=== PATIENT | female | born 1980 | race Caucasian/White ===

== ENCOUNTER 2019-05-19 05:40 | Inpatient (IN) | payer OTHER, SELFPAY ==
[2019-05-19] VITALS (14 sets, daily range): BP systolic 102–147; BP diastolic 40–87; PULSE 70–126; RESP 17–26; TEMP 36.3–37.1; O2SAT 93–98; BMI 48.0; BMI 47.9
--- NOTE | ~2019-05-19 | XR_ITS ---
EXAMINATION: XR abdomen obstructive series DATE: 05/28/2019 12:29 INDICATION: Nausea, vomiting and possible ileus TECHNIQUE: Frontal supine and upright views of the abdomen were obtained. COMPARISON: 05/26/2019 FINDINGS: Nasogastric tube extends into the stomach, coiled back upon itself at the level of the gastric antrum with the tip at the fundus. No dilated gas-filled loops of bowel. No free intraperitoneal gas. Righ t femoral central venous catheter with distal tip projecting over the region of the right external il iac vein. Visualized lung bases are clear. Heart size is normal. IMPRESSION: 1. No free intraperitoneal gas or dilated gas-filled loops of bowel to suggest obstruction. 2. Redundant nasogastric tube in the stomach. Could consider withdrawal by 15 cm. Reviewed, dictated and finalized at location A. IMPRESSION: 1. No free intraperitoneal gas or dilated gas-filled loops of bowel to suggest obstruction. 2. Redundant nasogastric tube in the stomach. Could consider withdrawal by 15 c m.
--- NOTE | ~2019-05-19 | XR_ITS ---
EXAMINATION: XR abdomen NG/feed tube insert EXAM DATE: 05/27/2019 13:27 INDICATION: Nasogastric tube insertion. TECHNIQUE: Frontal projection(s) of the abdomen for interpretation. Comparison is made to prior exami nation from 05/26/2019. FINDINGS: Feeding tube tip and side-port overlying gastric bubble. Expected position. Upper abdomina l bowel gas pattern is unremarkable. IMPRESSION: Feeding tube in position. Nonobstructive bowel gas pattern. Reviewed, dictated and finalized at location A.
--- NOTE | ~2019-05-19 | XR_ITS ---
EXAMINATION: XR chest 1V portable EXAM DATE: 05/20/2019 19:46 INDICATION: Dyspnea. TECHNIQUE: Portable AP frontal chest x-ray was obtained. Comparison is made to prior examination from earlier same date, and yesterday. FINDINGS: Continued interval progression in extensive bilateral edema and/or pneumonia, please clinic ally correlate. There is mild cardiomegaly. No pleural effusion or pneumothorax. There are no osseous abnormalities identified. IMPRESSION: 1. Progression of extensive bilateral edema and/or pneumonia. Reviewed, dictated and finalized at location A.
--- NOTE | ~2019-05-19 | US_ITS ---
EXAMINATION: US retroperitoneal comp DATE: 05/28/2019 09:52 INDICATION: Renal failure TECHNIQUE: Multiple ultrasound grayscale images of the kidneys were obtained. COMPARISON: None. FINDINGS: The right kidney measures 11.2 x 4.5 x 5.9 cm. The left kidney measures 10.3 x 5.8 x 7.1 cm. The kidn eys demonstrate normal echogenicity. There is no hydronephrosis in either kidney. No stones identifi ed. The bladder is nonvisualized, likely decompressed with a Flores catheter reportedly in place. IMPRESSION: 1. Normal kidneys without hydronephrosis. Reviewed, dictated and finalized at location A.
--- NOTE | ~2019-05-19 | XR_ITS ---
XR chest 1V portable 05/20/2019 12:48 Indication: Shortness of breath Procedure: AP portable chest Comparison: 05/19/2019 Findings: Hazy ill-defined bilateral airspace disease. Heart size normal. No pleural effusion or pneu mothorax. No acute osseous abnormality. Impression: 1: Patchy ill-defined bilateral airspace disease, compatible with pneumonia. Edema less favored. Reviewed, dictated and finalized at location A. Impression: 1: Patchy ill-defined bilateral airspace disease, compatible with pneumonia. Ed ernie less favored.
--- NOTE | ~2019-05-19 | XR_ITS ---
XR chest 1V portable DATE: 05/22/2019 06:19 INDICATION: Respiratory failure TECHNIQUE: Portable upright AP chest on 05/22/2019 at 0526 hours COMPARISON: 05/21/2019 portable AP chest at 0837 hours 05/20/2019 portable AP chest at 1940 hours FINDINGS: There is mild residual diffuse pulmonary interstitial infiltrate, serial improvement of ext ensive bilateral pulmonary infiltrates since 05/20/2019. No pleural effusion or pneumothorax is evident. IMPRESSION: Diffuse bilateral pulmonary infiltrates, with serial improvement since 05/20/2019 Reviewed, dictated and finalized at location A. IMPRESSION: Diffuse bilateral pulmonary infiltrates, with serial improvement si nce 05/20/2019
--- NOTE | ~2019-05-19 | XR_ITS ---
XR chest 1V portable DATE: 05/23/2019 05:50 INDICATION: Respiratory failure TECHNIQUE: Portable AP chest on 05/23/2019 at 0512 hours COMPARISON: 05/22/2019 portable AP chest at 0812 hours FINDINGS: Tip of ET tube is approximately 4 cm above jake. A nasogastric tube is noted in the stoma ch. There are extensive patchy bilateral pulmonary infiltrates, with little interval change since 05/22/19 20. IMPRESSION: Stable severe bilateral pulmonary infiltrates Reviewed, dictated and finalized at location A.
--- NOTE | ~2019-05-19 | US_ITS ---
EXAMINATION: US venous doppler UE RT EXAM DATE: 05/28/2019 12:45 INDICATION: Right arm tenderness. TECHNIQUE: Multiple grayscale, color flow, Doppler sonographic images of the right upper extremity ve ins obtained by technologist. Compression was performed where able. There is no prior study for anthony napoles. FINDINGS: Right upper extremity: Jugular vein: ------------> Normal. Subclavian vein: --------> Normal. Axillary vein:------------> Normal. Brachial vein:-----------> Thrombosed. Basilic vein: ------------> Thrombosed. Cephalic vein: ----------> Thrombosed. Radial vein: ------------> Normal. Ulnar vein: > Normal. IMPRESSION: Positive for right brachial DVT. Basilar, cephalic SVT. I discussed DVT with intensive care unit nurse Cindy at 05/28/2019 12:51 CDT. Reviewed, dictated and finalized at location A.
--- NOTE | ~2019-05-19 | XR_ITS ---
EXAMINATION: XR abdomen NG/feed tube insert DATE: 05/22/2019 08:17 INDICATION: Nasogastric tube placement. TECHNIQUE: A semiupright view of the abdomen was obtained. COMPARISON: None. FINDINGS: The lower abdomen is excluded. There are no dilated loops of bowel. The nasogastric tube ti p is in the stomach. IMPRESSION: 1. Nasogastric tube tip in the stomach. Reviewed, dictated and finalized at location A.
--- NOTE | ~2019-05-19 | XR_ITS ---
EXAMINATION: XR chest ET placement EXAM DATE: 05/22/2019 08:17 INDICATION: Intubated. TECHNIQUE: Portable AP frontal chest x-ray was obtained. Comparison is made to prior examination from 05/22/2019. FINDINGS: Endotracheal tube tip is 3 centimeters above the jake (ideal range is between 2 to 5 cm). The feed ing tube is in position. There is extensive bilateral edema and/or pneumonia. There are no sizable pleural effusions. There is no pneumothorax suspected. The cardiomediastinal silhouette is prominent but magnified on this A P technique. The bones and soft tissues are unremarkable. Mild interval progression compared to abraham or study. IMPRESSION: 1. ET, NG tube in position. 2. Extensive bilateral edema and/or pneumonia with mild interval progression. Reviewed, dictated and finalized at location B.
--- NOTE | ~2019-05-19 | XR_ITS ---
XR abdomen NG/feed tube insert DATE: 05/26/2019 08:23 INDICATION: NG tube placement TECHNIQUE: Portable AP view on 05/22/2019 at 0813 hours COMPARISON: None FINDINGS: A nasogastric tube is present in the gastric fundus. IMPRESSION: NG tube in gastric fundus Reviewed, dictated and finalized at Location A. Reviewed, dictated and finalized at location B. IMPRESSION: NG tube in gastric fundus
--- NOTE | ~2019-05-19 | XR_ITS ---
EXAMINATION: XR humerus RT EXAM DATE: 05/28/2019 10:34 INDICATION: No known recent injury provided at this time. Pain of the right humerus. TECHNIQUE: Orthogonal projections right humerus. There is no prior study for comparison. FINDINGS: There are no acute fractures or dislocations identified. There is no subcutaneous gas. Th e soft tissue is unremarkable. There are no radiopaque foreign bodies. IMPRESSION: 1. Unremarkable XR humerus RT exam. Reviewed, dictated and finalized at location A.
--- NOTE | ~2019-05-19 | CT_ITS ---
EXAMINATION: CTA chest PE protocol DATE: 05/19/2019 07:33 CDT INDICATION: Dyspnea. Cough for 2 weeks. History of CHF. TECHNIQUE: Computed tomographic angiography (CTA) of the chest was performed with 100 mL Omnipaque-35 0 intravenous contrast. The dose-length product was 881.98 mGy-cm. Maximum intensity projection 3D-re constructions of the aorta and other arteries were constructed by the technologist on a separate work station. COMPARISON: Chest x-ray dated 05/19/2019 FINDINGS: Study limited by motion artifact for evaluation of subsegmental pulmonary arteries. No cent ral pulmonary embolism is identified. Cardiomegaly. No significant pleural or pericardial effusion. T here is mediastinal lymphadenopathy. For instance right paratracheal lymph node measures 1.4 cm, imag e 46. No evidence for aortic aneurysm or dissection. There is patchy bilateral airspace disease affec ting all lobes, consistent with pneumonia. IMPRESSION: 1. Patchy bilateral airspace disease, consistent with pneumonia. 2: No evidence for pulmonary embolism. 3: Mediastinal lymphadenopathy, likely reactive. Reviewed, dictated and finalized at location A.
--- NOTE | ~2019-05-19 | XR_ITS ---
XR chest 2V INDICATION: Shortness of breath with cough TECHNIQUE: 2 view chest. FINDINGS: 11/04/2018 There is mild bilateral interstitial prominence and peribronchial cuffing. There is no focal consoli dation, pleural effusion, or pneumothorax. The cardiomediastinal silhouette is normal.] IMPRESSION: 1. Findings most consistent with bronchiolitis versus an atypical or viral pneumonia. Reviewed, dictated and finalized at location A. IMPRESSION: 1. Findings most consistent with bronchiolitis versus an atypical or viral pne [facility].
--- NOTE | ~2019-05-19 | XR_ITS ---
EXAMINATION: XR chest 1V portable EXAM DATE: 05/29/2019 05:53 INDICATION: TECHNIQUE: Portable AP frontal chest x-ray was obtained. Comparison is made to prior examination from 05/28/2019. FINDINGS: Feeding tube is in position. Scattered bilateral perihilar atelectasis and/or pneumonia. There are no sizable pleural effusions. There is no pneumothorax suspected. Cardiomediastinal esha houette is normal. The bones and soft tissues are unremarkable. There is no significant interval ch saji compared to prior exam. IMPRESSION: 1. Bilateral perihilar atelectasis and/or pneumonia unchanged. Reviewed, dictated and finalized at location A.
--- NOTE | ~2019-05-19 | XR_ITS ---
XR chest 1V portable DATE: 05/25/2019 06:15 INDICATION: Respiratory failure TECHNIQUE: Portable AP chest on 05/25/2019 at 0507 hours COMPARISON: 05/24/2019 portable AP chest at 0521 hours FINDINGS: ET tube in satisfactory position, 2.8 cm above jake. NG tube in stomach. Heart size appears within normal limits. Pulmonary vascular congestion is suggested. There are bilate ral pulmonary infiltrates, right greater than left, suggestion of mild improvement on the right. IMPRESSION: Mild improvement of right-sided infiltrates since 05/24/2019 Reviewed, dictated and finalized at location A.
--- NOTE | ~2019-05-19 | XR_ITS ---
XR chest 1V portable DATE: 05/26/2019 05:34 INDICATION: Respiratory failure TECHNIQUE: COMPARISON: None FINDINGS: ET tube in satisfactory position approximately 3.8 cm above jake. A nasogastric tube is n oted in the stomach. No central lines. There are patchy bilateral pulmonary infiltrates and/atelectasis involving particularly the left mid and both lower lung zones. The infiltrates and atelectasis appear increased overall since 05/25/2019. IMPRESSION: Increased bilateral pulmonary infiltrates and/atelectasis since 05/25/2019 Reviewed, dictated and finalized at location A. IMPRESSION: Increased bilateral pulmonary infiltrates and/atelectasis since 05/10
--- NOTE | ~2019-05-19 | XR_ITS ---
EXAMINATION: XR chest 1V portable EXAM DATE: 05/28/2019 05:53 INDICATION: Pneumonia, respiratory failure. TECHNIQUE: Portable AP frontal chest x-ray was obtained. Comparison is made to prior examination from yesterday. FINDINGS: Endotracheal tube not identified, patient has likely been extubated. Feeding tube is in po sition. Linear bilateral perihilar opacities appearance most consistent with atelectasis. There are no sizab le pleural effusions. There is no pneumothorax suspected. The cardiomediastinal silhouette is pro minent but magnified on this AP technique. The bones and soft tissues are unremarkable. There has been interval improvement in the airspace disease compared to prior study. IMPRESSION: 1. Nasogastric tube in position. 2. Improving perihilar airspace disease. Reviewed, dictated and finalized at location A.
--- NOTE | ~2019-05-19 | XR_ITS ---
EXAMINATION: XR chest 1V portable INDICATION: Respiratory failure TECHNIQUE: Portable AP chest at 0521 hours COMPARISON: 05/23/2019 FINDINGS: The endotracheal tube is 4.2 cm above the jake. A nasogastric tube is in the stomach. The re is stable cardiomegaly. No pleural effusion or pneumothorax is identified. There are unchanged dif fuse opacity throughout the right lung. Diffuse left lung opacities persist but have improved. IMPRESSION: 1. Diffuse lung disease with interval improvement on the left, consistent with pulmonary edema versus pneumonia. 2. Stable cardiomegaly. Reviewed, dictated and finalized at location A.
--- NOTE | ~2019-05-19 | XR_ITS ---
EXAMINATION: XR chest 1V portable EXAM DATE: 05/30/2019 05:24 INDICATION: Pneumonia, respiratory failure. TECHNIQUE: Portable AP frontal chest x-ray was obtained. Comparison is made to prior examination from 05/29/2019. FINDINGS: Linear bilateral perihilar atelectasis and/or pneumonia. No confluent consolidation, pneumo thorax or pleural effusion suspected. Cardiomediastinal silhouette is normal. There are bony degenera tive changes. Compared to prior study, right perihilar linear atelectasis is new. There may be improvement in the l ess well-defined bilateral perihilar atelectasis/pneumonia previously seen. IMPRESSION: 1. Bilateral linear opacities most consistent with atelectasis. Reviewed, dictated and finalized at location A.
--- NOTE | ~2019-05-19 | XR_ITS ---
XR abdomen obstructive series DATE: 05/26/2019 09:09 INDICATION: Ileus TECHNIQUE: Portable supine and upright AP views COMPARISON: None FINDINGS: An NG tube overlies the right upper quadrant medially, likely within the distal stomach or possibly proximal duodenum. The bowel gas pattern is nonspecific, without evidence of abnormal small or large bowel dilatation. A right calcified pelvic phlebolith is noted. No significant abnormal calcification is identified. No visceromegaly is noted. IMPRESSION: NG tube in distal stomach or proximal duodenum Nonspecific bowel gas pattern, without apparent obstruction Reviewed, dictated and finalized at Location A. Reviewed, dictated and finalized at location B.
--- NOTE | ~2019-05-19 | XR_ITS ---
EXAMINATION: XR chest 1V portable EXAM DATE: 05/27/2019 05:31 INDICATION: TECHNIQUE: Portable AP frontal chest x-ray was obtained. Comparison is made to prior examination from 05/26/2019. FINDINGS: Endotracheal tube tip is 5 centimeters above the jake (ideal range is between 2 to 5 cm). Feeding tube is in position. There are some regions of bilateral perihilar airspace disease, atelectasis and/or pneumonia. Account ing for differences in technique, there is no significant interval change. There are no sizable pl eural effusions. There is no pneumothorax suspected. Cardiomediastinal silhouette is normal. The bones and soft tissues are unremarkable. There is no significant interval change compared to prior exam. IMPRESSION: 1. Tubes in position. 2. Stable perihilar atelectasis and/or pneumonia. Reviewed, dictated and finalized at location A.
--- NOTE | ~2019-05-19 | XR_ITS ---
EXAMINATION: XR chest 1V portable DATE: 05/21/2019 08:38 INDICATION: Pneumonia. Chronic obstructive pulmonary disease. TECHNIQUE: A single frontal view of the chest was obtained. COMPARISON: Chest single view 05/20/2019, chest CT 05/19/2019 FINDINGS: There are airspace opacities involving all lung zones bilaterally. No pleural effusion or p neumothorax. Cardiomegaly is noted. IMPRESSION: 1. Diffuse lung disease with interval improvement, consistent with pulmonary edema versus pneumonia. 2. Cardiomegaly. Reviewed, dictated and finalized at location A. IMPRESSION: 1. Diffuse lung disease with interval improvement, consistent with pulmonary ed ernie versus pneumonia. 2. Cardiomegaly.
--- NOTE | 2019-05-19 05:51 | ECG_ITS ---
Measurements Intervals [place] Rate: 112 P: 55 MN: 158 QRS: 3 QRSD: 89 T: 14 QT: 325 QTc: 445 Interpretive Statements SINUS TACHYCARDIA LOW QRS VOLTAGE IN PRECORDIAL LEADS BORDERLINE T WAVE ABNORMALITY- INFERIOR LEADS BASELINE ARTIFACT- I, II, III, AVR, AVL, AVF, V1-V2 ABNORMAL ECG Electronically Signed On 05-19-2019 7:12:02 CDT by Matthew Li D.O.
[2019-05-19 05:58] LABS: Basophils Percent Auto 0.3 % (0.2-1.2); Eosinophils Absolute Auto 0.3 K/mm3 (0-0.3); Eosinophils Percent Auto 2.6 % (0-4.4); Hematocrit 34.5 % (37.0-47.0); Hemoglobin 11.5 g/dL (12.0-15.0); Immature Granulocyte Absolute 0.08 K/mm3 (0.00-0.031); Immature Granulocyte Percent A 0.7 % (0-0.5); Lymphocytes Absolute Auto 1.81 K/mm3 (0.9-3.2); Lymphocytes Percent Auto 15.3 % (18.3-44.2); Mean Corpuscular HGB Conc 33.3 g/dl (32-36); Mean Corpuscular Volume 98.9 fl (80-100); Mean Platelet Volume 10.1 fl (7.4-10.4); Monocytes Absolute Auto 0.7 K/mm3 (0.1-0.6); Monocytes Percent Auto 6.3 % (2.6-8.5); Neutrophils Absolute Auto 8.8 K/mm3 (1.3-6.7); Neutrophils Percent Auto 74.8 % (45.5-73.1); Nucleated Red Blood Cells Perc 0.2 % (0.0-0.2); Platelet Count Result 245 k/mm3 (150-375); Red Blood Count 3.49 M/mm3 (4.2-5.4); Red Cell Distribution Width 15.2 % (11.5-14.5); White Blood Count 11.8 K/mm3 (4.5-10.0)
[2019-05-19 06:12] LABS: Blood Urea Nitrogen 11 mg/dL (7-17); Calcium 9.1 mg/dL (8.4-10.2); Carbon Dioxide 22 mmol/L (22-30); Chloride 99 mmol/L (98-107); Estimated Glomerular Filt Rate > 60; Glucose 141 mg/dL (65-105); Potassium 3.9 mmol/L (3.4-5.0); Sodium 133 mmol/L (137-145)
--- NOTE | 2019-05-19 06:18 | ED.FEVER ---
HPI - Fever General Chief Complaint: Fever Stated Complaint: dizzy, sob, n/v, cp X 2 weeks Time Seen by Provider: 05/19/19 06:04 Source: RN notes reviewed History of Present Illness HPI Narrative: Patient presents to emergency department from home for upper respiratory symptoms. Patient states that she has been sick for the past 2 weeks. States that initially it had a cough and rhinorrhea that had improved. Patient states that 3 days ago symptoms began to worsen. Patient states she has had a persistent cough productive of yellow sputum. Associated with temperatures up to 103 ?F with last fever last night at 9 PM. Patient states she took NyQuil at that time. Patient also associates rhinorrhea sore throat and vomiting with last episode of vomiting yesterday. Patient denies any abdominal pain at this time. Denies any other symptoms patient denies any recent travel either foreign or domestic Related Data Allergies Allergy/AdvReac Type Severity Reaction Status Date / Time quetiapine Allergy Unknown Nervousness Verified 11/04/18 09:21 Review of Systems Review of Systems: Narrative: Gen.: Reports fevers and chills Eyes: Denies eye pain or visual change ENT: Reports congestion and sore throat Respiratory: Reports shortness of breath and cough CV: Denies chest pain or palpitations GI: Denies abdominal pain reports nausea and vomiting Musculoskeletal: Denies back pain reports myalgias Neuro: Denies numbness, tingling, weakness or focal weakness Skin: Denies rash Except as documented, all other systems reviewed and negative [facility] Past Medical History Medical History (Updated 05/19/19 @ 08:04 by Ed Rosales DO) GERD (gastroesophageal reflux disease) Hypertension Social History Social History (Updated 05/19/19 @ 06:21 by Ed Rosales DO) Smoking status: Current every day smoker Gender identity (if verbalized by the patient): Female Exam Narrative: Exam Narrative: APPEARANCE: No acute distress, nontoxic, resting in bed EYES: EOMI HEENT: Normocephalic, atraumatic, TMs clear bilaterally, bilateral turbinates boggy, oral mucosa dry, mild erythema no exudate posterior pharynx and bilateral tonsils RESPIRATORY: No respiratory distress wheezing throughout the bilateral lung grubbs with no rhonchi or rales CARDIOVASCULAR: Tachycardic and regular without murmurs rubs or gallops. ABDOMINAL: Soft, nontender, nondistended, no rebound or guarding MUSCULOSKELETAl: Moves all extremities. No clubbing, cyanosis or edema. NEURO: Awake and alert. Following commands, speech normal, no focal deficits SKIN:: Warm, dry. No rashes lesions or abrasions PSYCHIATRIC: Normal affect/mood, Course Course Emergency Course: Discussed with Dr. Harmon presentation and work-up. Agrees with admission at this time Discussed with patient and family results of workup and diagnosis. Discussed need for admission. Patient and family understand and agree to current treatment plan Vital Signs Vital signs: Vital Signs Temperature 98.8 F 05/19/19 05:47 Pulse Rate 126 H 05/19/19 05:47 Respiratory Rate 26 H 05/19/19 05:47 Blood Pressure 108/70 05/19/19 05:47 Pulse Oximetry 98 05/19/19 05:47 Temperature 98.8 F 05/19/19 05:47 Pulse Rate 102 H 05/19/19 07:03 Respiratory Rate 18 05/19/19 07:03 Blood Pressure 110/40 L 05/19/19 07:03 Pulse Oximetry 96 05/19/19 07:03 MDM - Fever Lab Data Result diagrams: 05/19/19 05:53 05/19/19 05:53 Labs: Lab Results 05/19/19 05/19/19 05/19/19 Range/Units 05:53 05:53 05:53 WBC 11.8 H (4.5-10.0) K/mm3 RBC 3.49 L (4.2-5.4) M/mm3 Hgb 11.5 L (12.0-15.0) g/dL Hct 34.5 L (37.0-47.0) % MCV 98.9 (80-100) fl MCH 33.0 (26-34) pg MCHC 33.3 (32-36) g/dl RDW 15.2 H (11.5-14.5) % Plt Count 245 (150-375) k/mm3 MPV 10.1 (7.4-10.4) fl Immature Gran % (Auto) 0.7 H (0-0.5) % Neut % (Auto) 74.8 H (45.5-7
--- NOTE | 2019-05-19 06:20 | PC.NURSE ---
Called lab to add on Hepatic and Troponin.
[2019-05-19] MEDS: methylPREDNISolone SOD SUCC 125 MG VIAL IV PUSH (06:24)
[2019-05-19] MEDS: LACTATED RINGERS 1,000 ML 999 ML IV CONT (06:25)
[2019-05-19] MEDS: IPRATROPIUM BR 0.02% INH SOLN 0.5 MG/2.5 ML VIAL INHALATION ×3 (06:31→23:29)
[2019-05-19] MEDS: ALBUTEROL SULFATE NEB 2.5 MG/0.5 ML INH 5 MG INHALATION ×3 (06:31→23:29)
[2019-05-19 07:35] LABS: Alanine Aminotransferase 36 U/L (4-35); Albumin Level 4.2 g/dL (3.5-5.1); Alkaline Phosphatase 127 U/L (38-126); Aspartate Amino Transferase 40 U/L (14-36); Bilirubin,Total 0.6 mg/dL (0.2-1.3); Lipase 40 U/L (23-300)
[2019-05-19 07:39] LABS: Troponin I < 0.012 ng/mL (0.000-0.034)
[2019-05-19 08:23] LABS: Lactic Acid Reflex 2.8 mmol/L (0.7-2.1)
--- NOTE | 2019-05-19 08:31 | PC.NURSE ---
2L NC O2 applied to pt per dr alexey pryor
--- NOTE | 2019-05-19 08:38 | ADMGEN ---
This patient, Dash Crane, was admitted to 2 Medical Room 261-01. Patient/family oriented to hospital policies and general routines including ID bracelet, bed and alarms, visiting hours, pain management, procedures, bathroom and other care routines, personal items, smoking policy, room service/diet, and visiting hours. Valuables list has been completed. Information on how to activate the Rapid Response Team has been discussed. Patient/Family are encouraged to report perceived risks to care and to ask questions if they do not understand what they are told or what they should do.
[2019-05-19 08:40] LABS: Add Urine Microscopic? NO; Appearance Urine Clear (Clear); Bilirubin Urine Negative (Negative); Blood Urine Negative (Negative); Color Urine Colorless (Yellow); Glucose Urine UA Negative (Negative); Ketones Urine Negative (Negative); Leukocyte Esterase Ur Negative LEU/UL (Negative); Nitrate Urine Negative (Negative); Protein Urine Negative (Negative); Specific Grav Ur 1.023 (1.001-1.035); Urobilinogen Urine Negative mg/dL (<2.0)
[2019-05-19] MEDS: SODIUM CHLORIDE 0.9% IV 1,000 ML 999 ML IV CONT (08:42)
--- NOTE | 2019-05-19 10:23 | PM.IMHP ---
H&P: HPI History of Present Illness Chief complaint: Sepsis/community acquired pneumonia Narrative: Dash Crane is a 39 year old female was in her usual state of health until 2 weeks ago. She developed a dry cough and wheezing. Gradually and onset of intermittent nausea with emesis. However she was constipated without diarrhea. She did not have a bowel movement until today. She did have a headache, not severe. Some dizziness. Lightheadedness. And decreased appetite. Last night her symptoms worsen and temperature remberto to 103. She had associated chills was unable to warm herself. She covered herself with blankets and sent over here event. She was short of breath with walking across the room and could not climb steps without severe shortness of breath. Because of her symptoms she presented the emergency department private vehicle. She has not traveled recently. However her children were ill with colds? for the past week. She has not been around anyone who has traveled. She is a smoker but trying to quit and she does have a history of asthma. Uses inhaler only intermittently. Review of Systems Review of Systems: All systems reviewed & are unremarkable except as noted in HPI and below PMFSH Past Medical History Medical History (Updated 05/19/19 @ 10:48 by Tito Harmon MD) Asthma, mild intermittent GERD (gastroesophageal reflux disease) Hypertension IRMA on CPAP Peripartum cardiomyopathy 2005 Surgical History Surgical History (Updated 05/19/19 @ 10:44 by Tito Harmon MD) H/O tubal ligation History of thyroidectomy, subtotal for benign nodule Family History Family History (Updated 05/19/19 @ 10:45 by Tito Harmon MD) Father Diabetes mellitus Acute myocardial infarction Hypertension Congestive heart failure Rectal cancer Mother No problems noted. 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 Gender identity (if verbalized by the patient): Female Spiritual care concerns: No (Yazidism) Agree to blood products: Yes Meds Home Medications and Allergies Home Medications Medication Instructions Recorded Confirmed Type clonazepam 1 mg PO TID 05/19/19 05/19/19 History docusate sodium [Colace] 100 mg PO DAILY 05/19/19 05/19/19 History famotidine 20 mg PO DAILY 05/19/19 05/19/19 History gabapentin 600 mg PO HS 05/19/19 05/19/19 History ipratropium-albuterol INHALATION BID 05/19/19 History levothyroxine 50 mcg PO DAILY 05/19/19 05/19/19 History lisinopril 40 mg PO DAILY 05/19/19 05/19/19 History melatonin 12 mg PO HS 05/19/19 05/19/19 History metoprolol tartrate 100 mg PO BID 05/19/19 05/19/19 History omeprazole 40 mg PO DAILY 05/19/19 05/19/19 History ondansetron HCl 8 mg PO Q6H PRN 05/19/19 05/19/19 History paliperidone palmitate [Invega 117 mg IM MONTHLY 05/19/19 05/19/19 History Sustenna] phenazopyridine 100 mg PO DAILY 05/19/19 05/19/19 History sertraline 150 mg PO DAILY 05/19/19 05/19/19 History Allergies Allergy/AdvReac Type Severity Reaction Status Date / Time quetiapine Allergy Unknown Nervousness Verified 05/19/19 08:11 chlorpromazine Allergy Itching Verified 05/19/19 08:12 [From Thorazine] latex Allergy Rash Verified 05/19/19 08:12 Vital Signs Vital Signs - 24 hr 05/19/19 05:47 05/19/19 06:32 05/19/19 06:40 Temperature 98.8 F Pulse Rate 126 H 97 110 H Respiratory Rate 26 H 22 H 22 H Blood Pressure 108
[2019-05-19 11:08] LABS: Reflex Lactic Acid Yes or No Add Lactic
[2019-05-19] MEDS: SODIUM CHLORIDE 0.9% IV 1,000 ML 80 ML IV CONT (11:34)
[2019-05-19 11:42] LABS: Lactic Acid 3.8 mmol/L (0.7-2.1)
[2019-05-19] MEDS: DOCUSATE SODIUM 100 MG CAPSULE PO (13:29)
[2019-05-19] MEDS: METOPROLOL TARTRATE 50 MG TAB 100 MG PO ×2 (13:29→17:35)
[2019-05-19] MEDS: ENOXAPARIN 40 MG/0.4 ML SYRINGE SUB-Q (13:30)
[2019-05-19] MEDS: PHENAZOPYRIDINE HCL 100 MG TABLET PO (13:30)
[2019-05-19] MEDS: LEVOTHYROXINE SODIUM 50 MCG TABLET PO (13:30)
[2019-05-19] MEDS: PANTOPRAZOLE 40 MG TABLET PO (13:30)
[2019-05-19] MEDS: SERTRALINE HCL 50 MG TABLET 150 MG PO (13:30)
[2019-05-19] MEDS: CLONAZEPAM 0.5 MG TAB 1 MG PO ×2 (13:31→17:35)
[2019-05-19] MEDS: methylPREDNISolone SOD SUCC 125 MG VIAL 60 MG IV PUSH ×3 (13:31→23:01)
--- NOTE | 2019-05-19 13:41 | PC.NURSE ---
Multiple scabbed scratch collado noted to abdomen. Patient states she scratches herself when she is nervous .
[2019-05-19] MEDS: GABAPENTIN 300 MG CAPSULE 600 MG PO (23:00)
[2019-05-19] MEDS: MELATONIN 3 MG TABLET 12 MG PO (23:01)
--- NOTE | 2019-05-19 23:28 | PCRCNOTE ---
Window of time for administration has passed. See next scheduled administration.
[2019-05-20] VITALS (17 sets, daily range): BP systolic 104–151; BP diastolic 73–88; PULSE 76–102; RESP 16–50; TEMP 36.1–37.3; O2SAT 90–95
--- NOTE | 2019-05-20 | ECHO_ITS ---
Patient Info Name: Dash Crane Age: 39 years : 1980 Gender: Female Ht: 63 in Wt: 270 lbs BSA: 2.41 m2 HR: 81 bpm BP: 151 / 88 mmHg Heart Rhythm: Sinus Rhythm Technical Quality: Good Exam Date: 05/20/2019 2:19 PM Exam Location: [facility] Patient Status: Outpatient Admit Date: 05/19/2019 Staff Ordering Physician: Lavelle Shaffer PA-C [employer] Rule Die Maker: German Vargas RDCS, RT Attending Provider: Lavelle Shaffer PA-C Referring Physician: Edmund NEAL; Exam Type: CA echo dop color flow w con Study Info Indications R06.02 - Shortness of breath Complete two-dimensional, color flow and Doppler transthoracic echocardiogram is performed with contrast to opacify the left ventrical and to improve the deliniation of the left ventrical endocarial boarders. Summary 1. Left ventricular chamber size and systolic function are normal with no regional wall motion abnormalities with an estimated ejection fraction of 60-65%. Mild left ventricular hypertrophy is present. Borderline criteria for diastolic dysfunction is present. 2. No significant valve disease. 3. Very technically difficult study. Definity echo contrast used. 4. Normal sinus rhythm. Left Ventricle Left ventricular chamber size and systolic function are normal with no regional wall motion abnormalities with an estimated ejection fraction of 60-65%. Mild left ventricular hypertrophy is present. Borderline criteria for diastolic dysfunction is present. Left ventricular chamber dimension is normal. Left ventricular systolic function is normal, estimated at 60-65%. There is mildly increased left ventricular wall thickness. Left ventricular septal wall motion is normal. The left ventricular diastolic function is indeterminate. Right Ventricle Right ventricular chamber dimension is normal. Right ventricular systolic function is normal. Left Atria Left atrial chamber dimension is normal. Right Atria Right atrial chamber dimension is normal. Aortic Valve The aortic valve is trileaflet. There is no aortic valve sclerosis. There is no aortic valve stenosis. No significant valve disease. Pulmonic Valve The pulmonic valve is normal. There is no pulmonic valve stenosis. There is no pulmonic regurgitation. Mitral Valve The mitral valve has normal leaflets. There is no mitral valve stenosis. There is no mitral valve regurgitation. Tricuspid Valve The tricuspid valve leaflets are normal. There is no significant tricuspid valve stenosis. There is no tricuspid valve regurgitation. No pulmonary hypertension, estimated pulmonary arterial systolic pressure is Empty. Pericardium/Pleural The pericardium appears normal. There is no pericardial effusion. Inferior Vena Cava Not well visualized inferior vena cava with >50% collapse upon inspiration consistent with Empty right atrial pressure, Empty. Aorta The aortic root size at the sinus of Valsalva is normal. The prox ascending aorta size is normal. Left Ventricular Outflow Tract Name Value Normal LVOT 2D LVOT Diameter 1.88 cm LVOT Doppler LVOT Peak Gradient
[2019-05-20] MEDS: GABAPENTIN 300 MG CAPSULE 600 MG PO (04:00)
[2019-05-20 05:44] LABS: Basophils Percent Auto 0.1 % (0.2-1.2); Hematocrit 34.2 % (37.0-47.0); Hemoglobin 11.3 g/dL (12.0-15.0); Immature Granulocyte Absolute 0.22 K/mm3 (0.00-0.031); Immature Granulocyte Percent A 1.3 % (0-0.5); Lymphocytes Absolute Auto 1.19 K/mm3 (0.9-3.2); Lymphocytes Percent Auto 6.8 % (18.3-44.2); Mean Corpuscular Hemoglobin 33.1 pg (26-34); Mean Corpuscular Volume 100.3 fl (80-100); Mean Platelet Volume 10.3 fl (7.4-10.4); Monocytes Absolute Auto 0.5 K/mm3 (0.1-0.6); Monocytes Percent Auto 2.6 % (2.6-8.5); Neutrophils Absolute Auto 15.6 K/mm3 (1.3-6.7); Neutrophils Percent Auto 89.2 % (45.5-73.1); Platelet Count Result 237 k/mm3 (150-375); Red Blood Count 3.41 M/mm3 (4.2-5.4); Red Cell Distribution Width 15.3 % (11.5-14.5); White Blood Count 17.5 K/mm3 (4.5-10.0)
[2019-05-20] MEDS: SODIUM CHLORIDE 0.9% IV 1,000 ML 80 ML IV CONT (05:57)
[2019-05-20] MEDS: LEVOTHYROXINE SODIUM 50 MCG TABLET PO (06:08)
[2019-05-20] MEDS: methylPREDNISolone SOD SUCC 125 MG VIAL 60 MG IV PUSH ×3 (06:10→17:19)
[2019-05-20 06:16] LABS: Blood Urea Nitrogen 9 mg/dL (7-17); Calcium 8.7 mg/dL (8.4-10.2); Carbon Dioxide 23 mmol/L (22-30); Chloride 108 mmol/L (98-107); Estimated CRCL calculation 116 ml/min; Estimated Glomerular Filt Rate > 60; Glucose 199 mg/dL (65-105); Potassium 3.8 mmol/L (3.4-5.0); Sodium 137 mmol/L (137-145)
[2019-05-20] MEDS: ENOXAPARIN 40 MG/0.4 ML SYRINGE SUB-Q (09:14)
[2019-05-20] MEDS: SERTRALINE HCL 50 MG TABLET 150 MG PO (09:14)
[2019-05-20] MEDS: lisinopriL 20 MG TABLET 40 MG PO (09:14)
[2019-05-20] MEDS: PANTOPRAZOLE 40 MG TABLET PO (09:14)
[2019-05-20] MEDS: METOPROLOL TARTRATE 50 MG TAB 100 MG PO ×2 (09:15→17:18)
[2019-05-20] MEDS: CLONAZEPAM 0.5 MG TAB 1 MG PO ×3 (09:15→17:17)
[2019-05-20] MEDS: FAMOTIDINE 20 MG TABLET PO (09:15)
[2019-05-20] MEDS: PHENAZOPYRIDINE HCL 100 MG TABLET PO (09:15)
[2019-05-20] MEDS: DOCUSATE SODIUM 100 MG CAPSULE PO (09:15)
[2019-05-20] MEDS: IPRATROPIUM BR 0.02% INH SOLN 0.5 MG/2.5 ML VIAL INHALATION ×3 (09:52→20:50)
[2019-05-20] MEDS: ALBUTEROL SULFATE NEB 2.5 MG/0.5 ML INH 5 MG INHALATION ×3 (09:52→20:50)
--- NOTE | 2019-05-20 12:30 | ECG_ITS ---
Measurements Intervals [place] Rate: 86 P: 40 VT: 172 QRS: 5 QRSD: 85 T: 12 QT: 340 QTc: 408 Interpretive Statements SINUS RHYTHM BASELINE ARTIFACT- I, II, III, AVR, AVL, AVF, V5-V6 NORMAL ECG Electronically Signed On 05-20-2019 13:01:24 CDT by Matthew Li D.O.
[2019-05-20 12:38] LABS: Alveolar/Arterial O2 Gradient 594.9 mmHg; Base Excess ABG -3.2 mEq/l (+/-2.0); Fractional Inspired Oxygen 100 %; HCO3 ABG 21.9 mEq/l (22.0-26.0); Modified Allen's Test Pass; Oxygen Content ABG 16.1 %vol (16.0-22.0); Oxygen Saturation ABG 95.3 % (95.0-100.0); Oxyhemoglobin 94.1 % THb (90.0-100.0); PCO2 ABG 39.3 mmHg (35.0-45.0); PO2 ABG 78.8 mmHg (80.0-100.0); PO2 FiO2 Ratio Arterial Blood 0.79 %; Site Drawn RIGHT RADIAL; Total Hemoglobin 12.1 g/dL (12.0-18.0); pH ABG 7.364 (7.350-7.450)
[2019-05-20 12:39] LABS: Device NON-REBREATHER MASK
[2019-05-20] MEDS: ACETAMINOPHEN 325 MG TABLET 650 MG PO ×2 (13:01→22:34)
[2019-05-20] MEDS: FUROSEMIDE INJ 40 MG/4 ML VIAL IV PUSH ×2 (13:02→21:21)
[2019-05-20 13:20] LABS: NT Pro B Type Natriuretic Pept 2010 PG/ML (5-100)
[2019-05-20 13:23] LABS: Troponin I < 0.012 ng/mL (0.000-0.034)
--- NOTE | 2019-05-20 13:26 | PM.IMPN ---
Progress Note: A&P Assessment and Plan (1) Community acquired pneumonia: Qualifiers: Laterality: unspecified laterality Qualified Code(s): J18.9 - Pneumonia, unspecified organism <Lavelle GarciaAngela Shaffer PA-C - Last Filed: 05/20/19 19:31> Code(s): J18.9 - Pneumonia, unspecified organism <Lavelle Smith KORI Shaffer - Last Filed: 05/20/19 19:31> Status: Acute <Lavelle Smith KORI Shaffer - Last Filed: 05/20/19 19:31> Assessment and Plan: Likely post viral with influenza swab negative, low risk for MRSA. WBC 17.5k. Likely partly due to increased respiratory distress this afternoon. Trop negative, EKG unremarkable, awaiting Echo. BNP elevated. ABG unremarkable for acidosis/alkalosis Conitnue ceftriaxone and azithromycin Consider adding Levaquin if not improving tomorrow Monitor closely <Lavelle JoseAngela Shaffer PA-C - Last Filed: 05/20/19 19:31> (2) Sepsis: Qualifiers: Sepsis acute organ dysfunction status: without acute organ dysfunction Sepsis type: sepsis due to unspecified organism Qualified Code(s): A41.9 - Sepsis, unspecified organism <Lavelle GarciaAngela Shaffer PA-C - Last Filed: 05/20/19 19:31> Code(s): A41.9 - Sepsis, unspecified organism <Lavelle JoseAngela Shaffer PA-C - Last Filed: 05/20/19 19:31> Status: Acute <Lavelle GarciaAngela Shaffer PA-C - Last Filed: 05/20/19 19:31> Assessment and Plan: Due to community-acquired pneumonia as source. WBC 17.5k IV abx for CAP IVF stopped due to possible volume overload in setting of possible CHF <Lavelle JoseAngela Shaffer PA-C - Last Filed: 05/20/19 19:31> (3) Asthma, mild intermittent: Qualifiers: Asthma complication type: with acute exacerbation Qualified Code(s): J45.21 - Mild intermittent asthma with (acute) exacerbation <Lavelle Smith KORI Shaffer - Last Filed: 05/20/19 19:31> Code(s): J45.20 - Mild intermittent asthma, uncomplicated <Lavelle Smith KORI Shaffer - Last Filed: 05/20/19 19:31> Status: Acute <Lavelle Smith KORI Shaffer - Last Filed: 05/20/19 19:31> Assessment and Plan: No wheezing on exam Likely taper frequency of IV Steroids tomorrow Bronchodilators <Lavelle Smith KORI Shaffer - Last Filed: 05/20/19 19:31> (4) Hypertension: Qualifiers: Hypertension type: essential hypertension Qualified Code(s): I10 - Essential (primary) hypertension <Lavelle Smith KORI Shaffer - Last Filed: 05/20/19 19:31> Code(s): I10 - Essential (primary) hypertension <Lavelle Smith KORI Shaffer - Last Filed: 05/20/19 19:31> Status: Acute <Lavelle Smith KORI Shaffer - Last Filed: 05/20/19 19:31> Assessment and Plan: BP reviewed and 150s sys today. Continue home regimen and monitor Caution if continued diuresis <Lavelle Smith KORI Shaffer - Last Filed: 05/20/19 19:31> (5) GERD (gastroesophageal reflux disease): Qualifiers: Esophagitis presence: esophagitis presence not specified Qualified Code(s): K21.9 - Gastro-esophageal reflux disease without esophagitis <Lavelle Smith KORI Shaffer - Last Filed: 05/20/19 19:31> Code(s): K21.9 - Gastro-esophageal reflux disease without esophagitis <Lavelle Smith KORI Shaffer - Last Filed: 05/20/19 19:31> Status: Acute <Lavelle Shaffer PA-C - Last Filed: 05/20/19 19:31> Assessment and Plan: Continue home regimen <Lavelle Shaffer PA-C - Last Filed: 05/20/19 19:31> (6) IRMA on CPAP: Code(s): G47.33 - Obstructive sleep apnea (adult) (pediatric); Z99.89 - Dependence on other enabling machines and devices <Lavelle Shaffer PA-C - Last Filed: 05/20/19 19:31> Status: Acute <Lavelle Shaffer PA-C - Last Filed: 05/20/19 19:31> Assessment and Plan: Auto titrating CPAP while hospitalized ____
[2019-05-20 17:31] LABS: Alveolar/Arterial O2 Gradient 468.8 mmHg; Base Excess ABG -2.6 mEq/l (+/-2.0); Fractional Inspired Oxygen 80 %; HCO3 ABG 21.8 mEq/l (22.0-26.0); Oxygen Content ABG 15.6 %vol (16.0-22.0); Oxygen Saturation ABG 92.2 % (95.0-100.0); Oxyhemoglobin 90.8 % THb (90.0-100.0); PCO2 ABG 36.7 mmHg (35.0-45.0); PO2 ABG 63.1 mmHg (80.0-100.0); PO2 FiO2 Ratio Arterial Blood 0.79 %; Total Hemoglobin 12.2 g/dL (12.0-18.0); pH ABG 7.392 (7.350-7.450)
[2019-05-20 17:33] LABS: Device HIGH FLOW NASAL CANN; Modified Allen's Test Pass; Site Drawn LEFT RADIAL
[2019-05-20 20:00] LABS: Alveolar/Arterial O2 Gradient 305.1 mmHg; Base Excess ABG -2.2 mEq/l (+/-2.0); Fractional Inspired Oxygen 60 %; Modified Allen's Test Pass; Oxygen Content ABG 16.1 %vol (16.0-22.0); Oxygen Saturation ABG 95.1 % (95.0-100.0); PCO2 ABG 41.1 mmHg (35.0-45.0); PO2 ABG 77.5 mmHg (80.0-100.0); PO2 FiO2 Ratio Arterial Blood 1.29 %; Site Drawn RIGHT RADIAL; Total Hemoglobin 12.1 g/dL (12.0-18.0); pH ABG 7.366 (7.350-7.450)
[2019-05-20 20:01] LABS: Device NON-INVASIVE VENT; Non-Invasive Expiratory Pressure 6 CMH2O; Non-Invasive Inspiratory Pressure 12 CMH2O; Non-Invasive Vent Rate 10 /MIN
[2019-05-20] MEDS: PROMETHAZINE HCL 25 MG/ML AMPUL 12.5 MG IV PUSH (21:21)
[2019-05-20] MEDS: MELATONIN 3 MG TABLET 12 MG PO (22:26)
[2019-05-21] VITALS (29 sets, daily range): BP systolic 111–140; BP diastolic 57–98; PULSE 71–101; RESP 22–52; TEMP 36.8–37.4; O2SAT 90–97
[2019-05-21] MEDS: methylPREDNISolone SOD SUCC 125 MG VIAL 60 MG IV PUSH ×4 (01:14→17:29)
[2019-05-21] MEDS: ALBUTEROL SULFATE NEB 2.5 MG/0.5 ML INH 5 MG INHALATION ×4 (02:11→20:15)
[2019-05-21] MEDS: IPRATROPIUM BR 0.02% INH SOLN 0.5 MG/2.5 ML VIAL INHALATION ×4 (02:12→20:15)
[2019-05-21 04:46] LABS: Basophils Percent Auto 0.1 % (0.2-1.2); Hematocrit 34.3 % (37.0-47.0); Hemoglobin 11.2 g/dL (12.0-15.0); Immature Granulocyte Absolute 0.26 K/mm3 (0.00-0.031); Immature Granulocyte Percent A 1.6 % (0-0.5); Lymphocytes Absolute Auto 0.85 K/mm3 (0.9-3.2); Lymphocytes Percent Auto 5.2 % (18.3-44.2); Mean Corpuscular HGB Conc 32.7 g/dl (32-36); Mean Corpuscular Hemoglobin 32.7 pg (26-34); Mean Platelet Volume 10.2 fl (7.4-10.4); Monocytes Absolute Auto 0.5 K/mm3 (0.1-0.6); Monocytes Percent Auto 3.2 % (2.6-8.5); Neutrophils Absolute Auto 14.8 K/mm3 (1.3-6.7); Neutrophils Percent Auto 89.9 % (45.5-73.1); Platelet Count Result 241 k/mm3 (150-375); Red Blood Count 3.43 M/mm3 (4.2-5.4); Red Cell Distribution Width 15.5 % (11.5-14.5); White Blood Count 16.4 K/mm3 (4.5-10.0)
[2019-05-21] MEDS: LEVOTHYROXINE SODIUM 50 MCG TABLET PO (05:41)
[2019-05-21 06:02] LABS: Blood Urea Nitrogen 11 mg/dL (7-17); Calcium 8.1 mg/dL (8.4-10.2); Carbon Dioxide 29 mmol/L (22-30); Chloride 103 mmol/L (98-107); Estimated CRCL calculation 116 ml/min; Estimated Glomerular Filt Rate > 60; Glucose 167 mg/dL (65-105); Magnesium 1.8 mg/dL (1.6-2.3); Potassium 3.9 mmol/L (3.4-5.0); Sodium 139 mmol/L (137-145)
[2019-05-21 07:47] LABS: Alveolar/Arterial O2 Gradient 383.7 mmHg; Fractional Inspired Oxygen 70 %; Oxygen Content ABG 15.5 %vol (16.0-22.0); Oxygen Saturation ABG 93.8 % (95.0-100.0); Oxyhemoglobin 91.9 % THb (90.0-100.0); PCO2 ABG 43.7 mmHg (35.0-45.0); PO2 ABG 68.4 mmHg (80.0-100.0); PO2 FiO2 Ratio Arterial Blood 0.98 %; pH ABG 7.408 (7.350-7.450)
[2019-05-21 07:48] LABS: Device NON-INVASIVE VENT; Modified Allen's Test Pass; Non-Invasive Expiratory Pressure 6 CMH2O; Non-Invasive Inspiratory Pressure 12 CMH2O; Non-Invasive Vent Rate 10 /MIN; Site Drawn RIGHT RADIAL
[2019-05-21] MEDS: PANTOPRAZOLE 40 MG TABLET PO (08:11)
[2019-05-21] MEDS: FUROSEMIDE INJ 40 MG/4 ML VIAL IV PUSH ×2 (08:11→17:29)
[2019-05-21] MEDS: ENOXAPARIN 40 MG/0.4 ML SYRINGE SUB-Q (08:11)
[2019-05-21] MEDS: lisinopriL 20 MG TABLET 40 MG PO (08:11)
[2019-05-21] MEDS: FAMOTIDINE 20 MG TABLET PO (08:12)
[2019-05-21] MEDS: SERTRALINE HCL 50 MG TABLET 150 MG PO (08:12)
[2019-05-21] MEDS: METOPROLOL TARTRATE 50 MG TAB 100 MG PO ×2 (08:12→17:30)
[2019-05-21] MEDS: DOCUSATE SODIUM 100 MG CAPSULE PO (08:16)
[2019-05-21] MEDS: CLONAZEPAM 0.5 MG TAB 1 MG PO ×2 (08:16→18:21)
[2019-05-21] MEDS: PROMETHAZINE HCL 25 MG/ML AMPUL 12.5 MG IV PUSH ×2 (08:36→14:35)
--- NOTE | 2019-05-21 09:48 | WPDCNINT ---
Assessment and Plan Assessment and plan (1) Acute respiratory failure with hypoxia: Code(s): J96.01 - Acute respiratory failure with hypoxia Status: Acute Assessment and Plan: appears to be multifactorial patient presented with symptoms and signs suggestive pneumonia. The patient was admitted and started on empiric antibiotics for community-acquired pneumonia and was given IV fluids. over hospital stay patient hypoxia worsened and patient was fairly positive On intake and output balance she is positive by at least 5 L and received total close to 10 L which corresponding with worsening of chest x-ray and elevated BNP suggest pulmonary edema to be the likely etiology.. patient also has a history of cardiomyopathy and congestive heart failure. Baseline asthma but does not appear to be wheezing. Also component of anxiety as patient has a high respiratory rate but no signs of respiratory distress or use of accessory muscles. if patient does not improve with diuresis then it may suggest ARDS. - Continue BiPAP for now. Settings changed to 23/10. Add humidifier to improve compliance. - Continue steroids and DuoNeb. - Antibiotics were changed by internal medicine physician to vancomycin and Unasyn which I will continue at this time. cultures have been negative so far. - check urine Legionella antigen and strep antigen. - Continue Lasix that was started last night.. Patient is not on any IV fluids. - hold sedatives. Hopefully patient will turn around with BiPAP and these measures. If patient deteriorates then she may need intubation and invasive mechanical ventilation. - Continue to monitor closely in ICU. - Daily chest x-ray and ABGs (2) CHF (congestive heart failure): Code(s): I50.9 - Heart failure, unspecified Status: Acute Assessment and Plan: ECHO 05/19 1. Left ventricular chamber size and systolic function are normal with no regional wall motion abnormalities with an estimated ejection fraction of 60-65%. Mild left ventricular hypertrophy is present. Borderline criteria for diastolic dysfunction is present. 2. No significant valve disease. 3. Very technically difficult study. Definity echo contrast used. 4. Normal sinus rhythm. (3) Community acquired pneumonia: Qualifiers: Laterality: unspecified laterality Qualified Code(s): J18.9 - Pneumonia, unspecified organism Code(s): J18.9 - Pneumonia, unspecified organism Status: Acute Assessment and Plan: See abov (4) Pulmonary edema: Code(s): J81.1 - Chronic pulmonary edema Status: Acute Assessment and Plan: see above (5) Asthma, mild intermittent: Qualifiers: Asthma complication type: with acute exacerbation Qualified Code(s): J45.21 - Mild intermittent asthma with (acute) exacerbation Code(s): J45.20 - Mild intermittent asthma, uncomplicated Status: Acute (6) Obesity hypoventilation syndrome: Code(s): E66.2 - Morbid (severe) obesity with alveolar hypoventilation Status: Acute Assessment and Plan: patient currently on BiPAP (7) Anxiety: Code(s): F41.9 - Anxiety disorder, unspecified Status: Acute Assessment and Plan: I will hold clonazepam at this time. Patient may need Precedex infusion if anxiety and agitation hinders and mechanical ventilation. (8) IRMA on CPAP: Code(s): G47.33 - Obstructive sleep apnea (adult) (pediatric); Z99.89 - Dependence on other enabling machines and devices Status: Acute Assessment and Plan: currently on BiPAP. Once off will use CPAP at night (9) GERD (gastroesophageal reflux disease): Qualifiers: Esophagitis presence: esophagitis presence not specified Qualified Code(s): K21.9 - Gastro-esophageal reflux disease without esophagitis Code(s): K21.9 - Gastro-esophageal reflux disease without esophagitis Status: Acute
[2019-05-21] MEDS: ACETAMINOPHEN 325 MG TABLET 650 MG PO (13:35)
[2019-05-21 14:34] LABS: Glucose Point of Care 124 (65-105)
[2019-05-21] MEDS: MELATONIN 3 MG TABLET 12 MG PO (20:17)
[2019-05-22] VITALS (27 sets, daily range): BP systolic 107–140; BP diastolic 62–93; PULSE 60–101; RESP 15–38; TEMP 36.7–37.1; O2SAT 92–100
[2019-05-22] MEDS: methylPREDNISolone SOD SUCC 125 MG VIAL 60 MG IV PUSH ×5 (00:06→23:53)
[2019-05-22] MEDS: ALBUTEROL SULFATE NEB 2.5 MG/0.5 ML INH 5 MG INHALATION ×4 (02:18→20:10)
[2019-05-22] MEDS: IPRATROPIUM BR 0.02% INH SOLN 0.5 MG/2.5 ML VIAL INHALATION ×4 (02:19→20:10)
[2019-05-22 04:03] LABS: Alveolar/Arterial O2 Gradient 403.6 mmHg; Carboxyhemoglobin 0.1 % THb (0-2.0); Fractional Inspired Oxygen 75 %; HCO3 ABG 32.4 mEq/l (22.0-26.0); Methemoglobin ABG 0.2 %THb (0-1.5); Oxygen Saturation ABG 95.7 % (95.0-100.0); Oxyhemoglobin 94.4 % THb (90.0-100.0); PO2 FiO2 Ratio Arterial Blood 1.04 %; Reduced Hemoglobin 5.3 %THb (0-5.0)
[2019-05-22 04:04] LABS: Device NON-INVASIVE VENT; Modified Allen's Test Pass; Site Drawn LEFT RADIAL
[2019-05-22 04:05] LABS: Non-Invasive Expiratory Pressure 8 CMH2O; Non-Invasive Inspiratory Pressure 14 CMH2O; Non-Invasive Vent Rate 10 /MIN
[2019-05-22] MEDS: LEVOTHYROXINE SODIUM 50 MCG TABLET PO (05:51)
[2019-05-22 06:11] LABS: Mean Corpuscular HGB Conc 32.4 g/dl (32-36); Mean Corpuscular Hemoglobin 32.7 pg (26-34); Mean Corpuscular Volume 101.2 fl (80-100); Mean Platelet Volume 10.4 fl (7.4-10.4); Platelet Count Result 257 k/mm3 (150-375); Red Blood Count 3.36 M/mm3 (4.2-5.4); Red Cell Distribution Width 15.4 % (11.5-14.5); White Blood Count 14.5 K/mm3 (4.5-10.0)
[2019-05-22 06:38] LABS: Blood Urea Nitrogen 18 mg/dL (7-17); Carbon Dioxide 37 mmol/L (22-30); Chloride 98 mmol/L (98-107); Estimated CRCL calculation 116 ml/min; Estimated Glomerular Filt Rate > 60; Glucose 136 mg/dL (65-105); Phosphorus 3.1 mg/dL (2.5-4.5); Potassium 3.3 mmol/L (3.4-5.0); Sodium 138 mmol/L (137-145)
[2019-05-22 06:53] LABS: Vancomycin Trough 13.7 ug/mL (10.0-20.0)
--- NOTE | 2019-05-22 07:30 | WPDPROCEDUR ---
Procedures Intubation: Intubation Date: 05/22/19 A pre-procedural Time-Out was completed immediately before starting the procedure and confirmed: Patient Identification, Site, Procedure, Patient Position and the Availability of Requisite Equipment: Yes Sedative: versed (4) Mg given: 20 Paralytic: succinylcholine Mg given: 100 Laryngoscope: Marcy ET tube size: cuffed Tube secured depth (cm): 23 Tube secured location: lips Tube placement confirmation: visualized tube passing through cords, equal breath sounds bilaterally, no breath sounds over epigastrium and confirmation by capnometry Patient tolerated procedure: well Intubation complications: none Additional comments: Patient had to be given additional propofol after intubation as patient was a synchronous with the vent and desaturating. Patient was also having violent bouts of cough. Patient was given 50 mg of rocuronium. Patient was suctioned and PEEP was increased to 10 which led to improvement of saturation.
--- NOTE | 2019-05-22 07:30 | WPDINTPN ---
Progress Note: A&P Assessment and Plan (1) Acute respiratory failure with hypoxia: Code(s): J96.01 - Acute respiratory failure with hypoxia Status: Acute Assessment and Plan: appears to be multifactorial. Patient presented with symptoms and signs suggestive pneumonia. The patient was admitted and started on empiric antibiotics for community-acquired pneumonia and was given IV fluids. Over hospital stay patient hypoxia worsened and patient was fairly positive on intake and output balance she is positive by at least 5 L and received total close to 10 L which corresponding with worsening of chest x-ray and elevated BNP suggested pulmonary edema to be the likely etiology. patient also has a history of cardiomyopathy and congestive heart failure. Baseline asthma but does not appear to be wheezing. Also component of anxiety as patient has a high respiratory rate but no signs of respiratory distress or use of accessory muscles. Patient was placed on BiPAP yesterday and was started on aggressive diuresis. Despite good urine output with Lasix her hypoxia has not. Chest x-ray continues to show bilateral diffuse infiltrate. Clinical picture suggestive of ARDS now. Patient has not improved with BiPAP therapy and was clinically worse has decision was made to intubate the patient. Patient was agreeable to intubation and so was her who I spoke to by phone. Patient was intubated without any complication. Post intubation patient desaturated and PEEP was increased to 10 and patient was given a dose of paralytic. - Chest x-ray reviewed. ABG pending - sedation with propofol and fentanyl . May need continued paralysis. - Continue steroids and DuoNeb. - Continue vancomycin, azithromycin and Unasyn Cultures have been negative so far. I will repeat sputum cultures now - pending Legionella antigen - Reviewed echocardiogram. - patient was negative for influenza in ED. - Daily chest x-ray and ABGs - consult pulmonary. As patient may need bronch And the time of initial consultation I asked patient and her of any sick contact or travel and both denied either. Patient has been sick for close to 2 weeks prior to presentation as per her initial history. Today while discussing with the patient feels , patient's were concerned about COVID-19. 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 We have placed patient in contact and droplet isolation. Patient has been intubated for source control. health department has been notified for testing kit availability versus further guidance on testing regarding if we need to send the sample. (2) ARDS (adult respiratory distress syndrome): Code(s): J80 - Acute respiratory distress syndrome Status: Acute (3) CHF (congestive heart failure): Code(s): I50.9 - Heart failure, unspecified Status: Acute Assessment and Plan: ECHO 05/19 1. Left ventricular chamber size and systolic function are normal with no regional wall motion abnormalities with an estimated ejection fraction of 60-65%. Mild left ventricular hypertrophy is present. Borderline criteria for diastolic dysfunction is present. 2. No significant valve disease. 3. Very technically difficult study. Definity echo contrast used. 4. Normal sinus rhythm. (4) Community acquired pneumonia: Qualifiers: Laterality: unspecified laterality Qualified Code(s): J18.9 - Pneumonia, unspecified organism Code(s): J18.9 - Pneumonia, unspecified organism Status: Acute Assessment and Plan: See abov (5) Pulmonary edema: Code(s): J81.1 - Chronic pulmonary edema Status: Acute Assessment and Plan: see above (6) Asthma, mild intermittent: Qualifiers: Asthma complication type: with acute exacerbation Qualified Code(s): J45.21 - Mild intermittent asthma with (acute) exace
[2019-05-22] MEDS: PROPOFOL IV EMULSION 100 ML 36.8 MG IV CONT ×7 (08:00→23:52)
[2019-05-22] MEDS: ENOXAPARIN 40 MG/0.4 ML SYRINGE SUB-Q (10:01)
[2019-05-22] MEDS: PANTOPRAZOLE 40 MG TABLET PO (10:03)
[2019-05-22] MEDS: SERTRALINE HCL 50 MG TABLET 150 MG PO (10:03)
[2019-05-22] MEDS: FAMOTIDINE 20 MG TABLET PO (10:03)
[2019-05-22 10:09] LABS: Alveolar/Arterial O2 Gradient 575.7 mmHg; Base Excess ABG 5.7 mEq/l (+/-2.0); Carboxyhemoglobin 0.6 % THb (0-2.0); Device VENTILATOR; Fractional Inspired Oxygen 100 %; HCO3 ABG 32.5 mEq/l (22.0-26.0); Modified Allen's Test Pass; Oxygen Content ABG 15.8 %vol (16.0-22.0); Oxygen Saturation ABG 95.1 % (95.0-100.0); Oxyhemoglobin 93.9 % THb (90.0-100.0); PCO2 ABG 57.9 mmHg (35.0-45.0); PO2 ABG 79.4 mmHg (80.0-100.0); PO2 FiO2 Ratio Arterial Blood 0.79 %; Reduced Hemoglobin 5.5 %THb (0-5.0); Site Drawn LEFT RADIAL; Total Hemoglobin 11.9 g/dL (12.0-18.0); pH ABG 7.367 (7.350-7.450)
[2019-05-22 10:10] LABS: Arterial Blood Gas PEEP 10 cmH2O; Arterial Blood Gas Tidal Volume 350 ml; Arterial Blood Gas Vent Mode CMV; Arterial Blood Gas Ventilator rate 24 /MIN
[2019-05-22] MEDS: POTASSIUM CHLORIDE 20 MEQ PACKET (FOR LIQUID) 40 MEQ PO (10:26)
--- NOTE | 2019-05-22 14:47 | WPDINFPN2 ---
Progress Note: A&P Assessment and Plan (1) Community acquired pneumonia: Qualifiers: Laterality: unspecified laterality Qualified Code(s): J18.9 - Pneumonia, unspecified organism Code(s): J18.9 - Pneumonia, unspecified organism Status: Acute Assessment and Plan: 1. Acute febrile illness (prior to admission) with resp. failure and diffuse lung infiltrates 2. Tobacco REC resume Ctx and continue Azithro (antibiotic # 4). Testing for specific pathogens underway. Droplet precautions. Subjective Date/time seen: 05/22/19 14:47 Objective Data Vital Signs Vital Signs: Vital Signs - 24 hr 05/21/19 14:55 05/21/19 16:00 05/21/19 17:30 Temperature 36.9 C Pulse Rate 89 99 83 Respiratory Rate 36 H 36 H Blood Pressure 129/92 H Pulse Oximetry 92 05/21/19 17:40 05/21/19 18:00 05/21/19 20:00 Temperature 36.8 C Pulse Rate 87 83 73 Respiratory Rate 35 H 28 H 34 H Blood Pressure 127/92 H 127/78 Pulse Oximetry 92 93 95 05/21/19 20:16 05/21/19 20:21 05/21/19 20:30 Temperature Pulse Rate 72 72 84 Respiratory Rate 34 H 34 H 34 H Blood Pressure Pulse Oximetry 92 05/21/19 22:00 05/21/19 22:40 05/22/19 00:00 Temperature 36.7 C Pulse Rate 71 88 66 Respiratory Rate 22 H 42 H 34 H Blood Pressure 127/75 140/93 H Pulse Oximetry 95 97 95 05/22/19 02:00 05/22/19 02:19 05/22/19 02:20 Temperature Pulse Rate 74 79 76 Respiratory Rate 30 H 32 H 31 H Blood Pressure 108/73 Pulse Oximetry 95 93 05/22/19 02:26 05/22/19 03:52 05/22/19 04:00 Temperature 36.8 C Pulse Rate 82 74 78 Respiratory Rate 34 H 38 H 15 Blood Pressure 136/89 Pulse Oximetry 93 95 05/22/19 06:00 05/22/19 07:40 05/22/19 08:28 Temperature Pulse Rate 78 77 81 Respiratory Rate 21 H 24 H Blood Pressure 124/72 Pulse Oximetry 92 05/22/19 08:40 05/22/19 12:06 Temperature Pulse Rate 82 74 Respiratory Rate 24 H Blood Pressure Pulse Oximetry 98 Intake/Output Intake/Output: Intake & Output 05/19/19 05/20/19 05/21/19 05/22/19 23:59 23:59 23:59 23:59 Intake Total 5090 4440 1910 1370 Output Total 1600 3525 2350 1350 Balance 3490 915 -440 20 Meds/Results Medications: Active Medications Generic Name Dose Route Start Last Admin Trade Name Freq PRN Reason Stop Dose Admin Acetaminophen 650 mg 05/20/19 12:46 05/21/19 13:35 Tylenol Tablet PO 650 mg Q6H PRN Administration Mild Pain (1-3) or Fever Albuterol 5 mg 05/19/19 14:00 05/22/19 08:27 Albuterol Sulf Neb 2.5mg/0.5ml INHALATION 5 mg Q6HRT RAFA Administration Docusate Sodium 100 mg 05/19/19 09:00 05/22/19 10:01 Colace Capsule PO Not Given DAILY RAFA Enoxaparin Sodium 40 mg 05/19/19 10:55 05/22/19 10:01 Lovenox SUB-Q 40 mg DAILY RAFA Administration Famotidine 20 mg 05/20/19 09:00 05/22/19 10:03 Pepcid PO 20 mg DAILY RAFA Administration Guaifenesin 600 mg 05/20/19 21:00 05/22/19 10:02 Mucinex 12 Hr Tab PO 600 mg Q12HR RAFA Administration Azithromycin 500 mg in 250 mls @ 250 mls/hr 05/20/19 09:00 05/22/19 11:49 Zithromax IVPB Infused DAILY RAFA Infusion Fentanyl Citrate 2,500 mcg/ 250 mls @ 17.5 mls/hr 05/22/19 07:55 05/22/19 12:00 Sodium Chloride IV CONT 175 mcg/hr .[id number] RAFA 17.5 mls/hr Titration Protocol Propofol 100 mls @ 3.681 mls/hr 05/22/19 07:55 05/22/19 13:08 Diprivan IV CONT 50 mcg/kg/min .Q24H RAFA 36.8 mls/hr Administration Protocol 5 MCG/KG/MIN Ceftriaxone Sodium/Dextrose 1 gm in 50 mls @ 100 mls/hr 03/12/20 14:45 Rocephin 1 Gm/D5w 50 Ml IVPB Q24H RAFA Ipratropium [place] 0.5 mg 05/19/19 14:00 05/22/19 08:28 Atrovent Neb INHALATION 0.5 mg Q6HRT RAFA Administration Lansoprazole 30 mg 05/23/19 06:30 Prevacid Susp FEED TUBE DAILY@0630 RAFA Levothyroxine Sodium 50 mcg 05/19/19 11:00 05/22/19 05:51 Synthroid PO 50 mcg DAILY@063
[2019-05-22] MEDS: FUROSEMIDE INJ 40 MG/4 ML VIAL IV PUSH (16:05)
--- NOTE | 2019-05-22 17:15 | PM.IMPN ---
Progress Note: A&P Assessment and Plan (1) Community acquired pneumonia: Qualifiers: Laterality: unspecified laterality Qualified Code(s): J18.9 - Pneumonia, unspecified organism Code(s): J18.9 - Pneumonia, unspecified organism Status: Acute Assessment and Plan: Pt is on zosyn, azithromycin, vancomycin and rocephin IV pt is on iv steroids (2) Sepsis: Qualifiers: Sepsis acute organ dysfunction status: without acute organ dysfunction Sepsis type: sepsis due to unspecified organism Qualified Code(s): A41.9 - Sepsis, unspecified organism Code(s): A41.9 - Sepsis, unspecified organism Status: Acute Assessment and Plan: Due to community-acquired pneumonia as source.? possible viral related. Pt for further testing. [facility] [place] [id number] (3) Asthma, mild intermittent: Qualifiers: Asthma complication type: with acute exacerbation Qualified Code(s): J45.21 - Mild intermittent asthma with (acute) exacerbation Code(s): J45.20 - Mild intermittent asthma, uncomplicated Status: Acute Assessment and Plan: Pt emergently intubated today ? ards and pneumonia (4) Hypertension: Qualifiers: Hypertension type: essential hypertension Qualified Code(s): I10 - Essential (primary) hypertension Code(s): I10 - Essential (primary) hypertension Status: Acute Assessment and Plan: Continue to monitor Bps (5) GERD (gastroesophageal reflux disease): Qualifiers: Esophagitis presence: esophagitis presence not specified Qualified Code(s): K21.9 - Gastro-esophageal reflux disease without esophagitis Code(s): K21.9 - Gastro-esophageal reflux disease without esophagitis Status: Acute Assessment and Plan: Continue home regimen (6) IRMA on CPAP: Code(s): G47.33 - Obstructive sleep apnea (adult) (pediatric); Z99.89 - Dependence on other enabling machines and devices Status: Acute Assessment and Plan: (7) Elevated brain natriuretic peptide (BNP) level: Code(s): R79.89 - Other specified abnormal findings of blood chemistry Status: Acute Assessment and Plan: Chronic CHF, diastolic, systolic (8) CHF (congestive heart failure): Code(s): I50.9 - Heart failure, unspecified Status: Acute Assessment and Plan: Pt is on iv lasix Subjective Date/time seen: 05/22/19 17:15 Interval history: Patient is a 39 yo F with history of asthma, HTN, IRMA (on CPAP), and peripartum cardiomyopathy and self reported CHF who is here for sepsis/CAP and no CHF exacerbation. Pt emergently intubated this morning for ARDS ? virus awaiting testing Review of Systems Review of Systems: ROS unobtainable: unobtainable due to endotracheal tube Exam Narrative: Exam Narrative: Patient intubated in ICU, on a vent Const: Nutritional Appearance: obese Cardio: Rate: regular rate Rhythm: regular rhythm Heart sounds: no murmurs GI: Inspection: non-distended and obesity Auscultation: normal bowel sounds Skin: General skin exam: normal color and no rashes or lesions noted Neuro: General: patient oriented x3, moves all extremities and no focal motor deficits Cranial nerves: Yes Equal, round and reactive pupils present Cognition (Neuro): normal cognition Speech: normal speech Extrem: Right lower extremity: no edema Left lower extremity: no edema Objective Data Vital Signs Vital Signs: Vital Signs - 24 hr 05/21/19 17:30 05/21/19 17:40 05/21/19 18:00 Temperature Pulse Rate 83 87 83 Respiratory Rate 35 H 28 H Blood Pressure 127/92 H Pulse Oximetry 92 93 05/21/19 20:00 05/21/19 20:16 05/21/19 20:21
--- NOTE | 2019-05-22 19:27 | CONS_ITS ---
DATE OF CONSULTATION: 05/22/2019 REASON FOR CONSULTATION: Fever. HISTORY OF PRESENT ILLNESS: The patient is a 39-year-old female, who cannot provide a history. She has history of asthma and unfortunately continues to smoke as well. She presented to the hospital on May 18 with several weeks of cough and rhinorrhea with worsening of her symptoms 3 days prior to admission with cough productive of yellow sputum, temperature up to 39.4, rhinorrhea, sore throat, and vomiting, has had no recent travel. Here, the patient was initially given ceftriaxone, azithromycin and currently due to worsened shortness of breath was changed to ampicillin, sulbactam, vancomycin and azithromycin. Consultation requested. She required intubation and mechanical ventilation this morning. No other events. She has not required any surgical intervention. There is no family at the bedside. HABITS: One pack per day smoker. Also marijuana weekly by report. No longer drinks alcohol, prior ingestion not available in terms of quantity. ALLERGIES: NONE PERTINENT. PRESENT MEDICATIONS: List reviewed. No systemic immunosuppressants. She is on multiple psychoactive medications at home, though no mental illness is listed in her chart. PAST MEDICAL HISTORY: Asthma, GERD, hypertension, IRMA, peripartum cardiomyopathy, BTL, thyroidectomy for benign nodule. FAMILY HISTORY: Diabetes, [place], hypertension, heart failure, rectal cancer. SOCIAL HISTORY: She is . Does not work outside the home. Lives locally. is not at the bedside. REVIEW OF SYSTEMS: 14-point review otherwise negative per record, not obtainable from the patient directly due to intubated status. PHYSICAL EXAMINATION: GENERAL: This is a middle-aged female, who appears older than her actual age. Morbidly obese. No respiratory distress, although sedated. No drips currently. She has had no hypotension since arrival. VITAL SIGNS: Her temperature on admission was normal and has been normal ever since, 72 hours plus, pulse 74, respirations 24, saturation 98% on the ventilator. SKIN: No rashes, warm, and dry. NODES: She has no cervical, axillary adenopathy noted, although obesity compromises exam. EENT: Conjunctivae appear clear. There is no icterus. She is orally intubated compromising oral exam, but inspection is otherwise normal. NECK: Without meningismus. LUNGS: She has a diffuse soft bilateral rales. Breath sounds are vesicular. Clear to percussion. CHEST: Equal expansion. Normal AP diameter. CARDIAC: Soft S1, S2. Regular rate and rhythm. No murmurs or gallops. Pulses are 2+ and equal. ABDOMEN: Morbidly obese. No masses nor organomegaly noted and she exhibits no evidence of tenderness. EXTREMITIES: Without clubbing, cyanosis, edema. LABORATORY STUDIES: Noted ventilator settings; pH 7.37, pCO2 58, PO2 of 79, bicarbonate 33, AA gradient 576. She has moderate hypokalemia, BUN 18, creatinine 0.7, glucose 136, calcium 8.0. Sputum cultures in process. Specimens for urine pneumococcal antigen. Mycoplasma IgM, urine Legionella antigen and chlamydia PCR are all pending. Blood cultures, no growth after 3 days incubation. MRSA screen was negative. Influenza screen was nonreactive A and B. White count 17.5 on the 10th after being 11.8 on admission, now down to 14.5, hemoglobin 11.0, which is stable. Platelets are 257, no differential done today; earlier showed an increasing left shift. Her liver function tests earlier showed a borderline elevated transaminases. Alkaline phosphatase 127. Her BNP 2010. Urinalysis normal. Vancomycin trough therapeutic at 14. RADIOLOGY: I personally reviewed her chest x-rays 9, 10, 11, 12. These show diffuse interstitial infiltrates, most prominent in the lower l
[2019-05-23] VITALS (28 sets, daily range): BP systolic 102–146; BP diastolic 65–96; PULSE 58–139; RESP 24–26; TEMP 36.5–37.2; O2SAT 90–99; BMI 47.7
--- NOTE | 2019-05-23 | ECHO_ITS ---
Patient Info Name: Dash Crane Age: 39 years : 1980 Gender: Female Ht: 63 in Wt: 270 lbs BSA: 2.41 m2 HR: 75 bpm BP: 128 / 60 mmHg Heart Rhythm: Sinus Rhythm Technical Quality: Good Exam Date: 05/23/2019 9:13 AM Exam Location: [facility] Pulmonary Patient Status: Inpatient Admit Date: 05/20/2019 Staff Ordering Physician: lAexandr English MD Director Medical Economics: Ry Wesley DARY Attending Provider: Chelsea Jones MD Exam Type: CA echo dop color flow w con Study Info Indications J96.00 - Acute respiratory failure, unspecified whether with hypoxia or hypercapnia Complete two-dimensional, color flow and Doppler transthoracic echocardiogram is performed with contrast to opacify the left ventrical and to improve the deliniation of the left ventrical endocarial boarders. Contrast/Agitated Saline Contrast/Ag. Saline: Definity Amount: 2.00 ml Administered By: Carmelo Cunha RN Existing IV Access: Yes History/Risk Factors Respiratory failure w/ SOB and CHF. Summary 1. Left ventricular chamber dimension is normal. 2. Left ventricular systolic function is hyperdynamic, estimated at >70%. 3. Contrast used to enhance visualization. 4. Right ventricular chamber dimension is normal. 5. No valvular disease. 6. Compared with exam from 3 days ago no changes seen. Left Ventricle Left ventricular chamber dimension is normal. Left ventricular systolic function is hyperdynamic, estimated at >70%. The left ventricular diastolic function is normal. Contrast used to enhance visualization. Right Ventricle Right ventricular chamber dimension is normal. Left Atria Left atrial chamber dimension is normal. Right Atria Right atrial chamber dimension is normal. Aortic Valve The aortic valve is trileaflet. Pulmonic Valve The pulmonic valve is not well visualized. Mitral Valve The mitral valve has normal leaflets. Tricuspid Valve The tricuspid valve leaflets are normal. Pericardium/Pleural The pericardium appears normal. Aorta The aortic root size at the sinus of Valsalva is normal. Left Ventricular Outflow Tract Name Value Normal LVOT 2D LVOT Diameter 1.84 cm LVOT Doppler LVOT Peak Gradient 8 mmHg LVOT Mean Gradient 4 mmHg LVOT VTI 27.35 cm LVOT VTI/AV VTI Ratio 0.82 LVOT Stroke Volume 72.30 ml LVOT CO 4.81 l/min LVOT CI 2.00 L/min/m2 Mitral Valve Name Value Normal MV Doppler MV [place] 280.47 cm/s2 MV PHT 0 s MV Area (PHT) 2.74 cm2 4.00-5.00 MV Diastolic F
[2019-05-23] MEDS: ALBUTEROL SULFATE NEB 2.5 MG/0.5 ML INH 5 MG INHALATION ×4 (01:30→20:20)
[2019-05-23] MEDS: IPRATROPIUM BR 0.02% INH SOLN 0.5 MG/2.5 ML VIAL INHALATION ×4 (01:30→20:20)
[2019-05-23] MEDS: PROPOFOL IV EMULSION 100 ML 36.8 MG IV CONT ×4 (02:25→10:28)
[2019-05-23] MEDS: MIDAZOLAM HCL 2 MG/2 ML VIAL IV PUSH (02:31)
[2019-05-23] MEDS: MIDAZOLAM HCL 50 MG in DEXTROSE 5% 90 ML IV CONT (02:38)
[2019-05-23] MEDS: PROMETHAZINE HCL 25 MG/ML AMPUL 12.5 MG IV PUSH ×3 (04:15→20:02)
[2019-05-23 04:55] LABS: Alveolar/Arterial O2 Gradient 425.1 mmHg; Base Excess ABG 8.1 mEq/l (+/-2.0); Fractional Inspired Oxygen 80 %; HCO3 ABG 34.8 mEq/l (22.0-26.0); Methemoglobin ABG 0.1 %THb (0-1.5); Oxygen Content ABG 15.7 %vol (16.0-22.0); Oxygen Saturation ABG 95.9 % (95.0-100.0); Oxyhemoglobin 94.8 % THb (90.0-100.0); PCO2 ABG 58.9 mmHg (35.0-45.0); PO2 ABG 83.5 mmHg (80.0-100.0); PO2 FiO2 Ratio Arterial Blood 1.04 %; Reduced Hemoglobin 5.1 %THb (0-5.0); Total Hemoglobin 11.7 g/dL (12.0-18.0); pH ABG 7.389 (7.350-7.450)
[2019-05-23 04:56] LABS: Modified Allen's Test Unable to perform; Site Drawn LEFT RADIAL
[2019-05-23 04:57] LABS: Arterial Blood Gas PEEP 10 cmH2O; Arterial Blood Gas Tidal Volume 350 ml; Arterial Blood Gas Vent Mode CMV; Arterial Blood Gas Ventilator rate 24 /MIN; Device VENTILATOR
[2019-05-23] MEDS: methylPREDNISolone SOD SUCC 125 MG VIAL 60 MG IV PUSH ×2 (05:09→17:49)
[2019-05-23] MEDS: LANSOPRAZOLE ORAL SUSP 30 MG/10 ML ORAL.SUSP FEED TUBE (05:24)
[2019-05-23] MEDS: LEVOTHYROXINE SODIUM 50 MCG TABLET PO (05:26)
[2019-05-23 06:29] LABS: Hematocrit 32.5 % (37.0-47.0); Hemoglobin 10.7 g/dL (12.0-15.0); Mean Corpuscular HGB Conc 32.9 g/dl (32-36); Mean Corpuscular Hemoglobin 33.2 pg (26-34); Mean Corpuscular Volume 100.9 fl (80-100); Mean Platelet Volume 10.2 fl (7.4-10.4); Platelet Count Result 265 k/mm3 (150-375); Red Blood Count 3.22 M/mm3 (4.2-5.4); Red Cell Distribution Width 15.4 % (11.5-14.5); White Blood Count 11.4 K/mm3 (4.5-10.0)
[2019-05-23 06:41] LABS: Blood Urea Nitrogen 18 mg/dL (7-17); Calcium 7.9 mg/dL (8.4-10.2); Carbon Dioxide 35 mmol/L (22-30); Chloride 96 mmol/L (98-107); Estimated CRCL calculation 133 ml/min; Estimated Glomerular Filt Rate > 60; Glucose 152 mg/dL (65-105); Magnesium 2.5 mg/dL (1.6-2.3); Phosphorus 2.7 mg/dL (2.5-4.5); Potassium 3.3 mmol/L (3.4-5.0); Sodium 138 mmol/L (137-145)
--- NOTE | 2019-05-23 07:30 | WPDINTPN ---
Progress Note: A&P Assessment and Plan (1) Acute respiratory failure with hypoxia: Code(s): J96.01 - Acute respiratory failure with hypoxia Status: Acute Assessment and Plan: Appears to be multifactorial. Patient presented with symptoms and signs suggestive pneumonia. The patient was admitted and started on empiric antibiotics for community-acquired pneumonia and was given IV fluids. Over hospital stay patient hypoxia worsened and patient was fairly positive on intake and output balance she is positive by at least 5 L and received total close to 10 L which corresponding with worsening of chest x-ray and elevated BNP suggested pulmonary edema to be the likely etiology. patient also has a history of cardiomyopathy and congestive heart failure. Baseline asthma but did not appear to be wheezing. Also component of anxiety as patient initially had a high respiratory rate but no signs of respiratory distress or use of accessory muscles. 05/20 Patient was placed on BiPAP and was started on aggressive diuresis. 05/21 Despite good urine output with Lasix her hypoxia did not improve. Chest x-ray worsened to show bilateral diffuse infiltrate. Clinical picture at that point was suggestive of ARDS. Patient did notimprove with BiPAP therapy and was clinically worse hands decision was made to intubate the patient. Patient was agreeable to intubation and so was her who I spoke to by phone. Patient was intubated 05/21 without any complication. Post intubation patient desaturated and PEEP was increased to 10 and patient was given 1 dose of paralytic. - Chest x-ray and ABG reviewed - continue sedation with propofol Versed and fentanyl . May need continued paralysis. - increase PEEP to 12 and decrease FiO2 to 65% and - Continue steroids and DuoNeb. - Continue vancomycin, azithromycin and Unasyn Cultures have been negative so far. I will repeat sputum cultures now - pending Legionella antigen, pneumococcal antigen, mycoplasma, RSV, CMV, chlamydia pneumoniae, viral culture - Reviewed initiale echocardiogram. - patient was negative for influenza in ED. - Daily chest x-ray and ABGs - continue Lasix. - consulted pulmonary. As patient may need bronch - consult infectious disease And the time of initial consultation I asked patient and her of any sick contact or travel and both denied either. Patient has been sick for close to 2 weeks prior to presentation as per her initial history. On 05/21 while discussing with the patient feels , patient's were concerned about COVID-19. 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 We have placed patient in airborne isolation. Patient has been intubated for source control. health department was notified for testing kit. we were told that patient does not meet criteria for testing at this time Due to her history and presentation Which is not a typical presentation for patient with COVID 19. Will continue to reassess the situation depending on results of other testing (2) ARDS (adult respiratory distress syndrome): Code(s): J80 - Acute respiratory distress syndrome Status: Acute Assessment and Plan: see above (3) CHF (congestive heart failure): Code(s): I50.9 - Heart failure, unspecified Status: Acute Assessment and Plan: last echocardiogram was poor quality. will repeat a limited study to get a better imaging. ECHO 05/19 1. Left ventricular chamber size and systolic function are normal with no regional wall motion abnormalities with an estimated ejection fraction of 60-65%. Mild left ventricular hypertrophy is present. Borderline criteria for diastolic dysfunction is present. 2. No significant valve disease. 3. Very technically difficult study. Definity echo contrast used. 4. Normal sinus rhythm. (4) Community acquired pneumonia: Quali
[2019-05-23] MEDS: DOCUSATE SODIUM 100 MG CAPSULE PO (08:07)
[2019-05-23] MEDS: POTASSIUM CHLORIDE 20 MEQ PACKET (FOR LIQUID) 40 MEQ PO (08:07)
[2019-05-23] MEDS: FUROSEMIDE INJ 40 MG/4 ML VIAL IV PUSH (08:07)
[2019-05-23] MEDS: ENOXAPARIN 40 MG/0.4 ML SYRINGE SUB-Q (08:07)
[2019-05-23] MEDS: FAMOTIDINE 20 MG TABLET PO (08:08)
[2019-05-23] MEDS: PANTOPRAZOLE 40 MG TABLET PO (08:09)
[2019-05-23] MEDS: SERTRALINE HCL 50 MG TABLET 150 MG PO (08:10)
[2019-05-23] MEDS: PERFLUTREN LIPID MICROSPHERES 1.5 ML VIAL DILUTED TO 10 ML TOTAL VOLUME IV PUSH (09:57)
--- NOTE | 2019-05-23 12:23 | PC.NURSE ---
Phone discussion with [facility] ([facility]) regarding Covid 19 testing. Delaney at [facility] states patient does not meet criteria for testing. Discussed with Dr. English. Dr. English agrees with no testing at this time.
[2019-05-23] MEDS: PROPOFOL IV EMULSION 100 ML 33.1 MG IV CONT ×2 (13:12→16:36)
[2019-05-23] MEDS: MIDAZOLAM HCL 50 MG in DEXTROSE 5% 90 ML 10 MG IV CONT (14:39)
--- NOTE | 2019-05-23 14:59 | PM.IMPN ---
Progress Note: A&P Assessment and Plan (1) Community acquired pneumonia: Qualifiers: Laterality: unspecified laterality Qualified Code(s): J18.9 - Pneumonia, unspecified organism Code(s): J18.9 - Pneumonia, unspecified organism Status: Acute Assessment and Plan: Pt is on azithromycin, and rocephin IV pt is on iv steroids, doing better weaning off the vent. (2) Sepsis: Qualifiers: Sepsis acute organ dysfunction status: without acute organ dysfunction Sepsis type: sepsis due to unspecified organism Qualified Code(s): A41.9 - Sepsis, unspecified organism Code(s): A41.9 - Sepsis, unspecified organism Status: Acute Assessment and Plan: Due to community-acquired pneumonia as source.? possible viral related. Pt for further testing. [facility] [place] [id number] (3) Asthma, mild intermittent: Qualifiers: Asthma complication type: with acute exacerbation Qualified Code(s): J45.21 - Mild intermittent asthma with (acute) exacerbation Code(s): J45.20 - Mild intermittent asthma, uncomplicated Status: Acute Assessment and Plan: Pt emergently intubated today ? ards and pneumonia (4) Hypertension: Qualifiers: Hypertension type: essential hypertension Qualified Code(s): I10 - Essential (primary) hypertension Code(s): I10 - Essential (primary) hypertension Status: Acute Assessment and Plan: Continue to monitor Bps (5) GERD (gastroesophageal reflux disease): Qualifiers: Esophagitis presence: esophagitis presence not specified Qualified Code(s): K21.9 - Gastro-esophageal reflux disease without esophagitis Code(s): K21.9 - Gastro-esophageal reflux disease without esophagitis Status: Acute Assessment and Plan: Continue home regimen (6) IRMA on CPAP: Code(s): G47.33 - Obstructive sleep apnea (adult) (pediatric); Z99.89 - Dependence on other enabling machines and devices Status: Acute Assessment and Plan: (7) Elevated brain natriuretic peptide (BNP) level: Code(s): R79.89 - Other specified abnormal findings of blood chemistry Status: Acute Assessment and Plan: Chronic CHF, diastolic, systolic (8) CHF (congestive heart failure): Code(s): I50.9 - Heart failure, unspecified Status: Acute Assessment and Plan: Pt is on iv lasix Subjective Date/time seen: 05/23/19 14:59 Interval history: Patient is a 39 yo F with history of asthma, HTN, IRMA (on CPAP), and peripartum cardiomyopathy and self reported CHF who is here for sepsis/CAP and no CHF exacerbation. Pt emergently intubated this morning for ARDS ? virus awaiting testing. Doing better, weaning of the vent, in ICU. Review of Systems Review of Systems: All systems reviewed & are unremarkable except as noted in HPI and below ROS unobtainable: unobtainable due to endotracheal tube Exam Narrative: Exam Narrative: Patient intubated in ICU, on a vent Const: General: cooperative, comfortable, well developed, alert, awake and in distress moderate and respiratory Nutritional Appearance: obese morbidly obese Orientation/consciousness: patient oriented x3 HENMT: Head: normocephalic and atraumatic General nose exam: Normal nares present Face and sinus: face symmetric (Non-rebreather, then nasal CPAP placed) Mouth: Yes tongue normal and Yes moist mucous membranes Eyes: General: appearance normal, both eyes and all related structures Sclera: sclerae normal Pupils: Equal, round and reactive pupils present EOM: EOMs intact bilaterally Neck: Neck: trachea midline and supple Resp: Auscultation: clear to auscultation bilaterally and dimi
--- NOTE | 2019-05-23 15:28 | WPDINFPN2 ---
Progress Note: A&P Assessment and Plan (1) Community acquired pneumonia: Qualifiers: Laterality: unspecified laterality Qualified Code(s): J18.9 - Pneumonia, unspecified organism Code(s): J18.9 - Pneumonia, unspecified organism Status: Acute Assessment and Plan: 1. Acute febrile illness (prior to admission) with resp. failure and diffuse lung infiltrates, suspect CAP. No fever since arrival here. CXR stable, wbc declining 2. Tobacco REC continue Azithro and Azithro. (antibiotic # 5). Testing underway for specific pathogens including CoVID 19. The test for the latter must go through the [facility] dept. (until or unless that directive changes). Droplet precautions, universal precautions appropriate (gloves and gown) during manipulation of ventilator circut, but not otherwise -- in the interest of preserving supplies. Subjective Date/time seen: 05/23/19 15:28 Interval history: on vent, light sedation, no pressors Exam Narrative: Exam Narrative: afebrile Const: General: no acute distress Eyes: General: appearance normal, both eyes and all related structures Resp: Effort & Inspection: normal respiratory effort Auscultation: clear to auscultation bilaterally and diminished lung sounds Cardio: Rate: regular rate Rhythm: regular rhythm Heart sounds: no gallops and no murmurs GI: Inspection: non-distended GI Palp: Yes Soft to palpation and No Tenderness to palpation present (GI) Urinary Catheter: Urinary Catheter: patent and draining and urine clear Skin: General skin exam: normal color and no rashes or lesions noted Objective Data Vital Signs Vital Signs: Vital Signs - 24 hr 05/22/19 15:34 05/22/19 16:00 05/22/19 17:24 Temperature 37.1 C Pulse Rate 101 H 83 71 Respiratory Rate 22 H 24 H Blood Pressure 122/68 Pulse Oximetry 99 99 05/22/19 18:00 05/22/19 20:00 05/22/19 20:10 Temperature 36.9 C Pulse Rate 65 60 67 Respiratory Rate 24 H 24 H 24 H Blood Pressure 107/62 116/68 Pulse Oximetry 97 99 98 05/22/19 20:22 05/22/19 22:00 05/22/19 23:06 Temperature Pulse Rate 65 66 69 Respiratory Rate 24 H 24 H Blood Pressure 122/71 Pulse Oximetry 99 97 05/23/19 00:00 05/23/19 01:30 05/23/19 01:41 Temperature 37.2 C Pulse Rate 75 81 76 Respiratory Rate 24 H 24 H 24 H Blood Pressure 137/78 Pulse Oximetry 95 96 05/23/19 02:00 05/23/19 04:00 05/23/19 04:58 Temperature 36.7 C Pulse Rate 80 82 77 Respiratory Rate 24 H 26 H Blood Pressure 116/65 138/87 Pulse Oximetry 95 98 95 05/23/19 05:48 05/23/19 06:00 05/23/19 07:58 Temperature Pulse Rate 63 62 85 Respiratory Rate 24 H Blood Pressure 145/85 H Pulse Oximetry 99 99 05/23/19 08:00 05/23/19 08:06 05/23/19 10:00 Temperature 36.5 C Pulse Rate 67 79 61 Respiratory Rate 24 H 24 H 24 H Blood Pressure 141/96 H 135/91 H Pulse Oximetry 97 98 05/23/19 10:25 05/23/19 12:00 05/23/19 14:00 Temperature 36.6 C Pulse Rate 78 63 74 Respiratory Rate 24 H 24 H Blood Pressure 142/92 H 146/90 H Pulse Oximetry 99 98 99 05/23/19 14:30 05/23/19 14:32 05/23/19 14:37 Temperature Pulse Rate 73 73 88 Respiratory Rate 24 H 24 H Blood Pressure Pulse Oximetry 90 Intake/Output Intake/Output: Intake & Output 05/20/19 05/21/19 05/22/19 05/23/19 23:59 23:59 23:59 23:59 Intake Total 4440 1910 2120 1310 Output Total 3525 2350 2850 500 Balance 915 440 -730 810 Meds/Results Medications: Active Medications Generic Name Dose Route Start Last Admin Trade Name Freq PRN Reason Stop Dose Admin Acetaminophen 650 mg 05/20/19 12:46 05/21/19 13:35 Tylenol Tablet PO 650 mg Q6H PRN Administration Mild Pain (1-3) or Fever Albuterol 5 mg 05/19/19 14:00 05/23/19 14:26 Albuterol Sulf Neb 2.5mg/0.5ml INHALATION 5 mg Q6HRT RAFA Administration Docusate Sodium 100 mg 05/19/19 09:00 05/23/19 08:07 Colace Capsule PO 100 mg DAILY SC
[2019-05-23] MEDS: PROPOFOL IV EMULSION 100 ML 36.7 MG IV CONT ×2 (18:58→21:45)
[2019-05-23] MEDS: MELATONIN 3 MG TABLET 12 MG PO (20:10)
[2019-05-23] MEDS: DORNASE ALFA INH SOLN 1 MG/ML 2.5 ML AMP 2.5 MG INHALATION (20:20)
[2019-05-23] MEDS: GABAPENTIN 300 MG CAPSULE 600 MG PO (21:44)
[2019-05-23] MEDS: MIDAZOLAM HCL 50 MG in DEXTROSE 5% 90 ML 12 MG IV CONT (23:51)
[2019-05-24] VITALS (35 sets, daily range): BP systolic 105–156; BP diastolic 54–92; PULSE 66–94; RESP 17–24; TEMP 36.1–36.6; O2SAT 93–100
[2019-05-24] MEDS: PROPOFOL IV EMULSION 100 ML 36.7 MG IV CONT ×8 (00:35→18:53)
[2019-05-24] MEDS: IPRATROPIUM BR 0.02% INH SOLN 0.5 MG/2.5 ML VIAL INHALATION ×4 (01:50→19:54)
[2019-05-24] MEDS: ALBUTEROL SULFATE NEB 2.5 MG/0.5 ML INH 5 MG INHALATION ×4 (01:50→19:54)
[2019-05-24] MEDS: PROMETHAZINE HCL 25 MG/ML AMPUL 12.5 MG IV PUSH ×3 (03:33→22:29)
[2019-05-24 04:55] LABS: Alveolar/Arterial O2 Gradient 214.8 mmHg; Base Excess ABG 7.7 mEq/l (+/-2.0); Carboxyhemoglobin 0.3 % THb (0-2.0); Fractional Inspired Oxygen 60 %; HCO3 ABG 30.8 mEq/l (22.0-26.0); Methemoglobin ABG 0.2 %THb (0-1.5); Oxygen Content ABG 16.9 %vol (16.0-22.0); Oxygen Saturation ABG 99.3 % (95.0-100.0); Oxyhemoglobin 97.9 % THb (90.0-100.0); PCO2 ABG 37.5 mmHg (35.0-45.0); PO2 ABG 171.8 mmHg (80.0-100.0); PO2 FiO2 Ratio Arterial Blood 2.86 %; Reduced Hemoglobin 1.6 %THb (0-5.0)
[2019-05-24 04:57] LABS: pH ABG 7.532 (7.350-7.450)
[2019-05-24 04:58] LABS: Arterial Blood Gas PEEP 12 cmH2O; Arterial Blood Gas Vent Mode CMV; Arterial Blood Gas Ventilator rate 24 /MIN; Device VENTILATOR; Modified Allen's Test Pass; Site Drawn LEFT RADIAL
[2019-05-24 04:59] LABS: Arterial Blood Gas Tidal Volume 350 ml
[2019-05-24 06:32] LABS: Hemoglobin 10.9 g/dL (12.0-15.0); Mean Corpuscular HGB Conc 34.1 g/dl (32-36); Mean Corpuscular Hemoglobin 32.9 pg (26-34); Mean Corpuscular Volume 96.7 fl (80-100); Mean Platelet Volume 9.6 fl (7.4-10.4); Platelet Count Result 279 k/mm3 (150-375); Red Blood Count 3.31 M/mm3 (4.2-5.4); White Blood Count 9.8 K/mm3 (4.5-10.0)
[2019-05-24] MEDS: LANSOPRAZOLE ORAL SUSP 30 MG/10 ML ORAL.SUSP FEED TUBE (06:35)
[2019-05-24] MEDS: LEVOTHYROXINE SODIUM 50 MCG TABLET PO (06:36)
[2019-05-24] MEDS: methylPREDNISolone SOD SUCC 125 MG VIAL 60 MG IV PUSH (06:36)
[2019-05-24 06:41] LABS: Blood Urea Nitrogen 20 mg/dL (7-17); Calcium 8.4 mg/dL (8.4-10.2); Carbon Dioxide 37 mmol/L (22-30); Chloride 93 mmol/L (98-107); Estimated CRCL calculation 116 ml/min; Estimated Glomerular Filt Rate > 60; Glucose 133 mg/dL (65-105); Magnesium 2.8 mg/dL (1.6-2.3); Phosphorus 2.7 mg/dL (2.5-4.5); Sodium 136 mmol/L (137-145)
[2019-05-24] MEDS: ENOXAPARIN 40 MG/0.4 ML SYRINGE SUB-Q (08:04)
[2019-05-24] MEDS: FAMOTIDINE 20 MG TABLET PO (08:05)
[2019-05-24] MEDS: SERTRALINE HCL 50 MG TABLET 150 MG PO (08:05)
[2019-05-24] MEDS: DOCUSATE SODIUM LIQ 100 MG/10 ML UDC PO (08:17)
--- NOTE | 2019-05-24 08:47 | WPDINTPN ---
Progress Note: A&P Assessment and Plan (1) Acute respiratory failure with hypoxia: Code(s): J96.01 - Acute respiratory failure with hypoxia Status: Acute Assessment and Plan: Appears to be multifactorial. Patient presented with symptoms and signs suggestive pneumonia. The patient was admitted and started on empiric antibiotics for community-acquired pneumonia and was given IV fluids. Over hospital stay patient hypoxia worsened and patient was fairly positive on intake and output balance she is positive by at least 5 L and received total close to 10 L which corresponding with worsening of chest x-ray and elevated BNP suggested pulmonary edema to be the likely etiology. patient also has a history of cardiomyopathy and congestive heart failure. Baseline asthma but did not appear to be wheezing. 05/20 Patient was placed on BiPAP and was started on aggressive diuresis. 05/21 Despite good urine output with Lasix her hypoxia did not improve. Chest x-ray worsened to show bilateral diffuse infiltrate. Clinical picture at that point was suggestive of ARDS likely as a result of community-acquired pneumonia. Patient did not improve with BiPAP therapy and was clinically worse so decision was made to intubate the patient. she was intubated on 05/22/19. Patient was intubated 05/21 without any complication. Post intubation patient desaturated and PEEP was increased to 10 and patient was given 1 dose of paralytic. - Chest x-ray and ABG reviewed - continue sedation with propofol Versed and fentanyl. she is deeply sedated with higher doses of Versed and propofol. She still wakes up at times. - ventilator settings were adjusted today. Today ABG showed improved oxygenation and a PEEP will be weaned down to 10 from 12. It will continue to be weaned down to a target of 6-8 later today. She also had respiratory alkalosis. Respiratory rate has been decreased from 24-18. She was breathing with the vent. She is on 370 total volume which will continue. she is currently requiring 50% FiO2. - Continue steroids and DuoNeb. Will decrease steroid. She does not seems to have any wheezing. Steroids are for severe community-acquired pneumonia. - Was initially on vancomycin /Unasyn and azithromycin but now antibiotics have been switched to ceftriaxone and azithromycin by infectious disease service recommendation. ID recommendations appreciated. - pending Legionella antigen, pneumococcal antigen, mycoplasma, RSV, CMV, chlamydia pneumoniae, viral culture - Reviewed initial echocardiogram. - patient was negative for influenza in ED. - Daily chest x-ray and ABGs - continue Lasix. She continued to be net fluid positive yesterday even with 40 mg of Lasix. Will give 2 doses of 40 mg of IV Lasix today. I will strive for a net negative fluid balance of about 1-1.5 L in the next 24 hour. - consulted pulmonary. As patient may need bronch And the time of initial consultation I asked patient and her of any sick contact or travel and both denied either. Patient has been sick for close to 2 weeks prior to presentation as per her initial history. On 05/21 while discussing with the patient feels , patient's were concerned about COVID-19. 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 We have placed patient in airborne isolation. Patient has been intubated for source control. health department was notified for testing kit. we were told that patient does not meet criteria for testing at this time Due to her history and presentation which is not a typical presentation for patient with COVID 19. Will continue to reassess the situation depending on results of other testing. (2) ARDS (adult respiratory distress syndrome): Code(s): J80 - Acute respiratory distress syndrome Status: Acute Assessment and Plan: see above (3) CHF (congestive heart failure):
[2019-05-24] MEDS: FUROSEMIDE INJ 40 MG/4 ML VIAL IV PUSH ×2 (09:17→17:04)
[2019-05-24] MEDS: MIDAZOLAM HCL 50 MG in DEXTROSE 5% 90 ML 8 MG IV CONT ×2 (09:22→21:30)
[2019-05-24] MEDS: POTASSIUM CHLORIDE 20 MEQ PACKET (FOR LIQUID) 40 MEQ PO ×2 (10:23→15:37)
--- NOTE | 2019-05-24 13:39 | PM.IMPN ---
Progress Note: A&P Assessment and Plan (1) Community acquired pneumonia: Qualifiers: Laterality: unspecified laterality Qualified Code(s): J18.9 - Pneumonia, unspecified organism Code(s): J18.9 - Pneumonia, unspecified organism Status: Acute Assessment and Plan: Pt is on azithromycin, and rocephin IV pt is on iv steroids, doing better weaning off the vent. (2) Sepsis: Qualifiers: Sepsis acute organ dysfunction status: without acute organ dysfunction Sepsis type: sepsis due to unspecified organism Qualified Code(s): A41.9 - Sepsis, unspecified organism Code(s): A41.9 - Sepsis, unspecified organism Status: Acute Assessment and Plan: Due to community-acquired pneumonia as source? bacterial or possible viral related. Pt for further testing. [facility] is 9000 (3) Asthma, mild intermittent: Qualifiers: Asthma complication type: with acute exacerbation Qualified Code(s): J45.21 - Mild intermittent asthma with (acute) exacerbation Code(s): J45.20 - Mild intermittent asthma, uncomplicated Status: Acute Assessment and Plan: Pt emergently intubated today ? ards and pneumonia, for possible extubation tomorrow. (4) Hypertension: Qualifiers: Hypertension type: essential hypertension Qualified Code(s): I10 - Essential (primary) hypertension Code(s): I10 - Essential (primary) hypertension Status: Acute Assessment and Plan: Continue to monitor Bps 115/75 (5) GERD (gastroesophageal reflux disease): Qualifiers: Esophagitis presence: esophagitis presence not specified Qualified Code(s): K21.9 - Gastro-esophageal reflux disease without esophagitis Code(s): K21.9 - Gastro-esophageal reflux disease without esophagitis Status: Acute Assessment and Plan: Continue home regimen (6) IRMA on CPAP: Code(s): G47.33 - Obstructive sleep apnea (adult) (pediatric); Z99.89 - Dependence on other enabling machines and devices Status: Acute Assessment and Plan: (7) Elevated brain natriuretic peptide (BNP) level: Code(s): R79.89 - Other specified abnormal findings of blood chemistry Status: Acute Assessment and Plan: Chronic CHF, diastolic, systolic (8) CHF (congestive heart failure): Code(s): I50.9 - Heart failure, unspecified Status: Acute Assessment and Plan: Pt is on iv lasix Subjective Date/time seen: 05/24/19 13:39 Interval history: Patient is a 39 yo F with history of asthma, HTN, IRMA (on CPAP), and peripartum cardiomyopathy and self reported CHF who is here for sepsis/CAP. Unfortunately pt desaturated and was emergently intubated for ARDS ? virus awaiting testing. Doing better, weaning of the vent, in ICU. For possible extubation tomorrow. Pt is pending Legionella antigen, pneumococcal antigen, mycoplasma, RSV, CMV, chlamydia pneumoniae, viral culture. Influenza screen in negative in ED. Blood cultures and sputum cultures are negative to date. Review of Systems Review of Systems: All systems reviewed & are unremarkable except as noted in HPI and below ROS unobtainable: unobtainable due to endotracheal tube Exam Narrative: Exam Narrative: Patient intubated in ICU, on a vent Const: Nutritional Appearance: obese morbidly obese Orientation/consciousness: patient oriented x3 HENMT: Head: normocephalic and atraumatic Mouth: Yes tongue normal and Yes moist mucous membranes Neck: Neck: trachea midline and supple Resp: Auscultation: diminished lung sounds Cardio: Rate: regular rate Rhythm: regular rhythm Heart sounds: no murmurs GI: Inspection: non-distended and
--- NOTE | 2019-05-24 14:23 | PM.CNPUL ---
Assessment and Plan Assessment and plan (1) Acute respiratory failure with hypoxia: Code(s): J96.01 - Acute respiratory failure with hypoxia Status: Acute Assessment and Plan: Due to multiple issues including pneumonia, (+) fluid balance with pulmonayr edema. She has cardiac dysfunction, with volume overload. Her asthma does not appear to be the main issue contributing to her decompensation. She has been intubated, on high levels of PEEP on 100% FiO2 on May 21, improving since then. She has been on sedation with fentanyl, versed nad propofol, now (2) ARDS (adult respiratory distress syndrome): Code(s): J80 - Acute respiratory distress syndrome Status: Acute Assessment and Plan: improved (3) Obesity hypoventilation syndrome: Code(s): E66.2 - Morbid (severe) obesity with alveolar hypoventilation Status: Acute (4) Asthma, mild intermittent: Qualifiers: Asthma complication type: unspecified Qualified Code(s): J45.20 - Mild intermittent asthma, uncomplicated Code(s): J45.20 - Mild intermittent asthma, uncomplicated Status: Acute (5) IRMA on CPAP: Code(s): G47.33 - Obstructive sleep apnea (adult) (pediatric); Z99.89 - Dependence on other enabling machines and devices Status: Acute (6) Tobacco abuse: Code(s): Z72.0 - Tobacco use Status: Acute Assessment and Plan: smoking prior to admission History of Present Illness History of Present Illness Consult date: 07/02/19 Requesting physician: Julio C Robert MD Chief complaint: Sepsis/community acquired pneumonia Narrative: hNEW CONSULT: Dash Crane is a 39 yo female with acute hypoxemic respiratory failure, ARDS on mechanical ventilatory support. She was admitted May 18 after several weeks of fever, shortness of breath, coughing; her is an EMT raising concerns regarding possible COVID19; he has not been sick and no cases have been confirmed in this community. She was admitted with leukocytosis 11.8 with left shift, fever of 39.4, and bilateral infiltrates. Her oxygenation was the worst on May 21 on 100% FiO2 and high PEEP, and today is 50%. Her infiltrates are improving, and she is awake enough to nod to questions. Review of Systems Review of Systems: Narrative: She cannot give a review of systems due to intubation, sedation, however I discussed the patient's current systems with the RN. she is tolerating tube feeds with Vital 1.2 @ 30/hour, is having her sedation weaned. [facility] Past Medical History Medical History (Updated 07/02/19 @ 13:39 by Dea Razo MD) Asthma, mild intermittent Chronic respiratory failure Constipation GERD (gastroesophageal reflux disease) Hypertension IRMA on CPAP Peripartum cardiomyopathy 2006 Tobacco abuse Surgical History Surgical History H/O tubal ligation History of thyroidectomy, subtotal for benign nodule Family History Family History Father Diabetes mellitus Acute myocardial infarction Hypertension Congestive heart failure Rectal cancer Mother No problems noted. 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
[2019-05-24] MEDS: methylPREDNISolone SOD SUCC 40 MG VIAL IV PUSH (18:00)
[2019-05-24 21:52] LABS: Legionella pneumophila Ag Ur Not Detected (Not Detected)
[2019-05-24] MEDS: PROPOFOL IV EMULSION 100 ML 33.5 MG IV CONT (22:27)
[2019-05-25] VITALS (28 sets, daily range): BP systolic 99–142; BP diastolic 56–105; PULSE 62–89; RESP 18–20; TEMP 35.9–36.5; O2SAT 92–99
[2019-05-25] MEDS: PROPOFOL IV EMULSION 100 ML 33.5 MG IV CONT ×2 (00:38→03:49)
[2019-05-25] MEDS: IPRATROPIUM BR 0.02% INH SOLN 0.5 MG/2.5 ML VIAL INHALATION ×3 (01:50→19:24)
[2019-05-25] MEDS: ALBUTEROL SULFATE NEB 2.5 MG/0.5 ML INH 5 MG INHALATION ×3 (01:50→19:24)
[2019-05-25 04:25] LABS: Hematocrit 35.4 % (37.0-47.0); Hemoglobin 11.6 g/dL (12.0-15.0); Mean Corpuscular HGB Conc 32.8 g/dl (32-36); Mean Corpuscular Hemoglobin 32.9 pg (26-34); Mean Corpuscular Volume 100.3 fl (80-100); Platelet Count Result 289 k/mm3 (150-375); Red Blood Count 3.53 M/mm3 (4.2-5.4); Red Cell Distribution Width 15.8 % (11.5-14.5); White Blood Count 10.1 K/mm3 (4.5-10.0)
[2019-05-25 04:57] LABS: Alveolar/Arterial O2 Gradient 197.9 mmHg; Carboxyhemoglobin 0.3 % THb (0-2.0); Fractional Inspired Oxygen 50 %; HCO3 ABG 39.9 mEq/l (22.0-26.0); Methemoglobin ABG 0.3 %THb (0-1.5); Oxygen Content ABG 16.7 %vol (16.0-22.0); Oxygen Saturation ABG 98.1 % (95.0-100.0); Oxyhemoglobin 96.5 % THb (90.0-100.0); PCO2 ABG 49.7 mmHg (35.0-45.0); PO2 ABG 102.7 mmHg (80.0-100.0); PO2 FiO2 Ratio Arterial Blood 2.05 %; Reduced Hemoglobin 2.9 %THb (0-5.0); Total Hemoglobin 12.2 g/dL (12.0-18.0)
[2019-05-25 04:58] LABS: pH ABG 7.522 (7.350-7.450)
[2019-05-25 04:59] LABS: Arterial Blood Gas Vent Mode CMV; Arterial Blood Gas Ventilator rate 18 /MIN; Device VENTILATOR; Modified Allen's Test Pass; Site Drawn RIGHT RADIAL
[2019-05-25 05:00] LABS: Arterial Blood Gas PEEP 6 cmH2O; Arterial Blood Gas Pressure Support 0 cmH2O; Arterial Blood Gas Tidal Volume 350 ml
[2019-05-25 05:04] LABS: Blood Urea Nitrogen 29 mg/dL (7-17); Calcium 8.9 mg/dL (8.4-10.2); Carbon Dioxide > 40 mmol/L (22-30); Chloride 93 mmol/L (98-107); Estimated CRCL calculation 117 ml/min; Estimated Glomerular Filt Rate > 60; Glucose 120 mg/dL (65-105); Magnesium 2.7 mg/dL (1.6-2.3); Phosphorus 3.7 mg/dL (2.5-4.5); Potassium 3.6 mmol/L (3.4-5.0); Sodium 136 mmol/L (137-145)
[2019-05-25] MEDS: LEVOTHYROXINE SODIUM INJ 100 MCG/5 ML VIAL 25 MCG IV PUSH (05:34)
[2019-05-25] MEDS: LANSOPRAZOLE ORAL SUSP 30 MG/10 ML ORAL.SUSP FEED TUBE (05:34)
[2019-05-25] MEDS: PROPOFOL IV EMULSION 100 ML 37.2 MG IV CONT ×2 (06:46→09:05)
[2019-05-25] MEDS: methylPREDNISolone SOD SUCC 40 MG VIAL IV PUSH ×2 (06:46→17:03)
[2019-05-25] MEDS: MIDAZOLAM HCL 50 MG in DEXTROSE 5% 90 ML 12 MG IV CONT (07:21)
--- NOTE | 2019-05-25 07:59 | WPDINTPN ---
Progress Note: A&P Assessment and Plan (1) Acute respiratory failure with hypoxia: Code(s): J96.01 - Acute respiratory failure with hypoxia Status: Acute Assessment and Plan: Appears to be multifactorial. Patient presented with symptoms and signs suggestive pneumonia. The patient was admitted and started on empiric antibiotics for community-acquired pneumonia and was given IV fluids. Over hospital stay patient hypoxia worsened and patient was fairly positive on intake and output balance to 10 L which corresponding with worsening of chest x-ray and elevated BNP suggested pulmonary edema to be the likely etiology. Patient also has a history of cardiomyopathy and congestive heart failure. Baseline asthma but did not appear to be wheezing. 05/20 Patient was placed on BiPAP and was started on aggressive diuresis. 05/21 Despite good urine output with Lasix her hypoxia did not improve. Chest x-ray worsened to show bilateral diffuse infiltrate. Clinical picture at that point was suggestive of ARDS likely as a result of community-acquired pneumonia. Patient did not improve with BiPAP therapy and was clinically worse so decision was made to intubate the patient. she was intubated on 05/22/19. Patient was intubated 05/21 without any complication. Post intubation patient desaturated and PEEP was increased to 10 and patient was given 1 dose of paralytic. - Chest x-ray and ABG reviewed. chest x-ray looks better with less airspace disease. ABG showed alkalosis likely metabolic in nature with diuresis. Will give 1 dose of acetazolamide. May repeat the dose later today or tomorrow depending upon her bicarb on BMP. - continue sedation with propofol Versed and fentanyl. Daily sedation vacation trial. She will be weaned from sedation today for SBT trial. - Her PEEP has been weaned down to 6 today from 12 yesterday. She seems to be tolerating well. Her FiO2 is down to 50% as well. Will try SBT trial today of her her sedatives are weaned. - Continue steroids and DuoNeb. Will decrease steroid. May potentially stop steroid in 2 days time after she completes her course for 5 days. She does not seems to have any wheezing. Steroids are being used forfor severe community-acquired pneumonia. - Was initially on vancomycin /Unasyn and azithromycin but now antibiotics have been switched to ceftriaxone and azithromycin by infectious disease service recommendation. ID recommendations appreciated. - pending pneumococcal antigen, mycoplasma, RSV, CMV, chlamydia pneumoniae, viral culture. Legionella antigen is negative. - Reviewed initial echocardiogram. - patient was negative for influenza in ED. - Daily chest x-ray and ABGs - She was given 2 doses of Lasix yesterday with net negative fluid balance of 1.5 L in the last 24 hour. Her chest x-ray improved. She does have developed metabolic alkalosis and will be given acetazolamide. Blood pressure is borderline low. If blood pressure improves later then may give another dose of Lasix before possible extubation. - Pulmonary service recommendations are pending. And the time of initial consultation I asked patient and her of any sick contact or travel and both denied either. Patient has been sick for close to 2 weeks prior to presentation as per her initial history. On 05/21 while discussing with the patient feels , patient's were concerned about COVID-19. 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 We have placed patient in airborne isolation. Patient has been intubated for source control. health department was notified for testing kit. we were told that patient does not meet criteria for testing at this time Due to her history and presentation which is not a typical presentation for patient with COVID 19. Will continue to reassess the situation depending on results of other testing. (2) ARDS (adult re
[2019-05-25] MEDS: ENOXAPARIN 40 MG/0.4 ML SYRINGE SUB-Q (08:10)
[2019-05-25] MEDS: SERTRALINE HCL 50 MG TABLET 150 MG PO (08:11)
[2019-05-25] MEDS: DOCUSATE SODIUM LIQ 100 MG/10 ML UDC PO (08:11)
[2019-05-25] MEDS: PROMETHAZINE HCL 25 MG/ML AMPUL 12.5 MG IV PUSH ×2 (08:14→13:43)
[2019-05-25] MEDS: PROPOFOL IV EMULSION 100 ML 26.1 MG IV CONT (11:59)
[2019-05-25] MEDS: FUROSEMIDE INJ 40 MG/4 ML VIAL IV PUSH (13:28)
[2019-05-25] MEDS: PROPOFOL IV EMULSION 100 ML 18.6 MG IV CONT ×2 (15:33→20:52)
--- NOTE | 2019-05-25 16:02 | PM.IMPN ---
Progress Note: A&P Assessment and Plan (1) Community acquired pneumonia: Qualifiers: Laterality: unspecified laterality Qualified Code(s): J18.9 - Pneumonia, unspecified organism Code(s): J18.9 - Pneumonia, unspecified organism Status: Acute Assessment and Plan: Pt is on azithromycin, and rocephin IV pt is on iv steroids, doing better weaning off the vent. 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 bacterial or possible viral related. Pt for further testing. [facility] is 10.1 and trending (3) Asthma, mild intermittent: Qualifiers: Asthma complication type: with acute exacerbation Qualified Code(s): J45.21 - Mild intermittent asthma with (acute) exacerbation Code(s): J45.20 - Mild intermittent asthma, uncomplicated Status: Acute Assessment and Plan: Pt emergently intubated today ? ards and pneumonia, for possible extubation tomorrow. (4) Hypertension: Qualifiers: Hypertension type: essential hypertension Qualified Code(s): I10 - Essential (primary) hypertension Code(s): I10 - Essential (primary) hypertension Status: Acute Assessment and Plan: Continue to monitor Bps 115/75 (5) GERD (gastroesophageal reflux disease): Qualifiers: Esophagitis presence: esophagitis presence not specified Qualified Code(s): K21.9 - Gastro-esophageal reflux disease without esophagitis Code(s): K21.9 - Gastro-esophageal reflux disease without esophagitis Status: Acute Assessment and Plan: Continue home regimen (6) IRMA on CPAP: Code(s): G47.33 - Obstructive sleep apnea (adult) (pediatric); Z99.89 - Dependence on other enabling machines and devices Status: Acute Assessment and Plan: (7) Elevated brain natriuretic peptide (BNP) level: Code(s): R79.89 - Other specified abnormal findings of blood chemistry Status: Acute Assessment and Plan: Chronic CHF, diastolic, systolic (8) CHF (congestive heart failure): Code(s): I50.9 - Heart failure, unspecified Status: Acute Assessment and Plan: Pt is on iv lasix Subjective Date/time seen: 05/25/19 16:02 Patient 39-year-old female morbidly obese with history of asthma and sleep apnea on CPAP patient presented with cough shortness of breath, initially patient was admitted to medical floor patient developed hypoxia and respiratory distress patient was placed on BiPAP and transferred to ICU, while in ICU patient became desaturated and was emergently intubated, most likely patient has a community-acquired pneumonia being treated with azithromycin and Rocephin, virle profile is pending as well as strep p
--- NOTE | 2019-05-25 20:50 | PM.PNPUL ---
Progress Note: A&P Assessment and Plan (1) Acute respiratory failure with hypoxia: Code(s): J96.01 - Acute respiratory failure with hypoxia Status: Acute Assessment and Plan: Due to multiple issues including pneumonia, (+) fluid balance with pulmonary edema. She has cardiac dysfunction, with volume overload. Her asthma does not appear to be the main issue contributing to her decompensation. She has been intubated, on high levels of PEEP on 100% FiO2 on May 21, improving since then now on 50%. She has been on sedation with fentanyl, versed & now precedex. Overall improved,infiltrates improving. (2) ARDS (adult respiratory distress syndrome): Code(s): J80 - Acute respiratory distress syndrome Status: Acute (3) Obesity hypoventilation syndrome: Code(s): E66.2 - Morbid (severe) obesity with alveolar hypoventilation Status: Acute (4) Asthma, mild intermittent: Qualifiers: Asthma complication type: with acute exacerbation Qualified Code(s): J45.21 - Mild intermittent asthma with (acute) exacerbation Code(s): J45.20 - Mild intermittent asthma, uncomplicated Status: Acute (5) IRMA on CPAP: Code(s): G47.33 - Obstructive sleep apnea (adult) (pediatric); Z99.89 - Dependence on other enabling machines and devices Status: Acute (6) Tobacco abuse: Code(s): Z72.0 - Tobacco use Status: Acute Subjective Date/time seen: 05/25/19 20:50 This 39 yo female is seen in follow up for acute respiratory failure, remains on mechanical ventilation, FiO2 50% and PEEP 6 cm.. She is on lower amounts of sedation, opens eyes, Versed 1 mg/hour, fentanyl 50 mcg/hour, precedex 0.7 mcg/kg/hour. Her saturation is higher, 98% on 50%, improving, lower amounts FiO2. She is able to open eyes, responds to voice. Review of Systems Review of Systems: Narrative: not obtainable due to sedation and intubation Exam Narrative: Exam Narrative: Sedation is precedex 0.7; versed1 mg/hour, fentanyl 50 mcg/hour. Const: General: no acute distress Other: Orally intubated, moist membranes, HENMT: Mouth: Yes moist mucous membranes Eyes: General: appearance normal, both eyes and all related structures Neck: Lymphatic: lymphadenopathy not noted Other: stocky neck Resp: Auscultation: diminished lung sounds Cardio: Rate: regular rate Rhythm: regular rhythm Heart sounds: no gallops and no murmurs Other: sinus rhythm at 94 GI: Auscultation: normal bowel sounds Urinary Catheter: Urinary Catheter: patent and draining Skin: General skin exam: normal color Neuro: Speech: No normal speech (no speech due to ETT tube; nodes to questions) Extrem: General: normal to inspection Psych: Affect: Anxious affect present Objective Data Vital Signs Vital Signs: Vital Signs - 24 hr 05/24/19 22:00 05/24/19 22:01 05/24/19 23:01 Temperature Pulse Rate 67 67 94 Respiratory Rate 17 18 Blood Pressure 113/65 105/68 Pulse Oximetry 97 93 05/24/19 23:18 05/25/19 00:00 05/25/19 01:50 Temperature 36.3 C L Pulse Rate 89 81 73 Respiratory Rate 18 18 Blood Pressure 111/74 Pulse Oximetry 96 97 96 05/25/19 02:00 05/25/19 02:01 05/25/19 04:00 Temperature Pulse Rate 77 77 79 Respiratory Rate 18 Blood Pressure 114/67 Pulse Oximetry 96 05/25/19 04:01 05/25/19 04:45 05/25/19 06:00 Temperature 36.2 C L Pulse Rate 78 76 67 Respiratory Rate 18 Blood Pressure 109/71 Pulse Oximetry 92 97 05/25/19 06:01 05/25/19 07:01 05/25/19 08:00 Temperature 35.9 C L Pulse Rate 67 70 62 Respiratory Rate 18 18 18 Blood Pressure 129/92 H 99/56 L 103/74 Pulse Oximetry 96 96 96 05/25/19 08:30 05/25/19 08:37 05/25/19 10:00 Temperature Pulse Rate 72 84 79 Respiratory Rate 19 18 Blood Pressure 117/75 Pulse Oximetry 94 99 05/25/19 10:25 05/25/19 12:00 05/25/19 14:00 Temperature 36.0 C L Pulse Rate 83 72 75 Respiratory Rate 18 18 Blood
[2019-05-25] MEDS: GABAPENTIN 300 MG CAPSULE 600 MG PO (20:54)
[2019-05-25 21:08] LABS: Mycoplasma IgM Antibody Titer 65 U/mL (<770)
[2019-05-26] VITALS (27 sets, daily range): BP systolic 94–140; BP diastolic 60–106; PULSE 64–105; RESP 16–21; TEMP 36.3–36.6; O2SAT 92–99
[2019-05-26] MEDS: IPRATROPIUM BR 0.02% INH SOLN 0.5 MG/2.5 ML VIAL INHALATION ×4 (00:52→20:19)
[2019-05-26] MEDS: ALBUTEROL SULFATE NEB 2.5 MG/0.5 ML INH 5 MG INHALATION ×4 (00:52→20:19)
[2019-05-26] MEDS: PROPOFOL IV EMULSION 100 ML 18.6 MG IV CONT (02:25)
[2019-05-26 04:29] LABS: Hematocrit 38.9 % (37.0-47.0); Hemoglobin 12.6 g/dL (12.0-15.0); Mean Corpuscular HGB Conc 32.4 g/dl (32-36); Mean Corpuscular Hemoglobin 32.1 pg (26-34); Mean Corpuscular Volume 99.2 fl (80-100); Mean Platelet Volume 9.9 fl (7.4-10.4); Platelet Count Result 265 k/mm3 (150-375); Red Blood Count 3.92 M/mm3 (4.2-5.4); Red Cell Distribution Width 15.4 % (11.5-14.5); White Blood Count 12.2 K/mm3 (4.5-10.0)
[2019-05-26 04:41] LABS: Blood Urea Nitrogen 29 mg/dL (7-17); Calcium 9.3 mg/dL (8.4-10.2); Carbon Dioxide 30 mmol/L (22-30); Chloride 92 mmol/L (98-107); Estimated CRCL calculation 91 ml/min; Estimated Glomerular Filt Rate > 60; Glucose 123 mg/dL (65-105); Magnesium 2.7 mg/dL (1.6-2.3); Sodium 134 mmol/L (137-145)
[2019-05-26 05:26] LABS: Alveolar/Arterial O2 Gradient 215.6 mmHg; Base Excess ABG 5.5 mEq/l (+/-2.0); Carboxyhemoglobin 0.8 % THb (0-2.0); Fractional Inspired Oxygen 50 %; HCO3 ABG 29.8 mEq/l (22.0-26.0); Methemoglobin ABG 0.3 %THb (0-1.5); Oxygen Content ABG 18.1 %vol (16.0-22.0); Oxygen Saturation ABG 97.5 % (95.0-100.0); Oxyhemoglobin 95.8 % THb (90.0-100.0); PCO2 ABG 42.4 mmHg (35.0-45.0); PO2 ABG 93.2 mmHg (80.0-100.0); PO2 FiO2 Ratio Arterial Blood 1.86 %; Reduced Hemoglobin 3.1 %THb (0-5.0); Total Hemoglobin 13.4 g/dL (12.0-18.0); pH ABG 7.465 (7.350-7.450)
[2019-05-26 05:28] LABS: Arterial Blood Gas Ventilator rate 18 /MIN; Device VENTILATOR; Modified Allen's Test Pass; Site Drawn RIGHT RADIAL
[2019-05-26 05:29] LABS: Arterial Blood Gas PEEP 6 cmH2O; Arterial Blood Gas Tidal Volume 350 ml; Arterial Blood Gas Vent Mode CMV
[2019-05-26] MEDS: methylPREDNISolone SOD SUCC 40 MG VIAL IV PUSH ×2 (05:53→17:24)
[2019-05-26] MEDS: LEVOTHYROXINE SODIUM INJ 100 MCG/5 ML VIAL 25 MCG IV PUSH (05:54)
[2019-05-26] MEDS: LANSOPRAZOLE ORAL SUSP 30 MG/10 ML ORAL.SUSP FEED TUBE (05:56)
[2019-05-26] MEDS: PROPOFOL IV EMULSION 100 ML 22.3 MG IV CONT (07:51)
--- NOTE | 2019-05-26 08:09 | WPDINTPN ---
Progress Note: A&P Assessment and Plan (1) Acute respiratory failure with hypoxia: Code(s): J96.01 - Acute respiratory failure with hypoxia Status: Acute Assessment and Plan: Appears to be multifactorial. Patient presented with symptoms and signs suggestive pneumonia. The patient was admitted and started on empiric antibiotics for community-acquired pneumonia and was given IV fluids. Over hospital stay patient hypoxia worsened and patient was fairly positive on intake and output balance to 10 L which corresponding with worsening of chest x-ray and elevated BNP suggested pulmonary edema to be the likely etiology. Patient also has a history of cardiomyopathy and congestive heart failure. Baseline asthma but did not appear to be wheezing. 05/20 Patient was placed on BiPAP and was started on aggressive diuresis. 05/21 Despite good urine output with Lasix her hypoxia did not improve. Chest x-ray worsened to show bilateral diffuse infiltrate. Clinical picture at that point was suggestive of ARDS likely as a result of community-acquired pneumonia. Patient did not improve with BiPAP therapy and was clinically worse so decision was made to intubate the patient. she was intubated on 05/22/19. patient initially was on high peep and FiO2 and was paralyzed for short amount of time. - Developed alkalosis due to diuresis, acetazolamide was started, CO2 levels are down, will hold acetazolamide - currently only on Precedex, patient had a large vomitus, OG tube was out, hold OG tube was clamped. A new OG was Inserted and connected to low intermittent suction. - Currently peep is at 6 and FiO2 at 50%. he seems to be tolerating well. - continue bronchodilators, steroids have been stopped - Was initially on vancomycin /Unasyn and azithromycin but now antibiotics have been switched to ceftriaxone and azithromycin by infectious disease service recommendation. ID recommendations appreciated. - pending pneumococcal antigen, mycoplasma, RSV, CMV, chlamydia pneumoniae, viral culture. Legionella antigen is negative. - patient was negative for influenza in ED. - will diurese again today. At the time of initial consultation I asked patient and her of any sick contact or travel and both denied either. Patient has been sick for close to 2 weeks prior to presentation as per her initial history. On 05/21 while discussing with the patient feels , patient's were concerned about COVID-19. 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 We have placed patient in airborne isolation. Patient has been intubated for source control. health department was notified for testing kit. we were told that patient does not meet criteria for testing at this time Due to her history and presentation which is not a typical presentation for patient with COVID 19. Will continue to reassess the situation depending on results of other testing. (2) ARDS (adult respiratory distress syndrome): Code(s): J80 - Acute respiratory distress syndrome Status: Acute Assessment and Plan: see above (3) CHF (congestive heart failure): Code(s): I50.9 - Heart failure, unspecified Status: Acute Assessment and Plan: last echocardiogram was poor quality. will repeat a limited study to get a better imaging. ECHO 05/19 1. Left ventricular chamber size and systolic function are normal with no regional wall motion abnormalities with an estimated ejection fraction of 60-65%. Mild left ventricular hypertrophy is present. Borderline criteria for diastolic dysfunction is present. 2. No significant valve disease. 3. Very technically difficult study. Definity echo contrast used. 4. Normal sinus rhythm. (4) Community acquired pneumonia: Qualifiers: Laterality: unspecified laterality Qualified Code(s): J18.9 - Pneumonia, unspecified organism
[2019-05-26] MEDS: ONDANSETRON INJ 4 MG/2 ML VIAL (09:04)
[2019-05-26] MEDS: FUROSEMIDE INJ 40 MG/4 ML VIAL IV PUSH (09:05)
[2019-05-26] MEDS: ENOXAPARIN 40 MG/0.4 ML SYRINGE SUB-Q (09:06)
[2019-05-26] MEDS: PROPOFOL IV EMULSION 100 ML 21.7 MG IV CONT ×3 (11:24→20:38)
--- NOTE | 2019-05-26 12:00 | PCDIET ---
ICU Rounding Note: Tube feedings held 05/25/19 for increased residuals. Patient had large emesis this morning and tube feedings currently on hold. MD plans to order Reglan and restart feedings when able. Feeding tube currently to low intermittent suction. Last recorded weight is 120.6kg which is decreased from last review, likely related to both diuresis and minimal enteral feeding. Bowel Motility: No documented bowel movement since last review. Labs Reviewed: Glu (123), PO4 (5.0), Mg (2.7), Na (134) Meds Noted: Albuterol, Fentanyl, Rocephin, Atrovent, Precedex, Solu Medrol, Colace, Versed, Propofol at 22.3mL/hr (588kcal over 24 hour period) Additional Notes: Abrasion to abdomen; no documented pressure sores. Following daily in ICU rounds. Assessing/reassessing every Sunday/Sunday.
[2019-05-26] MEDS: METOCLOPRAMIDE HCL INJ 10 MG/2 ML VIAL IV PUSH ×3 (12:50→23:55)
--- NOTE | 2019-05-26 12:58 | PM.PNPUL ---
Progress Note: A&P Assessment and Plan (1) ARDS (adult respiratory distress syndrome): Code(s): J80 - Acute respiratory distress syndrome Status: Acute Assessment and Plan: CXR is improving slowly - continue low tidal volume strategy - once other medical issues are stable start CPAP trial and lighten sedation (2) Pneumonia: Code(s): J18.9 - Pneumonia, unspecified organism Status: Acute Assessment and Plan: No specific bacteria or virus has been identified. - Pt exposed to who is EMT but [facility] did not feel that she warranted SARS-Cov2 testing - continue Ceftriaxone and Azithromycin for 7-10 days (3) Acute respiratory failure with hypoxia: Code(s): J96.01 - Acute respiratory failure with hypoxia Status: Acute Time Spent With Patient Time with patient: 15 - 25 minutes Subjective Date/time seen: 05/26/19 12:58 Interval history: This 39 yo female is seen in follow up for acute respiratory failure, remains on mechanical ventilation, FiO2 50% and PEEP 6 cm.. She is on lower amounts of sedation, opens eyes, Versed 1 mg/hour, fentanyl 50 mcg/hour, precedex 0.7 mcg/kg/hour. Her saturation is higher, 98% on 50%, improving, lower amounts FiO2. She is able to open eyes, responds to voice. BP and HR stable. Some emesis this morning. Review of Systems Review of Systems: All systems reviewed & are unremarkable except as noted in HPI and below Exam Const: General: comfortable and no acute distress Other: intubated and sedated HENMT: Mouth: Yes moist mucous membranes Neck: Neck: supple and no JVD Resp: Auscultation: no crackles, no rales, no rhonchi, no wheezes and diminished lung sounds Cardio: Rate: regular rate Rhythm: regular rhythm Heart sounds: no murmurs GI: Auscultation: normal bowel sounds Neuro: Other: sedated but arousable to voice and touch Extrem: General: normal to inspection Objective Data Vital Signs Vital Signs: Vital Signs - 24 hr 05/25/19 14:00 05/25/19 14:51 05/25/19 14:52 Temperature Pulse Rate 75 78 77 Respiratory Rate 18 18 Blood Pressure 142/92 H Pulse Oximetry 99 98 05/25/19 16:00 05/25/19 17:23 05/25/19 18:00 Temperature 36.5 C Pulse Rate 84 80 74 Respiratory Rate 20 18 Blood Pressure 116/88 136/105 H Pulse Oximetry 97 94 98 05/25/19 19:24 05/25/19 19:25 05/25/19 19:32 Temperature Pulse Rate 72 75 79 Respiratory Rate 18 18 Blood Pressure Pulse Oximetry 97 05/25/19 20:00 05/25/19 22:00 05/25/19 22:30 Temperature 36.4 C L Pulse Rate 82 76 76 Respiratory Rate 18 18 Blood Pressure 128/84 133/93 H Pulse Oximetry 97 98 98 05/26/19 00:00 05/26/19 00:52 05/26/19 00:53 Temperature 36.3 C L Pulse Rate 66 75 76 Respiratory Rate 18 19 Blood Pressure 140/98 H Pulse Oximetry 98 94 05/26/19 02:00 05/26/19 04:00 05/26/19 05:35 Temperature 36.3 C L Pulse Rate 80 64 85 Respiratory Rate 18 18 Blood Pressure 132/94 H 118/76 Pulse Oximetry 96 98 95 05/26/19 06:00 05/26/19 07:51 05/26/19 07:58 Temperature Pulse Rate 65 105 H 103 H Respiratory Rate 18 20 Blood Pressure 132/106 H Pulse Oximetry 98 92 05/26/19 08:00 05/26/19 08:05 05/26/19 10:00 Temperature 36.3 C L Pulse Rate 95 95 76 Respiratory Rate 20 20 18 Blood Pressure 100/60 115/94 H Pulse Oximetry 92 97 05/26/19 11:26 05/26/19 12:00 Temperature 36.6 C Pulse Rate 89 76 Respiratory Rate 18 Blood Pressure 111/80 Pulse Oximetry 97 97 Intake/Output Intake/Output: Intake & Output 05/23/19 05/24/19 05/25/19 05/26/19 23:59 23:59 23:59 23:59 Intake Total 20090 1574 935 Output Total 2199 9400 1776 750 [facility] -190 -960 -201 185 Meds/Results Medications: Active Medications Generic Name Dose Route Start Last Admin Trade Name Freq PRN Reason Stop Dose Admin Acetaminophen 650 mg 05/20/19 12:46 05/21/19 13:35 Tylenol Tablet PO 650 mg Q6H PRN Administration
[2019-05-26 15:20] LABS: Pneumococcal Antigen Urine Not Detected (Not Detected)
--- NOTE | 2019-05-26 16:23 | PM.IMPN ---
Progress Note: A&P Assessment and Plan (1) Community acquired pneumonia: Qualifiers: Laterality: unspecified laterality Qualified Code(s): J18.9 - Pneumonia, unspecified organism Code(s): J18.9 - Pneumonia, unspecified organism Status: Acute Assessment and Plan: Pt is on azithromycin, and rocephin IV pt is on iv steroids, doing better weaning off the vent. 05/26/19 16:23 Patient 39-year-old female morbidly obese with history of asthma and sleep apnea on CPAP patient presented with cough shortness of breath, initially patient was admitted to medical floor patient developed hypoxia and respiratory distress patient was placed on BiPAP and transferred to ICU, while in ICU patient became desaturated and was emergently intubated, most likely patient has a community-acquired pneumonia being treated with azithromycin and Rocephin, virle profile is pending as well as strep pneumo, and Legionella urine antigens are pending, patient is cared by health consultant currently sedation is reduced in attempt to extubate however patient clinical symptoms and chest x-rays are not improving, the patient possibly tomorrow (2) Sepsis: Qualifiers: Sepsis acute organ dysfunction status: without acute organ dysfunction Sepsis type: sepsis due to unspecified organism Qualified Code(s): A41.9 - Sepsis, unspecified organism Code(s): A41.9 - Sepsis, unspecified organism Status: Acute Assessment and Plan: Due to community-acquired pneumonia as source? bacterial or possible viral related. Pt for further testing. WCC is 12.2 and trending down (3) Asthma, mild intermittent: Qualifiers: Asthma complication type: with acute exacerbation Qualified Code(s): J45.21 - Mild intermittent asthma with (acute) exacerbation Code(s): J45.20 - Mild intermittent asthma, uncomplicated Status: Acute Assessment and Plan: Pt emergently intubated today ? ards and pneumonia, for possible extubation tomorrow. (4) Hypertension: Qualifiers: Hypertension type: essential hypertension Qualified Code(s): I10 - Essential (primary) hypertension Code(s): I10 - Essential (primary) hypertension Status: Acute Assessment and Plan: Continue to monitor Bps 113/93 (5) GERD (gastroesophageal reflux disease): Qualifiers: Esophagitis presence: esophagitis presence not specified Qualified Code(s): K21.9 - Gastro-esophageal reflux disease without esophagitis Code(s): K21.9 - Gastro-esophageal reflux disease without esophagitis Status: Acute Assessment and Plan: Continue home regimen (6) IRMA on CPAP: Code(s): G47.33 - Obstructive sleep apnea (adult) (pediatric); Z99.89 - Dependence on other enabling machines and devices Status: Acute Assessment and Plan: (7) Elevated brain natriuretic peptide (BNP) level: Code(s): R79.89 - Other specified abnormal findings of blood chemistry Status: Acute Assessment and Plan: Chronic CHF, diastolic, systolic (8) CHF (congestive heart failure): Code(s): I50.9 - Heart failure, unspecified Status: Acute Assessment and Plan: Pt is on iv lasix Subjective Date/time seen: 05/26/19 16:23 Patient 39-year-old female morbidly obese with history of asthma and sleep apnea on CPAP patient presented with cough shortness of breath, initially patient was admitted to medical floor patient developed hypoxia and respiratory distress patient was placed on BiPAP and transferred to ICU, while in ICU patient became desaturated and was emergently intubated, most likely patient has a community-acquired pneumonia being treated w
--- NOTE | 2019-05-26 17:58 | WPDINFPN2 ---
Progress Note: A&P Assessment and Plan (1) Community acquired pneumonia: Qualifiers: Laterality: unspecified laterality Qualified Code(s): J18.9 - Pneumonia, unspecified organism Code(s): J18.9 - Pneumonia, unspecified organism Status: Acute Assessment and Plan: 1. Acute febrile illness (prior to admission) with resp. failure and diffuse lung infiltrates, suspect CAP. No fever since arrival here. CXR stable, wbc still high at 12 2. Tobacco REC continue Ctx and Azithro. (antibiotic # 8). Anticipate another 2 days Rx. No + micro, some results still pending Subjective Date/time seen: 05/26/19 17:58 Interval history: sedated ventilated Exam Narrative: Exam Narrative: afebrile Const: General: no acute distress Resp: Effort & Inspection: normal respiratory effort Auscultation: clear to auscultation bilaterally Cardio: Rate: regular rate Rhythm: regular rhythm Heart sounds: no murmurs GI: Inspection: non-distended GI Palp: Yes Soft to palpation Other: no groin lines Urinary Catheter: Urinary Catheter: patent and draining and urine clear Objective Data Vital Signs Vital Signs: Vital Signs - 24 hr 05/25/19 18:00 05/25/19 19:24 05/25/19 19:25 Temperature Pulse Rate 74 72 75 Respiratory Rate 18 18 Blood Pressure 136/105 H Pulse Oximetry 98 97 05/25/19 19:32 05/25/19 20:00 05/25/19 22:00 Temperature 36.4 C L Pulse Rate 79 82 76 Respiratory Rate 18 18 18 Blood Pressure 128/84 133/93 H Pulse Oximetry 97 98 05/25/19 22:30 05/26/19 00:00 05/26/19 00:52 Temperature 36.3 C L Pulse Rate 76 66 75 Respiratory Rate 18 19 Blood Pressure 140/98 H Pulse Oximetry 98 98 05/26/19 00:53 05/26/19 02:00 05/26/19 04:00 Temperature 36.3 C L Pulse Rate 76 80 64 Respiratory Rate 18 18 Blood Pressure 132/94 H 118/76 Pulse Oximetry 94 96 98 05/26/19 05:35 05/26/19 06:00 05/26/19 07:51 Temperature Pulse Rate 85 65 105 H Respiratory Rate 18 20 Blood Pressure 132/106 H Pulse Oximetry 95 98 05/26/19 07:58 05/26/19 08:00 05/26/19 08:05 Temperature 36.3 C L Pulse Rate 103 H 95 95 Respiratory Rate 20 20 Blood Pressure 100/60 Pulse Oximetry 92 92 05/26/19 10:00 05/26/19 11:26 05/26/19 12:00 Temperature 36.6 C Pulse Rate 76 89 76 Respiratory Rate 18 18 Blood Pressure 115/94 H 111/80 Pulse Oximetry 97 97 97 05/26/19 14:00 05/26/19 15:02 05/26/19 15:03 Temperature Pulse Rate 77 77 80 Respiratory Rate 18 18 Blood Pressure 113/93 H Pulse Oximetry 99 97 05/26/19 15:11 05/26/19 16:00 05/26/19 16:55 Temperature 36.6 C Pulse Rate 82 95 80 Respiratory Rate 20 20 Blood Pressure 94/66 L Pulse Oximetry 94 97 Intake/Output Intake/Output: Intake & Output 05/23/19 05/24/19 05/25/19 05/26/19 23:59 23:59 23:59 23:59 Intake Total 2009 3370 1574 1310 Output Total 2199 4330 1775 2400 Balance -190 -960 -201 -1090 Meds/Results Medications: Active Medications Generic Name Dose Route Start Last Admin Trade Name Evaristoq PRN Reason Stop Dose Admin Acetaminophen 650 mg 05/20/19 12:46 05/21/19 13:35 Tylenol Tablet PO 650 mg Q6H PRN Administration Mild Pain (1-3) or Fever Albuterol 5 mg 05/19/19 14:00 05/26/19 15:02 Albuterol Sulf Neb 2.5mg/0.5ml INHALATION 5 mg Q6HRT RAFA Administration Docusate Sodium 100 mg 05/24/19 09:00 05/26/19 09:18 Colace Liquid PO Not Given DAILY RAFA Enoxaparin Sodium 40 mg 05/19/19 10:55 05/26/19 09:06 Lovenox SUB-Q 40 mg DAILY RAFA Administration Gabapentin 600 mg 05/25/19 21:00 05/25/19 20:54 Neurontin PO 600 mg BEDTIME RAFA Administration Azithromycin 500 mg in 250 mls @ 250 mls/hr 05/20/19 09:00 05/26/19 10:05 Zithromax IVPB Infused DAILY RAFA Infusion Ceftriaxone Sodium/Dextrose 1 gm in 50 mls @ 100 mls/hr 05/22/19 16:00 05/26/19 16:04 Rocephin 1 Gm/D5w 50 Ml IVPB Infused Q24H RAFA Infusion Fen
[2019-05-26] MEDS: GABAPENTIN 300 MG CAPSULE 600 MG PO (20:25)
[2019-05-27] VITALS (29 sets, daily range): BP systolic 76–113; BP diastolic 50–88; PULSE 71–112; RESP 10–23; TEMP 36.5–36.9; O2SAT 94–100
[2019-05-27] MEDS: PROPOFOL IV EMULSION 100 ML 21.7 MG IV CONT ×2 (01:18→04:40)
[2019-05-27] MEDS: IPRATROPIUM BR 0.02% INH SOLN 0.5 MG/2.5 ML VIAL INHALATION ×4 (01:40→21:39)
[2019-05-27] MEDS: ALBUTEROL SULFATE NEB 2.5 MG/0.5 ML INH 5 MG INHALATION ×4 (01:40→21:39)
[2019-05-27 04:23] LABS: Hematocrit 39.1 % (37.0-47.0); Hemoglobin 13.1 g/dL (12.0-15.0); Mean Corpuscular HGB Conc 33.5 g/dl (32-36); Mean Corpuscular Hemoglobin 32.4 pg (26-34); Mean Corpuscular Volume 96.8 fl (80-100); Mean Platelet Volume 9.8 fl (7.4-10.4); Platelet Count Result 283 k/mm3 (150-375); Red Blood Count 4.04 M/mm3 (4.2-5.4); Red Cell Distribution Width 14.8 % (11.5-14.5); White Blood Count 11.8 K/mm3 (4.5-10.0)
[2019-05-27 04:28] LABS: Base Excess ABG 6.9 mEq/l (+/-2.0); Carboxyhemoglobin 0.6 % THb (0-2.0); Fractional Inspired Oxygen 30 %; HCO3 ABG 30.6 mEq/l (22.0-26.0); Oxygen Content ABG 18.5 %vol (16.0-22.0); Oxygen Saturation ABG 96.6 % (95.0-100.0); PCO2 ABG 39.8 mmHg (35.0-45.0); PO2 ABG 79.1 mmHg (80.0-100.0); PO2 FiO2 Ratio Arterial Blood 2.64 %; Reduced Hemoglobin 4.4 %THb (0-5.0); Total Hemoglobin 13.8 g/dL (12.0-18.0); pH ABG 7.503 (7.350-7.450)
[2019-05-27 04:30] LABS: Device VENTILATOR; Modified Allen's Test Pass; Site Drawn LEFT RADIAL
[2019-05-27 04:31] LABS: Arterial Blood Gas PEEP 6 cmH2O; Arterial Blood Gas Tidal Volume 350 ml; Arterial Blood Gas Vent Mode CMV; Arterial Blood Gas Ventilator rate 18 /MIN
[2019-05-27 04:54] LABS: Blood Urea Nitrogen 43 mg/dL (7-17); Calcium 9.8 mg/dL (8.4-10.2); Carbon Dioxide 30 mmol/L (22-30); Chloride 89 mmol/L (98-107); Estimated CRCL calculation 60 ml/min; Estimated Glomerular Filt Rate 41; Glucose 142 mg/dL (65-105); Magnesium 2.8 mg/dL (1.6-2.3); Phosphorus 6.4 mg/dL (2.5-4.5); Potassium 3.7 mmol/L (3.4-5.0); Sodium 131 mmol/L (137-145)
[2019-05-27] MEDS: METOCLOPRAMIDE HCL INJ 10 MG/2 ML VIAL IV PUSH ×4 (05:25→23:23)
[2019-05-27] MEDS: LEVOTHYROXINE SODIUM INJ 100 MCG/5 ML VIAL 25 MCG IV PUSH (05:44)
[2019-05-27] MEDS: methylPREDNISolone SOD SUCC 40 MG VIAL IV PUSH (05:44)
[2019-05-27] MEDS: LANSOPRAZOLE ORAL SUSP 30 MG/10 ML ORAL.SUSP FEED TUBE (05:46)
[2019-05-27] MEDS: DOCUSATE SODIUM LIQ 100 MG/10 ML UDC PO (08:07)
[2019-05-27] MEDS: ENOXAPARIN 40 MG/0.4 ML SYRINGE SUB-Q (08:07)
[2019-05-27] MEDS: SERTRALINE HCL 50 MG TABLET 150 MG PO (08:07)
--- NOTE | 2019-05-27 09:12 | PC.NURSE ---
at 1545 on may 24
--- NOTE | 2019-05-27 09:15 | PC.NURSE ---
no May 25 at 1545, rass score 2, Fentanyl increased from 50 to 75mcg, and at 185, rass score 0, fentanyl decreased back to 50 mcg/ hr
--- NOTE | 2019-05-27 09:15 | PM.IMPN ---
Progress Note: A&P Assessment and Plan (1) Acute respiratory failure with hypoxia: Code(s): J96.01 - Acute respiratory failure with hypoxia Status: Acute Assessment and Plan: Patient remains on mechanical ventilation. Mostly hypoxia but patient may have chronic hypercarbia given the normal pCO2 but elevated pH. Vent management her briquette machine operator. Appreciate his input. Possible extubation today. (2) ARDS (adult respiratory distress syndrome): Code(s): J80 - Acute respiratory distress syndrome Status: Acute Assessment and Plan: Despite good diuresis with Lasix, patient's chest x-ray worsened concerning for ARDS secondary to community-acquired pneumonia. patient required intubation on May 21.Patient does have IRMA and asthma as well. 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 Continue steroids, nebulizer treatments and antibiotics. Appreciate Pulmonary and briquette machine operator input. (3) Community acquired pneumonia: Qualifiers: Laterality: unspecified laterality Qualified Code(s): J18.9 - Pneumonia, unspecified organism Code(s): J18.9 - Pneumonia, unspecified organism Status: Acute Assessment and Plan: urine pneumococcal antigen was negative. Mycoplasma was negative. Blood cultures are negative. Group a strep throat culture negative. MRSA nasal swab was negative. Sputum was negative as well. Influenza was negative on admission in the emergency room. Chest x-ray reviewed showing no significant change. Infectious disease doctor is following. Antibiotics have been adjusted to just Rocephin and azithromycin. Continue the same. Continue nebulizer treatments. Appreciate ID input. (4) Sepsis: Qualifiers: Sepsis acute organ dysfunction status: without acute organ dysfunction Sepsis type: sepsis due to unspecified organism Qualified Code(s): A41.9 - Sepsis, unspecified organism Code(s): A41.9 - Sepsis, unspecified organism Status: Acute Assessment and Plan: Present on admission secondary to anemia choir pneumonia. White blood cell count slightly better 11,800. continue current IV antibiotics. Continue supportive care as mentioned above. (5) CHF (congestive heart failure): Code(s): I50.9 - Heart failure, unspecified Status: Acute Assessment and Plan: Patient is off Lasix. Her cumulative fluid status is positive 1.7 L. Creatinine has climbed to 1.4 so will hold on any were repeat Lasix dosing at this time. clinically does not appear in fluid overload. continue to monitor. (6) Acute kidney injury: Code(s): N17.9 - Acute kidney failure, unspecified Status: Acute Assessment and Plan: Creatinine has been normal since admission up until today with creatinine 1.4. BUN is elevated but this is probably related to the steroids as well. Good urine output yesterday. Continue to monitor closely. Will hold on IV fluids at this time. (7) Asthma, mild intermittent: Qualifiers: Asthma complication type: with acute exacerbation Qualified Code(s): J45.21 - Mild intermittent asthma with (acute) exacerbation Code(s): J45.20 - Mild intermittent asthma, uncomplicated Status: Acute Assessment and Plan: Stable. No wheezing appreciated. Patient is on Solu-Medrol and nebulizer treatments. (8) Hypertension: Qualifiers: Hypertension type: essential hypertension Qualified Code(s): I10 - Essential (primary) hypertension Code(s): I10 - Essential (primary) hypertension Status: Acute Assessment and Plan: Blood pressure reviewed on 05/27/2019. Blood pressure is low at times possibly related to sedation. This should improve once off sedation and off mechanical ventilation. Lisinopril and metoprolol on hold currently. Resume when able. (9) GERD (gastroesophageal reflux disease): Qualifiers:
--- NOTE | 2019-05-27 11:31 | PCNFU ---
Nutrition Follow-Up Complete: Inadequate oral intake related to oral intubation as evidenced by NPO status. Patient to meet estimated nutritional needs. Goal: starting to progress towards goal. Pt current nutrition Tube feedings on hold. Nutrition recommendation: Vital 1.5 at 20 ml/hr, trickle feedings. Last recorded weight:114.4 kg Bowel Motility: No reported BM at this time, Reglan has been started. Labs Reviewed: Glu (142), PO4 (6.4), Na (131) Meds Noted: Lovenox, Precedex, Solu Medrol, Colace, Reglan Additional Notes: Abrasion to abdomen; no documented pressure sores. Propofol has been discontinued, plans to restart tube feedings today. Following daily in ICU rounds. Assessing/reassessing every Sunday/Sunday.
[2019-05-27 13:26] LABS: Alveolar/Arterial O2 Gradient 39.3 mmHg; Base Excess ABG 6.8 mEq/l (+/-2.0); Fractional Inspired Oxygen 30 %; HCO3 ABG 25.9 mEq/l (22.0-26.0); Oxygen Saturation ABG 99.3 % (95.0-100.0); Oxyhemoglobin 97.8 % THb (90.0-100.0); PO2 ABG 146.9 mmHg (80.0-100.0); Total Hemoglobin 14.4 g/dL (12.0-18.0)
[2019-05-27 13:27] LABS: Device VENTILATOR; PCO2 ABG 23.6 mmHg (35.0-45.0); Site Drawn LEFT BRACHIAL; pH ABG 7.659 (7.350-7.450)
[2019-05-27 13:28] LABS: Arterial Blood Gas PEEP 5 cmH2O; Arterial Blood Gas Pressure Support 8 cmH2O; Arterial Blood Gas Vent Mode SPONTANEOUS
--- NOTE | 2019-05-27 14:08 | WPDINTPN ---
Progress Note: A&P Assessment and Plan (1) Acute respiratory failure with hypoxia: Code(s): J96.01 - Acute respiratory failure with hypoxia Status: Acute Assessment and Plan: Appears to be multifactorial. Patient presented with symptoms and signs suggestive pneumonia. The patient was admitted and started on empiric antibiotics for community-acquired pneumonia and was given IV fluids. Over hospital stay patient hypoxia worsened and patient was fairly positive on intake and output balance to 10 L which corresponding with worsening of chest x-ray and elevated BNP suggested pulmonary edema to be the likely etiology. Patient also has a history of cardiomyopathy and congestive heart failure. Baseline asthma but did not appear to be wheezing. 05/20 Patient was placed on BiPAP and was started on aggressive diuresis. 05/21 Despite good urine output with Lasix her hypoxia did not improve. Chest x-ray worsened to show bilateral diffuse infiltrate. Clinical picture at that point was suggestive of ARDS likely as a result of community-acquired pneumonia. Patient did not improve with BiPAP therapy and was clinically worse so decision was made to intubate the patient. she was intubated on 05/22/19. patient initially was on high peep and FiO2 and was paralyzed for short amount of time. - Developed alkalosis due to diuresis, acetazolamide was started, CO2 levels are down, will hold acetazolamide - currently only on Precedex, patient had a large vomitus, OG tube was out, hold OG tube was clamped. A new OG was Inserted and connected to low intermittent suction. - Currently peep is at 6 and FiO2 at 30%. - continue bronchodilators, steroids have been stopped - Was initially on vancomycin /Unasyn and azithromycin but now antibiotics have been switched to ceftriaxone and azithromycin by infectious disease service recommendation. ID recommendations appreciated. - pending pneumococcal antigen, mycoplasma, RSV, CMV, chlamydia pneumoniae, viral culture. Legionella antigen is negative. - patient was negative for influenza in ED. - patient was placed on ASV early this morning, propofol and fentanyl a being weaned off. Patient was started on SBT. Did very well, repeat ABGs looked good and patient was extubated on 05/27/2019 At the time of initial consultation I asked patient and her of any sick contact or travel and both denied either. Patient has been sick for close to 2 weeks prior to presentation as per her initial history. On 05/21 while discussing with the patient feels , patient's were concerned about COVID-19. 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 We have placed patient in airborne isolation. Patient has been intubated for source control. health department was notified for testing kit. we were told that patient does not meet criteria for testing at this time Due to her history and presentation which is not a typical presentation for patient with COVID 19. Will continue to reassess the situation depending on results of other testing. (2) ARDS (adult respiratory distress syndrome): Code(s): J80 - Acute respiratory distress syndrome Status: Acute Assessment and Plan: see above (3) CHF (congestive heart failure): Code(s): I50.9 - Heart failure, unspecified Status: Acute Assessment and Plan: last echocardiogram was poor quality. will repeat a limited study to get a better imaging. ECHO 05/19 1. Left ventricular chamber size and systolic function are normal with no regional wall motion abnormalities with an estimated ejection fraction of 60-65%. Mild left ventricular hypertrophy is present. Borderline criteria for diastolic dysfunction is present. 2. No significant valve disease. 3. Very technically difficult study. Definity echo contrast used. 4. Normal sinus rhythm. (4) Community acquired p
--- NOTE | 2019-05-27 15:38 | PM.PNPUL ---
Progress Note: A&P Assessment and Plan (1) ARDS (adult respiratory distress syndrome): Code(s): J80 - Acute respiratory distress syndrome Status: Acute Assessment and Plan: CXR is improving slowly - continue low tidal volume strategy - once other medical issues are stable start CPAP trial and lighten sedation (2) Pneumonia: Qualifiers: Laterality: bilateral Code(s): J18.9 - Pneumonia, unspecified organism Status: Acute Assessment and Plan: No specific bacteria or virus has been identified. - Pt exposed to who is EMT but [facility] did not feel that she warranted SARS-Cov2 testing - continue Ceftriaxone and Azithromycin for 7-10 days (3) Acute respiratory failure with hypoxia: Code(s): J96.01 - Acute respiratory failure with hypoxia Status: Acute Time Spent With Patient Time with patient: 15 - 25 minutes Subjective Date/time seen: 05/27/19 15:38 Interval history: More awake and following commands today. Doing well on ASV of 5 this morning. Review of Systems Review of Systems: All systems reviewed & are unremarkable except as noted in HPI and below Exam Const: General: comfortable and no acute distress Other: intubated and sedated HENMT: Mouth: Yes moist mucous membranes Neck: Neck: supple and no JVD Resp: Auscultation: no crackles, no rales, no rhonchi, no wheezes and diminished lung sounds Cardio: Rate: regular rate Rhythm: regular rhythm Heart sounds: no murmurs GI: Auscultation: normal bowel sounds Neuro: Other: sedated but arousable to voice and touch Extrem: General: normal to inspection Objective Data Vital Signs Vital Signs: Vital Signs - 24 hr 05/26/19 16:00 05/26/19 16:55 05/26/19 18:00 Temperature 36.6 C Pulse Rate 95 80 87 Respiratory Rate 20 16 Blood Pressure 94/66 L 100/79 Pulse Oximetry 94 97 96 05/26/19 20:00 05/26/19 20:20 05/26/19 20:26 Temperature 36.3 C L Pulse Rate 72 77 82 Respiratory Rate 18 19 Blood Pressure 100/76 Pulse Oximetry 96 96 05/26/19 20:28 05/26/19 22:00 05/26/19 23:32 Temperature Pulse Rate 80 79 85 Respiratory Rate 21 H 18 Blood Pressure 110/87 Pulse Oximetry 96 96 05/27/19 00:00 05/27/19 01:40 05/27/19 01:41 Temperature 36.9 C Pulse Rate 77 90 90 Respiratory Rate 18 20 Blood Pressure 113/83 Pulse Oximetry 97 96 05/27/19 01:45 05/27/19 02:00 05/27/19 04:00 Temperature 36.6 C Pulse Rate 82 100 88 Respiratory Rate 18 18 20 Blood Pressure 86/63 L 90/59 L Pulse Oximetry 94 98 05/27/19 04:41 05/27/19 06:00 05/27/19 08:00 Temperature 36.6 C Pulse Rate 102 H 85 81 Respiratory Rate 20 19 Blood Pressure 99/76 L 109/88 Pulse Oximetry 96 100 99 05/27/19 09:02 05/27/19 09:07 05/27/19 09:15 Temperature Pulse Rate 84 87 87 Respiratory Rate 10 L 15 Blood Pressure Pulse Oximetry 96 05/27/19 10:00 05/27/19 11:38 05/27/19 12:00 Temperature 36.6 C Pulse Rate 104 H 92 80 Respiratory Rate 16 10 L Blood Pressure 105/72 104/82 Pulse Oximetry 98 100 95 05/27/19 12:05 05/27/19 14:00 05/27/19 15:20 Temperature Pulse Rate 92 88 84 Respiratory Rate 20 Blood Pressure 82/58 L Pulse Oximetry 100 94 05/27/19 15:21 05/27/19 15:23 05/27/19 15:26 Temperature Pulse Rate 93 93 Respiratory Rate 10 L 13 Blood Pressure Pulse Oximetry 96 Intake/Output Intake/Output: Intake & Output 05/24/19 05/25/19 05/26/19 05/27/19 23:59 23:59 23:59 23:59 Intake Total 3370 1574 1800 965 Output Total 4330 1775 2400 400 [facility] -[phone] 565 Meds/Results Medications: Active Medications Generic Name Dose Route Start Last Admin Trade Name Freq PRN Reason Stop Dose Admin Acetaminophen 650 mg 05/20/19 12:46 05/21/19 13:35 Tylenol Tablet PO 650 mg Q6H PRN Administration Mild Pain (1-3) or Fever Albuterol 5 mg 05/19/19 14:00 05/27/19 15:14 Albuterol Sulf Neb 2.5mg/0.5ml
[2019-05-27] MEDS: CALCIUM CARBONATE (TUMS) 500 MG (200 MG ELEMENTAL) PO (16:30)
[2019-05-27] MEDS: SODIUM CHLORIDE 0.9% IV 1,000 ML 999 ML IV CONT ×2 (16:30→22:06)
[2019-05-27] MEDS: hetaSTARCH 6%/NACL 500 ML 250 ML IV CONT (18:50)
--- NOTE | 2019-05-27 23:28 | P.PCNBED_ITS ---
Procedures Central Line Placement: Right Femoral: Discussed w/ patient and/or surrogate, the non-emergent placement of a central venous catheter, including its clinical necessity/indication & associated potential risks & complications.: Yes (I have discussed with the patient and/or surrogate) The patient and/or surrogate understand(s) and acknowledge(s) the need to proceed with central venous catheter insertion as an important element of the patient's clinical management.: Yes (the non-emergent placement of a central venous) Consent: Impressions Central Line Date: 05/27/19 Central Line Time: 23:10 Pre-procedural Time-Out was completed immediately before starting the procedure and confirmed: Patient Identification, Site, Procedure, Patient Position and the Availability of Requisite Equipment.: Yes Patient Position: supine Patient placed on monitor/pulse ox: Yes Provider Prep: mask, sterile gown, sterile gloves, Max. sterile barrier precautions and cap Central line prep: Povidone-Iodine 1% Local anesthesia used: lidocaine 1% Amount of anesthesia used (ml): 3 Ultrasound used for placement: Yes Central line lumen inserted: triple [place]: 7 Length (cm): 16 Depth of Insertion (cm): 15 Post procedure: sutured in place, good blood return, all ports aspirated, flushed, capped, tegaderm and antimicrobial disc Patient tolerated procedure: well Complications: none
[2019-05-28] VITALS (21 sets, daily range): BP systolic 97–131; BP diastolic 59–95; PULSE 98–136; RESP 14–31; TEMP 36.5–37.2; O2SAT 94–100
[2019-05-28] MEDS: PROMETHAZINE HCL 25 MG/ML AMPUL 12.5 MG IV PUSH ×3 (00:39→08:39)
[2019-05-28] MEDS: ACETAMINOPHEN 325 MG TABLET 650 MG PO ×2 (00:44→08:25)
[2019-05-28] MEDS: ALBUTEROL SULFATE NEB 2.5 MG/0.5 ML INH 5 MG INHALATION ×2 (02:38→10:03)
[2019-05-28] MEDS: IPRATROPIUM BR 0.02% INH SOLN 0.5 MG/2.5 ML VIAL INHALATION ×4 (02:39→19:05)
[2019-05-28] MEDS: LEVOTHYROXINE SODIUM INJ 100 MCG/5 ML VIAL 25 MCG IV PUSH (05:55)
[2019-05-28] MEDS: METOCLOPRAMIDE HCL INJ 10 MG/2 ML VIAL IV PUSH ×4 (05:55→22:44)
[2019-05-28] MEDS: LANSOPRAZOLE ORAL SUSP 30 MG/10 ML ORAL.SUSP FEED TUBE (05:58)
[2019-05-28 06:21] LABS: Hematocrit 35.2 % (37.0-47.0); Hemoglobin 11.6 g/dL (12.0-15.0); Mean Corpuscular Hemoglobin 32.2 pg (26-34); Mean Corpuscular Volume 97.8 fl (80-100); Mean Platelet Volume 9.7 fl (7.4-10.4); Platelet Count Result 250 k/mm3 (150-375); Red Cell Distribution Width 15.1 % (11.5-14.5); White Blood Count 13.2 K/mm3 (4.5-10.0)
[2019-05-28 06:39] LABS: Blood Urea Nitrogen 57 mg/dL (7-17); Carbon Dioxide 34 mmol/L (22-30); Chloride 92 mmol/L (98-107); Estimated CRCL calculation 43 ml/min; Estimated Glomerular Filt Rate 29; Glucose 96 mg/dL (65-105); Magnesium 2.8 mg/dL (1.6-2.3); Phosphorus 6.2 mg/dL (2.5-4.5); Potassium 2.7 mmol/L (3.4-5.0); Sodium 135 mmol/L (137-145)
--- NOTE | 2019-05-28 06:49 | PM.IMPN ---
Progress Note: A&P Assessment and Plan (1) Acute respiratory failure with hypoxia: Code(s): J96.01 - Acute respiratory failure with hypoxia Status: Acute Assessment and Plan: Patient able to extubated on 05/27/19. Mostly hypoxia but patient may have chronic hypercarbia given the normal pCO2 but elevated pH. Currently now down to 2L NC. Encourage BiPAP use at night and with naps. PT/OT. (2) ARDS (adult respiratory distress syndrome): Code(s): J80 - Acute respiratory distress syndrome Status: Acute Assessment and Plan: Despite good diuresis with Lasix, patient's chest x-ray worsened concerning for ARDS secondary to community-acquired pneumonia. Patient required intubation on May 21 buat able to extubated May 26. Patient does have IRMA and asthma as well. 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 Continue steroids, nebulizer treatments and antibiotics. Appreciate Pulmonary and animal husbandry technician input. (3) Community acquired pneumonia: Qualifiers: Laterality: unspecified laterality Qualified Code(s): J18.9 - Pneumonia, unspecified organism Code(s): J18.9 - Pneumonia, unspecified organism Status: Acute Assessment and Plan: Urine pneumococcal antigen was negative. Mycoplasma was negative. Blood cultures are negative. Group A strep throat culture negative. MRSA nasal swab was negative. Sputum was negative as well. Influenza was negative on admission in the emergency room. Chest x-ray reviewed showing decrease in the perihilar airspace disease. Infectious disease doctor is following. Antibiotics have been adjusted to just Rocephin and azithromycin Day 10 (last day). Continue the same. Continue nebulizer treatments. Appreciate ID input. (4) Sepsis: Qualifiers: Sepsis acute organ dysfunction status: without acute organ dysfunction Sepsis type: sepsis due to unspecified organism Qualified Code(s): A41.9 - Sepsis, unspecified organism Code(s): A41.9 - Sepsis, unspecified organism Status: Acute Assessment and Plan: Present on admission secondary to pneumonia[place] [id number]. Day 10 of Azithro and Rocephin. Plan to stop after today per ID. Continue supportive care as mentioned above. (5) CHF (congestive heart failure): Code(s): I50.9 - Heart failure, unspecified Status: Acute Assessment and Plan: Patient is off Lasix. Her cumulative fluid status is positive 1.7 L. Creatinine has climbed to 1.9 and she required multiple fluid boluses over night. Clinically does not appear in fluid overload. Continue to monitor. (6) Nausea & vomiting: Code(s): R11.2 - Nausea with vomiting, unspecified Status: Acute Assessment and Plan: Patient with nausea and vomiting. NGT placed with removal of 1500mL to suggest a gastroparesis. Related to prolonged bedrest?: Currnetly on Reglan. Monitor NGT output. Clamp once output begins to decrease. (7) Acute kidney injury: Code(s): N17.9 - Acute kidney failure, unspecified Status: Acute Assessment and Plan: Creatinine has been normal since admission up until yesterday with creatinine 1.4 and worse again today at 1.9. Flores secured and UOP dropped off. Dehydrated? BUN is elevated again but could be related to the steroids. Continue to monitor closely. Will give 1L NS. (8) Asthma, mild intermittent: Qualifiers: Asthma complication type: with acute exacerbation Qualified Code(s): J45.21 - Mild intermittent asthma with (acute) exacerbation Code(s): J45.20 - Mild intermittent asthma, uncomplicated Status: Acute Assessment and Plan: Stable. No wheezing appreciated. Continue Solu-Medrol and nebulizer treatments. Change to Xopenex to improve tachycardia but could be related to being off beta-blockers or in response to HoTN.
[2019-05-28] MEDS: SERTRALINE HCL 50 MG TABLET 150 MG PO (08:26)
[2019-05-28] MEDS: CALCIUM CARBONATE (TUMS) 500 MG (200 MG ELEMENTAL) PO (08:26)
[2019-05-28] MEDS: ENOXAPARIN 40 MG/0.4 ML SYRINGE SUB-Q (08:27)
[2019-05-28] MEDS: methylPREDNISolone SOD SUCC 40 MG VIAL IV PUSH (08:27)
[2019-05-28] MEDS: DOCUSATE SODIUM LIQ 100 MG/10 ML UDC PO (08:27)
[2019-05-28] MEDS: LACTATED RINGERS 1,000 ML 999 ML IV CONT (08:38)
[2019-05-28 08:59] LABS: Erythrocyte Sedimentation Rate 44 mm/hr (0-20)
[2019-05-28 09:09] LABS: Creatine Kinase 244 U/L (30-135)
[2019-05-28 09:17] LABS: Complement C3 126 mg/dL (88-165)
[2019-05-28 09:42] LABS: Add Urine Microscopic? YES; Appearance Urine Turbid (Clear); Bacteria Urine Trace /hpf; Bilirubin Urine Negative (Negative); Blood Urine 2+ (Negative); Color Urine Yellow (Yellow); Glucose Urine UA Negative (Negative); Ketones Urine 1+ mg/dL (Negative); Leukocyte Esterase Ur Negative LEU/UL (NEGATIVE); Mucus Urine Rare /lpf; Nitrate Urine Negative (Negative); Protein Urine 1+ mg/dL (Negative); RBC Urine >75 /hpf (0-2); Specific Grav Ur 1.025 (1.001-1.035); Squamous Epithelial Cell Urine Occasional /hpf (Few); Uric Acid Crystals Urine Many /hpf; Urobilinogen Urine Negative mg/dL (<2.0); WBC Urine 16-20 /hpf (0-3)
--- NOTE | 2019-05-28 10:25 | PM.CNNEP ---
Assessment and Plan Assessment and plan (1) Acute kidney injury: Code(s): N17.9 - Acute kidney failure, unspecified Status: Acute Assessment and Plan: The patient has acute kidney injury. Her volume status does not look fluid overloaded. Her chest x-ray is clear and she has no swelling. Her lungs sound pretty good as well. Discussed with Dr. Robert. Her eyes nose are not very positive for the hospital stay. So she could just be dehydrated. The patient also has severe hypertension as an outpatient. I think her kidneys might be used to the higher blood pressures and so the low blood pressure from yesterday but also her blood pressures today which are normal on paper but probably low for her may be contributing to pre renal azotemia as well. I agree with continuing IV fluids. Consider midodrine tomorrow if her urine sodium is low and her blood pressure has not started rising at. It will eventually start to rise on its own because she still has hypertension. The patient could have acute tubular necrosis from her pneumonia as well. I would have thought that this might have started a little sooner. Allergic interstitial nephritis is always a possibility as well. She does not have peripheral eosinophilia. She of course is on Solu-Medrol which would probably minimize any effect of this. (2) ARDS (adult respiratory distress syndrome): Code(s): J80 - Acute respiratory distress syndrome Status: Acute Assessment and Plan: The patient has recovered from this. She had severe respiratory failure from the pneumonia. She is doing better on nasal cannula. (3) Hypertension: Qualifiers: Hypertension type: essential hypertension Qualified Code(s): I10 - Essential (primary) hypertension Code(s): I10 - Essential (primary) hypertension Status: Acute Assessment and Plan: Blood pressure was very high as an outpatient. See discussion above. On no blood pressure meds right now (4) IRMA on CPAP: Code(s): G47.33 - Obstructive sleep apnea (adult) (pediatric); Z99.89 - Dependence on other enabling machines and devices Status: Acute Assessment and Plan: The patient uses her CPAP machine religiously History of Present Illness Reason for Consult Consult date: 05/28/19 Chief Complaint Chief complaint: Sepsis/community acquired pneumonia History of Present Illness Narrative: Dash is a very pleasant 39-year-old lady who has multiple medical problems including asthma, GERD, hypertension, sleep apnea on a CPAP machine, a cardiomyopathy, who was admitted to the hospital on the of this month because of shortness of breath. It turned out that she had pneumonia. She was admitted she got worse and was intubated and spent the last week in the ICU on a ventilator. The patient recovered respiratory sweet in is off the ventilator now. In the last couple of days her creatinine has risen so renal consultation was requested. She did have an NG tube which was draining quite a bit of fluid. She has been getting IV fluids. She has been on antibiotics. Her blood pressure was quite low yesterday for short period of time but since then has generally been around 100. She does have a significant past history of hypertension. She has had this for about 17 years and is never been under very good control. Her blood pressure generally runs between 130 and 160. They frequently try to change her medications to get this down. Review of Systems Constitutional: Constitutional: Reports no additional constitutional complaints Eyes: Eyes: Reports no additional eye complaints ENT: Reports system reviewed and no additional complaints, except as documented Cardiovascular: Cardiovascular: Reports no additional cardiovascular complaints Respiratory: Respiratory: Reports no additional respiratory complaints Gastrointestinal: Gastrointestinal: Reports no additional gastrointestin
[2019-05-28 10:41] LABS: Creatinine Urine 104.8 mg/dL; Total Protein Urine Random 23 mg/dL
[2019-05-28] MEDS: BISACODYL 5 MG TABLET EC PO (10:43)
[2019-05-28] MEDS: SODIUM CHLORIDE 0.9% IV 1,000 ML 100 ML IV CONT (10:43)
[2019-05-28 10:50] LABS: Sodium Urine Random 81 meq/L
--- NOTE | 2019-05-28 11:41 | WPDINTPN ---
Progress Note: A&P Assessment and Plan (1) Acute kidney injury: Code(s): N17.9 - Acute kidney failure, unspecified Status: Acute Assessment and Plan: Patient with acute kidney injury could be related to hypotension, hypovolemia, increase NG drainage - patient's blood pressures difficult to manage at home as she has elevated blood pressures - the low blood pressures here could be acting renal perfusion - will maintain mean arterial pressures greater than 65 mmHg at all times - nephrology has been consulted, renal ultrasound done on 05/28/2019 shows normal kidneys without hydronephrosis - patient was given IV fluid bolus overnight and this morning. Monitor urine output, renal function electrolytes (2) Hypotension: Qualifiers: Hypotension type: unspecified hypotension type Qualified Code(s): I95.9 - Hypotension, unspecified Code(s): I95.9 - Hypotension, unspecified Status: Acute Assessment and Plan: Patient was found to be hypotensive on the evening of 05/27/2019 with systolics in the 60s, patient was given IV fluid bolus, central line was inserted but patient never had to be started on vasopressors due to blood pressure is being stable. Continue to monitor for now. Patient seemed to be having lot of NG drainage which could be a result of her hypovolemia. (3) Acute respiratory failure with hypoxia: Code(s): J96.01 - Acute respiratory failure with hypoxia Status: Acute Assessment and Plan: patient presented with respiratory distress and failure requiring intubation on 05/22/2019. Respiratory failure was likely multifactorial and thought to be secondary to pneumonia and possible volume overload /Pulmonary edema. Patient also had a history of cardiomyopathy and congestive heart failure and baseline asthma. - Patient was successfully extubated on 05/27/2019, chest x-ray reviewed. - Patient feeling much better and denies any shortness of breath or respiratory distress. - Off Precedex infusion - will continue bronchodilators. Steroids were stopped on 05/27/2019 - continue bronchodilators, steroids have been stopped - Was initially on vancomycin /Unasyn and azithromycin but now antibiotics have been switched to ceftriaxone and azithromycin by infectious disease service recommendation. ID recommendations appreciated. - pneumococcal and Legionella urine antigens were not detected. Mycoplasma pneumonia was negative - RSV, CMV, chlamydia pneumoniae, viral culture are pending - patient was negative for influenza in ED. (4) ARDS (adult respiratory distress syndrome): Code(s): J80 - Acute respiratory distress syndrome Status: Acute Assessment and Plan: resolved (5) CHF (congestive heart failure): Code(s): I50.9 - Heart failure, unspecified Status: Acute Assessment and Plan: last echocardiogram was poor quality. will repeat a limited study to get a better imaging. ECHO 05/19 1. Left ventricular chamber size and systolic function are normal with no regional wall motion abnormalities with an estimated ejection fraction of 60-65%. Mild left ventricular hypertrophy is present. Borderline criteria for diastolic dysfunction is present. 2. No significant valve disease. 3. Very technically difficult study. Definity echo contrast used. 4. Normal sinus rhythm. (6) Community acquired pneumonia: Qualifiers: Laterality: unspecified laterality Qualified Code(s): J18.9 - Pneumonia, unspecified organism Code(s): J18.9 - Pneumonia, unspecified organism Status: Acute Assessment and Plan: resolved (7) Pulmonary edema: Code(s): J81.1 - Chronic pulmonary edema Status: Acute Assessment and Plan: resolved (8) Asthma, mild intermittent: Qualifiers: Asthma complication type: with acute exacerbation Qualified Code(s): J45.21 - Mild inter
[2019-05-28] MEDS: HYDROMORPHONE HCL 1 MG/ML INJ 0.25 MG IV PUSH ×2 (12:25→18:22)
--- NOTE | 2019-05-28 12:29 | PCDIET ---
ICU Rounding Note: Patient extubated. NG tube to suction with 1500mL output overnight. Patient on Reglan and Colace; adding Dulcolax today. Last recorded weight is 113.9kg which is decreased. Overall negative I/O the past few days. Bowel Motility: No documented bowel movement. Patient reports going for several days without BM normally. Labs Reviewed: PO4 (6.2), BUN (57), Cr (1.9), K (2.7), Na (135) Meds Noted: KCl, Albuterol, Solu Medrol, Rocephin, Levophed, Colace, Reglan, Atrovent, NS at 75mL/hr Additional Notes: Abdomen with abrasion, but no open sores documented. Recommend NPO until GI motility improves. Following daily in ICU rounds. Assessing/reassessing every 3 days.
[2019-05-28] MEDS: PROCHLORPERAZINE EDISYLATE 10 MG/2 ML VIAL IV PUSH (12:36)
--- NOTE | 2019-05-28 14:15 | PCPTNOTE ---
Patient attempted to be seen for physical therapy evaluation this date, per RN hold off until tomorrow secondary to femoral line placed.
--- NOTE | 2019-05-28 14:16 | PCOTNOTE ---
Attempted OT evaluation. Per nurse patient has femoral line and anticipate removal tomorrow. Will continue to monitor.
--- NOTE | 2019-05-28 15:29 | PM.PNPUL ---
Progress Note: A&P Assessment and Plan (1) ARDS (adult respiratory distress syndrome): Code(s): J80 - Acute respiratory distress syndrome Status: Acute Assessment and Plan: CXR is improving slowly - continue low tidal volume strategy - once other medical issues are stable start CPAP trial and lighten sedation (2) Pneumonia: Qualifiers: Laterality: bilateral Code(s): J18.9 - Pneumonia, unspecified organism Status: Acute Assessment and Plan: No specific bacteria or virus has been identified. - Pt exposed to who is EMT but [facility] did not feel that she warranted SARS-Cov2 testing - continue Ceftriaxone and Azithromycin for 7-10 days she seems to be recovering and this seems to be a case of severe community acquired pneumonia but it's hard to know for sure. - would consider discontining systemic steroids in light of severe GERD - I've switched her lansoprazole 30 mg daily to pantoprazole 40 mg IV bid. (3) Acute respiratory failure with hypoxia: Code(s): J96.01 - Acute respiratory failure with hypoxia Status: Acute Subjective Date/time seen: 05/28/19 15:29 Interval history: Extubated and doing well. Only complaints are severe indegestion and nausea with epigastric pain. She has long smoking history and had chills, sweats, fever up to 102 at home with cough productive of colored sputum along with dyspnea and chest tightness. She says she had a similar episode many years ago when she was living in [place] which required ICU stay, intubation and mechanical ventilation. Review of Systems Review of Systems: All systems reviewed & are unremarkable except as noted in HPI and below Exam Const: General: comfortable and no acute distress HENMT: Mouth: Yes moist mucous membranes Neck: Neck: supple and no JVD Resp: Auscultation: no crackles, no rales, no rhonchi, no wheezes and diminished lung sounds Cardio: Rate: regular rate Rhythm: regular rhythm Heart sounds: no murmurs GI: GI Palp: Yes abdominal tenderness (epigastric ) Auscultation: normal bowel sounds Neuro: Other: sedated but arousable to voice and touch Extrem: General: normal to inspection Objective Data Vital Signs Vital Signs: Vital Signs - 24 hr 05/27/19 16:00 05/27/19 18:00 05/27/19 20:00 Temperature 36.6 C 36.5 C Pulse Rate 107 H 71 76 Respiratory Rate 18 17 14 Blood Pressure 80/50 L 76/54 L 76/52 L Pulse Oximetry 94 99 96 05/27/19 21:00 05/27/19 21:15 05/27/19 21:35 Temperature Pulse Rate 87 84 76 Respiratory Rate 21 H 14 Blood Pressure 90/50 L Pulse Oximetry 98 96 05/27/19 21:50 05/27/19 22:00 05/28/19 00:00 Temperature 37.2 C Pulse Rate 112 H 109 H 98 Respiratory Rate 23 H 16 16 Blood Pressure 95/50 L 105/65 Pulse Oximetry 96 98 99 05/28/19 02:00 05/28/19 02:39 05/28/19 02:47 Temperature Pulse Rate 104 H 117 H 121 H Respiratory Rate 16 16 16 Blood Pressure 97/68 L Pulse Oximetry 94 05/28/19 04:00 05/28/19 06:00 05/28/19 08:00 Temperature 36.5 C 36.9 C Pulse Rate 120 H 120 H 127 H Respiratory Rate 20 22 H 20 Blood Pressure 106/59 L 111/63 120/74 Pulse Oximetry 99 100 100 05/28/19 10:00 05/28/19 10:06 05/28/19 10:14 Temperature Pulse Rate 126 H 120 H 116 H Respiratory Rate 26 H 20 20 Blood Pressure 118/73 Pulse Oximetry 97 100 05/28/19 12:00 05/28/19 14:00 Temperature 36.9 C Pulse Rate 124 H 118 H Respiratory Rate 19 14 Blood Pressure 119/80 128/80 Pulse Oximetry 94 97 Intake/Output Intake/Output: Intake & Output 05/25/19 05/26/19 05/27/19 05/28/19 23:59 23:59 23:59 23:59 Intake Total 1574 1800 2115 1350 Output Total 1775 2400 800 1700 Balance -201 -600 1315 -350 Meds/Results Medications: Active Medications Generic Name Dose Route Start Last Admin Trade Name Freq PRN Reason Stop Dose Admin Acetaminophen 650 mg 05/20/19 12:46 05/28/19 08:25 Tylenol Tablet PO 650 mg Q6H PRN Ad
[2019-05-28] MEDS: MAG HYDROX/AL HYDROX/SIMETH 30 ML UDC PO (16:09)
[2019-05-28] MEDS: ENOXAPARIN 120 MG/0.8 ML SYRINGE 115 MG SUB-Q (16:12)
[2019-05-28] MEDS: SODIUM CHLORIDE 0.9% IV 1,000 ML 75 ML IV CONT (20:00)
[2019-05-28] MEDS: GABAPENTIN 300 MG CAPSULE 600 MG PO (20:01)
[2019-05-28] MEDS: PANTOPRAZOLE SODIUM IV 40 MG VIAL IV PUSH (20:01)
[2019-05-28] MEDS: SODIUM CHLORIDE 0.9% IV 1,000 ML 999 ML IV CONT (21:24)
[2019-05-29] VITALS (28 sets, daily range): BP systolic 95–144; BP diastolic 57–84; PULSE 99–133; RESP 13–25; TEMP 36.6–37.3; O2SAT 95–100
--- NOTE | 2019-05-29 | ECHOL_ITS ---
Patient Info Name: Dash Crane Age: 39 years : 1980 Gender: Female Ht: 63 in Wt: 251 lbs BSA: 2.32 m2 HR: 115 bpm BP: 104 / 82 mmHg Heart Rhythm: Sinus Rhythm Technical Quality: Good Exam Date: 05/29/2019 9:26 AM Exam Location: [facility] Card Pulmonary Patient Status: Inpatient Admit Date: 05/20/2019 Staff Ordering Physician: Julio C Robert MD Transformation Analyst: Ry Wesley RDCS Attending Provider: Otoniel Cox MD Referring Physician: Jakob TAMAYO; Exam Type: CA echo limited Study Info Indications I26.99 - Other pulmonary embolism without acute cor pulmonale Limited two-dimensional transthoracic echocardiogram is performed. History/Risk Factors Pulmonary embolism w/ concern for right heart strain. Summary 1. Left ventricular chamber dimension is normal. 2. Left ventricular systolic function is normal, estimated at >70%. 3. There is mildly increased left ventricular wall thickness. 4. Right ventricular chamber dimension is normal. 5. Right ventricular systolic function is normal. 6. Left atrial chamber dimension is mildly enlarged. 7. Normal inferior vena cava with <50% collapse upon inspiration consistent with normal right atrial pressure, 5 mmHg. Left Ventricle Left ventricular chamber dimension is normal. Left ventricular systolic function is normal, estimated at >70%. There is mildly increased left ventricular wall thickness. Right Ventricle Right ventricular chamber dimension is normal. Right ventricular systolic function is normal. Left Atria Left atrial chamber dimension is mildly enlarged. Right Atria Right atrial chamber dimension is normal. Atrial Septum Intact interatrial septum visualized by color flow imaging. Aortic Valve The aortic valve is trileaflet. There is mild aortic valve sclerosis. Pulmonic Valve The pulmonic valve is normal. There is trace pulmonic regurgitation. Mitral Valve The mitral valve has normal leaflets. There is no mitral valve stenosis. Tricuspid Valve The tricuspid valve leaflets are normal. There is trace tricuspid valve regurgitation. Pericardium/Pleural The pericardium appears normal. Inferior Vena Cava Normal inferior vena cava with <50% collapse upon inspiration consistent with normal right atrial pressure, 5 mmHg. Aorta The aortic root size at the sinus of Valsalva is normal. Tricuspid Valve Name Value Normal Estimated PAP/RSVP RA Pressure 5 mmHg <=5 Report Signatures
[2019-05-29] MEDS: LORAZEPAM INJ 2 MG/ML VIAL 0.5 MG IV PUSH ×2 (00:18→09:52)
[2019-05-29] MEDS: HYDROMORPHONE HCL 1 MG/ML INJ 0.25 MG IV PUSH ×2 (00:19→06:47)
[2019-05-29] MEDS: IPRATROPIUM BR 0.02% INH SOLN 0.5 MG/2.5 ML VIAL INHALATION ×3 (01:30→19:46)
[2019-05-29] MEDS: LEVOTHYROXINE SODIUM INJ 100 MCG/5 ML VIAL 25 MCG IV PUSH (05:31)
[2019-05-29] MEDS: METOCLOPRAMIDE HCL INJ 10 MG/2 ML VIAL IV PUSH ×3 (05:31→18:59)
[2019-05-29] MEDS: ENOXAPARIN 120 MG/0.8 ML SYRINGE 115 MG SUB-Q ×2 (05:31→19:00)
[2019-05-29 05:57] LABS: Hematocrit 32.5 % (37.0-47.0); Mean Corpuscular HGB Conc 30.8 g/dl (32-36); Mean Corpuscular Hemoglobin 31.8 pg (26-34); Mean Corpuscular Volume 103.5 fl (80-100); Mean Platelet Volume 9.9 fl (7.4-10.4); Platelet Count Result 228 k/mm3 (150-375); Red Blood Count 3.14 M/mm3 (4.2-5.4); Red Cell Distribution Width 15.5 % (11.5-14.5); White Blood Count 10.7 K/mm3 (4.5-10.0)
[2019-05-29 06:28] LABS: Blood Urea Nitrogen 23 mg/dL (7-17); Calcium 8.3 mg/dL (8.4-10.2); Carbon Dioxide 30 mmol/L (22-30); Chloride 103 mmol/L (98-107); Estimated CRCL calculation 111 ml/min; Estimated Glomerular Filt Rate > 60; Glucose 107 mg/dL (65-105); Magnesium 2.5 mg/dL (1.6-2.3); Phosphorus 1.8 mg/dL (2.5-4.5); Potassium 3.3 mmol/L (3.4-5.0); Sodium 139 mmol/L (137-145)
[2019-05-29] MEDS: DOCUSATE SODIUM LIQ 100 MG/10 ML UDC PO (08:41)
[2019-05-29] MEDS: BISACODYL 10 MG SUPPOSITORY RECTAL (08:41)
[2019-05-29] MEDS: PANTOPRAZOLE SODIUM IV 40 MG VIAL IV PUSH ×2 (08:41→20:39)
[2019-05-29] MEDS: POTASSIUM PHOS,M-BASIC-D-BASIC 20 MMOL in SODIUM CHLORIDE 0.9% IV 250 ML 62.5 MMOL IVPB (08:41)
[2019-05-29] MEDS: SERTRALINE HCL 50 MG TABLET 150 MG PO (08:41)
--- NOTE | 2019-05-29 10:20 | PM.IMPN ---
Progress Note: A&P Assessment and Plan (1) Acute respiratory failure with hypoxia: Code(s): J96.01 - Acute respiratory failure with hypoxia Status: Acute Assessment and Plan: Patient able to extubated on 05/27/19. Mostly hypoxia but patient may have chronic hypercarbia given the normal pCO2 but elevated pH. Currently now down to 1L NC. Encourage BiPAP use at night and with naps. PT/OT. Increase activity. Discussed with core composer machine tender. (2) ARDS (adult respiratory distress syndrome): Code(s): J80 - Acute respiratory distress syndrome Status: Acute Assessment and Plan: Despite good diuresis with Lasix, patient's chest x-ray worsened concerning for ARDS secondary to community-acquired pneumonia. Patient required intubation on May 21 but able to extubated May 26. Patient does have IRMA and asthma as well. 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 Steroids stopped. Continue nebulizer treatments. Appreciate Pulmonary and core composer machine tender input. (3) Community acquired pneumonia: Qualifiers: Laterality: unspecified laterality Qualified Code(s): J18.9 - Pneumonia, unspecified organism Code(s): J18.9 - Pneumonia, unspecified organism Status: Acute Assessment and Plan: Urine pneumococcal antigen was negative. Mycoplasma was negative. Blood cultures are negative. Group A strep throat culture negative. MRSA nasal swab was negative. Sputum was negative as well. Influenza was negative on admission in the emergency room. Chest x-ray reviewed again showing perihilar airspace disease. Infectious disease doctor is following. Antibiotics have been adjusted to just Rocephin and azithromycin and completed 10 days. Continue nebulizer treatments. Appreciate ID input. (4) DVT (deep venous thrombosis): Code(s): I82.409 - Acute embolism and thrombosis of unspecified deep veins of unspecified lower extremity Status: Acute Assessment and Plan: Doppler revealed a right brachial DVT. Lovenox dose increased to therapeutic dose. Having tachycardia and now pleuritic CP. Consider PE. Hold on CTA given the recent MARIIA. Echo ordered. (5) Sepsis: Qualifiers: Sepsis acute organ dysfunction status: without acute organ dysfunction Sepsis type: sepsis due to unspecified organism Qualified Code(s): A41.9 - Sepsis, unspecified organism Code(s): A41.9 - Sepsis, unspecified organism Status: Acute Assessment and Plan: Present on admission secondary to pneumonia. White blood cell count better today at 10K. Completed 10 days of Azithro and Rocephin. Continue supportive care as mentioned above. (6) Nausea & vomiting: Code(s): R11.2 - Nausea with vomiting, unspecified Status: Acute Assessment and Plan: Patient with nausea and vomiting. NGT placed with removal of 1500mL to suggest a gastroparesis. Related to prolonged bedrest? Remains on Reglan. Increase in NGT output but patient taking free water. Clamp NGT today. (7) CHF (congestive heart failure): Code(s): I50.9 - Heart failure, unspecified Status: Acute Assessment and Plan: Patient is off Lasix. Her cumulative fluid status is positive 1.0 L. Creatinine climbed to 1.9 but back to normal now. Does not appear to be in fluid overload. Continue to monitor. (8) Acute kidney injury: Code(s): N17.9 - Acute kidney failure, unspecified Status: Acute Assessment and Plan: Creatinine has been normal since admission up until 05/26. Creatinine worsened to 1.9. Flores secured and UOP better yesterday after given IVF. Probably dehydrated. BUN was elevated to 57 but better now. Cr also down to 0.7. Will stop IVF. Continue to monitor closely. (9) Asthma, mild intermittent: Qualifiers: Asthma complication type: with acute exacerbation Qualified Code(s): J45.21 - Mild i
--- NOTE | 2019-05-29 10:59 | PCDIET ---
ICU Rounding Note: RN removed NG tube, and MD ordering clear liquid diet. Last recorded weight is 113.9kg which is stable. Bowel Motility: Scant BM documented 05/28/19. Labs Reviewed: Glu (107), K (3.3), PO4 (1.8), Hgb (10.0), Hct (32.5) Meds Noted: Colace, Reglan, Dulcolax, Atrovent, Protonix, K-Phos Additional Notes: 1250mL NG output yesterday with x-ray suggesting obstruction; however, GI motility reportedly improving. Abdomen with abrasion. No documented pressure sores. Following daily in ICU rounds. Assessing/reassessing every 3 days.
--- NOTE | 2019-05-29 11:37 | WPDGICN ---
Assessment and Plan Assessment and plan (1) Nausea & vomiting: Qualifiers: Vomiting type: unspecified Vomiting Intractability: unspecified Qualified Code(s): R11.2 - Nausea with vomiting, unspecified Code(s): R11.2 - Nausea with vomiting, unspecified Status: Acute Assessment and Plan: chronic but probably now aggravated by current respiratory condition and sepsis. Ok to remove NGT and we can try CLD as tolerated, abdominal imaging without obstruction. continue with support care, antiemetics as needed and reglan. no need of endoscopic evaluation at this time (2) Constipation: Qualifiers: Constipation type: unspecified constipation type Qualified Code(s): K59.00 - Constipation, unspecified Code(s): K59.00 - Constipation, unspecified Status: Acute Assessment and Plan: she has used linzess before, will resume and reassess (3) ARDS (adult respiratory distress syndrome): Code(s): J80 - Acute respiratory distress syndrome Status: Acute Assessment and Plan: improving, unknown organism- ID on board (4) Obesity hypoventilation syndrome: Code(s): E66.2 - Morbid (severe) obesity with alveolar hypoventilation Status: Acute (5) Pneumonia: Qualifiers: Laterality: bilateral Pneumonia type: due to unspecified organism Lung location: unspecified part of lung Qualified Code(s): J18.9 - Pneumonia, unspecified organism Code(s): J18.9 - Pneumonia, unspecified organism Status: Acute Assessment and Plan: she is on treatment, slowly improving (6) Acute respiratory failure with hypoxia: Code(s): J96.01 - Acute respiratory failure with hypoxia Status: Acute (7) Sepsis: Qualifiers: Sepsis acute organ dysfunction status: without acute organ dysfunction Sepsis type: sepsis due to unspecified organism Qualified Code(s): A41.9 - Sepsis, unspecified organism Code(s): A41.9 - Sepsis, unspecified organism Status: Acute GI Consult Note Consult date/time: 05/29/19 11:37 Reason for consult: nausea and constipation HPI: Dash Crane is a 39 year old female with history of asthma, also chronic nausea and constipation admitted 05/19/2019 with respiratory failure, she was intubated, developed ARDS, finally extubated 2 days ago. I was called because during this hospitalization noted NGT with removal of 1500mL and was nauseous but now NGT clamp. Abdominal XR unremarkable, no evidence of SBO. Patient says that she has history of nausea, in fact had EGD about 5 years ago that showed inflammation. Also chronic constipation, will have 1-2 bm a week, had colonoscopy around same time. Here she is getting reglan, also received miralax and dulcolax supp. She is still weak, using oxygen and slowly recovering. Review of Systems Constitutional: Constitutional: Denies headache(s), Reports lethargy and Reports malaise Eyes: Eyes: Denies blurry vision ENT: Reports Normal hearing present, Denies headache(s) and Denies neck pain Cardiovascular: Cardiovascular: Denies chest pain and Denies dyspnea Respiratory: Respiratory: Reports cough and Reports dyspnea Gastrointestinal: Gastrointestinal: Reports constipation and Reports nausea Genitourinary: Genitourinary: Denies dysuria Musculoskeletal: Musculoskeletal: Denies neck pain Integumentary/Breasts: Skin/Breast: Denies dry skin Neurologic: Reports Normal hearing present and Denies headache(s) Psychiatric: Psychiatric: Denies anxiety Endocrine: Endocrine: Denies change in body appearance Hematologic/Lymphatic: Hematologic/Lymphatic: Denies easy bleeding Allergic/Immunologic: Allergic/Immunologic: Denies urticaria PMFSH Past Medical History Medical History Asthma, mild intermittent GERD (gastroesophageal reflux disease) Hypertension IRMA on CPAP Peripartum cardiomyopathy 2005 Tobac
[2019-05-29] MEDS: CLONAZEPAM 0.5 MG TAB 1 MG PO ×3 (11:47→21:02)
--- NOTE | 2019-05-29 12:23 | WPDINFPN2 ---
Progress Note: A&P Assessment and Plan (1) Community acquired pneumonia: Qualifiers: Laterality: unspecified laterality Qualified Code(s): J18.9 - Pneumonia, unspecified organism Code(s): J18.9 - Pneumonia, unspecified organism Status: Acute Assessment and Plan: 1. Acute febrile illness (prior to admission) with resp. failure and diffuse lung infiltrates, suspect CAP. Extubated. WBC almost back to normal 2. Tobacco REC Off therapy and doing well. No + micro (viral culture remains in process). Will sign off. Subjective Date/time seen: 05/29/19 12:23 Interval history: extubated, denies chest pain, dyspnea with supplemental O2 Exam Narrative: Exam Narrative: afebrile Const: General: no acute distress Eyes: General: appearance normal, both eyes and all related structures Resp: Effort & Inspection: normal respiratory effort Auscultation: clear to auscultation bilaterally and diminished lung sounds Cardio: Rate: tachycardic Rhythm: regular rhythm Heart sounds: no murmurs GI: Inspection: non-distended GI Palp: Yes Soft to palpation and No Tenderness to palpation present (GI) Objective Data Vital Signs Vital Signs: Vital Signs - 24 hr 05/28/19 14:00 05/28/19 15:39 05/28/19 15:47 Temperature Pulse Rate 118 H 122 H 125 H Respiratory Rate 14 18 20 Blood Pressure 128/80 Pulse Oximetry 97 05/28/19 16:00 05/28/19 18:00 05/28/19 19:05 Temperature 37.1 C Pulse Rate 132 H 129 H 131 H Respiratory Rate 31 H 15 16 Blood Pressure 114/72 130/84 Pulse Oximetry 98 97 05/28/19 19:16 05/28/19 19:17 05/28/19 20:00 Temperature 37.0 C Pulse Rate 128 H 136 H Respiratory Rate 16 18 Blood Pressure 128/95 H Pulse Oximetry 98 99 05/28/19 22:00 05/29/19 00:00 05/29/19 00:33 Temperature 36.6 C Pulse Rate 124 H 127 H 120 H Respiratory Rate 15 18 16 Blood Pressure 131/74 144/84 H Pulse Oximetry 99 99 98 05/29/19 01:30 05/29/19 01:45 05/29/19 02:00 Temperature Pulse Rate 110 H 109 H 106 H Respiratory Rate 16 16 18 Blood Pressure 108/57 L Pulse Oximetry 98 05/29/19 04:00 05/29/19 06:00 05/29/19 08:00 Temperature 37.0 C Pulse Rate 118 H 105 H 116 H Respiratory Rate 24 H 18 19 Blood Pressure 117/65 110/80 Pulse Oximetry 100 99 98 05/29/19 08:13 05/29/19 08:14 05/29/19 08:22 Temperature Pulse Rate 118 H 119 H Respiratory Rate 14 13 Blood Pressure Pulse Oximetry 100 05/29/19 09:01 05/29/19 10:00 05/29/19 10:39 Temperature Pulse Rate 123 H 116 H Respiratory Rate 19 Blood Pressure 95/84 L Pulse Oximetry 98 98 Intake/Output Intake/Output: Intake & Output 05/26/19 05/27/19 05/28/19 05/29/19 23:59 23:59 23:59 23:59 Intake Total 1800 2115 2250 380 Output Total 2400 800 2350 1650 Balance -600 1315 100 -1270 Meds/Results Medications: Active Medications Generic Name Dose Route Start Last Admin Trade Name Freq PRN Reason Stop Dose Admin Acetaminophen 650 mg 05/20/19 12:46 05/28/19 08:25 Tylenol Tablet PO 650 mg Q6H PRN Administration Mild Pain (1-3) or Fever Al Hydrox/Mg Hydrox/Simethicone 30 ml 05/28/19 15:27 05/28/19 16:09 Mylanta PO 30 ml Q6H PRN Administration Indigestion Calcium Carbonate 200 mg 05/27/19 16:19 05/28/19 08:26 Tums PO 200 mg Q6H PRN Administration Indigestion Clonazepam 1 mg 05/29/19 10:20 05/29/19 11:47 Klonopin Tablet PO 1 mg Q8HR RAFA Administration Docusate Sodium 100 mg 05/24/19 09:00 05/29/19 08:41 Colace Liquid PO 100 mg DAILY RAFA Administration Enoxaparin Sodium 115 mg 05/28/19 18:00 05/29/19 05:31 Lovenox SUB-Q 115 mg Q12H RAFA Administration Gabapentin 600 mg 05/25/19 21:00 05/28/19 20:01 Neurontin PO 600 mg BEDTIME RAFA Administration Hydromorphone HCl 0.25 mg 05/28/19 11:46 05/29/19 06:47 Dilaudid Inj IV PUSH 05/30/19 23:59 0.25 mg Q6H PRN Administration
--- NOTE | 2019-05-29 12:24 | WPDINTPN ---
Progress Note: A&P Assessment and Plan (1) Acute kidney injury: Code(s): N17.9 - Acute kidney failure, unspecified Status: Acute Assessment and Plan: Patient with acute kidney injury could be related to hypotension, hypovolemia, increase NG drainage - patient's blood pressures difficult to manage at home as she has elevated blood pressures - the low blood pressures here could be acting renal perfusion - will maintain mean arterial pressures greater than 65 mmHg at all times - nephrology has been consulted, renal ultrasound done on 05/28/2019 shows normal kidneys without hydronephrosis - patient was given IV fluid bolus overnight and this morning. Monitor urine output, renal function electrolytes - patient was adequately fluid resuscitated, creatinine down to 0.7 ( 1.9 on 05/28/2019 (2) Hypotension: Qualifiers: Hypotension type: unspecified hypotension type Qualified Code(s): I95.9 - Hypotension, unspecified Code(s): I95.9 - Hypotension, unspecified Status: Acute Assessment and Plan: Patient was found to be hypotensive on the evening of 05/27/2019 with systolics in the 60s, patient was given IV fluid bolus, central line was inserted but patient never had to be started on vasopressors due to blood pressure is being stable. Continue to monitor for now. Patient seemed to be having lot of NG drainage which could be a result of her hypovolemia. - stable blood pressures for now (3) Acute respiratory failure with hypoxia: Code(s): J96.01 - Acute respiratory failure with hypoxia Status: Acute Assessment and Plan: patient presented with respiratory distress and failure requiring intubation on 05/22/2019. Respiratory failure was likely multifactorial and thought to be secondary to pneumonia and possible volume overload /Pulmonary edema. Patient also had a history of cardiomyopathy and congestive heart failure and baseline asthma. - Patient was successfully extubated on 05/27/2019, chest x-ray reviewed. - Patient feeling much better and denies any shortness of breath or respiratory distress. - Off Precedex infusion - will continue bronchodilators. Steroids were stopped on 05/27/2019 - continue bronchodilators, steroids have been stopped - completed course of ceftriaxone and azithromycin by infectious disease service recommendation. - pneumococcal and Legionella urine antigens were not detected. Mycoplasma pneumonia was negative - RSV, CMV, chlamydia pneumoniae, viral culture are pending - patient was negative for influenza in ED. (4) ARDS (adult respiratory distress syndrome): Code(s): J80 - Acute respiratory distress syndrome Status: Acute Assessment and Plan: resolved (5) CHF (congestive heart failure): Code(s): I50.9 - Heart failure, unspecified Status: Acute Assessment and Plan: last echocardiogram was poor quality. will repeat a limited study to get a better imaging. ECHO 05/19 1. Left ventricular chamber size and systolic function are normal with no regional wall motion abnormalities with an estimated ejection fraction of 60-65%. Mild left ventricular hypertrophy is present. Borderline criteria for diastolic dysfunction is present. 2. No significant valve disease. 3. Very technically difficult study. Definity echo contrast used. 4. Normal sinus rhythm. (6) Community acquired pneumonia: Qualifiers: Laterality: unspecified laterality Qualified Code(s): J18.9 - Pneumonia, unspecified organism Code(s): J18.9 - Pneumonia, unspecified organism Status: Acute Assessment and Plan: resolved (7) Pulmonary edema: Code(s): J81.1 - Chronic pulmonary edema Status: Acute Assessment and Plan: resolved (8) Asthma, mild intermittent: Qualifiers: Asthma complication type: with acute exacerbation Qualified Code(s):
--- NOTE | 2019-05-29 13:52 | PC.NURSE ---
This patient, Dash Crane, was transferred to IMU [id number] on 05/29/19 at 1340. Personal belongings sent with patient. Report given to Sivan KAY. Appropriate documentation sent with patient.
--- NOTE | 2019-05-29 15:14 | ECG_ITS ---
Measurements Intervals Kimberly Rate: 126 P: 43 ID: 140 QRS: 4 QRSD: 77 T: 30 QT: 396 QTc: 574 Interpretive Statements SINUS TACHYCARDIA NONSPECIFIC ST & T-WAVE ABNORMALITY- LATERAL LEADS BASELINE ARTIFACT- I, III, AVL ABNORMAL ECG Electronically Signed On 05-29-2019 16:06:10 CDT by Matthew Li D.O.
--- NOTE | 2019-05-29 18:27 | PM.PNNEP ---
Progress Note: A&P Assessment and Plan (1) Acute kidney injury: Code(s): N17.9 - Acute kidney failure, unspecified Status: Acute Assessment and Plan: The patient has acute kidney injury. This is most likely due to ATN from her pneumonia and relative low blood pressure. Her creatinine has improved to normal. (2) ARDS (adult respiratory distress syndrome): Code(s): J80 - Acute respiratory distress syndrome Status: Acute Assessment and Plan: Resolved (3) Hypertension: Qualifiers: Hypertension type: essential hypertension Qualified Code(s): I10 - Essential (primary) hypertension Code(s): I10 - Essential (primary) hypertension Status: Acute Assessment and Plan: Blood pressure is well controlled. Still off blood pressure meds. (4) IRMA on CPAP: Code(s): G47.33 - Obstructive sleep apnea (adult) (pediatric); Z99.89 - Dependence on other enabling machines and devices Status: Acute Assessment and Plan: The patient uses her CPAP machine religiously Subjective Date/time seen: 05/29/19 18:27 Interval history: Patient is alert. She is feeling okay. Resting comfortably in bed. Review of Systems Cardiovascular: Cardiovascular: Reports no additional cardiovascular complaints Respiratory: Respiratory: Reports no additional respiratory complaints Gastrointestinal: Gastrointestinal: Reports no additional gastrointestinal complaints Genitourinary: Genitourinary: Reports no additional female genitourinary complaints Exam Narrative: Exam Narrative: Well developed well-nourished in no acute distress Lungs clear Heart regular without rub Abdomen bowel sounds positive soft nontender Extremities no edema Skin no rash Objective Data Vital Signs Vital Signs: Vital Signs - 24 hr 05/28/19 19:05 05/28/19 19:16 05/28/19 19:17 Temperature Pulse Rate 131 H 128 H Respiratory Rate 16 16 Blood Pressure Pulse Oximetry 98 05/28/19 20:00 05/28/19 22:00 05/29/19 00:00 Temperature 37.0 C 36.6 C Pulse Rate 136 H 124 H 127 H Respiratory Rate 18 15 18 Blood Pressure 128/95 H 131/74 144/84 H Pulse Oximetry 99 99 99 05/29/19 00:33 05/29/19 01:30 05/29/19 01:45 Temperature Pulse Rate 120 H 110 H 109 H Respiratory Rate 16 16 16 Blood Pressure Pulse Oximetry 98 05/29/19 02:00 05/29/19 04:00 05/29/19 06:00 Temperature 37.0 C Pulse Rate 106 H 118 H 105 H Respiratory Rate 18 24 H 18 Blood Pressure 108/57 L 117/65 110/80 Pulse Oximetry 98 100 99 05/29/19 08:00 05/29/19 08:13 05/29/19 08:14 Temperature Pulse Rate 116 H 118 H Respiratory Rate 19 14 Blood Pressure Pulse Oximetry 98 100 05/29/19 08:22 05/29/19 09:01 05/29/19 10:00 Temperature Pulse Rate 119 H 123 H Respiratory Rate 13 19 Blood Pressure 95/84 L Pulse Oximetry 98 98 05/29/19 10:39 05/29/19 12:00 05/29/19 14:00 Temperature 36.6 C Pulse Rate 116 H 120 H 133 H Respiratory Rate 25 H Blood Pressure 107/64 Pulse Oximetry 100 05/29/19 14:22 05/29/19 14:31 05/29/19 15:04 Temperature Pulse Rate 121 H 119 H 133 H Respiratory Rate 16 16 Blood Pressure 109/63 Pulse Oximetry 100 05/29/19 15:06 05/29/19 15:38 05/29/19 16:00 Temperature Pulse Rate 119 H 116 H Respiratory Rate 24 H 24 H Blood Pressure Pulse Oximetry 100 Intake/Output Intake/Output: Intake & Output 05/26/19 05/27/19 05/28/19 05/29/19 23:59 23:59 23:59 23:59 Intake Total 1800 2115 2250 1600 Output Total 2400 800 2350 1900 Balance -600 1315 -100 -300 Meds/Results Medications: Active Medications Generic Name Dose Route Start Last Admin Trade Name Freq PRN Reason Stop Dose Admin Acetaminophen 650 mg 05/20/19 12:46 05/28/19 08:25 Tylenol Tablet PO 650 mg Q6H PRN Administration Mild Pain (1-3) or Fever Al Hydrox/Mg Hydrox/Simethicone 30 ml 05/28/19 15:27 05/28/19 16:09 Mylanta PO
--- NOTE | 2019-05-29 19:34 | PM.PNPUL ---
Progress Note: A&P Assessment and Plan (1) Acute respiratory failure with hypoxia: Code(s): J96.01 - Acute respiratory failure with hypoxia Status: Acute (2) ARDS (adult respiratory distress syndrome): Code(s): J80 - Acute respiratory distress syndrome Status: Acute Assessment and Plan: CXR continues to is improving (3) Pneumonia: Qualifiers: Laterality: bilateral Lung location: unspecified part of lung Pneumonia type: due to unspecified organism Qualified Code(s): J18.9 - Pneumonia, unspecified organism Code(s): J18.9 - Pneumonia, unspecified organism Status: Acute Assessment and Plan: No specific bacteria or virus has been identified. - Pt exposed to who is EMT but [facility] did not feel that she warranted SARS-Cov2 testing - continue Ceftriaxone and Azithromycin for 7-10 days she seems to be recovering and this seems to be a case of severe community acquired pneumonia but it's hard to know for sure. - would consider discontining systemic steroids in light of severe GERD Subjective Date/time seen: 05/29/19 19:34 2! yo female seen in follow up for resolving ARDS, pneumonia and acute hypoxemic respiratory failure Review of Systems Review of Systems: All systems reviewed & are unremarkable except as noted in HPI and below Constitutional: Constitutional: Reports no additional constitutional complaints Eyes: Eyes: Reports no additional eye complaints ENT: Reports system reviewed and no additional complaints, except as documented Cardiovascular: Cardiovascular: Reports no additional cardiovascular complaints Gastrointestinal: Gastrointestinal: Reports no additional gastrointestinal complaints Musculoskeletal: Musculoskeletal: Reports no additional musculoskeletal complaints Integumentary/Breasts: Skin/Breast: Reports system reviewed and no additional complaints, except as docu Neurologic: Reports system reviewed and no additional complaints, except as documented Exam Narrative: Exam Narrative: Aebrile 128/95 Gen - Not in distress. Chest - distant clear breath sounds without distress CV - Regular S1S2 without murmur. Abd - soft, obese, NT, +BS - Flores catheter with dark yellow urine. Ext - No pedal edema Psych - Normal mentation, mood, affect. Skin - no rash, skins is warm, dry. Objective Data Vital Signs Vital Signs: Vital Signs - 24 hr 05/28/19 20:00 05/28/19 22:00 05/29/19 00:00 Temperature 37.0 C 36.6 C Pulse Rate 136 H 124 H 127 H Respiratory Rate 18 15 18 Blood Pressure 128/95 H 131/74 144/84 H Pulse Oximetry 99 99 99 05/29/19 00:33 05/29/19 01:30 05/29/19 01:45 Temperature Pulse Rate 120 H 110 H 109 H Respiratory Rate 16 16 16 Blood Pressure Pulse Oximetry 98 05/29/19 02:00 05/29/19 04:00 05/29/19 06:00 Temperature 37.0 C Pulse Rate 106 H 118 H 105 H Respiratory Rate 18 24 H 18 Blood Pressure 108/57 L 117/65 110/80 Pulse Oximetry 98 100 99 05/29/19 08:00 05/29/19 08:13 05/29/19 08:14 Temperature Pulse Rate 116 H 118 H Respiratory Rate 19 14 Blood Pressure Pulse Oximetry 98 100 05/29/19 08:22 05/29/19 09:01 05/29/19 10:00 Temperature Pulse Rate 119 H 123 H Respiratory Rate 13 19 Blood Pressure 95/84 L Pulse Oximetry 98 98 05/29/19 10:39 05/29/19 12:00 05/29/19 14:00 Temperature 36.6 C Pulse Rate 116 H 120 H 133 H Respiratory Rate 25 H Blood Pressure 107/64 Pulse Oximetry 100 05/29/19 14:22 05/29/19 14:31 05/29/19 15:04 Temperature Pulse Rate 121 H 119 H 133 H Respiratory Rate 16 16 Blood Pressure 109/63 Pulse Oximetry 100 05/29/19 15:06 05/29/19 15:38 05/29/19 16:00 Temperature Pulse Rate 119 H 116 H Respiratory Rate 24 H 24 H Blood Pressure Pulse Oximetry 100 Intake/Output Intake/Output: Intake & Output 05/26/19 05/27/19 05/28/19 05/29/19 23:59 23:59 23:59 23:59 Intake Total 1800 2115 2250 1600 Output
[2019-05-29] MEDS: GABAPENTIN 300 MG CAPSULE 600 MG PO (20:39)
[2019-05-30] VITALS (24 sets, daily range): BP systolic 116–141; BP diastolic 58–76; PULSE 93–130; RESP 16–22; TEMP 36.1–36.8; O2SAT 95–100
[2019-05-30] MEDS: IPRATROPIUM BR 0.02% INH SOLN 0.5 MG/2.5 ML VIAL INHALATION ×4 (01:51→20:25)
[2019-05-30 04:53] LABS: Hematocrit 29.8 % (37.0-47.0); Hemoglobin 9.5 g/dL (12.0-15.0); Mean Corpuscular HGB Conc 31.9 g/dl (32-36); Mean Corpuscular Volume 103.5 fl (80-100); Mean Platelet Volume 10.1 fl (7.4-10.4); Platelet Count Result 219 k/mm3 (150-375); Red Blood Count 2.88 M/mm3 (4.2-5.4); Red Cell Distribution Width 15.2 % (11.5-14.5); White Blood Count 9.4 K/mm3 (4.5-10.0)
[2019-05-30 05:01] LABS: Albumin Level 3.3 g/dL (3.5-5.1); Blood Urea Nitrogen 17 mg/dL (7-17); Calcium 8.4 mg/dL (8.4-10.2); Carbon Dioxide 30 mmol/L (22-30); Chloride 102 mmol/L (98-107); Estimated CRCL calculation 127 ml/min; Estimated Glomerular Filt Rate > 60; Glucose 99 mg/dL (65-105); Magnesium 2.1 mg/dL (1.6-2.3); Phosphorus 2.5 mg/dL (2.5-4.5); Potassium 3.2 mmol/L (3.4-5.0); Sodium 135 mmol/L (137-145)
[2019-05-30] MEDS: ACETAMINOPHEN 325 MG TABLET 650 MG PO ×2 (05:55→21:00)
[2019-05-30] MEDS: CLONAZEPAM 0.5 MG TAB 1 MG PO ×3 (05:55→20:58)
[2019-05-30] MEDS: ENOXAPARIN 120 MG/0.8 ML SYRINGE 115 MG SUB-Q ×2 (05:56→16:13)
[2019-05-30] MEDS: METOCLOPRAMIDE HCL INJ 10 MG/2 ML VIAL IV PUSH ×2 (05:56→11:41)
[2019-05-30] MEDS: LEVOTHYROXINE SODIUM INJ 100 MCG/5 ML VIAL 25 MCG IV PUSH (05:57)
[2019-05-30] MEDS: PANTOPRAZOLE SODIUM IV 40 MG VIAL IV PUSH (08:00)
[2019-05-30] MEDS: SERTRALINE HCL 50 MG TABLET 150 MG PO (08:00)
[2019-05-30] MEDS: DOCUSATE SODIUM LIQ 100 MG/10 ML UDC PO (08:00)
[2019-05-30] MEDS: POTASSIUM CHLORIDE 20 MEQ TABLET 40 MEQ PO (09:14)
[2019-05-30] MEDS: METOPROLOL TARTRATE 25 MG TABLET PO ×2 (09:14→20:59)
--- NOTE | 2019-05-30 11:25 | PCDIET ---
Nutrition Follow-Up Complete: Nutrition Diagnosis: Inadequate oral intake related to oral intubation as evidenced by NPO status. Nutrition Goal: Patient to meet estimated nutritional needs. Goal not met, but in progress. Patient reports tolerating clear liquid diet well and is eager for diet to advance further. Recommend advancing diet as tolerated to heart healthy. Dietary will continue to provide Ensure Clear (240kcal, 8g protein) on trays while on clear liquid diet, per protocol. Last recorded weight is 120.5 kg which is increased. Bowel Motility: Patient reports BM x 3 today. Labs Reviewed: K (3.2), Na (135), Alb (3.3) Meds Noted: Colace, Atrovent, Reglan, Protonix, KCl Additional Notes: Abdomen with abrasion; no documented pressure ulcers. Will continue to monitor with same goal. Nutrition Monitoring and Evaluation: Follow up in 5 days.
--- NOTE | 2019-05-30 12:28 | PM.IMPN ---
Progress Note: A&P Assessment and Plan (1) Acute respiratory failure with hypoxia: Code(s): J96.01 - Acute respiratory failure with hypoxia Status: Acute Assessment and Plan: Patient able to extubated on 05/27/19. Mostly hypoxia but patient may have chronic hypercarbia given the normal pCO2 but elevated pH. Down to her 2L NC which she takes at home. Encourage BiPAP use at night and with naps. PT/OT. Increase activity. (2) ARDS (adult respiratory distress syndrome): Code(s): J80 - Acute respiratory distress syndrome Status: Acute Assessment and Plan: Despite good diuresis with Lasix, patient's chest x-ray worsened concerning for ARDS secondary to community-acquired pneumonia. Patient required intubation on May 21 but able to extubated May 26. Patient does have Ch hypoxic respiratory failure, IRMA and asthma as well. 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 Steroids stopped. Continue nebulizer treatments. Appreciate Pulmonary and manager culture input. (3) Community acquired pneumonia: Qualifiers: Laterality: unspecified laterality Qualified Code(s): J18.9 - Pneumonia, unspecified organism Code(s): J18.9 - Pneumonia, unspecified organism Status: Acute Assessment and Plan: Urine pneumococcal antigen was negative. Mycoplasma was negative. Blood cultures are negative. Group A strep throat culture negative. MRSA nasal swab was negative. Sputum was negative as well. Influenza was negative on admission in the emergency room. Chest x-ray showing atelectasis. Infectious disease doctor is following. Antibiotics have been adjusted to just Rocephin and azithromycin and completed 10 days. Continue nebulizer treatments. Appreciate ID input. (4) DVT (deep venous thrombosis): Code(s): I82.409 - Acute embolism and thrombosis of unspecified deep veins of unspecified lower extremity Status: Acute Assessment and Plan: Doppler revealed a right brachial DVT. Lovenox dose increased to therapeutic dose. Having tachycardia so consider PE. Hold on CTA given the recent MARIIA. Echo repeated but not showing any right sided changes. Change to Eliquis in 1-2 days if she is tolerating oral intake. (5) Sepsis: Qualifiers: Sepsis acute organ dysfunction status: without acute organ dysfunction Sepsis type: sepsis due to unspecified organism Qualified Code(s): A41.9 - Sepsis, unspecified organism Code(s): A41.9 - Sepsis, unspecified organism Status: Acute Assessment and Plan: Present on admission secondary to pneumonia. White blood cell count normal. Completed 10 days of Azithro and Rocephin. Continue supportive care as mentioned above. (6) Nausea & vomiting: Qualifiers: Vomiting type: unspecified Vomiting Intractability: unspecified Qualified Code(s): R11.2 - Nausea with vomiting, unspecified Code(s): R11.2 - Nausea with vomiting, unspecified Status: Acute Assessment and Plan: Patient with nausea and vomiting. NGT placed with removal of 1500mL to suggest a gastroparesis. Related to prolonged bedrest? Remains on Reglan. NGT out and patient tolerating clear liquid diet. Advance to full liquid today. (7) CHF (congestive heart failure): Code(s): I50.9 - Heart failure, unspecified Status: Acute Assessment and Plan: Patient is off Lasix. Her cumulative fluid status is positive 2.7L. Creatinine climbed to 1.9 but back to normal now. Does not appear to be in fluid overload. Continue to monitor. Continue to hold Lasix. (8) Acute kidney injury: Code(s): N17.9 - Acute kidney failure, unspecified Status: Acute Assessment and Plan: Creatinine has been normal since admission up until 05/26. Creatinine worsened to 1.9. Flores secured and UOP better yesterday after given IVF. Probably dehydrated. BUN was el
--- NOTE | 2019-05-30 12:37 | WPDGIPROGNO ---
Progress Note: A&P Assessment and Plan (1) Constipation: Qualifiers: Constipation type: unspecified constipation type Qualified Code(s): K59.00 - Constipation, unspecified Code(s): K59.00 - Constipation, unspecified Status: Acute Assessment and Plan: she is more comfortable, on linzess, denies abdominal pain and passing gas. (2) Nausea & vomiting: Qualifiers: Vomiting type: unspecified Vomiting Intractability: unspecified Qualified Code(s): R11.2 - Nausea with vomiting, unspecified Code(s): R11.2 - Nausea with vomiting, unspecified Status: Acute Assessment and Plan: resolved. She is willing to advance diet and slowly feeling better (3) Acute kidney injury: Code(s): N17.9 - Acute kidney failure, unspecified Status: Acute (4) ARDS (adult respiratory distress syndrome): Code(s): J80 - Acute respiratory distress syndrome Status: Acute Assessment and Plan: resolved, doing better. pulmonary on board (5) Pneumonia: Qualifiers: Pneumonia type: due to unspecified organism Laterality: bilateral Lung location: unspecified part of lung Qualified Code(s): J18.9 - Pneumonia, unspecified organism Code(s): J18.9 - Pneumonia, unspecified organism Status: Acute Subjective Date/time seen: 05/30/19 12:37 Interval history: she was moved to floor and doing much better, no nausea and tolerating liquid diet. She would like to advance her diet, still with oxygen Review of Systems Review of Systems: All systems reviewed & are unremarkable except as noted in HPI and below Exam Const: General: comfortable HENMT: General nose exam: Normal nares present Eyes: General: appearance normal, both eyes and all related structures Neck: Neck: supple Resp: Effort & Inspection: no audible wheezes and Actively coughing Auscultation: diminished lung sounds Cardio: Rate: regular rate GI: GI Palp: Yes Soft to palpation, No Tenderness to palpation present (GI) and No Guarding due to palpation present (GI) Auscultation: normal bowel sounds Urinary Catheter: Urinary Catheter: patent and draining Skin: General skin exam: normal color Neuro: Speech: normal speech Psych: Appearance: grossly normal Objective Data Vital Signs Vital Signs: Vital Signs - 24 hr 05/29/19 14:00 05/29/19 14:22 05/29/19 14:31 Temperature Pulse Rate 133 H 121 H 119 H Respiratory Rate 16 16 Blood Pressure Pulse Oximetry 05/29/19 15:04 05/29/19 15:06 05/29/19 15:38 Temperature Pulse Rate 133 H 119 H Respiratory Rate 24 H Blood Pressure 109/63 Pulse Oximetry 100 05/29/19 16:00 05/29/19 18:00 05/29/19 19:47 Temperature Pulse Rate 116 H 131 H 102 H Respiratory Rate 24 H 16 Blood Pressure Pulse Oximetry 100 96 05/29/19 19:55 05/29/19 20:00 05/29/19 20:24 Temperature 99.1 F Pulse Rate 109 H 128 H 128 H Respiratory Rate 18 18 Blood Pressure 109/60 Pulse Oximetry 97 05/29/19 23:10 05/30/19 00:00 05/30/19 00:15 Temperature 98.2 F Pulse Rate 112 H 125 H 115 H Respiratory Rate 18 22 H Blood Pressure 141/75 H Pulse Oximetry 95 95 05/30/19 01:52 05/30/19 02:02 05/30/19 04:00 Temperature 97.9 F Pulse Rate 103 H 110 H 103 H Respiratory Rate 18 16 Blood Pressure 131/69 Pulse Oximetry 96 05/30/19 06:00 05/30/19 08:00 05/30/19 08:13 Temperature 97.0 F L Pulse Rate 98 115 H 110 H Respiratory Rate 16 18 Blood Pressure 118/58 L Pulse Oximetry 97 05/30/19 08:23 05/30/19 09:14 05/30/19 10:00 Temperature Pulse Rate 123 H 130 H 113 H Respiratory Rate 18 Blood Pressure Pulse Oximetry 05/30/19 12:00 Temperature Pulse Rate 95 Respiratory Rate Blood Pressure Pulse Oximetry Intake/Output Intake/Output: Intake & Output 05/27/19 05/28/19 05/29/19 05/30/19 23:59 23:59 23:59 23:59 Intake Total 2115 2250 1600 685 Output Total 8
[2019-05-30 13:35] LABS: Complement Total CH50 >60 U/mL (31-60)
[2019-05-30] MEDS: METOCLOPRAMIDE HCL 10 MG TABLET PO ×2 (16:13→20:59)
[2019-05-30 18:13] LABS: Kappa\\Lambda Light Chains 0.93 (0.26-1.65); Lambda Light Chain 21.7 mg/L (5.7-26.3)
--- NOTE | 2019-05-30 20:41 | PCRCNOTE ---
When scanned Xopen[facility] says Meryl
[2019-05-30] MEDS: CALCIUM CARBONATE (TUMS) 500 MG (200 MG ELEMENTAL) PO (20:58)
[2019-05-30] MEDS: GABAPENTIN 300 MG CAPSULE 600 MG PO (20:59)
[2019-05-30] MEDS: PANTOPRAZOLE 40 MG TABLET PO (21:00)
[2019-05-31] VITALS (24 sets, daily range): BP systolic 110–129; BP diastolic 61–85; PULSE 77–105; RESP 15–20; TEMP 35.6–36.8; O2SAT 96–100
[2019-05-31] MEDS: IPRATROPIUM BR 0.02% INH SOLN 0.5 MG/2.5 ML VIAL INHALATION ×4 (02:00→20:23)
[2019-05-31 05:12] LABS: Hematocrit 29.5 % (37.0-47.0); Hemoglobin 9.3 g/dL (12.0-15.0); Mean Corpuscular HGB Conc 31.5 g/dl (32-36); Mean Corpuscular Hemoglobin 32.2 pg (26-34); Mean Corpuscular Volume 102.1 fl (80-100); Mean Platelet Volume 10.4 fl (7.4-10.4); Platelet Count Result 224 k/mm3 (150-375); Red Blood Count 2.89 M/mm3 (4.2-5.4); Red Cell Distribution Width 15.1 % (11.5-14.5); White Blood Count 8.2 K/mm3 (4.5-10.0)
[2019-05-31 05:53] LABS: Blood Urea Nitrogen 10 mg/dL (7-17); Carbon Dioxide 27 mmol/L (22-30); Chloride 104 mmol/L (98-107); Estimated CRCL calculation 132 ml/min; Estimated Glomerular Filt Rate > 60; Glucose 116 mg/dL (65-105); Potassium 3.6 mmol/L (3.4-5.0); Sodium 137 mmol/L (137-145)
[2019-05-31] MEDS: CLONAZEPAM 0.5 MG TAB 1 MG PO ×3 (06:25→21:55)
[2019-05-31] MEDS: ACETAMINOPHEN 325 MG TABLET 650 MG PO ×2 (06:25→15:10)
[2019-05-31] MEDS: ENOXAPARIN 120 MG/0.8 ML SYRINGE 115 MG SUB-Q (06:26)
[2019-05-31] MEDS: LEVOTHYROXINE SODIUM 50 MCG TABLET PO (06:26)
[2019-05-31] MEDS: METOCLOPRAMIDE HCL 10 MG TABLET PO ×3 (06:27→17:03)
[2019-05-31] MEDS: PANTOPRAZOLE 40 MG TABLET PO ×2 (08:33→20:51)
[2019-05-31] MEDS: SERTRALINE HCL 50 MG TABLET 150 MG PO (08:33)
[2019-05-31] MEDS: DOCUSATE SODIUM LIQ 100 MG/10 ML UDC PO (08:33)
[2019-05-31] MEDS: METOPROLOL TARTRATE 25 MG TABLET PO ×2 (08:34→20:52)
--- NOTE | 2019-05-31 11:41 | PM.IMPN ---
Progress Note: A&P Assessment and Plan (1) Acute respiratory failure with hypoxia: Code(s): J96.01 - Acute respiratory failure with hypoxia Status: Acute Assessment and Plan: Patient able to extubated on 05/27/19. Mostly hypoxia but patient may have chronic hypercarbia given the normal pCO2 but elevated pH. Down to her 2L NC which she takes at home. Encourage BiPAP use at night and with naps. PT/OT. Increase activity. TRC consult pending (2) ARDS (adult respiratory distress syndrome): Code(s): J80 - Acute respiratory distress syndrome Status: Acute Assessment and Plan: Despite good diuresis with Lasix, patient's chest x-ray worsened concerning for ARDS secondary to community-acquired pneumonia. Patient required intubation on May 21 but able to extubated May 26. Patient does have Chronic hypoxic respiratory failure, IRMA and asthma as well. 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 Steroids stopped. Continue nebulizer treatments. Appreciate Pulmonary and photographer helper input. (3) Community acquired pneumonia: Qualifiers: Laterality: unspecified laterality Qualified Code(s): J18.9 - Pneumonia, unspecified organism Code(s): J18.9 - Pneumonia, unspecified organism Status: Acute Assessment and Plan: CTA chest on admsision showing patchy bilateral airspace disease. Urine pneumococcal antigen was negative. Mycoplasma and HSV was negative. Blood cultures are negative. Group A strep throat culture negative. MRSA nasal swab was negative. Sputum was negative as well. Influenza was negative on admission in the emergency room. Infectious disease doctor is following. Antibiotics have been adjusted to just Rocephin and azithromycin and completed 10 days. Continue nebulizer treatments. Appreciate ID input. (4) DVT (deep venous thrombosis): Code(s): I82.409 - Acute embolism and thrombosis of unspecified deep veins of unspecified lower extremity Status: Acute Assessment and Plan: Doppler revealed a right brachial DVT. Lovenox dose increased to therapeutic dose. Having tachycardia so consider PE but HR better with resuming her Metoprolol. CTA held given the recent MARIIA. Echo repeated but not showing any right sided changes. Change to Eliquis today. (5) Sepsis: Qualifiers: Sepsis acute organ dysfunction status: without acute organ dysfunction Sepsis type: sepsis due to unspecified organism Qualified Code(s): A41.9 - Sepsis, unspecified organism Code(s): A41.9 - Sepsis, unspecified organism Status: Acute Assessment and Plan: Present on admission secondary to pneumonia. White blood cell count normal. Completed 10 days of Azithro and Rocephin. Continue supportive care as mentioned above. (6) Nausea & vomiting: Qualifiers: Vomiting Intractability: unspecified Vomiting type: unspecified Qualified Code(s): R11.2 - Nausea with vomiting, unspecified Code(s): R11.2 - Nausea with vomiting, unspecified Status: Acute Assessment and Plan: Patient with nausea and vomiting. NGT placed with removal of 1500mL to suggest a gastroparesis. Related to prolonged bedrest? Remains on Reglan. NGT out and patient tolerating Level 6 diet. Start to wean off Reglan (7) CHF (congestive heart failure): Code(s): I50.9 - Heart failure, unspecified Status: Acute Assessment and Plan: Patient is off Lasix. Creatinine climbed to 1.9 but back to normal now. Does not appear to be in fluid overload. She does not take Lasix at home. Continue to monitor. Continue to hold Lasix. (8) Acute kidney injury: Code(s): N17.9 - Acute kidney failure, unspecified Status: Acute Assessment and Plan: Creatinine has been normal since admission up until 05/26 when it worsened to 1.9. Flores secured and UOP improved with IVF. Probably de
--- NOTE | 2019-05-31 19:11 | PM.PNPUL ---
Progress Note: A&P Assessment and Plan (1) ARDS (adult respiratory distress syndrome): Code(s): J80 - Acute respiratory distress syndrome Status: Acute Assessment and Plan: CXR continues to is improving (2) Pneumonia: Qualifiers: Laterality: bilateral Lung location: unspecified part of lung Pneumonia type: due to unspecified organism Qualified Code(s): J18.9 - Pneumonia, unspecified organism Code(s): J18.9 - Pneumonia, unspecified organism Status: Acute Assessment and Plan: No specific bacteria or virus has been identified. - Pt exposed to who is EMT but [facility] did not feel that she warranted SARS-Cov2 testing - continue Ceftriaxone and Azithromycin for 7-10 days she seems to be recovering and this seems to be a case of severe community acquired pneumonia but it's hard to know for sure. - would consider discontining systemic steroids in light of severe GERD (3) Acute respiratory failure with hypoxia: Code(s): J96.01 - Acute respiratory failure with hypoxia Status: Acute Subjective Date/time seen: 05/31/19 19:11 Interval history: Extubated and doing well. Only complaints are severe indegestion and nausea with epigastric pain. She has long smoking history and had chills, sweats, fever up to 102 at home with cough productive of colored sputum along with dyspnea and chest tightness. She says she had a similar episode many years ago when she was living in [place] which required ICU stay, intubation and mechanical ventilation. Review of Systems Review of Systems: All systems reviewed & are unremarkable except as noted in HPI and below Constitutional: Constitutional: Reports no additional constitutional complaints Eyes: Eyes: Reports no additional eye complaints ENT: Reports system reviewed and no additional complaints, except as documented Cardiovascular: Cardiovascular: Reports no additional cardiovascular complaints Gastrointestinal: Gastrointestinal: Reports no additional gastrointestinal complaints Musculoskeletal: Musculoskeletal: Reports no additional musculoskeletal complaints Integumentary/Breasts: Skin/Breast: Reports system reviewed and no additional complaints, except as docu Neurologic: Reports system reviewed and no additional complaints, except as documented Exam Const: General: comfortable and no acute distress Other: extubated HENMT: Mouth: Yes moist mucous membranes Eyes: General: appearance normal, both eyes and all related structures Neck: Neck: supple and no JVD Lymphatic: lymphadenopathy not noted Other: stocky neck Resp: Auscultation: no crackles, no rales, no rhonchi, no wheezes and diminished lung sounds Cardio: Rate: regular rate Rhythm: regular rhythm Heart sounds: no gallops and no murmurs Other: sinus rhythm at 94 GI: Auscultation: normal bowel sounds Urinary Catheter: Urinary Catheter: patent and draining Skin: General skin exam: normal color Neuro: Speech: No normal speech (no speech due to ETT tube; nodes to questions) Other: sedated but arousable to voice and touch Extrem: General: normal to inspection Objective Data Vital Signs Vital Signs: Vital Signs - 24 hr 05/30/19 20:00 05/30/19 20:25 05/30/19 20:35 Temperature 36.5 C Pulse Rate 99 104 H 104 H Respiratory Rate 16 18 18 Blood Pressure 130/71 Pulse Oximetry 100 05/30/19 20:54 05/30/19 20:59 05/30/19 22:00 Temperature Pulse Rate 122 H 107 H Respiratory Rate Blood Pressure Pulse Oximetry 96 05/30/19 22:30 05/31/19 00:00 05/31/19 02:00 Temperature 36.8 C Pulse Rate 88 79 Respiratory Rate 16 18 18 Blood Pressure 110/61 Pulse Oximetry 96 96 05/31/19 02:06 05/31/19 02:10 05/31/19 04:00 Temperature 35.8 C L Pulse Rate 79 82 105 H Respiratory Rate 15 18 16 Blood Pressure 129/76 Pulse Oximetry 96 100 05/31/19 06:00 05/31/19 08:00 05/31/19 08:08 Temperature 36.3 C L Pulse Rate 77 92 9
[2019-05-31] MEDS: APIXABAN 5 MG TABLET 10 MG PO (20:50)
[2019-05-31] MEDS: GABAPENTIN 300 MG CAPSULE 600 MG PO (20:51)
[2019-05-31] MEDS: METOCLOPRAMIDE HCL 5 MG TABLET PO (20:51)
[2019-05-31] MEDS: CALCIUM CARBONATE (TUMS) 500 MG (200 MG ELEMENTAL) PO (21:59)
[2019-06-01] VITALS (25 sets, daily range): BP systolic 115–142; BP diastolic 63–75; PULSE 74–106; RESP 16–20; TEMP 36–36.7; O2SAT 95–100
[2019-06-01] MEDS: IPRATROPIUM BR 0.02% INH SOLN 0.5 MG/2.5 ML VIAL INHALATION ×5 (00:58→19:52)
[2019-06-01] MEDS: ACETAMINOPHEN 325 MG TABLET 650 MG PO (04:35)
[2019-06-01] MEDS: CLONAZEPAM 0.5 MG TAB 1 MG PO ×3 (05:23→22:32)
[2019-06-01] MEDS: LEVOTHYROXINE SODIUM 50 MCG TABLET PO (05:23)
[2019-06-01] MEDS: METOCLOPRAMIDE HCL 5 MG TABLET PO ×2 (05:23→16:37)
[2019-06-01] MEDS: SERTRALINE HCL 50 MG TABLET 150 MG PO (09:11)
[2019-06-01] MEDS: PANTOPRAZOLE 40 MG TABLET PO ×2 (09:11→20:54)
[2019-06-01] MEDS: APIXABAN 5 MG TABLET 10 MG PO ×2 (09:11→20:55)
[2019-06-01] MEDS: METOPROLOL TARTRATE 25 MG TABLET PO ×2 (09:13→12:19)
--- NOTE | 2019-06-01 10:21 | PM.IMPN ---
Progress Note: A&P Assessment and Plan (1) Acute respiratory failure with hypoxia: Code(s): J96.01 - Acute respiratory failure with hypoxia Status: Acute Assessment and Plan: Patient intubated 05/21 and able to extubated on 05/27/19. Mostly hypoxia but patient may have chronic hypercarbia given the normal pCO2 but elevated pH. Down to her 2L NC which she takes at home. Encourage BiPAP use at night and with naps. PT/OT. Increase activity. TRC consult pending (2) ARDS (adult respiratory distress syndrome): Code(s): J80 - Acute respiratory distress syndrome Status: Acute Assessment and Plan: Despite good diuresis with Lasix, patient's chest x-ray worsened concerning for ARDS secondary to community-acquired pneumonia. Patient required intubation on May 21 but able to extubated May 26. Patient does have Chronic hypoxic respiratory failure, IRMA and asthma as well. 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 Steroids stopped. Continue nebulizer treatments. Appreciate Pulmonary input. (3) Community acquired pneumonia: Qualifiers: Laterality: unspecified laterality Qualified Code(s): J18.9 - Pneumonia, unspecified organism Code(s): J18.9 - Pneumonia, unspecified organism Status: Acute Assessment and Plan: CTA chest on admsision showing patchy bilateral airspace disease. Urine pneumococcal antigen was negative. Mycoplasma and HSV was negative. Blood cultures are negative. Group A strep throat culture negative. MRSA nasal swab was negative. Sputum was negative as well. Influenza was negative on admission in the emergency room. Infectious disease doctor is following. Antibiotics have been adjusted to just Rocephin and azithromycin and completed 10 days. Adjust nebulizer treatments. Appreciate ID input. (4) DVT (deep venous thrombosis): Code(s): I82.409 - Acute embolism and thrombosis of unspecified deep veins of unspecified lower extremity Status: Acute Assessment and Plan: Doppler revealed a right brachial DVT. Lovenox dose increased to therapeutic dose. Having tachycardia so consider PE but HR better with resuming her Metoprolol. CTA held given the recent MARIIA. Echo repeated but not showing any right sided changes. Changed to Eliquis. (5) Sepsis: Qualifiers: Sepsis acute organ dysfunction status: without acute organ dysfunction Sepsis type: sepsis due to unspecified organism Qualified Code(s): A41.9 - Sepsis, unspecified organism Code(s): A41.9 - Sepsis, unspecified organism Status: Acute Assessment and Plan: Present on admission secondary to pneumonia. White blood cell count normal. Completed 10 days of Azithro and Rocephin. Continue supportive care as mentioned above. (6) Nausea & vomiting: Qualifiers: Vomiting type: unspecified Vomiting Intractability: unspecified Qualified Code(s): R11.2 - Nausea with vomiting, unspecified Code(s): R11.2 - Nausea with vomiting, unspecified Status: Acute Assessment and Plan: Patient with nausea and vomiting. NGT placed with removal of 1500mL to suggest a gastroparesis. Related to prolonged bedrest? Remains on Reglan. NGT out and patient tolerating Level 6 diet. Reglan dose decreased yesterday and toelrated this well. Will continue to wean down. (7) CHF (congestive heart failure): Code(s): I50.9 - Heart failure, unspecified Status: Acute Assessment and Plan: Patient is off Lasix. Creatinine climbed to 1.9 but back to normal now. Does not appear to be in fluid overload. She does not take Lasix at home. Continue to monitor. (8) Acute kidney injury: Code(s): N17.9 - Acute kidney failure, unspecified Status: Acute Assessment and Plan: Creatinine has been normal since admission up until 05/26 when it worsened to 1.9. Mark secured and U
[2019-06-01] MEDS: CALCIUM CARBONATE (TUMS) 500 MG (200 MG ELEMENTAL) PO (15:46)
[2019-06-01] MEDS: PROCHLORPERAZINE EDISYLATE 10 MG/2 ML VIAL IV PUSH (20:54)
[2019-06-01] MEDS: GABAPENTIN 300 MG CAPSULE 600 MG PO (20:55)
[2019-06-01] MEDS: METOPROLOL TARTRATE 50 MG TAB PO (21:14)
[2019-06-02] VITALS (25 sets, daily range): BP systolic 105–138; BP diastolic 61–89; PULSE 67–94; RESP 16–20; TEMP 36.2–36.8; O2SAT 93–100
[2019-06-02] MEDS: LEVOTHYROXINE SODIUM 50 MCG TABLET PO (06:32)
[2019-06-02] MEDS: CLONAZEPAM 0.5 MG TAB 1 MG PO ×3 (06:32→21:44)
[2019-06-02] MEDS: METOCLOPRAMIDE HCL 5 MG TABLET PO (08:27)
[2019-06-02] MEDS: APIXABAN 5 MG TABLET 10 MG PO ×2 (08:28→21:43)
[2019-06-02] MEDS: SERTRALINE HCL 50 MG TABLET 150 MG PO (08:29)
[2019-06-02] MEDS: METOPROLOL TARTRATE 50 MG TAB PO ×2 (08:29→21:44)
[2019-06-02] MEDS: PANTOPRAZOLE 40 MG TABLET PO (08:29)
[2019-06-02] MEDS: PROCHLORPERAZINE EDISYLATE 10 MG/2 ML VIAL IV PUSH (08:30)
[2019-06-02] MEDS: IPRATROPIUM BR 0.02% INH SOLN 0.5 MG/2.5 ML VIAL INHALATION ×4 (09:05→19:27)
[2019-06-02] MEDS: MAG HYDROX/AL HYDROX/SIMETH 30 ML UDC PO ×2 (11:31→20:12)
--- NOTE | 2019-06-02 14:57 | PM.IMPN ---
Progress Note: A&P Assessment and Plan (1) Nausea & vomiting: Qualifiers: Vomiting type: unspecified Vomiting Intractability: unspecified Qualified Code(s): R11.2 - Nausea with vomiting, unspecified Code(s): R11.2 - Nausea with vomiting, unspecified Status: Acute Assessment and Plan: Patient with nausea and vomiting around 05/29/19 with NGT placed with removal of 1500mL to suggest a gastroparesis. Reglan started. Related to prolonged bedrest? She had improvement and was weaning Reglan. No having recurrent n/v. Also with diarrhea but off abx for a few days. Diarhea related to Reglan? Will stop Reglan and see how she does. Add Tums. Home if n/v resolved and diarrhea improved (2) Acute respiratory failure with hypoxia: Code(s): J96.01 - Acute respiratory failure with hypoxia Status: Acute Assessment and Plan: Patient intubated 05/21 and able to extubated on 05/27/19. Mostly hypoxia but patient may have chronic hypercarbia given the normal pCO2 but elevated pH. Was on home O2 on admission but now does not qualify. Continue BiPAP use at night and with naps. Continue PT/OT. Increase activity. TRC felt the patient did not qualift for therapy. (3) ARDS (adult respiratory distress syndrome): Code(s): J80 - Acute respiratory distress syndrome Status: Acute Assessment and Plan: Despite good diuresis with Lasix, patient's chest x-ray worsened concerning for ARDS secondary to community-acquired pneumonia. Patient required intubation on May 21 but able to extubated May 26. 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 Steroids stopped. Continue nebulizer treatments. Appreciate Pulmonary input. (4) Community acquired pneumonia: Qualifiers: Laterality: unspecified laterality Qualified Code(s): J18.9 - Pneumonia, unspecified organism Code(s): J18.9 - Pneumonia, unspecified organism Status: Acute Assessment and Plan: CTA chest on admsision showing patchy bilateral airspace disease. Urine pneumococcal antigen was negative. Mycoplasma and HSV was negative. Blood cultures are negative. Group A strep throat culture negative. MRSA nasal swab was negative. Sputum was negative as well. Influenza was negative on admission in the emergency room. Infectious disease doctor is following. Antibiotics were adjusted to just Rocephin and azithromycin and she completed 10 days. Adjust nebulizer treatments. Appreciate ID input. (5) DVT (deep venous thrombosis): Qualifiers: DVT location: upper extremity Affected thrombotic vein of extremity: brachial Chronicity: acute Laterality: right Qualified Code(s): I82.621 - Acute embolism and thrombosis of deep veins of right upper extremity Code(s): I82.409 - Acute embolism and thrombosis of unspecified deep veins of unspecified lower extremity Status: Acute Assessment and Plan: Doppler revealed a right brachial DVT. The prophylactic Lovenox dose was increased to therapeutic dose. Having tachycardia so consider PE but HR better with resuming her Metoprolol. CTA held given the recent MARIIA. Echo repeated but not showing any right sided changes. Completed 6 doses of high dose Lovenox before changing to Eliquis. Continue Eliquis. (6) Sepsis: Qualifiers: Sepsis acute organ dysfunction status: without acute organ dysfunction Sepsis type: sepsis due to unspecified organism Qualified Code(s): A41.9 - Sepsis, unspecified organism Code(s): A41.9 - Sepsis, unspecified organism Status: Acute Assessment and Plan: Present on admission secondary to pneumonia. White blood cell count normal. Completed 10 days of Azithro and Rocephin. Continue supportive care as mentioned above. (7) CHF (congestive heart failure): Martín
--- NOTE | 2019-06-02 15:40 | PCRCNOTE ---
HOME O2 EVALUATION DONE. PT. DOES NOT REQUIRE O2 AT REST OR WITH ACTIVITY.
--- NOTE | 2019-06-02 15:43 | HOMEO2EVAL ---
Home Oxygen Evaluation RC: Home Oxygen (O2) Evaluation Start: 06/02/19 14:04 Freq: ONCE Status: Active Protocol: RPE Activity Type Activity Date Activity User E-Sign Co-Sign Detail Recorded Client Recorded Date Recorded By Document 06/02/19 14:33 KRM [id number] 06/02/19 15:42 KRM Document 06/02/19 14:38 KRM [id number] 06/02/19 15:42 KRM Document 06/02/19 14:40 KRM [id number] 06/02/19 15:42 KRM 06/02/19 06/02/19 06/02/19 14:33 14:38 14:40 Home O2 Evaluation Test Phase Resting Exercise Resting Oxygen Delivery Room Air Room Air Room Air Pulse Oximetry (90-100 %) 95 93 95 Pulse Rate (60-100 beats/min) 86 83 94 Activity Tolerance Fair Home Oxygen Evaluation Comments PT. WAS JUST ABLE TO STAND UP ON THE SIDE OF THE BED. Treatment Charges O2 Evaluation
--- NOTE | 2019-06-02 21:08 | PC.NURSE ---
PT NAUSEATED AND VOMITTED 300 CC GREEN LIQUID. PIPO CALDERÓN NOTIFIED. PT HAS IM PHENERGAN ORDERED. PT ON ELOQUIS. ZOFRAN SL ORDERED
[2019-06-02] MEDS: ONDANSETRON HCL ODT 4 MG TABLET PO (21:13)
[2019-06-02] MEDS: GABAPENTIN 300 MG CAPSULE 600 MG PO (21:44)
[2019-06-02] MEDS: ACETAMINOPHEN 325 MG TABLET 650 MG PO (21:45)
[2019-06-03] VITALS (11 sets, daily range): BP systolic 114–144; BP diastolic 62–88; PULSE 79–96; RESP 14–18; TEMP 35.6–36.6; O2SAT 94–100
[2019-06-03] MEDS: CLONAZEPAM 0.5 MG TAB 1 MG PO ×2 (06:10→13:55)
[2019-06-03] MEDS: LEVOTHYROXINE SODIUM 50 MCG TABLET PO (06:11)
[2019-06-03] MEDS: SERTRALINE HCL 50 MG TABLET 150 MG PO (09:13)
[2019-06-03] MEDS: METOPROLOL TARTRATE 50 MG TAB PO (09:13)
[2019-06-03] MEDS: APIXABAN 5 MG TABLET 10 MG PO (09:13)
[2019-06-03] MEDS: IPRATROPIUM BR 0.02% INH SOLN 0.5 MG/2.5 ML VIAL INHALATION ×2 (09:20→13:57)
--- NOTE | 2019-06-03 15:22 | PM.DS ---
DS: Diagnosis Admitting Diagnosis Admitting Diagnosis: Pneumonia, unspecified organism Discharge Diagnosis (1) Nausea & vomiting: Qualifiers: Vomiting Intractability: unspecified Vomiting type: unspecified Qualified Code(s): R11.2 - Nausea with vomiting, unspecified Code(s): R11.2 - Nausea with vomiting, unspecified Status: Acute Assessment and Plan: Patient with nausea and vomiting around 05/29/19 with NGT placed with removal of 1500mL to suggest a gastroparesis. Reglan started. Related to prolonged bedrest? She had improvement and was weaning Reglan. No having recurrent n/v. Also with diarrhea but off abx for a few days. Diarhea related to Reglan? Will stop Reglan and see how she does. Add Tums. Home if n/v resolved and diarrhea improved (2) Acute respiratory failure with hypoxia: Code(s): J96.01 - Acute respiratory failure with hypoxia Status: Acute Assessment and Plan: Patient intubated 05/21 and able to extubated on 05/27/19. Mostly hypoxia but patient may have chronic hypercarbia given the normal pCO2 but elevated pH. Was on home O2 on admission but now does not qualify. Continue BiPAP use at night and with naps. Continue PT/OT. Increase activity. TRC felt the patient did not qualift for therapy. (3) ARDS (adult respiratory distress syndrome): Code(s): J80 - Acute respiratory distress syndrome Status: Acute Assessment and Plan: Despite good diuresis with Lasix, patient's chest x-ray worsened concerning for ARDS secondary to community-acquired pneumonia. Patient required intubation on May 21 but able to extubated May 26. 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 Steroids stopped. Continue nebulizer treatments. Appreciate Pulmonary input. (4) Community acquired pneumonia: Qualifiers: Laterality: unspecified laterality Qualified Code(s): J18.9 - Pneumonia, unspecified organism Code(s): J18.9 - Pneumonia, unspecified organism Status: Acute Assessment and Plan: CTA chest on admsision showing patchy bilateral airspace disease. Urine pneumococcal antigen was negative. Mycoplasma and HSV was negative. Blood cultures are negative. Group A strep throat culture negative. MRSA nasal swab was negative. Sputum was negative as well. Influenza was negative on admission in the emergency room. Infectious disease doctor is following. Antibiotics were adjusted to just Rocephin and azithromycin and she completed 10 days. Adjust nebulizer treatments. Appreciate ID input. (5) DVT (deep venous thrombosis): Qualifiers: Affected thrombotic vein of extremity: brachial Chronicity: acute DVT location: upper extremity Laterality: right Qualified Code(s): I82.621 - Acute embolism and thrombosis of deep veins of right upper extremity Code(s): I82.409 - Acute embolism and thrombosis of unspecified deep veins of unspecified lower extremity Status: Acute Assessment and Plan: Doppler revealed a right brachial DVT. The prophylactic Lovenox dose was increased to therapeutic dose. Having tachycardia so consider PE but HR better with resuming her Metoprolol. CTA held given the recent MARIIA. Echo repeated but not showing any right sided changes. Completed 6 doses of high dose Lovenox before changing to Eliquis. Continue Eliquis. (6) Sepsis: Qualifiers: Sepsis acute organ dysfunction status: without acute organ dysfunction Sepsis type: sepsis due to unspecified organism Qualified Code(s): A41.9 - Sepsis, unspecified organism Code(s): A41.9 - Sepsis, unspecified organism Status: Acute Assessment and Plan: Present on admission secondary to pneumonia. White blood cell count normal. Completed 10 days of Azithro and Rocephin. Continue supportive care
== END 2019-06-03 17:10 | disposition home or self-care (01) | DRG 720 ==
LOC: ANHED 08:04 → ANH2MED 08:09 → ANHICU 05-21 06:50 → ANH2MED 06-02 11:00 → ANHICU 06-04 11:15 → ANHIMU 06-04 11:15
PROVIDERS: Emergency Medicine; Family Medicine; Internal Medicine; Internal Medicine Nephrology; Physician Assistant; Admitting Provider Internal Medicine; Emergency Provider Emergency Medicine; PCP Nurse Practitioner; Visit Provider Family Medicine
DX: A41.9 Sepsis, unspecified organism (principal); J18.9 Pneumonia, unspecified organism; F17.210 Nicotine dependence, cigarettes, uncomplicated; J45.20 Mild intermittent asthma, uncomplicated; K21.9 Gastro-esophageal reflux disease without esophagitis; I50.33 Acute on chronic diastolic (congestive) heart failure; J96.21 Acute and chronic respiratory failure with hypoxia; I42.9 Cardiomyopathy, unspecified; I11.0 Hypertensive heart disease with heart failure; E89.0 Postprocedural hypothyroidism; Z68.42 Body mass index [BMI] 45.0-49.9, adult; E66.2 Morbid (severe) obesity with alveolar hypoventilation; E87.6 Hypokalemia; E87.3 Alkalosis; G25.81 Restless legs syndrome; N17.9 Acute kidney failure, unspecified; I82.621 Acute embolism and thrombosis of deep veins of right upper extremity; K59.00 Constipation, unspecified; K31.84 Gastroparesis; M76.61 Achilles tendinitis, right leg; J45.21 Mild intermittent asthma with (acute) exacerbation
CPT/HCPCS: 31500; 36415; 36600; 71045; 71046; 71275; 73060; 74019; 76770; 80048; 80069; 80076; 80202; 81001; 81003; 82375; 82550; 82570; 82805; 83050; 83605; 83690; 83735; 83880; 83883; 84100; 84132; 84156; 84300; 84484; 85025; 85027; 85652; 85999; 86038; 86160; 86162; 86738; 87040; 87070; 87081; 87205; 87252; 87449; 87486; 87804; 87880; 87899; 93005; 93306; 93308; 93971; 94002; 94003; 94618; 94640; 94660; 96361; 96365; 96367; 96372; 96375; 96376; 97110; 97116; 97161; 97165; 97530; 97535; 99285; A9270; C1751; C8929; C9113; G0378; G0379; J0131; J0295; J0456; J0696; J0780; J1120; J1170; J1650; J1940; J2060; J2250; J2405; J2550; J2704; J2765; J2920; J2930; J3010; J3370; J3480; J7030; J7050; J7120; Q9957; Q9967

== ENCOUNTER 2019-08-08 14:10 | Emergency (ER) | payer OTHER, SELFPAY ==
[2019-08-08] VITALS (7 sets, daily range): BP systolic 97–138; BP diastolic 68–90; PULSE 67–95; RESP 12–22; TEMP 36.4; O2SAT 94–100
--- NOTE | ~2019-08-08 | CT_ITS ---
EXAMINATION: CT abdomen pelvis w con DATE: 08/08/2019 17:06 INDICATION: Vomiting and abdominal pain for 2-3 weeks TECHNIQUE: Computed tomography (CT) of the abdomen and pelvis was performed with 100 cc Omnipaque 350 intravenous contrast. The dose-length product was 1376.57 mGy-cm. Automated exposure control and ite rative reconstruction technique were employed. COMPARISON: None. FINDINGS: Right middle lobe and left lower lobe atelectasis/scarring. Heart size normal. No significa nt pleural or pericardial effusion. The liver, spleen, pancreas, adrenal glands and kidneys are unremarkable. Gallbladder is present. Sma ll fat-containing umbilical hernia. Nonobstructive bowel gas pattern. Gallbladder is present. No sign ificant vascular abnormality. No lymphadenopathy. No free air or free fluid. Mild lumbar spondylosis. IMPRESSION: 1. No acute abdominal abnormality. Reviewed, dictated and finalized at location A.
[2019-08-08 15:29] LABS: Basophils Absolute Auto 0.1 K/mm3 (0.0-0.1); Basophils Percent Auto 0.6 % (0.2-1.2); Eosinophils Absolute Auto 0.4 K/mm3 (0-0.3); Eosinophils Percent Auto 4.6 % (0-4.4); Hematocrit 36.5 % (37.0-47.0); Hemoglobin 12.2 g/dL (12.0-15.0); Immature Granulocyte Absolute 0.06 K/mm3 (0.00-0.031); Immature Granulocyte Percent A 0.7 % (0-0.5); Lymphocytes Absolute Auto 2.82 K/mm3 (0.9-3.2); Lymphocytes Percent Auto 31.7 % (18.3-44.2); Mean Corpuscular HGB Conc 33.4 g/dl (32-36); Mean Corpuscular Hemoglobin 33.2 pg (26-34); Mean Corpuscular Volume 99.2 fl (80-100); Mean Platelet Volume 9.9 fl (7.4-10.4); Monocytes Absolute Auto 0.6 K/mm3 (0.1-0.6); Monocytes Percent Auto 6.3 % (2.6-8.5); Neutrophils Percent Auto 56.1 % (45.5-73.1); Platelet Count Result 235 k/mm3 (150-375); Red Blood Count 3.68 M/mm3 (4.2-5.4); Red Cell Distribution Width 15.2 % (11.5-14.5); White Blood Count 8.9 K/mm3 (4.5-10.0)
--- NOTE | 2019-08-08 15:37 | ED.NAVMDI ---
HPI - Nausea/Vomiting/Diarrhea General Chief complaint: Nausea/Vomiting/Diarrhea Stated complaint: vomiting x 1 week Time Seen by Provider: 08/08/19 14:31 Source: patient Mode of arrival: ambulatory Limitations: no limitations History of Present Illness HPI Narrative: This is a 39-year-old female that presents the emergency department for vomiting x1 week. Reports she has not been able to keep anything down. Reports she has taken Zofran with little relief. Reports mild upper abdominal discomfort. Denies fever, diarrhea, dysuria, or hematuria. Related Data Home Medications Medication Instructions Recorded Confirmed clonazepam 1 mg PO TID 05/19/19 08/08/19 docusate sodium [Colace] 100 mg PO DAILY 05/19/19 08/08/19 famotidine 20 mg PO DAILY 05/19/19 08/08/19 gabapentin 600 mg PO HS 05/19/19 08/08/19 ipratropium-albuterol 1 ml INHALATION BID 05/19/19 08/08/19 levothyroxine 50 mcg PO DAILY 05/19/19 08/08/19 lisinopril 40 mg PO DAILY 05/19/19 08/08/19 melatonin 12 mg PO HS 05/19/19 08/08/19 omeprazole 40 mg PO DAILY 05/19/19 08/08/19 ondansetron HCl 8 mg PO Q6H PRN 05/19/19 08/08/19 phenazopyridine 100 mg PO DAILY 05/19/19 08/08/19 sertraline 150 mg PO DAILY 05/19/19 08/08/19 Allergies Allergy/AdvReac Type Severity Reaction Status Date / Time quetiapine Allergy Unknown Nervousness Verified 08/08/19 14:30 chlorpromazine Allergy Itching Verified 08/08/19 14:30 [From Thorazine] latex Allergy Rash Verified 08/08/19 14:30 Review of Systems Review of Systems: Narrative: CONSTITUTIONAL: Denies fever GASTROINTESTINAL:Reports abdominal pain, nausea, vomiting. Denies diarrhea. GENITOURINARY: Denies dysuria or hematuria. All systems reviewed & are unremarkable except as noted in HPI and below PMFSH Past Medical History Medical History (Updated 08/08/19 @ 19:28 by Remedios Menard PA-C) Asthma, mild intermittent Chronic respiratory failure Constipation GERD (gastroesophageal reflux disease) Hypertension IRMA on CPAP Peripartum cardiomyopathy 2005 Tobacco abuse Surgical History Surgical History H/O tubal ligation History of thyroidectomy, subtotal for benign nodule Social History Social History Smoking packs per day: 1.0 Smoking cigarettes per day: 20.0 Years smoked: 23 Smoking pack-years: 23.00 Smoking status: Current every day smoker Tobacco type: cigarettes Second hand tobacco smoke exposure: Yes Alcohol intake: former Substance use: current Substance use type: marijuana Other substance usage details: marijuana Last use: weekly 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 HEAD: Normocephalic, atraumatic. EYES: EOMI. CHEST: Clear to auscultation. No respiratory distress. No wheezes rales or rhonchi HEART: Regular rate and rhythm. No murmur heard. Normal peripheral pulses. ABDOMEN: Soft, nondistended, normal active bowel sounds. Mild tenderness to palpation of the epigastrium, without guarding EXTREMITIES: Normal range of motion. No edema. SKIN: Warm, dry, no rash. NEURO: No focal deficits. Alert and oriented x3. PSYCH: Normal mood and affect Course Vital Signs Vital signs: Vital Signs Temperature 97.6 F 08/08/19 14:24 Pulse Rate 95 08/08/19 14:24 Respiratory Rate 14 08/08/19 14:24 Blood Pressure 119/90 08/08/19 14:24 Pulse Oximetry 97 08/08/19 14:24 Temperature 97.6 F 08/08/19 14:24 Pulse Rate 67 08/08/19 18:25 Respiratory Rate 18 08/08/19 18:25 Blood Pressure 115/80 08/08/19 18:25 Pulse Oximetry 100 08/08/19 18:25 MDM - Nausea/Vomiting/Diarrhea MDM Narrative Medical decision making narrative:
[2019-08-08 15:42] LABS: Alanine Aminotransferase 20 U/L (4-35); Albumin Level 4.4 g/dL (3.5-5.1); Alkaline Phosphatase 90 U/L (38-126); Aspartate Amino Transferase 25 U/L (14-36); Bilirubin,Total 0.4 mg/dL (0.2-1.3); Blood Urea Nitrogen 13 mg/dL (7-17); Calcium 9.4 mg/dL (8.4-10.2); Carbon Dioxide 28 mmol/L (22-30); Chloride 97 mmol/L (98-107); Estimated CRCL calculation 89 ml/min; Estimated Glomerular Filt Rate > 60; Glucose 111 mg/dL (65-105); Lipase 58 U/L (23-300); Potassium 4.1 mmol/L (3.4-5.0); Sodium 134 mmol/L (137-145)
[2019-08-08] MEDS: METOCLOPRAMIDE HCL INJ 10 MG/2 ML VIAL IV PUSH (16:09)
[2019-08-08] MEDS: SODIUM CHLORIDE 0.9% IV 1,000 ML 999 ML IV CONT (16:09)
[2019-08-08 17:00] LABS: Creatine Kinase 90 U/L (30-135); Magnesium 1.8 mg/dL (1.6-2.3)
--- NOTE | 2019-08-08 17:18 | PC.NURSE ---
Pt states she is unable to give urine sample at this time. Informed Remedios Menard of this
== END 2019-08-08 19:45 | disposition home or self-care (01) ==
PROVIDERS: Physician Assistant; Emergency Provider Emergency Medicine; PCP Nurse Practitioner
DX: R11.2 Nausea with vomiting, unspecified (principal); J45.20 Mild intermittent asthma, uncomplicated; J96.10 Chronic respiratory failure, unspecified whether with hypoxia or hypercapnia; K21.9 Gastro-esophageal reflux disease without esophagitis; I10 Essential (primary) hypertension; G47.33 Obstructive sleep apnea (adult) (pediatric); F17.210 Nicotine dependence, cigarettes, uncomplicated
CPT/HCPCS: 36415; 74177; 80053; 82550; 83690; 83735; 85025; 96361; 96374; 96375; 99284; J1200; J2765; J7030; Q9967

== ENCOUNTER 2019-08-28 15:53 | Outpatient (CLI) | payer OTHER, SELFPAY ==
--- NOTE | ~2019-08-28 | XR_ITS ---
EXAMINATION: XR chest 2V DATE: 08/28/2019 16:24 INDICATION: Chest pain and shortness of breath TECHNIQUE: PA and lateral views of the chest are obtained. COMPARISON: 05/30/2019 FINDINGS: The lungs are free of acute opacities. A few areas of subsegmental atelectasis persist. The re is no pleural effusion or pneumothorax. The cardiomediastinal silhouette is normal. There is mild thoracic spondylosis. IMPRESSION: 1. No acute cardiopulmonary abnormality. Reviewed, dictated and finalized at location A.
== END 2019-08-28 15:54 | disposition home or self-care (01) ==
LOC: ANHIMG 15:58
PROVIDERS: PCP Nurse Practitioner Family; Visit Provider Nurse Practitioner Family
DX: I50.9 Heart failure, unspecified (principal)
CPT/HCPCS: 71046

== ENCOUNTER 2019-09-10 14:45 | Outpatient (RCR) | payer OTHER, SELFPAY ==
--- NOTE | 2019-08-07 14:42 | PTOPEVAL ---
PHYSICAL THERAPY EVALUATION AND PLAN OF CARE 08-07-2019 The PT evaluation was completed for the diagnosis of weakness. Her plan of treatment is scheduled for 2x/week for 5 weeks. Thank you for referring Dash Crane to [facility]. Please review, sign, date and return this plan of care TETE. I agree with and certify that the following plan of care is medically necessary. Referring Physician Date Attending Provider: Sera Larose, JENNIFER *PT Outpatient Evaluation Start: 08/07/19 13:34 Document 08/07/19 13:30 AMANDA (Rec: 08/07/19 14:34 AMANDA [id number]) Outpatient Past Medical History Past Medical History Source of Past Medical History Patient Neurological History Hx Neurological Disorders No Significant History Cardiovascular History Hx Congestive Heart Failure Yes: meds contol Hx Hypertension Yes: meds control Hx Other Cardiac Disorders Yes: palpitations; monitor BP with home monitor Respiratory History Hx Asthma Yes Hx Sleep Apnea Yes: wears a CPAP at night Hx Other Respiratory Disorders Yes: wears O2 at 3 liters at night Gastrointestinal History Hx Gastroesophageal Reflux Disease Yes Hx Other Gastrointestinal Disorders Yes: chronic nausea and vomiting Genitourinary History Hx Urinary Tract Infection Yes: UTI 05/2019 Musculoskeletal History Hx Back Pain Yes: chronic Hx Other Musculoskeletal Disorders Yes: pain all over joints- is getting worse ;DVT R arm Hematological History Hx Hematological Disorders No Significant History Endocrine History Hx Hypothyroidism Yes: takes Levothyroxine Hx Thyroidectomy Yes: has 1/2 thyroid - had a goiter HEENT History Hx HEENT Disorders No Significant History Integumentary History Hx Skin Disorders No Significant History Reproductive History Hx Section Yes Hx Tubal Ligation Yes Psychosocial History Hx Bipolar Disorder Yes Hx Depression Yes: on meds; PTSD Hx Schizophrenia Yes: schizo-affective disorder Hx Suicide Attempt Yes: 2018 Pain History Has Past Pain Affected Your Daily Life Yes Anesthesia History Hx Anesthesia Reactions No Significant History Other History Hx MRSA Yes: leg wound Evaluation Information Problem Diagnosis LE weakness Additional Evaluation Detail vitals at rest: BP 93/59; oxygen sat 98%, pulse 76; has BP monitor at home; normal BP 93/74- watching and meds monitor by ; Subjective Information
--- NOTE | 2019-08-19 08:19 | PCPTNOTE ---
Patient called & cancelled scheduled appointment this week due to no transportation.
--- NOTE | 2019-08-25 14:14 | PCPTNOTE ---
Patient did not show up for scheduled appointment this date.
--- NOTE | 2019-09-04 10:53 | PCPTNOTE ---
Patient did not show up for scheduled appointment this date.
--- NOTE | 2019-09-09 10:39 | PCPTNOTE ---
Patient did not show up for scheduled appointment this date.
--- NOTE | 2019-09-10 15:15 | PTOPEVAL ---
PHYSICAL THERAPY DISCHARGE 09-10-2019 Mrs. Crane has received 6 PT sessions, from August 06 to today. She called/canceled 3 and did not show for 2 appointments. Dash improved in all areas: LE strength, sit/stand transfer, TUG, [place] balance, walking tolerance, stair ability and transfer of/off floor. She is independent with her home exercises and is walking for fitness 30 minutes at home. All of the goals were achieved, therefore she will be discharged from PT at this time. Thank you for referring Dash Crane to [facility]. Please review, sign, date and return this discharge TETE. I agree with and certify that the following plan of care is medically necessary. Referring Physician Date Attending Provider: Sera Larose [facility] physical therapy discharge Document 09/10/19 14:45 AMANDA (Rec: 09/10/19 15:15 AMANDA [id number]) Subjective Information Dash reports: has not had Query Text:As Reported By Patient/ any falls, feels like balance Family is better, is walking 30 minutes about 4x/wk for fitness; able to do home tasks about 30-45 minutes; is struggling with carrying laundry basket up stairs; is OK doing the stairs, but not with something in her hands; doing leg exercises at home with the red band; Pain Assessment Timing of Pain Assessment Timing of Pain Assessment Assessment Self Report Self Report Pain Level 0 Pain Score Pain Score 0: Self Report Lower Extremity Muscle Strength Testing General Lower Extremity Strength Gross Lower Extremity Strength single leg standing R 12/L 6 seconds standing R and L hip flex, abduct and extension with red theraband 20 reps; with PRN UE touch for balance Transfer Assessment Floor Transfer Assessment Ambulation Assistive Devices None Stand to Floor Transfer Ability Independent Floor to Stand Transfer Ability Independent Floor Transfer Ability Independent Cues Needed for Floor Transfer None Floor Transfer Comments use of UE On mat to lower self to floor; did not use mat to stand from floor Balance Assessment Valencia Balance Assessment Sitting to Standing Independent w/out Hands Unsupported Stance Ability Safely- 2 minutes Sitting Unsupported, Feet on Floor Safely- 2 minutes Standing to Sitting Safely, Minimal Hand Use Transfer Ability Safely, Minimal Hand Use Unsupported Stance- Eyes Closed Safely, 10 seconds Unsupported Stance- Feet Together Independent, 1 minute Reaching Forward whil
== END 2019-09-11 08:40 | disposition home or self-care (01) ==
LOC: ANHPT 14:45
PROVIDERS: PCP Nurse Practitioner; Visit Provider Nurse Practitioner
DX: M62.81 Muscle weakness (generalized) (principal)
CPT/HCPCS: 97110; 97116; 97161

== ENCOUNTER 2019-10-18 19:08 | Emergency (ER) | payer OTHER, SELFPAY ==
--- NOTE | ~2019-10-18 | XR_ITS ---
EXAMINATION: XR ankle LT min 3V, XR foot LT min 3V EXAM DATE: 10/18/2019 19:36 (accession [id number]), 10/18/2019 19:35 (accession [id number]) INDICATION: Initial encounter following injury, with pain of the left foot, ankle. TECHNIQUE: Left foot dorsoplantar, lateral and oblique projections obtained and reviewed. Left ankle frontal, lateral and oblique projections obtained and reviewed. There is no prior study for compari son. FINDINGS: Left metatarsal bones unremarkable. The left ankle mortise appears intact. There are no acute fractures or dislocations identified. There is no subcutaneous gas. The soft tissue is unrem arkable. There are no radiopaque foreign bodies. IMPRESSION: No acute osseous findings. Reviewed, dictated and finalized at location A. IMPRESSION: No acute osseous findings. IMPRESSION: No acute osseous findings.
[2019-10-18 19:12] VITALS: BP 121/76; PULSE 72; RESP 18; TEMP 36.6; O2SAT 98
--- NOTE | 2019-10-18 20:14 | ED.GENADULT ---
HPI - General Adult General Chief complaint: Extremity Injury, Lower <KORI Bojorquez Last Filed: 10/18/19 20:30> Stated complaint: L LEG PAIN S/P FALL <KORI Bojorquez Last Filed: 10/18/19 20:30> Time Seen by Provider: 10/18/19 19:29 <KORI Bojorquez Last Filed: 10/18/19 20:30> Source: patient <KORI Bojorquez Last Filed: 10/18/19 20:30> Mode of arrival: ambulatory <KORI Bojorquez Last Filed: 10/18/19 20:30> Limitations: no limitations <KORI Bojorquez Last Filed: 10/18/19 20:30> History of Present Illness HPI narrative: Patient is here for evaluation of left ankle pain after stumbling in her yard today about noon. She said that she has been ambulatory but it is somewhat painful and that she frequently injures the same ankle. <KORI Bojorquez Last Filed: 10/18/19 20:30> Related Data Home medications: Home Medications Medication Instructions Recorded Confirmed clonazepam 1 mg PO TID 05/19/19 08/08/19 docusate sodium [Colace] 100 mg PO DAILY 05/19/19 08/08/19 famotidine 20 mg PO DAILY 05/19/19 08/08/19 gabapentin 600 mg PO HS 05/19/19 08/08/19 ipratropium-albuterol 1 ml INHALATION BID 05/19/19 08/08/19 levothyroxine 50 mcg PO DAILY 05/19/19 08/08/19 lisinopril 40 mg PO DAILY 05/19/19 08/08/19 melatonin 12 mg PO HS 05/19/19 08/08/19 omeprazole 40 mg PO DAILY 05/19/19 08/08/19 ondansetron HCl 8 mg PO Q6H PRN 05/19/19 08/08/19 phenazopyridine 100 mg PO DAILY 05/19/19 08/08/19 sertraline 150 mg PO DAILY 05/19/19 08/08/19 <Elvie Sandra PA-C - Last Filed: 10/18/19 20:30> Allergies/adverse reactions: Allergies Allergy/AdvReac Type Severity Reaction Status Date / Time quetiapine Allergy Unknown Nervousness Verified 08/08/19 14:30 chlorpromazine Allergy Itching Verified 08/08/19 14:30 [From Thorazine] latex Allergy Rash Verified 08/08/19 14:30 <Elvie Sandra PA-C - Last Filed: 10/18/19 20:30> Review of Systems Review of Systems: All systems reviewed & are unremarkable except as noted in HPI and below <Elvie Sandra PA-C - Last Filed: 10/18/19 20:30> [facility] Past Medical History Medical History: Medical History Asthma, mild intermittent Chronic respiratory failure Constipation GERD (gastroesophageal reflux disease) Hypertension IRMA on CPAP Peripartum cardiomyopathy 2006 Tobacco abuse <Elvie Sandra PA-C - Last Filed: 10/18/19 20:30> Surgical History Surgical History: Surgical History H/O tubal ligation History of thyroidectomy, subtotal for benign nodule <Elvie Sandra PA-C - Last Filed: 10/18/19 20:30> Family History Family History: Family History Father Diabetes mellitus Acute myocardial infarction Hypertension Congestive heart failure Rectal cancer Mother No problems noted. 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
[2019-10-18 20:32] VITALS: BP 124/86; PULSE 75; RESP 16; TEMP 36.8; O2SAT 98
== END 2019-10-18 20:33 | disposition home or self-care (01) ==
PROVIDERS: Emergency Provider Emergency Medicine; PCP Nurse Practitioner Family
DX: S93.402A Sprain of unspecified ligament of left ankle, initial encounter (principal); J45.20 Mild intermittent asthma, uncomplicated; J96.10 Chronic respiratory failure, unspecified whether with hypoxia or hypercapnia; K21.9 Gastro-esophageal reflux disease without esophagitis; I10 Essential (primary) hypertension; G47.33 Obstructive sleep apnea (adult) (pediatric); F17.210 Nicotine dependence, cigarettes, uncomplicated; W01.0XXA Fall on same level from slipping, tripping and stumbling without subsequent striking against object, initial encounter
CPT/HCPCS: 73610; 73630; 99283

== ENCOUNTER 2019-12-12 11:52 | Outpatient (CLI) | payer OTHER, SELFPAY ==
--- NOTE | ~2019-12-12 | US_ITS ---
EXAMINATION: US thyroid EXAM DATE: 12/12/2019 12:35 INDICATION: Hypothyroidism. TECHNIQUE: Multiple grayscale and Doppler images of the thyroid were obtained (by a technologist who performed the scan) and subsequently reviewed. Individual nodules and recommendations may be reporte d in accordance with TI-RADS system as designated by the 2017 ACR White Paper TI-RADS committee. The re is no prior study for comparison. FINDINGS: The right thyroid lobe has been removed, unremarkable thyroidectomy bed. Left thyroid lobe measures 4 .4 x 2.6 x 1.7 cm with several nodules, largest measuring 2.3 x 1.8 x 1.2 centimeters, solid (2 poin ts), hypoechoic (2 points), wider than tall, smooth margin, without echogenic foci, category TR4 for this nodule. IMPRESSION: 1. Left lower lobe nodule large enough to consider ultrasound-guided biopsy. 2. Unremarkable right thyroidectomy bed. Reviewed, dictated and finalized at location A.
== END 2019-12-12 11:53 | disposition home or self-care (01) ==
PROVIDERS: PCP Nurse Practitioner Family; Visit Provider Nurse Practitioner Family
DX: E03.9 Hypothyroidism, unspecified (principal); E04.1 Nontoxic single thyroid nodule
CPT/HCPCS: 76536

== ENCOUNTER 2019-12-19 12:17 | Outpatient (CLI) | payer OTHER, SELFPAY ==
[2019-12-19 12:45] LABS: Basophils Absolute Auto 0.1 K/mm3 (0.0-0.1); Basophils Percent Auto 0.6 % (0.2-1.2); Eosinophils Absolute Auto 0.3 K/mm3 (0-0.3); Eosinophils Percent Auto 3.4 % (0-4.4); Hematocrit 39.8 % (37.0-47.0); Hemoglobin 13.5 g/dL (12.0-15.0); Immature Granulocyte Absolute 0.07 K/mm3 (0.00-0.031); Immature Granulocyte Percent A 0.8 % (0-0.5); Lymphocytes Absolute Auto 2.02 K/mm3 (0.9-3.2); Lymphocytes Percent Auto 23.8 % (18.3-44.2); Mean Corpuscular HGB Conc 33.9 g/dl (32-36); Mean Corpuscular Hemoglobin 34.5 pg (26-34); Mean Corpuscular Volume 101.8 fl (80-100); Mean Platelet Volume 10.2 fl (7.4-10.4); Monocytes Absolute Auto 0.5 K/mm3 (0.1-0.6); Monocytes Percent Auto 6.4 % (2.6-8.5); Neutrophils Absolute Auto 5.5 K/mm3 (1.3-6.7); Platelet Count Result 211 k/mm3 (150-375); Red Blood Count 3.91 M/mm3 (4.2-5.4); Red Cell Distribution Width 16.1 % (11.5-14.5); White Blood Count 8.5 K/mm3 (4.5-10.0)
[2019-12-19 13:00] LABS: Alanine Aminotransferase 37 U/L (4-35); Albumin Level 4.3 g/dL (3.5-5.1); Alkaline Phosphatase 128 U/L (38-126); Anion Gap 9 mmol/L (8-16); Aspartate Amino Transferase 31 U/L (14-36); Bilirubin,Total 0.4 mg/dL (0.2-1.3); Blood Urea Nitrogen 16 mg/dL (7-17); Calcium 9.5 mg/dL (8.4-10.2); Carbon Dioxide 28 mmol/L (22-30); Chloride 101 mmol/L (98-107); Cholesterol 275 mg/dL (0-200); Estimated Glomerular Filt Rate > 60; Glucose 117 mg/dL (65-105); HDL Direct 36 mg/dL; Potassium 4.1 mmol/L (3.4-5.0); Sodium 138 mmol/L (137-145); Triglycerides 452 mg/dL (<150)
[2019-12-19 13:11] LABS: LDL Cholesterol Direct 181 mg/dL
[2019-12-19 13:45] LABS: Hemoglobin A1C 5.7 % (<5.7)
[2019-12-19 14:05] LABS: Folic Acid 5.3 ng/mL (2.76->20)
[2019-12-19 14:15] LABS: Free T4 Free Thyroxine 0.88 ng/mL (0.78-2.19); Vitamin D 25 Hydroxy 23.3 ng/mL
[2019-12-24 04:33] LABS: Prolactin 35.1 ng/mL (***)
== END 2019-12-19 12:18 | disposition home or self-care (01) ==
PROVIDERS: PCP Nurse Practitioner Family
DX: F20.0 Paranoid schizophrenia (principal); F41.1 Generalized anxiety disorder; I10 Essential (primary) hypertension; E66.9 Obesity, unspecified; E06.9 Thyroiditis, unspecified; G47.30 Sleep apnea, unspecified; J45.909 Unspecified asthma, uncomplicated; E55.9 Vitamin D deficiency, unspecified
CPT/HCPCS: 36415; 80053; 80061; 82306; 82746; 83036; 84146; 84439; 84443; 85025

== ENCOUNTER 2020-01-20 21:49 | Emergency (ER) | payer OTHER, SELFPAY ==
--- NOTE | ~2020-01-20 | CT_ITS ---
EXAMINATION: CT soft tissue neck w con DATE: 01/21/2020 00:52 INDICATION: Right neck pain. TECHNIQUE: Computed tomography (CT) of the neck was performed with 75 mL Omnipaque-350 intravenous co ntrast. Automated exposure control and iterative reconstruction technique were employed. The dose-aaron gth product was 496.95 mGy-cm. COMPARISON: Thyroid ultrasound 12/12/2019 FINDINGS: There are no pathologically enlarged lymph nodes. There are changes of right hemithyroidect stella. There is a 1.6 cm nodule in left thyroid lobe. The pharyngeal mucosal space is unremarkable. No abscess. The paranasal sinuses are clear. The mastoid air cells are normal. There is mild cervical sp ondylosis. IMPRESSION: 1. Left thyroid nodule. Consider ultrasound-guided fine-needle aspiration. Reviewed, dictated and finalized at location B. 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
[2020-01-20 22:12] VITALS: BP 118/79; PULSE 83; RESP 18; TEMP 36.3; O2SAT 97
--- NOTE | 2020-01-20 22:42 | ED.GENADULT ---
HPI - General Adult General Chief complaint: Neck Pain/Injury Stated complaint: neck pain Time Seen by Provider: 01/20/20 22:14 Source: RN notes reviewed History of Present Illness HPI narrative: Patient presents to emergency department from home for right-sided neck pain. Patient states approximately 8 PM tonight she began to develop pain in her right neck underneath her right jaw. States the pain radiated up into the right posterior jaw with tingling sensation in her jaw and up into her cheek. States the area is tender to palpation she denies any fevers or chills pain with opening the jaw dental pain shortness of breath or any other symptoms. She states she did have a thyroid biopsy on the opposite side on 14 January she also states that she is post to be on Eliquis and is waiting for approval from the insurance and has been off her blood thinners for the past 1 month with a history of blood clots in the right upper extremity in May 2019. Related Data Allergies Allergy/AdvReac Type Severity Reaction Status Date / Time chlorpromazine Allergy Itching Verified 01/20/20 22:12 [From Thorazine] latex Allergy Hives Verified 01/20/20 22:12 quetiapine [From Seroquel] Allergy Hallucinati Verified 01/20/20 22:12 ng Review of Systems Review of Systems: Narrative: Gen.: Denies fevers or chills Eyes: Denies eye pain or visual change ENT: See HPI Respiratory: Denies shortness of breath or cough CV: Denies chest pain or palpitations GI: Denies abdominal pain nausea, emesis or diarrhea Musculoskeletal: Denies back pain or muscle pain Neuro: Denies numbness, tingling, weakness or focal weakness Skin: Denies rash Except as documented, all other systems reviewed and negative [facility] Past Medical History Medical History (Updated 01/21/20 @ 01:31 by Ed Rosales DO) DVT (deep venous thrombosis) Social History Social History (Updated 01/20/20 @ 22:43 by Ed Rosales DO) Smoking status: Current every day smoker Gender identity (if verbalized by the patient): Female Exam Narrative: Exam Narrative: APPEARANCE: No acute distress, nontoxic, resting in bed EYES: EOMI HEENT: Normocephalic, atraumatic, TMs clear bilaterally, nares patent oral mucosa moist no trismus airway patent uvula midline Neck: Supple, point tender palpation over the right submandibular region no tenderness over the left submandibular region no overlying erythema, no sublingual tenderness RESPIRATORY: No respiratory distress Clear to auscultation bilaterally with no rhonchi wheezing or rales. CARDIOVASCULAR: Regular rate and rhythm without murmurs rubs or gallops. ABDOMINAL: Soft, nontender, nondistended, no rebound or guarding MUSCULOSKELETAl: Moves all extremities. No clubbing, cyanosis or edema. NEURO: Awake and alert. Following commands, speech normal, no focal deficits SKIN:: Warm, dry. No rashes lesions or abrasions PSYCHIATRIC: Normal affect/mood, Course Course Emergency Course: On reeval patient states pain medication has improved pain still with point tenderness right submandibular region. This time question tonsillitis versus possible early sialoadenitis. Will start antibiotics with discharge with follow-up as an outpatient patient has been evaluated for her thyroid ultrasound. CT scan shows no signs of venous thrombosis Discussed with patient results of workup and diagnosis. Discussed need for follow-up with primary care, proper use of medication, and reasons to return to the emergency department. Patient understands and agrees to current treatment plan. The patient states she is working with her primary care physician insurance to get approved for her blood thinners Vital Signs Vital signs: Vital Signs Temperature 97.3 F L 01/20/20 22:12 Pulse Rate 83 01/20/20 22:12 Respiratory Rate 18 01/20/20 22:12 Blood Pressure 118/79 01/20/20 22:12 Pulse Oximetry 97 01/20/20 22:12 Temperature 97.3 F L 01/20/20 22:12 Pul
[2020-01-20 23:08] LABS: Basophils Absolute Auto 0.1 K/mm3 (0.0-0.1); Basophils Percent Auto 0.6 % (0.2-1.2); Eosinophils Absolute Auto 0.4 K/mm3 (0-0.3); Eosinophils Percent Auto 5.1 % (0-4.4); Hematocrit 39.2 % (37.0-47.0); Hemoglobin 13.2 g/dL (12.0-15.0); Immature Granulocyte Absolute 0.13 K/mm3 (0.00-0.031); Immature Granulocyte Percent A 1.6 % (0-0.5); Lymphocytes Absolute Auto 2.56 K/mm3 (0.9-3.2); Lymphocytes Percent Auto 31.3 % (18.3-44.2); Mean Corpuscular HGB Conc 33.7 g/dl (32-36); Mean Corpuscular Hemoglobin 34.7 pg (26-34); Mean Corpuscular Volume 103.2 fl (80-100); Mean Platelet Volume 9.5 fl (7.4-10.4); Monocytes Absolute Auto 0.5 K/mm3 (0.1-0.6); Monocytes Percent Auto 5.6 % (2.6-8.5); Neutrophils Absolute Auto 4.6 K/mm3 (1.3-6.7); Neutrophils Percent Auto 55.8 % (45.5-73.1); Platelet Count Result 227 k/mm3 (150-375); Red Cell Distribution Width 15.9 % (11.5-14.5); White Blood Count 8.2 K/mm3 (4.5-10.0)
[2020-01-20 23:17] LABS: Prothrombin Time 13.3 Seconds (11.1-14.7)
[2020-01-20 23:18] LABS: Alanine Aminotransferase 18 U/L (4-35); Alkaline Phosphatase 100 U/L (38-126); Anion Gap 7 mmol/L (8-16); Aspartate Amino Transferase 25 U/L (14-36); Bilirubin,Total 0.4 mg/dL (0.2-1.3); Blood Urea Nitrogen 10 mg/dL (7-17); Carbon Dioxide 34 mmol/L (22-30); Chloride 96 mmol/L (98-107); Estimated CRCL calculation 68 ml/min; Estimated Glomerular Filt Rate 50; Glucose 97 mg/dL (65-105); Partial Thromboplastin Time 31.6 SECONDS (22.3-36.8); Potassium 4.4 mmol/L (3.4-5.0); Sodium 137 mmol/L (137-145)
[2020-01-21] MEDS: KETOROLAC 30 MG/ML VIAL (*BKC) IV PUSH (00:37)
[2020-01-21 00:38] VITALS: BP 122/78; PULSE 88; RESP 15; O2SAT 98
[2020-01-21] MEDS: AMOXICILLIN/CLAVULANATE K 875-125 MG TAB 1 TABLET PO (01:28)
[2020-01-21 01:40] VITALS: BP 122/76; PULSE 87; RESP 14; O2SAT 97
== END 2020-01-21 01:41 | disposition home or self-care (01) ==
PROVIDERS: Emergency Provider Emergency Medicine; PCP Nurse Practitioner Family
DX: M54.2 Cervicalgia (principal); K11.20 Sialoadenitis, unspecified
CPT/HCPCS: 36415; 70491; 80053; 85025; 85610; 85730; 87081; 87880; 96374; 99284; A9270; J1885; Q9967

== ENCOUNTER 2020-01-29 13:00 | Outpatient (RCR) | payer OTHER, SELFPAY ==
--- NOTE | 2020-01-21 15:08 | PTOPEVAL ---
Thank you for referring Dash Crane to [facility].? The patient is scheduled to be seen for therapy? 2 x/week for 3 weeks. Please review, sign, date and return this plan of care TETE. I agree with and certify that the following plan of care is medically necessary. Referring Physician Date Attending Provider: Cm Uribe, CEMENTER MACHINE JOINER Referring Provider: *PT Outpatient Evaluation Start: 01/21/20 13:57 Freq: Status: Active Protocol: Document 01/21/20 13:58 BRAD (Rec: 01/21/20 14:48 BRAD [id number]) Therapy Assessment Status Assessment Status Assessment Status Evaluation Outpatient Past Medical History Past Medical History Source of Past Medical History Patient,Recalled from Previous Visit, Confirmed with Patient /Family Neurological History Hx Neurological Disorders No Significant History Cardiovascular History Hx Hypertension Yes Hx Other Cardiac Disorders Yes: Peripartum cardiomyopathy Respiratory History Hx Asthma Yes Hx Other Respiratory Disorders Yes: chronic respiratory failure Gastrointestinal History Hx Gastroesophageal Reflux Disease Yes Genitourinary History Hx Genitourinary Disorders No Significant History Musculoskeletal History Hx Back Pain Yes Endocrine History Hx Endocrine Disorders No Significant History Evaluation Information Problem Diagnosis back pain Onset 1 month Cause fall out of golf cart Additional Evaluation Detail 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 She landed Family on her back then rolled down a hill. Went to ED, no fractures. She has chronic back pain, that was increased with the fall. Pain in her under her right shoulder blade and cristal low back region. 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 Limitations with carrrying objects up the steps. She reports her balance is a significant problem at home with multiple LOB with daily act. She is unable to use a cane properly. She had a fall last week when walking the dog
--- NOTE | 2020-02-03 15:42 | PCPTNOTE ---
Patient called & cancelled scheduled appointment this date due to transportation issues
--- NOTE | 2020-02-10 13:52 | PCPTNOTE ---
Patient called & cancelled scheduled appointment this date due to possible Covid, awaiting test results.
--- NOTE | 2020-02-26 10:12 | PCPTNOTE ---
Admitting Provider: Attending Provider: Cm Uribe, PHYSICIAN CREDENTIALING SPECIALIST Patient:Dash Crane Date of :1980 Discharge Noted Patient has not returned for any further treatments since 01/29/2020, therefore she will be discharged at this time. Patient?s initial visit was on 01/21/2020 14:00 and she had a total of 3 visits with 2 cancelled visits. The goals have been not met. Thank you for referring this patient to [facility]. Please review, sign, date and return this discharge summary TETE. I have been updated about the patient's current status and I agree with discharge from the above service at this time. Referring Physician Date
== END 2020-02-27 07:58 | disposition home or self-care (01) ==
LOC: ANHPT 13:00
PROVIDERS: PCP Nurse Practitioner Family; Visit Provider Nurse Practitioner Family
DX: M54.9 Dorsalgia, unspecified (principal)
CPT/HCPCS: 97014; 97110; 97116; 97163; G0283

== ENCOUNTER 2020-03-23 12:43 | Outpatient (CLI) | payer OTHER, SELFPAY ==
--- NOTE | ~2020-03-23 | US_ITS ---
EXAMINATION: US venous doppler UE RT EXAM DATE: 03/23/2020 13:21 INDICATION: Acute upper extremity embolism and thrombosis. TECHNIQUE: Multiple grayscale, color flow, Doppler sonographic images of the right upper extremity ve ins obtained by technologist. Compression was performed where able. Comparison is made to prior exam ination from 05/28/2019. FINDINGS: Right upper extremity: Jugular vein: ------------> Normal. Subclavian vein: --------> Normal. Axillary vein:------------> Normal. Brachial vein:-----------> Normal. Interval reconstitution Basilic vein: ------------> Normal. Interval reconstitution Cephalic vein: ----------> Normal. Interval reconstitution Radial vein: ------------> Normal. Ulnar vein: > Normal. IMPRESSION: Resolution of previously seen right upper extremity thrombus. Reviewed, dictated and finalized at location B. AGING ASSEMBLER
== END 2020-03-23 12:44 | disposition home or self-care (01) ==
LOC: ANHIMG 12:44
PROVIDERS: PCP Nurse Practitioner Family; Visit Provider Family Medicine
DX: I82.609 Acute embolism and thrombosis of unspecified veins of unspecified upper extremity (principal)
CPT/HCPCS: 93971

== ENCOUNTER 2020-04-06 08:16 | Outpatient (CLI) | payer OTHER, SELFPAY ==
--- NOTE | ~2020-04-06 | MM_ITS ---
EXAMINATION: MM screening [place] BI w yung HISTORY: Screening TECHNIQUE: Craniocaudal and mediolateral oblique 3-D tomosynthesis images were obtained and synthetic 2-D images were generated. CAD analysis was submitted and interpreted. COMPARISON: No prior mammogram is available for comparison at this institution. BREAST PARENCHYMAL COMPOSITION: There are scattered areas of fibroglandular density. FINDINGS: There is no evidence of suspicious mass, calcification, or architectural distortion to sugg est malignancy in either breast. There has been no suspicious interval change. IMPRESSION: 1. No mammographic evidence of malignancy. 2. Recommend routine screening mammography in one year. BI-RADS Category 1: Negative Reviewed, dictated and finalized at location A. CTOR OF MEDICAL EDUCATION
== END 2020-04-06 08:17 | disposition home or self-care (01) ==
LOC: ANHIMG 08:20
PROVIDERS: PCP Nurse Practitioner Family; Visit Provider Family Medicine
DX: Z12.31 Encounter for screening mammogram for malignant neoplasm of breast (principal)
CPT/HCPCS: 77063; 77067

== ENCOUNTER 2020-04-07 13:15 | Outpatient (RCR) | payer OTHER, SELFPAY ==
--- NOTE | 2020-04-02 13:29 | PTOPEVAL ---
PHYSICAL THERAPY EVALUATION AND PLAN OF CARE 04-02-20 Thank you for referring Dash Crane to [facility].? She is scheduled to be seen for therapy?2x/week for 3 weeks. Please review, sign, date and return this plan of care TETE. I agree with and certify that the following plan of care is medically necessary. Referring Physician Date Referring Provider: German Espinoza DPM *PT Outpatient Evaluation Document 04/02/20 12:35 AMANDA (Rec: 04/02/20 13:29 AMANDA [id number]) Therapy Assessment Status Assessment Status Assessment Status Evaluation Outpatient Past Medical History Past Medical History Source of Past Medical History Recalled from Previous Visit, Confirmed with Patient/Family Neurological History Hx Neurological Disorders No Significant History Cardiovascular History Hx Hypertension Yes: meds Hx Other Cardiac Disorders Yes: Peripartum cardiomyopathy Respiratory History Hx Asthma Yes Hx Other Respiratory Disorders Yes: respiratory failure Gastrointestinal History Hx Gastroesophageal Reflux Disease Yes Genitourinary History Hx Genitourinary Disorders No Significant History Musculoskeletal History Hx Back Pain Yes Hematological History Hx Hematological Disorders No Significant History Endocrine History Hx Hypothyroidism Yes: on meds Hx Thyroidectomy Yes: surgery to remove 1/2 thyroid HEENT History Hx HEENT Disorders No Significant History Integumentary History Hx Skin Disorders No Significant History Reproductive History Hx Section Yes Hx Tubal Ligation Yes Psychosocial History Hx Bipolar Disorder Yes Hx Depression Yes: on meds; PTSD Hx Schizophrenia Yes: schizo-affective disorder Hx Suicide Attempt Yes: 2018 Pain History Has Past Pain Affected Your Daily Life Yes Anesthesia History Hx Anesthesia Reactions No Significant History Other History Hx MRSA Yes: leg wound Hx Other Medical Conditions Yes: report 20# wt loss with exercise and diet Evaluation Information Problem Diagnosis L ankle sprain Onset March Subjective Information reports ankle gives out, bends Query Text:As Reported By Patient/ in and fall; have fallen Family multiple times, in the past 3 weeks, have fallen 2x; recent when walking in house and fell; US was done and per pt, there is a tear in the ligament; wearing a w
--- NOTE | 2020-04-06 11:37 | PCPTNOTE ---
Patient called & cancelled scheduled appointment this date due to increase ankle pain.
--- NOTE | 2020-04-07 13:59 | PCPTNOTE ---
Patient informed therapy team after her session that MD notified her to stop therapy until she returns back to MD for follow-up appointment in three weeks due to patient having increase pain. Informed patient to have new order if therapy is needed.
--- NOTE | 2020-05-03 13:06 | PCPTNOTE ---
PHYSICAL THERAPY DISCHARGE 05-03-20 Attending Provider: German Espinoza DPM Patient:Dash Crane Date of :1980 Ms. Crane has not returned for any further treatments since 04/07/2020, for the diagnosis of L ankle pain, therefore she will be discharged at this time. She received the PT evaluation and one treatment session, then called and canceled remaining appointments due to an increase in ankle pain. The goals were not addressed. Thank you for referring Ms. Crane to [facility]. Please review, sign, date and return this discharge summary TETE. I have been updated about the patient's current status and I agree with discharge from the above service at this time. Referring Physician Date
== END 2020-05-04 10:12 | disposition home or self-care (01) ==
LOC: ANHPT 13:15
PROVIDERS: PCP Nurse Practitioner Family; Referring Provider Podiatrist Foot & Ankle Surgery; Visit Provider Podiatrist Foot & Ankle Surgery
DX: S93.402D Sprain of unspecified ligament of left ankle, subsequent encounter (principal)
CPT/HCPCS: 97022; 97110; 97140; 97161

== ENCOUNTER 2020-05-25 09:51 | Observation (INO) | payer OTHER, SELFPAY ==
[2020-05-25] VITALS (53 sets, daily range): BP systolic 91–146; BP diastolic 57–104; PULSE 55–90; RESP 12–20; TEMP 36.4–36.9; O2SAT 91–99; BMI 43.1
--- NOTE | ~2020-05-25 | XR_ITS ---
EXAMINATION: XR chest 2V DATE: 05/25/2020 10:41 INDICATION: Chest pain. TECHNIQUE: Frontal and lateral views of the chest were obtained. COMPARISON: Chest 2 views 08/28/2019, chest CT 05/19/2019 FINDINGS: There is mild atelectasis in the midlung zones. No pleural effusion or pneumothorax. The he art size is normal. IMPRESSION: 1. Mild atelectasis in the midlung zones. Reviewed, dictated and finalized at location A.
--- NOTE | ~2020-05-25 | XR_ITS ---
EXAMINATION: XR lumbar spine 2-3V DATE: 05/25/2020 10:40 INDICATION: Low back injury. TECHNIQUE: 3 views of lumbar spine were obtained. COMPARISON: CT abdomen and pelvis 08/08/2019 FINDINGS: Bone alignment is normal. Vertebral body heights are normal. There is mildly decreased disc height at L1-L2, L3-L4, and L4-L5. There are endplate osteophytes at most levels. There is multileve l mild facet joint osteoarthritis. IMPRESSION: 1. Mild lumbar spondylosis. Reviewed, dictated and finalized at location A. IMPRESSION: 1. Mild lumbar spondylosis.
--- NOTE | ~2020-05-25 | CT_ITS ---
EXAMINATION: CT brain wo con DATE: 05/25/2020 10:44 INDICATION: Dizziness. Head injury. Headache. TECHNIQUE: Computed tomography (CT) of the head was performed without intravenous contrast. The mA wa s adjusted according to patient size. Iterative reconstruction technique was employed. The dose-lengt h product was 605.33 mGy-cm. COMPARISON: Head CT 11/04/2018 FINDINGS: There is no intracranial hemorrhage, acute infarction, or abnormal intracranial mass lesion . The ventricles are normal in size. The paranasal sinuses are clear. The orbits are normal. The mast oid air cells are normal. IMPRESSION: 1. Normal brain. Reviewed, dictated and finalized at location A. IMPRESSION: 1. Normal brain.
--- NOTE | ~2020-05-25 | NM_ITS ---
EXAMINATION: NM filipe stress w perfusion DATE: 05/28/2020 13:09 INDICATION: Chest pain TECHNIQUE: Rest images were obtained following intravenous administration of 11.8 mCi Tc99m tetrofosm in (Myoview). The patient was infused intravenously with Lexiscan (Regadenoson). Then, 33.5 mCi Tc99m tetrofosmin (Myoview) was administered intravenously, and stress images were obtained. Data was pramod nstructed into short axis and horizontal and vertical long axis SPECT images. Gated SPECT images were also obtained. COMPARISON: None. FINDINGS: There is no definite reversible or fixed perfusion abnormality to suggest ischemia or infar ction. There is normal left ventricular chamber size, wall motion and ejection fraction. Left ventr icular ejection fraction measures >70%. IMPRESSION: 1. Normal myocardial perfusion at rest and during stress. 2. Left ventricular ejection fraction measuring >70%. Reviewed, dictated and finalized at location B.
--- NOTE | 2020-05-25 10:03 | ECG_ITS ---
Measurements Intervals [place] Rate: 76 P: 57 CT: 162 QRS: 7 QRSD: 81 T: 22 QT: 378 QTc: 426 Interpretive Statements SINUS RHYTHM LOW QRS VOLTAGE IN PRECORDIAL LEADS DELAYED PRECORDIAL R/S TRANSITION BASELINE ARTIFACT- I, III, AVR, AVL,A VF, V1-V2 BORDERLINE ECG Electronically Signed On 05-25-2020 10:35:30 CDT by Matthew Li D.O.
--- NOTE | 2020-05-25 10:18 | ED.CHESTPAIN ---
HPI - Chest Pain General Chief Complaint: Chest Pain <Audrey Ponce PA-C - Last Filed: 05/25/20 14:56> Stated Complaint: cp/dizziness <Audrey Ponce PA-C - Last Filed: 05/25/20 14:56> Time Seen by Provider: 05/25/20 10:05 <Audrey Ponce PA-C - Last Filed: 05/25/20 14:56> Source: patient <KORI Yeung Last Filed: 05/25/20 14:56> Mode of arrival: ambulatory <KORI Yeung Last Filed: 05/25/20 14:56> Limitations: no limitations <KORI Yeung Last Filed: 05/25/20 14:56> History of Present Illness HPI narrative: Patient presents with chief complaint of squeezing midsternal chest pain that began yesterday while she was cleaning her home. Patient states that she was sit down and take times of rest and that with allowing the chest pain to improve. She reports the pain is in the center of her chest and feels like squeezing sensation. She denies any radiation of the pain to any other areas. Patient states she has also noticed some dizziness where she feels as if the room is spinning. She reports that it improves mildly with rest. She reports the dizziness causes her to feel nauseous. She states she took some Tylenol yesterday but it did not resolve the discomfort. She reports resting did not prevent discomfort. She reports today she got up moderate chest pain dizziness she fell and hit her head and had a syncopal episode of a few seconds. Her came in right away when he heard her fall and states that she quickly regained consciousness. Denies changes in speech or appearance, extremity weakness or other strokelike symptoms. Patient denies history of [place] or stroke. Patient is a smoker, has hypertension and is obese. She reports her father has an extensive cardiac history with his first heart attack being in his 20s. Patient states that she is no longer on Plavix for DVT prophylaxis. She was told to stop the medication by her primary care a few months ago. She denies any calf pain or shortness of breath. She denies any fevers, chills, nausea, vomiting, diarrhea or any other symptoms. <Audrey Ponce PA-C - Last Filed: 05/25/20 14:56> Related Data Home Medications: Home Medications Medication Instructions Recorded Confirmed clonazepam 1 mg PO TID 05/19/19 05/25/20 famotidine 20 mg PO HS PRN 05/19/19 05/25/20 gabapentin 600 mg PO HS 05/19/19 05/25/20 levothyroxine 50 mcg PO DAILY 05/19/19 05/25/20 lisinopril 20 mg PO DAILY 05/19/19 05/25/20 melatonin 12 mg PO HS 05/19/19 05/25/20 omeprazole 40 mg PO DAILY 05/19/19 05/25/20 ondansetron HCl 8 mg PO Q6H PRN 05/19/19 05/25/20 phenazopyridine 100 mg PO DAILY PRN 05/19/19 05/25/20 sertraline 150 mg PO DAILY 05/19/19 05/25/20 furosemide 40 mg tablet 40 mg PO QAM 01/28/20 05/25/20 albuterol sulfate 2 puff INHALATION DAILY 05/25/20 05/25/20 aripiprazole 10 mg PO DAILY 05/25/20 05/25/20 buspirone 10 mg PO TID 05/25/20 05/25/20 divalproex 250 mg PO BID 05/25/20 05/25/20 fluticasone propionate [Flovent 2 puff INHALATION DAILY 05/25/20 05/25/20 HFA] linaclotide [Linzess] 290 mcg PO DAILY 05/25/20 05/25/20 paliperidone palmitate 234 mg IM Q30D 05/25/20 05/25/20 potassium chloride 20 meq PO BID 05/25/20 05/25/20 <Audrey Ponce PA-C - Last Filed: 05/25/20 14:56> Allergies/Adverse Reactions: Allergies Allergy/AdvReac Type Severity Reaction Status Date / Time chlorpromazine Allergy Itching Verified 05/25/20 17:13 [From Thorazine] latex Allergy Hives Verified 05/25/20 17:13 quetiapine [From Seroquel] Allergy Hallucinati Verified 05/25/20 17:13 ng <Audrey Ponce PA-C - Last Filed: 05/25/20 14:56> Review of Systems Review of Systems: Narrative: CONSTITUTIONAL: Denies fever, chills, or sweats. EYES: Denies visual changes, redness, or discharge. ENT: Denies rhinorrhea, congestion, sore throat, or otalgia. CARDIOVASCULAR: Reports chest pain Denies palpitations, or edema. RESPIRATORY:
[2020-05-25] MEDS: ASPIRIN 81 MG CHEWABLE TABLET 324 MG PO (10:23)
[2020-05-25 10:29] LABS: Basophils Absolute Auto 0.1 K/mm3 (0.0-0.1); Basophils Percent Auto 0.5 % (0.2-1.2); Eosinophils Absolute Auto 0.4 K/mm3 (0-0.3); Eosinophils Percent Auto 4.7 % (0-4.4); Hematocrit 38.4 % (37.0-47.0); Hemoglobin 12.9 g/dL (12.0-15.0); Immature Granulocyte Absolute 0.07 K/mm3 (0.00-0.031); Immature Granulocyte Percent A 0.8 % (0-0.5); Lymphocytes Absolute Auto 2.51 K/mm3 (0.9-3.2); Mean Corpuscular HGB Conc 33.6 g/dl (32-36); Mean Corpuscular Hemoglobin 35.6 pg (26-34); Mean Corpuscular Volume 106.1 fl (80-100); Mean Platelet Volume 9.9 fl (7.4-10.4); Monocytes Absolute Auto 0.5 K/mm3 (0.1-0.6); Monocytes Percent Auto 5.8 % (2.6-8.5); Neutrophils Absolute Auto 5.7 K/mm3 (1.3-6.7); Neutrophils Percent Auto 61.2 % (45.5-73.1); Platelet Count Result 259 k/mm3 (150-375); Red Blood Count 3.62 M/mm3 (4.2-5.4); White Blood Count 9.3 K/mm3 (4.5-10.0)
[2020-05-25 10:41] LABS: INR 0.9; Prothrombin Time 12.4 Seconds (11.1-14.7)
[2020-05-25 10:42] LABS: Anion Gap 9 mmol/L (8-16); Blood Urea Nitrogen 11 mg/dL (7-17); Carbon Dioxide 24 mmol/L (22-30); Chloride 103 mmol/L (98-107); Estimated CRCL calculation 71 ml/min; Estimated Glomerular Filt Rate 54; Glucose 114 mg/dL (65-105); Partial Thromboplastin Time 29.1 SECONDS (22.3-36.8); Potassium 4.8 mmol/L (3.4-5.0); Sodium 136 mmol/L (137-145)
[2020-05-25 10:52] LABS: Troponin I < 0.012 ng/mL (0.000-0.034)
[2020-05-25] MEDS: MECLIZINE HCL 25 MG TABLET PO (11:50)
[2020-05-25] MEDS: KETOROLAC 15 MG/ML VIAL (*BKC) IV PUSH (11:54)
[2020-05-25] MEDS: NITROGLYCERIN SL 0.4 MG TABLET SUBLINGUAL (13:21)
[2020-05-25 13:45] LABS: Troponin I < 0.012 ng/mL (0.000-0.034)
--- NOTE | 2020-05-25 13:45 | PC.NURSE ---
ERP notified about a drop in patient's blood pressure after nitro administration. No more nitro given per ERP via verbal order readback. Pt. stated chest pain did improve from an 10/19 to 08/19.
[2020-05-25] MEDS: SODIUM CHLORIDE 0.9% IV 500 ML 999 ML IV CONT (14:19)
[2020-05-25 16:30] LABS: Troponin I < 0.012 ng/mL (0.000-0.034)
--- NOTE | 2020-05-25 17:01 | ADMGEN ---
This patient, Dash Crane, was admitted to IMU Room 210-01. Patient/family oriented to hospital policies and general routines including ID bracelet, bed and alarms, visiting hours, pain management, procedures, bathroom and other care routines, personal items, smoking policy, room service/diet, and visiting hours. Information on how to activate the Rapid Response Team has been discussed. Patient/Family are encouraged to report perceived risks to care and to ask questions if they do not understand what they are told or what they should do.
--- NOTE | 2020-05-25 17:52 | PM.IMHP ---
H&P: HPI History of Present Illness Date/Time: 05/25/20 17:52 Dash was admitted today due to chest pain with dizziness episode, fall with hitting her head, and blood pressure medication titration. Her first chest pain episode was yesterday while she was cleaning her home; improved with rest. Today she had another chest pain episode w/ dizziness, fell and hit her head and episode lasted a few seconds. Her came in right away when he heard her fall and states that she quickly regained consciousness. Denies changes in speech or appearance, extremity weakness or other strokelike symptoms. Patient denies history of [place] or stroke. Patient is a smoker, has hypertension and is obese. She reports her father has an extensive cardiac history with his first heart attack being in his 20s. Patient states that she is no longer on Eliquis for DVT prophylaxis. Last Echo was May 2019. EKG today Sinus. At the time of my exam, her headache, dizziness, N/V, and chest pain had all resolved and she was feeling well. She ate her entire dinner tray without complaint. Patient admitted to nursing staff that she has not been taking her medications, including her anti-hypertensive medications, as they were prescribed. Such as Lisinopril, she was taking a half dose, and her Metoprolol she was taking only once a day, not twice a day due to bradycardia. She cannot remember if she had yet informed her Product Support Analyst Dr. Loving of these changes. Chief Complaint: Chest pain, Dizziness, Syncope Review of Systems Review of Systems: All systems reviewed & are unremarkable except as noted in HPI and below Constitutional: Constitutional: Reports as per HPI, Denies excessive sweating, Reports headache(s) (improving since admission), Denies increased appetite, Denies snoring and Denies weight gain Eyes: Eyes: Reports as per HPI, Denies exophthalmos, Denies diplopia, Denies floaters and Denies loss of peripheral vision ENT: Reports as per HPI, Reports Normal hearing present, Reports dizziness, Denies facial pain, Denies headache(s), Denies odynophagia and Denies tinnitus Cardiovascular: Cardiovascular: Reports as per HPI, Denies chest pain at rest, Denies irregular heart rhythm, Denies leg edema and Reports lightheadedness (resolved at this time) Respiratory: Respiratory: Reports as per HPI, Denies chest congestion, Denies cough, Denies pain with cough, Denies dyspnea, Denies snoring and Denies wheezing Gastrointestinal: Gastrointestinal: Reports as per HPI, Denies abdominal pain (improved and resolved at this time), Denies constipation, Reports dyspepsia (intermittent, not at this time.), Reports heartburn (intermittent, not at this time.), Denies fecal incontinence, Denies diarrhea, Denies loose stools, Reports nausea (intermittent, not at this time.), Denies odynophagia, Reports vomiting (intermittent, not at this time.) and Denies hematemesis Genitourinary: Genitourinary: Reports as per HPI Musculoskeletal: Musculoskeletal: Reports as per HPI Integumentary/Breasts: Skin/Breast: Reports as per HPI Neurologic: Reports as per HPI, Reports Normal hearing present, Denies confusion, Reports dizziness (improved and currently resolved.), Denies frequent falls (fell once at home, improved and currently resolved.), Denies headache(s), Denies focal weakness, Denies numbness and Denies convulsions Psychiatric: Psychiatric: Reports as per HPI and Denies confusion Endocrine: Endocrine: Reports as per HPI and Denies excessive sweating Hematologic/Lymphatic: Hematologic/Lymphatic: Reports as per HPI Allergic/Immunologic: Allergic/Immunologic: Reports as per HPI PMF Past Medical History Medical History Asthma, mild intermittent Chronic respiratory failure Constipation DVT (deep venous thrombosis) GERD (gastroesophageal reflux disease) Hypertension IRMA on CPAP Peripartum cardiomyopathy 2006 Tobacco abuse Surgical Histo
[2020-05-25] MEDS: DIVALPROEX SODIUM DR 250 MG TABEC PO (20:07)
[2020-05-25] MEDS: GABAPENTIN 300 MG CAPSULE 600 MG PO (20:07)
[2020-05-25] MEDS: METOPROLOL TARTRATE 25 MG TABLET PO (20:08)
[2020-05-25] MEDS: PANTOPRAZOLE SODIUM IV 40 MG VIAL IV PUSH (20:08)
[2020-05-25] MEDS: MELATONIN 3 MG TABLET 12 MG PO (20:08)
[2020-05-25] MEDS: POTASSIUM CHLORIDE 20 MEQ TABLET.ER PO (20:08)
[2020-05-25] MEDS: busPIRone HCL 10 MG TABLET PO (20:08)
[2020-05-26] VITALS (22 sets, daily range): BP systolic 95–126; BP diastolic 43–97; PULSE 61–93; RESP 14–22; TEMP 36.3–36.6; O2SAT 93–98; BMI 43.0
--- NOTE | 2020-05-26 | ECHO_ITS ---
Patient Info Name: Dash Crane Age: 40 years : 1980 Gender: Female Ht: 63 in Wt: 245 lbs BSA: 2.29 m2 HR: 60 bpm BP: 178 / 102 mmHg Technical Quality: Good Exam Date: 05/26/2020 3:07 PM Exam Location: [facility] Patient Status: Outpatient Admit Date: 05/25/2020 Staff Ordering Physician: Audrey Ponce PA-C Analyst Programmer: German Vargas RDCS, RT Attending Provider: Ricardo Leiva MD Referring Physician: Kris MADSEN; Exam Type: CA echo doppler color flow Study Info Indications R06.02 - Shortness of breath Complete two-dimentional, color flow and Doppler transthoracic echocardiogram is performed with agitated saline and with contrast to opacify the left ventricle and to improve the delineation of the left ventricle endocardial borders. Strain analysis performed. Summary 1. Left ventricular chamber dimension is normal. 2. Left ventricular systolic function is normal, estimated at 60-65%. 3. The left ventricular diastolic function is normal. 4. E/e' 10 is minimally elevated. 5. Global longitudinal strain is normal at -17.9%. Left Ventricle E/e' 10 is minimally elevated. Global longitudinal strain is normal at -17.9%. Left ventricular chamber dimension is normal. Left ventricular systolic function is normal, estimated at 60-65%. The left ventricular diastolic function is normal. Right Ventricle Right ventricular chamber dimension is normal. Right ventricular systolic function is normal. Left Atria Left atrial chamber dimension is normal. Right Atria Right atrial chamber dimension is normal. Aortic Valve The aortic valve is probable trileaflet. There is no aortic valve stenosis. There is no aortic valve regurgitation. Pulmonic Valve There is no pulmonic regurgitation. Mitral Valve There is no mitral valve stenosis. There is no mitral valve regurgitation. Tricuspid Valve There is no tricuspid valve regurgitation. Pericardium/Pleural There is no pericardial effusion. Inferior Vena Cava Normal inferior vena cava with >50% collapse upon inspiration consistent with normal right atrial pressure, 5 mmHg. Aorta The aortic root size at the sinus of Valsalva is normal. Left Ventricular Outflow Tract Name Value Normal LVOT 2D LVOT Diameter 2.1 cm LVOT Doppler LVOT Peak Gradient 5 mmHg LVOT Mean Gradient 3 mmHg LVOT VTI 25 cm LVOT VTI/AV VTI Ratio 0.7 LVOT Stroke Volume 87 ml LVOT CO 5.4 l/min LVOT CI 2.4 l/min/m2 Mitral Valve Name Value Normal MV Doppler MV Decel [place] 391 cm/s2 MV PHT 70 ms MV Area (PHT)
[2020-05-26 05:10] LABS: Basophils Percent Auto 0.6 % (0.2-1.2); Eosinophils Absolute Auto 0.4 K/mm3 (0-0.3); Eosinophils Percent Auto 5.8 % (0-4.4); Hematocrit 35.1 % (37.0-47.0); Hemoglobin 11.5 g/dL (12.0-15.0); Immature Granulocyte Absolute 0.03 K/mm3 (0.00-0.031); Immature Granulocyte Percent A 0.4 % (0-0.5); Lymphocytes Absolute Auto 2.01 K/mm3 (0.9-3.2); Lymphocytes Percent Auto 29.9 % (18.3-44.2); Mean Corpuscular HGB Conc 32.8 g/dl (32-36); Mean Corpuscular Hemoglobin 34.6 pg (26-34); Mean Corpuscular Volume 105.7 fl (80-100); Mean Platelet Volume 9.9 fl (7.4-10.4); Monocytes Absolute Auto 0.5 K/mm3 (0.1-0.6); Monocytes Percent Auto 6.8 % (2.6-8.5); Neutrophils Absolute Auto 3.8 K/mm3 (1.3-6.7); Neutrophils Percent Auto 56.5 % (45.5-73.1); Platelet Count Result 228 k/mm3 (150-375); Red Blood Count 3.32 M/mm3 (4.2-5.4); Red Cell Distribution Width 13.9 % (11.5-14.5); White Blood Count 6.7 K/mm3 (4.5-10.0)
[2020-05-26 05:19] LABS: Hemoglobin A1C 5.1 % (<5.7)
[2020-05-26 05:28] LABS: Alanine Aminotransferase 15 U/L (4-35); Albumin Level 3.5 g/dL (3.5-5.1); Alkaline Phosphatase 86 U/L (38-126); Anion Gap 5 mmol/L (8-16); Aspartate Amino Transferase 21 U/L (14-36); Bilirubin,Total 0.2 mg/dL (0.2-1.3); Blood Urea Nitrogen 14 mg/dL (7-17); Calcium 8.5 mg/dL (8.4-10.2); Carbon Dioxide 27 mmol/L (22-30); Chloride 107 mmol/L (98-107); Estimated CRCL calculation 65 ml/min; Estimated Glomerular Filt Rate 49; Glucose 108 mg/dL (65-105); Phosphorus 4.7 mg/dL (2.5-4.5); Potassium 4.9 mmol/L (3.4-5.0); Sodium 139 mmol/L (137-145)
[2020-05-26 05:29] LABS: NT Pro B Type Natriuretic Pept 34 PG/ML (5-100)
[2020-05-26] MEDS: LEVOTHYROXINE SODIUM 50 MCG TABLET PO (06:10)
[2020-05-26] MEDS: FLUTICASONE PROP 44 MCG (*SP) 10.6 GM 2 PUFF INHALATION (08:59)
[2020-05-26] MEDS: ALBUTEROL SULFATE (*SP) AEROSOL 1 PUFF 2 PUFF INHALATION (09:11)
[2020-05-26] MEDS: METOPROLOL TARTRATE 25 MG TABLET PO ×2 (09:54→21:30)
[2020-05-26] MEDS: FUROSEMIDE 40 MG TABLET PO (09:54)
[2020-05-26] MEDS: PANTOPRAZOLE SODIUM IV 40 MG VIAL IV PUSH ×2 (09:54→21:29)
[2020-05-26] MEDS: POTASSIUM CHLORIDE 20 MEQ TABLET.ER PO ×2 (09:54→17:28)
[2020-05-26] MEDS: DIVALPROEX SODIUM DR 250 MG TABEC PO ×2 (10:18→17:28)
[2020-05-26] MEDS: SERTRALINE HCL 50 MG TABLET 150 MG PO (10:18)
[2020-05-26] MEDS: busPIRone HCL 10 MG TABLET PO ×3 (10:18→17:28)
[2020-05-26] MEDS: ARIPiprazole 10 MG TABLET PO (10:18)
--- NOTE | 2020-05-26 10:44 | PM.CNCAR ---
Assessment and Plan Assessment and plan (1) Chest pain: Code(s): R07.9 - Chest pain, unspecified Status: Acute Assessment and Plan: Atypical, self-limited most likely gastrointestinal and or musculoskeletal etiology. No ischemic changes by EKG, ruled out from myocardial infarction with negative serial cardiac enzymes. Optimization of GI prophylaxis given report of significant esophageal inflammation which may result in intermittent esophageal spasm contributing to episodic chest pain. Check 2D echocardiogram to assess LV function, wall motion abnormalities, valve pathology pulmonary pressures. Further recommendation to follow as appropriate. If recurrent chest pain without explanation reconsider stress test in a.m. Lexiscan nuclear perfusion study. (2) Syncope: Code(s): R55 - Syncope and collapse Status: Acute Assessment and Plan: Vasovagal etiology could while standing, symptomatic likely related to orthostatic hypotension. Check orthostatic vital signs. Reduce Lasix. Clinically patient appears slightly dry, adequate oral hydration and not taking p.o. consistently gentle IV fluids Of note, call about findings on telemetry reported as ventricular tachycardia, however, this is consistent with artifact as sinus rhythm can be seen marching through white complex operations without compensatory pause and clear sinus rhythm margin right on through. Continue shelter monitor. (3) Labile hypertension: Code(s): R09.89 - Other specified symptoms and signs involving the circulatory and respiratory systems Status: Acute Assessment and Plan: Monitor BP closely as above. Lisinopril for now given relative hypotension. May continue metoprolol 25 mg twice daily and reduce Lasix to 20 mg daily for now. (4) IRMA on CPAP: Code(s): G47.33 - Obstructive sleep apnea (adult) (pediatric); Z99.89 - Dependence on other enabling machines and devices Status: Acute Assessment and Plan: Compliance. (5) Dizziness, nonspecific: Code(s): R42 - Dizziness and giddiness Status: Acute Assessment and Plan: As above. (6) Morbid obesity: Code(s): E66.01 - Morbid (severe) obesity due to excess calories Status: Acute Assessment and Plan: Lifestyle modification, weight loss. History of Present Illness History of Present Illness Consult date/time: Date of service: 05/26/20 10:44 Cardiology consultation at the request of Dr. Leiva at [facility] for our opinion regarding chest pain. Requesting physician: Ricardo Leiva MD Consult reason: chest pain Reason For Visit: Chest pain Narrative: Patient is a 40-year-old female with a past medical history significant for labile hypertension with intermittent dizziness, heart failure with preserved ejection fraction, morbid obesity, palpitations, remote right brachial DVT transient on Eliquis, IRMA on CPAP, history of sepsis and acute respiratory failure May 2019 with ARDS secondary to community-acquired pneumonia he might seen in consultation as an outpatient July 2019 for complaints of palpitations. She did not return for follow-up visits as scheduled. Holter monitor that time was negative with symptoms corresponded with sinus rhythm. Prior echocardiogram EF preserved 60-65% with diastolic dysfunction. Patient states for the past month she has been experiencing significant constipation issues along with poor appetite, nausea vomiting improved after starting Linzess as an outpatient. Patient states she sign in nose and throat doctor who look down her throat and discovered severe inflammation in her esophagus and advised her to see a scraper hand. While she is no longer nauseous or vomiting and appetite is improving she states her oral intake has not been great. She notes intermittent dizziness on a chronic basis but particular the past week or so. She states day prior to presentation she wa
--- NOTE | 2020-05-26 13:22 | PM.IMPN ---
Progress Note: A&P Assessment and Plan (1) Chest pain: Code(s): R07.9 - Chest pain, unspecified Status: Acute Assessment and Plan: Resolved. EKG sinus continue to check Trops x 3, all WNL. consult Undercutter DR. Loving continuous Telemetry monitoring for 24 hours check electrolytes titrate medications - as patient was not taking them at home as they had been prescribed educate patient about benefits of controlling hypertension and tachycardia, while avoiding bradycardia or orthostatic hypotension check orthostatic vital signs encourage weight loss continue on daily Protonix to improve/minimize risk of chest pain being GI related 05/26/20 13:22 patient is 40-year-old morbidly obese with a past medical history of bipolar, psychotic illness, hypertension patient echo showed preserved LV function, patient also had a upper extremity DVT was placed on Eliquis and repeat Doppler showed resolution of the DVT and patient has stopped taking Eliquis, apparently yesterday while at home and doing her daily cleaning patient developed the chest pain and patient fell her was in other room he came to her and patient loss of conscious for few seconds, she did strike her head, patient has been complaining of chest on and off lasting 10 minutes especially with activity and improved with rest, patient presented emergency department for further evaluation patient had a 3 sets of cardiac enzymes which essentially normal and there was no acute changes on EKG, patient pain has resolved, patient is seen by Cardiology does not recommend and further workup other than cardiac echo to further evaluate cardiac structurally, currently patient states feels better but appear to be depressed, will follow-up on a cardiac echo will have a PT OT evaluate the patient and further recommendation to follow. Patient also complains of GERD and was seen recently by by ENT and suggested esophageal inflammation will start the patient on IV Protonix and consult GI for further recommendation (2) Nausea & vomiting: Qualifiers: Vomiting type: unspecified Vomiting Intractability: unspecified Qualified Code(s): R11.2 - Nausea with vomiting, unspecified Code(s): R11.2 - Nausea with vomiting, unspecified Status: Acute Assessment and Plan: patient reports N/V was intermittent at home if N/V did occur, it was shortly after a meal switched her to Protonix , continue Pepcid Sodium 136 (slightly low) and Creatinine 1.10 (slightly elevated), following with repeat labs in morning continue Zofran, stopped Reglan due to her Psych/Anxiety medication interactions. encouraged her to continue with her already in place GI doctore appointment at the end of this month, within the next 2 weeks. ordered strict I and Os, Daily weights repeat labs in morning, checking electrolytes Mag and Phos (3) Dizziness, nonspecific: Code(s): R42 - Dizziness and giddiness Status: Acute Assessment and Plan: may be related to CP or N/V or bradycardia or orthostatic hypotension or due to medication interactions (GI meds/Psych meds) ordered strict I and Os, Daily weights, and BID orthostatic vital signs. head CT wnl, CXR clear, lumbar spine images without acute concerns. no fevers, HR 60-70, SBPs 100-120s. Sodium 136 (slightly low) and Creatinine 1.10 (slightly elevated),not likely the cause of her fall or dizziness, following with repeat labs in morning, Mag, Phos, BNP, TSH headache resolved, no cuts /wounds upon exam, Neuro exam WNL, no unilateral weakness or deficits. Subjective Date/time seen: 05/26/20 13:22 patient is 40-year-old morbidly obese with a past medical history of bipolar, psychotic illness, hypertension patient echo showed preserved LV function, patient also had a upper extremity DVT was placed on Eliquis and repeat Doppler showed resolution of the DVT and patient has stopped taking Eliquis, apparently yesterday while at home and doing her
--- NOTE | 2020-05-26 17:17 | WPDGICN ---
Assessment and Plan Assessment and plan (1) Non-cardiac chest pain: Code(s): R07.89 - Other chest pain Status: Acute Assessment and Plan: recently with more gerd symptoms, nausea better after increasing ppi bid already evaluated by cardiology with negative work up will do EGD tomorrow to assess if esophagitis, ulcers, celiac, etc (2) GERD (gastroesophageal reflux disease): Qualifiers: Esophagitis presence: esophagitis presence not specified Qualified Code(s): K21.9 - Gastro-esophageal reflux disease without esophagitis Code(s): K21.9 - Gastro-esophageal reflux disease without esophagitis Status: Acute Assessment and Plan: egd tomorrow medical management (3) Nausea: Code(s): R11.0 - Nausea Status: Acute Assessment and Plan: tolerating diet antiemetics prn (4) Syncope: Code(s): R55 - Syncope and collapse Status: Acute Assessment and Plan: probably orthostatic (5) Morbid obesity: Code(s): E66.01 - Morbid (severe) obesity due to excess calories Status: Acute (6) IRMA on CPAP: Code(s): G47.33 - Obstructive sleep apnea (adult) (pediatric); Z99.89 - Dependence on other enabling machines and devices Status: Acute Assessment and Plan: on cpap (7) Dizziness, nonspecific: Code(s): R42 - Dizziness and giddiness Status: Acute GI Consult Note Consult date/time: 05/26/20 17:17 Reason for consult: gerd, nausea, non-cardiac chest pain HPI: Dash Crane is a 40 year old female with history of chronic nausea and constipation, obesity who I met during recent hospitalization 05/2020 with shortness of breath for ARDS, briefly intubated and had nausea with high gastric residual but treated medically. She had EGD more than 5 years ago and also colonoscopy around same time. She still has nausea and GERD that lately has become more symptomatic, actually her PCP increased her omeprazole to twice daily and she is supposed to see a GI doctor at the end of the month at [place]. She came here with dizziness and non cardiac chest pain, almost passing out. Evaluated by cardiology. CT head reviewed and normal brain. She is tolerating diet and feeling better. Review of Systems Constitutional: Constitutional: Denies chills Eyes: Eyes: Reports no additional eye complaints ENT: Reports system reviewed and no additional complaints, except as documented Cardiovascular: Cardiovascular: Reports lightheadedness Respiratory: Respiratory: Reports dyspnea Gastrointestinal: Gastrointestinal: Reports nausea Genitourinary: Genitourinary: Denies flank pain Musculoskeletal: Musculoskeletal: Reports no additional musculoskeletal complaints Integumentary/Breasts: Skin/Breast: Denies dry skin Neurologic: Comments: syncope Psychiatric: Psychiatric: Reports anxiety [facility] Past Medical History Medical History Asthma, mild intermittent Chronic respiratory failure Constipation DVT (deep venous thrombosis) GERD (gastroesophageal reflux disease) Hypertension IRMA on CPAP Peripartum cardiomyopathy 2006 Tobacco abuse Surgical History Surgical History H/O tubal ligation History of thyroidectomy, subtotal for benign nodule Family History Family History Father Diabetes mellitus Acute myocardial infarction Hypertension Congestive heart failure Rectal cancer Mother No problems noted. Social History Social History Smoking packs per day: 0.5 Smoking cigarettes per day: 10.0 Years smoked: 16 Smoking pack-years: 8.00 Smoking status: Current some day smoker Tobacco type: cigarettes Second hand tobacco smoke exposure: Yes Smoking end date: 01/25/20 Additional smoking ass
[2020-05-26] MEDS: clonazePAM (*CRX) 0.5 MG TABLET 1 MG PO (18:20)
[2020-05-26] MEDS: GABAPENTIN 300 MG CAPSULE 600 MG PO (21:29)
[2020-05-26] MEDS: MELATONIN 3 MG TABLET 12 MG PO (21:30)
[2020-05-27] VITALS (22 sets, daily range): BP systolic 90–142; BP diastolic 57–90; PULSE 49–74; RESP 12–21; TEMP 36.1–37; O2SAT 94–98
[2020-05-27] MEDS: HYDROcodone/acetaminophen (*CRX) 7.5-325 MG TABLET 1 TAB PO (00:01)
[2020-05-27] MEDS: LEVOTHYROXINE SODIUM 50 MCG TABLET PO (05:55)
[2020-05-27] MEDS: ONDANSETRON HCL ODT 4 MG TABLET PO (08:57)
[2020-05-27] MEDS: METOPROLOL TARTRATE 25 MG TABLET PO (09:49)
[2020-05-27] MEDS: FLUTICASONE PROP 44 MCG (*SP) 10.6 GM 2 PUFF INHALATION (09:50)
[2020-05-27] MEDS: PANTOPRAZOLE SODIUM IV 40 MG VIAL IV PUSH ×2 (09:53→21:08)
--- NOTE | 2020-05-27 11:03 | PM.PNCARD ---
Progress Note: A&P Assessment and Plan (1) Chest pain: Code(s): R07.9 - Chest pain, unspecified Status: Acute Assessment and Plan: Atypical, self-limited most likely gastrointestinal and or musculoskeletal etiology. No ischemic changes by EKG, ruled out with negative serial cardiac enzymes. Optimization of GI prophylaxis given report of significant esophageal inflammation which may result in intermittent esophageal spasm contributing to episodic chest pain. Check 2D echocardiogram normal LV function, no wall motion abnormalities personally reviewed and discussed. GI workup underway, endoscopy planned for this morning. Review results. Further recommendation to follow. If unremarkable may pursue Lexiscan nuclear stress test in a.m. (2) Syncope: Code(s): R55 - Syncope and collapse Status: Acute Assessment and Plan: Vasovagal etiology could while standing, symptomatic likely related to orthostatic hypotension. Check orthostatic vital signs. Reduce Lasix. Clinically patient appears slightly dry, adequate oral hydration and not taking p.o. consistently gentle IV fluids Lisinopril held. (3) Labile hypertension: Code(s): R09.89 - Other specified symptoms and signs involving the circulatory and respiratory systems Status: Acute Assessment and Plan: Monitor BP closely as above. Lisinopril discontinued for now given relative hypotension. May continue metoprolol 25 mg twice daily and reduce Lasix to 20 mg daily for now. (4) IRMA on CPAP: Code(s): G47.33 - Obstructive sleep apnea (adult) (pediatric); Z99.89 - Dependence on other enabling machines and devices Status: Acute Assessment and Plan: Compliance. (5) Dizziness, nonspecific: Code(s): R42 - Dizziness and giddiness Status: Acute Assessment and Plan: As above. (6) Morbid obesity: Code(s): E66.01 - Morbid (severe) obesity due to excess calories Status: Acute Assessment and Plan: Lifestyle modification, weight loss. Subjective Date/time seen: Date of service: 05/27/20 11:03 Follow-up for chest pain, syncope, dizziness No new issues overnight. Minimal occasional chest achiness improving overall. No shortness of breath. EGD scheduled for this morning, patient NPO. Denies shortness of breath. Feels better overall. Telemetry normal sinus rhythm with significant intermittent artifact no ventricular arrhythmias, atrial fibrillation or pauses. Review of Systems Review of Systems: All systems reviewed & are unremarkable except as noted in HPI and below Constitutional: Constitutional: Reports as per HPI, Reports no additional constitutional complaints, Reports fatigue, Denies headache(s) and Reports weakness Eyes: Eyes: Reports as per HPI and Reports no additional eye complaints ENT: Reports system reviewed and no additional complaints, except as documented, Reports as per HPI, Reports dysphagia and Denies headache(s) Cardiovascular: Cardiovascular: Reports as per HPI, Reports no additional cardiovascular complaints, Reports chest pain, Reports lightheadedness, Reports palpitations and Denies dyspnea Respiratory: Respiratory: Reports as per HPI, Reports no additional respiratory complaints, Denies hemoptysis and Denies dyspnea Gastrointestinal: Gastrointestinal: Reports as per HPI, Reports no additional gastrointestinal complaints, Reports constipation, Reports dysphagia, Reports heartburn, Reports nausea and Reports vomiting Genitourinary: Genitourinary: Reports as per HPI and Denies hematuria Musculoskeletal: Musculoskeletal: Reports no additional musculoskeletal complaints, Reports as per HPI and Denies abnormal gait Integumentary/Breasts: Skin/Breast: Reports system reviewed and no additional complaints, except as docu and Reports as per HPI Neurologic: Reports system reviewed and no additional complaints, except as documented, Reports as per HPI, Denies Abnormal s
[2020-05-27] MEDS: LACTATED RINGERS 1,000 ML 150 ML IV CONT (12:04)
--- NOTE | 2020-05-27 12:33 | WPDANESEPPF ---
Anes - Initial Pre Proc Eval Procedure: Operation Date: 05/27/20 15:00 Proposed Procedures p Esophagogastroduodenoscopy - Andrew Gómez MD Date/Time: 05/27/20 12:33 Surgeon: Ricardo Leiva MD Pre Op Diagnosis: Chest pain Patient Data Age: 40 Gender: F Height: 5 ft 3 in Weight: 112.1 kg Last Vital Signs Temp 96.9 F L 05/27/20 12:00 Pulse 62 05/27/20 12:00 Resp 16 05/27/20 12:00 BP 119/76 05/27/20 12:00 Pulse Ox 97 05/27/20 12:00 Allergies Allergy/AdvReac Type Severity Reaction Status Date / Time chlorpromazine Allergy Itching Verified 05/25/20 17:13 [From Thorazine] latex Allergy Hives Verified 05/25/20 17:13 quetiapine [From Seroquel] Allergy Hallucinati Verified 05/25/20 17:13 ng Home Medications Medication Instructions Recorded Confirmed Type clonazepam 1 mg PO TID 05/19/19 05/25/20 History famotidine 20 mg PO HS PRN 05/19/19 05/25/20 History gabapentin 600 mg PO HS 05/19/19 05/25/20 History levothyroxine 50 mcg PO DAILY 05/19/19 05/25/20 History lisinopril 20 mg PO DAILY 05/19/19 05/25/20 History melatonin 12 mg PO HS 05/19/19 05/25/20 History omeprazole 40 mg PO DAILY 05/19/19 05/25/20 History ondansetron HCl 8 mg PO Q6H PRN 05/19/19 05/25/20 History phenazopyridine 100 mg PO DAILY PRN 05/19/19 05/25/20 History sertraline 150 mg PO DAILY 05/19/19 05/25/20 History metoprolol tartrate 50 mg PO Q12HR #60 tablet 06/03/19 05/25/20 Rx metoclopramide HCl 10 mg PO Q8H PRN #14 tablet 08/08/19 05/25/20 Rx ibuprofen [IBU] 600 mg PO Q6H PRN #20 tablet 01/21/20 05/25/20 Rx furosemide 40 mg tablet 40 mg PO QAM 01/28/20 05/25/20 History albuterol sulfate 2 puff INHALATION DAILY 05/25/20 05/25/20 History aripiprazole 10 mg PO DAILY 05/25/20 05/25/20 History buspirone 10 mg PO TID 05/25/20 05/25/20 History divalproex 250 mg PO BID 05/25/20 05/25/20 History fluticasone propionate [Flovent 2 puff INHALATION DAILY 05/25/20 05/25/20 History HFA] linaclotide [Linzess] 290 mcg PO DAILY 05/25/20 05/25/20 History paliperidone palmitate 234 mg IM Q30D 05/25/20 05/25/20 History potassium chloride 20 meq PO BID 05/25/20 05/25/20 History Patient hx anesthesia problems: none Family hx anesthesia problems: none PMFSH Past Medical History Medical History (Updated 05/26/20 @ 17:24 by Andrew Gómez MD) Asthma, mild intermittent Chronic respiratory failure Constipation DVT (deep venous thrombosis) GERD (gastroesophageal reflux disease) Hypertension Nausea Non-cardiac chest pain IRMA on CPAP Peripartum cardiomyopathy 2006 Tobacco abuse Surgical History Surgical History H/O tubal ligation History of thyroidectomy, subtotal for benign nodule Family History Family History Father Diabetes mellitus Acute myocardial infarction Hypertension Congestive heart failure Rectal cancer Mother No problems noted. 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
--- NOTE | 2020-05-27 15:57 | PM.IMPN ---
Progress Note: A&P Assessment and Plan (1) Chest pain: Code(s): R07.9 - Chest pain, unspecified Status: Acute Assessment and Plan: Resolved. EKG sinus continue to check Trops x 3, all WNL. consult Machine Umbrella Tipper DR. Loving continuous Telemetry monitoring for 24 hours check electrolytes titrate medications - as patient was not taking them at home as they had been prescribed educate patient about benefits of controlling hypertension and tachycardia, while avoiding bradycardia or orthostatic hypotension check orthostatic vital signs encourage weight loss continue on daily Protonix to improve/minimize risk of chest pain being GI related 05/27/20 15:57 05/26 patient is 40-year-old morbidly obese with a past medical history of bipolar, psychotic illness, hypertension patient echo showed preserved LV function, patient also had a upper extremity DVT was placed on Eliquis and repeat Doppler showed resolution of the DVT and patient has stopped taking Eliquis, apparently yesterday while at home and doing her daily cleaning patient developed the chest pain and patient fell her was in other room he came to her and patient loss of conscious for few seconds, she did strike her head, patient has been complaining of chest on and off lasting 10 minutes especially with activity and improved with rest, patient presented emergency department for further evaluation patient had a 3 sets of cardiac enzymes which essentially normal and there was no acute changes on EKG, patient pain has resolved, patient is seen by Cardiology does not recommend and further workup other than cardiac echo to further evaluate cardiac structurally, currently patient states feels better but appear to be depressed, will follow-up on a cardiac echo will have a PT OT evaluate the patient and further recommendation to follow. Patient also complains of GERD and was seen recently by by ENT and suggested esophageal inflammation will start the patient on IV Protonix and consult GI for further recommendation 05/27 patient with c/o epigastric pain and GERD, was seen by GI and had EGD which was normal without esophagitis, will continue PPI, patient presented with c/o CP, her 3 sets of cardiac enzymes negative, EKG did not show any acute changes, cardiac echo showed normal systolic function with EF of 60-65% patient is seen by network technology instructor today, to further evaluate patient is scheduled to have stress test tomorrow and further recommendation to follow. (2) Nausea & vomiting: Qualifiers: Vomiting type: unspecified Vomiting Intractability: unspecified Qualified Code(s): R11.2 - Nausea with vomiting, unspecified Code(s): R11.2 - Nausea with vomiting, unspecified Status: Acute Assessment and Plan: patient reports N/V was intermittent at home if N/V did occur, it was shortly after a meal switched her to Protonix , continue Pepcid Sodium 136 (slightly low) and Creatinine 1.10 (slightly elevated), following with repeat labs in morning continue Zofran, stopped Reglan due to her Psych/Anxiety medication interactions. encouraged her to continue with her already in place GI doctore appointment at the end of this month, within the next 2 weeks. ordered strict I and Os, Daily weights repeat labs in morning, checking electrolytes Mag and Phos (3) Dizziness, nonspecific: Code(s): R42 - Dizziness and giddiness Status: Acute Assessment and Plan: may be related to CP or N/V or bradycardia or orthostatic hypotension or due to medication interactions (GI meds/Psych meds) ordered strict I and Os, Daily weights, and BID orthostatic vital signs. head CT wnl, CXR clear, lumbar spine images without acute concerns. no fevers, HR 60-70, SBPs 100-120s. Sodium 136 (slightly low) and Creatinine 1.10 (slightly elevated),not likely the cause of her fall or dizziness, following with repeat labs in morning, Mag, Phos, BNP, TSH headache resolved, no cuts /wounds
[2020-05-27] MEDS: FUROSEMIDE 40 MG TABLET PO (16:02)
[2020-05-27] MEDS: DIVALPROEX SODIUM DR 250 MG TABEC PO (16:02)
[2020-05-27] MEDS: POTASSIUM CHLORIDE 20 MEQ TABLET.ER PO (16:02)
[2020-05-27] MEDS: busPIRone HCL 10 MG TABLET PO (16:03)
[2020-05-27] MEDS: SERTRALINE HCL 50 MG TABLET 150 MG PO (16:04)
[2020-05-27] MEDS: lisinopriL 10 MG TABLET PO (16:05)
[2020-05-27] MEDS: ARIPiprazole 10 MG TABLET PO (16:05)
[2020-05-27] MEDS: clonazePAM (*CRX) 0.5 MG TABLET 1 MG PO ×2 (16:14→21:17)
[2020-05-27] MEDS: GABAPENTIN 300 MG CAPSULE 600 MG PO (21:09)
[2020-05-27] MEDS: MELATONIN 3 MG TABLET 12 MG PO (21:09)
[2020-05-28] VITALS (9 sets, daily range): BP systolic 108–114; BP diastolic 6–63; PULSE 54–123; RESP 13–20; TEMP 36.1–36.3; O2SAT 96–100
--- NOTE | 2020-05-28 | EST_ITS ---
Patient Info Name: Dash Crane Age: 40 years : 1980 Gender: Female Ht: 63 in Wt: 247 lbs BSA: 2.30 m2 Exam Date: 05/28/2020 11:29 AM Exam Location: [facility] Stress Patient Status: Inpatient Admit Date: 05/25/2020 Staff Ordering Physician: Wing Loving MD Attending Provider: Ricardo Leiva MD Exercise Technologist: Bing Garrison RDCS Exercise Physician: Daniel Grant MD Exam Type: CA stress filipe w NM Study Info A regadenoson stress test was performed. Summary 1. Clinically and electrocardiographically negative Lexiscan nuclear stress test. 2. Myocardial perfusion imaging exam to be reported by the Radiology Department. Protocol: Lexiscan Stress ECG Details Stage: REST Duration (min): 1 min : 48 sec HR (bpm): 65 SBP (mmHg): 108 DBP (mmHg): 72 Stage: REST Duration (min): 20 min : 9 sec HR (bpm): 71 SBP (mmHg): 108 DBP (mmHg): 72 Stage: STAGE 1 Duration (min): 0 min : 59 sec HR (bpm): 95 SBP (mmHg): 131 DBP (mmHg): 83 Stage: RECOVERY Duration (min): 1 min : 0 sec HR (bpm): 125 SBP (mmHg): 111 DBP (mmHg): 76 Stage: RECOVERY Duration (min): 2 min : 0 sec HR (bpm): 122 SBP (mmHg): 111 DBP (mmHg): 76 Stage: RECOVERY Duration (min): 3 min : 0 sec HR (bpm): 105 SBP (mmHg): 145 DBP (mmHg): 73 Stage: RECOVERY Duration (min): 3 min : 4 sec HR (bpm): 103 SBP (mmHg): 145 DBP (mmHg): 73 Rest HR: 71 bpm Peak HR: 129 bpm Rest Sys BP: 108 mmHg Peak Sys BP: 145 mmHg Max Pred HR: 178 bpm % Max Pred HR: 72 % Target HR: 151 bpm Max RPP: 18,705 bpm*mmHg Termination Reason: Completed protocol Cardiac Symptoms: None Total Time: 1 min : 0 sec Rest Larsen BP: 72 mmHg Peak Larsen BP: 73 mmHg Total Dose: 0.4 mg Resting ECG Normal sinus rhythm - normal ECG. Stress ECG No abnormal ST/T wave changes with exercise. Report Signatures
[2020-05-28] MEDS: LEVOTHYROXINE SODIUM 50 MCG TABLET PO (06:15)
--- NOTE | 2020-05-28 07:18 | PCPTNOTE ---
The PT treatment was unable to be completed 05/27/20 due to patient out of room for procedure. Will continue per Plan of Care frequency and duration.
[2020-05-28] MEDS: FLUTICASONE PROP 44 MCG (*SP) 10.6 GM 2 PUFF INHALATION (09:08)
[2020-05-28] MEDS: PANTOPRAZOLE SODIUM IV 40 MG VIAL IV PUSH (09:08)
--- NOTE | 2020-05-28 09:11 | PCDIET ---
Nutrition Follow-Up Complete: Nutrition Diagnosis: Involuntary weight loss related to decreased appetite and emesis as evidenced by patient reporting 30 pound weight loss over the past few months without trying. Nutrition Goal: Patient to consume 75% of meals or greater. Goal in progress. Patient currently NPO for stress test. Previous intakes were 100% of recorded meals. Noted normal EGD on 05/27/20. Last recorded weight is 109.7 kg which is down from last review, despite +I/O. Bowel Motility: Last documented BM on 05/26/20 x 3. Labs Reviewed: No new labs from last review. Meds Noted: Depakote, Lisinopril, Abilify, Keppra, Linzess, KCl, Klonopin, Lasix, Synthroid, Protonix Additional Notes: No documented skin breakdown. Nutrition Monitoring and Evaluation: Follow up every 5 days.
[2020-05-28 09:34] LABS: Hematocrit 36.3 % (37.0-47.0); Hemoglobin 12.4 g/dL (12.0-15.0); Mean Corpuscular HGB Conc 34.2 g/dl (32-36); Mean Corpuscular Hemoglobin 35.3 pg (26-34); Mean Corpuscular Volume 103.4 fl (80-100); Mean Platelet Volume 9.8 fl (7.4-10.4); Platelet Count Result 227 k/mm3 (150-375); Red Blood Count 3.51 M/mm3 (4.2-5.4); Red Cell Distribution Width 13.7 % (11.5-14.5); White Blood Count 7.7 K/mm3 (4.5-10.0)
--- NOTE | 2020-05-28 09:45 | WPDANESPN ---
Anes - Prog Note Post-Op Date/Time: 05/28/20 09:45 Cardiovascular status: normal Respiratory status: normal Airway patency: baseline Mental status: baseline Post-Op hydration status: normal Vital Signs: Last Vital Signs Temp 36.3 C L 05/28/20 08:00 Pulse 71 05/28/20 08:00 Resp 18 05/28/20 08:00 BP 108/63 05/28/20 08:00 Pulse Ox 100 05/28/20 08:00 Pain Score (VAS): 2 I/O: Intake & Output 05/27/20 05/28/20 05/28/20 23:59 07:59 15:59 Intake Total 540 Output Total 250 Balance 540 -250 05/28/20 05/28/20 09:11 09:11 WBC Pending RBC Pending Hgb Pending Hct Pending MCV Pending MCH Pending MCHC Pending RDW Pending Plt Count Pending MPV Pending Sodium Pending Potassium Pending Chloride Pending Carbon Dioxide Pending Anion Gap Pending BUN Pending Creatinine Pending Estim Creat Clear Calc Pending Estimated GFR Pending Glucose Pending Calcium Pending Magnesium Pending Post-procedural complaints: none Patient Feedback: Patient satisfied with anesthetic care.
[2020-05-28 09:58] LABS: Anion Gap 3 mmol/L (8-16); Blood Urea Nitrogen 12 mg/dL (7-17); Calcium 8.7 mg/dL (8.4-10.2); Carbon Dioxide 30 mmol/L (22-30); Chloride 104 mmol/L (98-107); Estimated CRCL calculation 95 ml/min; Estimated Glomerular Filt Rate > 60; Glucose 103 mg/dL (65-105); Magnesium 1.7 mg/dL (1.6-2.3); Potassium 4.5 mmol/L (3.4-5.0); Sodium 137 mmol/L (137-145)
[2020-05-28] MEDS: ALBUTEROL SULFATE (*SP) AEROSOL 1 PUFF 2 PUFF INHALATION (13:21)
[2020-05-28] MEDS: FAMOTIDINE 20 MG TABLET PO (13:21)
[2020-05-28] MEDS: METOPROLOL TARTRATE 25 MG TABLET PO (13:21)
[2020-05-28] MEDS: POTASSIUM CHLORIDE 20 MEQ TABLET.ER PO (13:23)
[2020-05-28] MEDS: busPIRone HCL 10 MG TABLET PO (13:23)
[2020-05-28] MEDS: SERTRALINE HCL 50 MG TABLET 150 MG PO (15:05)
[2020-05-28] MEDS: ARIPiprazole 10 MG TABLET PO (15:05)
[2020-05-28] MEDS: FUROSEMIDE 40 MG TABLET PO (15:05)
[2020-05-28] MEDS: lisinopriL 10 MG TABLET PO (15:05)
[2020-05-28] MEDS: clonazePAM (*CRX) 0.5 MG TABLET 1 MG PO (15:12)
--- NOTE | 2020-05-28 15:30 | PM.DS ---
DS: Admitting Diagnosis Admitting Diagnosis Admitting Diagnosis: Chief Complaint: Chest pain, Dizziness, Syncope DS: Discharge Diagnosis Discharge Diagnosis (1) Chest pain: Code(s): R07.9 - Chest pain, unspecified Status: Acute Assessment and Plan: Resolved. EKG sinus continue to check Trops x 3, all WNL. consult Legal File Clerk DR. Loving continuous Telemetry monitoring for 24 hours check electrolytes titrate medications - as patient was not taking them at home as they had been prescribed educate patient about benefits of controlling hypertension and tachycardia, while avoiding bradycardia or orthostatic hypotension check orthostatic vital signs encourage weight loss continue on daily Protonix to improve/minimize risk of chest pain being GI related 05/27/20 15:57 05/26 patient is 40-year-old morbidly obese with a past medical history of bipolar, psychotic illness, hypertension patient echo showed preserved LV function, patient also had a upper extremity DVT was placed on Eliquis and repeat Doppler showed resolution of the DVT and patient has stopped taking Eliquis, apparently yesterday while at home and doing her daily cleaning patient developed the chest pain and patient fell her was in other room he came to her and patient loss of conscious for few seconds, she did strike her head, patient has been complaining of chest on and off lasting 10 minutes especially with activity and improved with rest, patient presented emergency department for further evaluation patient had a 3 sets of cardiac enzymes which essentially normal and there was no acute changes on EKG, patient pain has resolved, patient is seen by Cardiology does not recommend and further workup other than cardiac echo to further evaluate cardiac structurally, currently patient states feels better but appear to be depressed, will follow-up on a cardiac echo will have a PT OT evaluate the patient and further recommendation to follow. Patient also complains of GERD and was seen recently by by ENT and suggested esophageal inflammation will start the patient on IV Protonix and consult GI for further recommendation 05/27 patient with c/o epigastric pain and GERD, was seen by GI and had EGD which was normal without esophagitis, will continue PPI, patient presented with c/o CP, her 3 sets of cardiac enzymes negative, EKG did not show any acute changes, cardiac echo showed normal systolic function with EF of 60-65% patient is seen by bottle dealer today, to further evaluate patient is scheduled to have stress test tomorrow and further recommendation to follow. (2) Nausea & vomiting: Qualifiers: Vomiting type: unspecified Vomiting Intractability: unspecified Qualified Code(s): R11.2 - Nausea with vomiting, unspecified Code(s): R11.2 - Nausea with vomiting, unspecified Status: Acute Assessment and Plan: patient reports N/V was intermittent at home if N/V did occur, it was shortly after a meal switched her to Protonix , continue Pepcid Sodium 136 (slightly low) and Creatinine 1.10 (slightly elevated), following with repeat labs in morning continue Zofran, stopped Reglan due to her Psych/Anxiety medication interactions. encouraged her to continue with her already in place GI doctore appointment at the end of this month, within the next 2 weeks. ordered strict I and Os, Daily weights repeat labs in morning, checking electrolytes Mag and Phos (3) Dizziness, nonspecific: Code(s): R42 - Dizziness and giddiness Status: Acute Assessment and Plan: may be related to CP or N/V or bradycardia or orthostatic hypotension or due to medication interactions (GI meds/Psych meds) ordered strict I and Os, Daily weights, and BID orthostatic vital signs. head CT wnl, CXR clear, lumbar spine images without acute concerns. no fevers, HR 60-70, SBPs 100-120s. Sodium 136 (slightly low) and Creatinine 1.10 (slightly elevated),not likely the cau
== END 2020-05-28 16:23 | disposition home or self-care (01) ==
LOC: ANHED 14:56 → ANHIMU 15:22
PROVIDERS: Internal Medicine Gastroenterology; Nurse Practitioner; Admitting Provider Family Medicine; Emergency Provider General Practice; PCP Nurse Practitioner Family; Visit Provider Family Medicine
PROC: 0DJ08ZZ Inspection of Upper Intestinal Tract, Via Natural or Artificial Opening Endoscopic (ICD-10-PCS; CPT 43235; principal; 2020-05-27 15:00)
DX: R07.89 Other chest pain (principal); K21.9 Gastro-esophageal reflux disease without esophagitis; R55 Syncope and collapse; E66.9 Obesity, unspecified; E66.01 Morbid (severe) obesity due to excess calories; F17.210 Nicotine dependence, cigarettes, uncomplicated; I10 Essential (primary) hypertension; J45.909 Unspecified asthma, uncomplicated; W19.XXXA Unspecified fall, initial encounter; Z68.41 Body mass index [BMI] 40.0-44.9, adult; Z86.718 Personal history of other venous thrombosis and embolism; Z79.899 Other long term (current) drug therapy
CPT/HCPCS: 43239; 36415; 70450; 71046; 72100; 78452; 80048; 80053; 83036; 83735; 83880; 84100; 84484; 85025; 85027; 85610; 85730; 88305; 93005; 93017; 93306; 94640; 96361; 96374; 96375; 96376; 97110; 97116; 97161; 99285; A9270; A9502; C9113; G0378; G0379; J1885; J2704; J2785; J7040; J7120

== ENCOUNTER 2020-06-03 16:57 | Emergency (ER) | payer OTHER, SELFPAY ==
--- NOTE | ~2020-06-03 | XR_ITS ---
EXAMINATION: XR chest 2V EXAM DATE: 06/03/2020 18:37 INDICATION: Hypotension, history of CHF. TECHNIQUE: Frontal and lateral projections of the chest obtained and reviewed. Comparison is made to prior examination from 05/25/2020. FINDINGS: Again there are small linear regions of bilateral scarring or subsegmental atelectasis. Th e lungs are otherwise clear. There are no pleural effusions. The cardiomediastinal silhouette is wi thin normal limits. There is no pneumothorax suspected. The bones and soft tissues are unremarkable . IMPRESSION: No acute cardiopulmonary findings. Reviewed, dictated and finalized at location A.
[2020-06-03 17:04] VITALS: BP 130/68; PULSE 118; RESP 18; TEMP 36.3; O2SAT 96
[2020-06-03 17:48] VITALS: BP 98/74; PULSE 96; RESP 16; O2SAT 97
--- NOTE | 2020-06-03 18:25 | ECG_ITS ---
Measurements Intervals [place] Rate: 68 P: 65 IA: 186 QRS: 29 QRSD: 92 T: 38 QT: 395 QTc: 423 Interpretive Statements SINUS RHYTHM INCOMPLETE RIGHT BUNDLE BRANCH BLOCK LOW QRS VOLTAGE IN PRECORDIAL LEADS BORDERLINE ECG Electronically Signed On 06-04-2020 6:35:59 CDT by Matthew Li D.O.
--- NOTE | 2020-06-03 18:26 | ED.GENADULT ---
HPI - General Adult General Chief complaint: Recheck/Abnormal Lab/Rx Stated complaint: low blood pressure , sent by primary, chest pain Time Seen by Provider: 06/03/20 18:16 Source: patient, family, RN notes reviewed and old records reviewed History of Present Illness HPI narrative: 40-year-old female presents to emergency department for hypotension for the past 2 days. Patient states she knows her blood pressure is low with a systolic of 80s today. Patient does take lisinopril, however has not taken it recently. She reports feeling dizzy for about the same amount of time. She also reports intermittent chest pain. No shortness of breath. No abdominal pain. No nausea or vomiting Related Data Home Medications Medication Instructions Recorded Confirmed clonazepam 1 mg PO TID 05/19/19 05/25/20 gabapentin 600 mg PO HS 05/19/19 05/25/20 lisinopril 20 mg PO DAILY 05/19/19 05/25/20 sertraline 150 mg PO DAILY 05/19/19 05/25/20 furosemide 40 mg tablet 40 mg PO QAM 01/28/20 05/25/20 Flovent HFA 2 puff INHALATION DAILY 05/25/20 05/25/20 Linzess 290 mcg PO DAILY 05/25/20 05/25/20 albuterol sulfate 2 puff INHALATION DAILY 05/25/20 05/25/20 aripiprazole 10 mg PO DAILY 05/25/20 05/25/20 buspirone 10 mg PO TID 05/25/20 05/25/20 levothyroxine [Euthyrox] 50 mcg PO DAILY 06/03/20 omeprazole 40 mg PO DAILY 06/03/20 paliperidone palmitate [Invega 234 mg IM Q30D 06/03/20 Sustenna] Allergies Allergy/AdvReac Type Severity Reaction Status Date / Time chlorpromazine Allergy Itching Verified 06/03/20 18:15 [From Thorazine] latex Allergy Hives Verified 06/03/20 18:15 quetiapine [From Seroquel] Allergy Hallucinati Verified 06/03/20 18:15 ng Review of Systems Review of Systems: Narrative: CONSTITUTIONAL: Denies fever, chills, or sweats. EYES: Denies visual changes, redness, or discharge. ENT: Denies rhinorrhea, congestion, sore throat, or otalgia. CARDIOVASCULAR: Denies chest pain, palpitations, or edema. RESPIRATORY: Denies cough or dyspnea. GASTROINTESTINAL: Denies abdominal pain, nausea, vomiting, or diarrhea. GENITOURINARY: Denies dysuria or hematuria. SKIN: Denies rash or itching. MUSCULOSKELETAL: Denies back pain, joint pain, or myalgia. NEUROLOGIC: Denies headache, numbness, dizziness, or weakness. PSYCHIATRIC: Denies anxiety or depression. All systems reviewed & are unremarkable except as noted in HPI and below (ROS) [facility] Past Medical History Medical History Asthma, mild intermittent Chronic respiratory failure Constipation DVT (deep venous thrombosis) GERD (gastroesophageal reflux disease) Hypertension Nausea Non-cardiac chest pain IRMA on CPAP Peripartum cardiomyopathy 2006 Tobacco abuse Surgical History Surgical History H/O tubal ligation History of thyroidectomy, subtotal for benign nodule Family History Family History Father Diabetes mellitus Acute myocardial infarction Hypertension Congestive heart failure Rectal cancer Mother No problems noted. 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
[2020-06-03 18:59] LABS: Basophils Absolute Auto 0.1 K/mm3 (0.0-0.1); Basophils Percent Auto 0.7 % (0.2-1.2); Eosinophils Absolute Auto 0.4 K/mm3 (0-0.3); Eosinophils Percent Auto 4.2 % (0-4.4); Hemoglobin 12.5 g/dL (12.0-15.0); Immature Granulocyte Absolute 0.02 K/mm3 (0.00-0.031); Immature Granulocyte Percent A 0.2 % (0-0.5); Lymphocytes Absolute Auto 2.72 K/mm3 (0.9-3.2); Lymphocytes Percent Auto 29.5 % (18.3-44.2); Mean Corpuscular HGB Conc 33.8 g/dl (32-36); Mean Corpuscular Hemoglobin 35.1 pg (26-34); Mean Corpuscular Volume 103.9 fl (80-100); Mean Platelet Volume 10.4 fl (7.4-10.4); Monocytes Absolute Auto 0.5 K/mm3 (0.1-0.6); Monocytes Percent Auto 5.7 % (2.6-8.5); Neutrophils Absolute Auto 5.5 K/mm3 (1.3-6.7); Neutrophils Percent Auto 59.7 % (45.5-73.1); Platelet Count Result 238 k/mm3 (150-375); Red Blood Count 3.56 M/mm3 (4.2-5.4); Red Cell Distribution Width 13.5 % (11.5-14.5); White Blood Count 9.2 K/mm3 (4.5-10.0)
[2020-06-03 19:06] LABS: Add Urine Microscopic? YES; Appearance Urine Cloudy (Clear); Bacteria Urine Trace /hpf; Bilirubin Urine Negative (Negative); Blood Urine Negative (Negative); Color Urine Yellow (Yellow); Glucose Urine UA Negative (Negative); Ketones Urine Negative (Negative); Leukocyte Esterase Ur Negative LEU/UL (Negative); Mucus Urine Rare /lpf; Nitrate Urine Negative (Negative); Protein Urine Negative (Negative); RBC Urine 0-2 /hpf (0-2); Specific Grav Ur 1.008 (1.001-1.035); Squamous Epithelial Cell Urine Many /hpf (Few); Urobilinogen Urine Negative mg/dL (<2.0); WBC Urine 0-3 /hpf
[2020-06-03 19:11] LABS: Alanine Aminotransferase 18 U/L (4-35); Albumin Level 3.9 g/dL (3.5-5.1); Alkaline Phosphatase 96 U/L (38-126); Anion Gap 8 mmol/L (8-16); Aspartate Amino Transferase 21 U/L (14-36); Bilirubin,Total 0.2 mg/dL (0.2-1.3); Blood Urea Nitrogen 17 mg/dL (7-17); Calcium 8.9 mg/dL (8.4-10.2); Carbon Dioxide 27 mmol/L (22-30); Chloride 104 mmol/L (98-107); Estimated CRCL calculation 76 ml/min; Estimated Glomerular Filt Rate > 60; Glucose 120 mg/dL (65-105); Magnesium 1.6 mg/dL (1.6-2.3); Potassium 3.6 mmol/L (3.4-5.0); Sodium 139 mmol/L (137-145)
[2020-06-03] MEDS: SODIUM CHLORIDE 0.9% IV 1,000 ML 999 ML IV CONT (19:18)
[2020-06-03 19:23] LABS: NT Pro B Type Natriuretic Pept 35 PG/ML (5-100); Troponin I < 0.012 ng/mL (0.000-0.034)
[2020-06-03 20:01] VITALS: BP 100/63; PULSE 72; RESP 14; O2SAT 97
== END 2020-06-03 20:25 | disposition home or self-care (01) ==
PROVIDERS: Emergency Provider Emergency Medicine; PCP Nurse Practitioner Family
DX: R03.1 Nonspecific low blood-pressure reading (principal); J96.10 Chronic respiratory failure, unspecified whether with hypoxia or hypercapnia; J45.20 Mild intermittent asthma, uncomplicated; Z86.718 Personal history of other venous thrombosis and embolism; K21.9 Gastro-esophageal reflux disease without esophagitis; I10 Essential (primary) hypertension; G47.33 Obstructive sleep apnea (adult) (pediatric); E89.0 Postprocedural hypothyroidism; Z87.891 Personal history of nicotine dependence; Z77.22 Contact with and (suspected) exposure to environmental tobacco smoke (acute) (chronic); I45.10 Unspecified right bundle-branch block
CPT/HCPCS: 36415; 71046; 80053; 81001; 83735; 83880; 84443; 84484; 85025; 93005; 96360; 99284; J7030

== ENCOUNTER 2020-09-01 08:27 | Observation (INO) | payer OTHER, SELFPAY ==
[2020-09-01] VITALS (19 sets, daily range): BP systolic 106–137; BP diastolic 59–89; PULSE 53–88; RESP 12–19; TEMP 36.5–37; O2SAT 93–98; BMI 42.6
--- NOTE | ~2020-09-01 | NM_ITS ---
EXAMINATION: NM hepatobiliary wo pharm DATE: 09/03/2020 14:04 CDT INDICATION: Gallstones. Right abdominal pain. COMPARISON: CT dated 09/01/2020. TECHNIQUE: 4 mCi Tc-99m mebrofenin (Choletec) was administered intravenously. Scintigraphic images o f the abdomen were obtained for one hour. At the 1 hour time point, the patient drank 8 oz Ensure, an d imaging was continued for [60 minutes. Gallbladder ejection fraction was calculated by the technolo gist. FINDINGS: There is normal clearance of radiotracer from the blood pool. There is homogeneous tracer u ptake by the liver. Activity progresses to the bowel and gallbladder. The gallbladder ejection fract ion is 93%. Note that with this technique, normal GBEF >= 33%. IMPRESSION: 1. Normal hepatobiliary scan. Reviewed, dictated and finalized at location B.
--- NOTE | ~2020-09-01 | CT_ITS ---
EXAMINATION: CT abdomen pelvis w con INDICATION: Right lower quadrant pain TECHNIQUE: Computed tomographic images of the abdomen and pelvis were obtained after the administrati on of 100 cc of Omnipaque 350 intravenous contrast. The dose-length product (DLP) was 1436.57 mGy-cm. Automated exposure control and iterative reconstruction technique were employed. COMPARISON: 08/08/2019 FINDINGS: Minimal dependent atelectasis is present in the lung bases. The heart size is normal. The l iver, spleen, pancreas, and adrenal glands are normal. A stone is present in the nondistended gallbla dder. The kidneys are unremarkable. No pathologically enlarged abdominal or pelvic lymph nodes are id entified. There is no free intraperitoneal gas or evidence of bowel obstruction. There is a greater t vazquez normal number of fluid-filled, nondistended small bowel loops. There is also liquid stool through out much of the colon. There is chronic mild enlargement of the appendix without surrounding inflamma tory change. A small fat-containing umbilical hernia is noted. There is mild lumbar spondylosis. IMPRESSION: 1. CT findings suggestive of enteritis. 2. Cholelithiasis without evidence of cholecystitis. 3. Chronic mild enlargement of the appendix without surrounding inflammatory change. Reviewed, dictated and finalized at location A. IMPRESSION: 1. CT findings suggestive of enteritis. 2. Cholelithiasis without evidence of cholecystitis. 3. Chronic mild enlargement of the appendix without surrounding inflammatory ch saji.
--- NOTE | 2020-09-01 08:42 | ED.ABDPAIN ---
HPI - Abdominal Pain General Chief Complaint: Abdominal Pain Stated Complaint: R SIDED ABD PAIN Time Seen by Provider: 09/01/20 08:37 Source: patient and family Limitations: no limitations History of Present Illness HPI narrative: 40 years old white female, periumbilical pain started at the middle of the night, radiating to right lower quadrant, associated with nausea and vomiting. Patient denies any fever, chills, or history of similar symptoms. Patient been vaccinated for COVID-19. History of section and bilateral tubal ligation, hypertension, asthma, hypothyroidism. Patient smokes drinks occasionally and uses marijuana. Related Data Home Medications Medication Instructions Recorded Confirmed clonazepam 1 mg PO TID 05/19/19 08/19/20 gabapentin 600 mg PO HS 05/19/19 08/19/20 lisinopril 20 mg PO DAILY 05/19/19 08/19/20 sertraline 150 mg PO DAILY 05/19/19 08/19/20 furosemide 40 mg tablet 40 mg PO QAM 01/28/20 08/19/20 Flovent HFA 2 puff INHALATION DAILY 05/25/20 08/19/20 Linzess 290 mcg PO DAILY 05/25/20 08/19/20 albuterol sulfate 2 puff INHALATION DAILY 05/25/20 08/19/20 aripiprazole 10 mg PO DAILY 05/25/20 08/19/20 buspirone 10 mg PO TID 05/25/20 08/19/20 levothyroxine [Euthyrox] 50 mcg PO DAILY 06/03/20 08/19/20 omeprazole 40 mg PO DAILY 06/03/20 08/19/20 paliperidone palmitate [Invega 234 mg IM Q30D 06/03/20 08/19/20 Sustenna] Allergies Allergy/AdvReac Type Severity Reaction Status Date / Time chlorpromazine Allergy Itching Verified 08/19/20 09:48 [From Thorazine] latex Allergy Hives Verified 08/19/20 09:48 quetiapine [From Seroquel] Allergy Hallucinati Verified 08/19/20 09:48 ng Review of Systems Review of Systems: Narrative: CONSTITUTIONAL: Denies fever, chills, or sweats. EYES: Denies visual changes, redness, or discharge. ENT: Denies rhinorrhea, congestion, sore throat, or otalgia. CARDIOVASCULAR: Denies chest pain, palpitations, or edema. RESPIRATORY: Denies cough or dyspnea. GASTROINTESTINAL: Denies abdominal pain, nausea, vomiting, or diarrhea. GENITOURINARY: Denies dysuria or hematuria. SKIN: Denies rash or itching. MUSCULOSKELETAL: Denies back pain, joint pain, or myalgia. NEUROLOGIC: Denies headache, numbness, or weakness. PSYCHIATRIC: Denies anxiety or depression. PMFSH Past Medical History Medical History Asthma, mild intermittent Bipolar affect, depressed Bloating Chronic respiratory failure Constipation DVT (deep venous thrombosis) GERD (gastroesophageal reflux disease) Hypertension Nausea Non-cardiac chest pain IRMA on CPAP Peripartum cardiomyopathy 2006 Small intestinal bacterial overgrowth (SIBO) Tobacco abuse Surgical History Surgical History H/O tubal ligation History of thyroidectomy, subtotal for benign nodule Family History Family History Father Diabetes mellitus Acute myocardial infarction Hypertension Congestive heart failure Rectal cancer Mother No problems noted. 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
[2020-09-01] MEDS: HYDROmorphone HCL INJ (*CRX) 1 MG/ML SYR 0.5 MG IV PUSH ×3 (08:57→17:22)
[2020-09-01] MEDS: ONDANSETRON INJ 4 MG/2 ML VIAL IV PUSH (08:57)
[2020-09-01] MEDS: SODIUM CHLORIDE 0.9% IV 1,000 ML 999 ML IV CONT (09:02)
[2020-09-01 09:23] LABS: Basophils Absolute Auto 0.1 K/mm3 (0.0-0.1); Basophils Percent Auto 0.5 % (0.2-1.2); Eosinophils Absolute Auto 0.3 K/mm3 (0-0.3); Eosinophils Percent Auto 3.6 % (0-4.4); Immature Granulocyte Absolute 0.05 K/mm3 (0.00-0.031); Immature Granulocyte Percent A 0.5 % (0-0.5); Lymphocytes Absolute Auto 2.16 K/mm3 (0.9-3.2); Lymphocytes Percent Auto 22.7 % (18.3-44.2); Mean Corpuscular HGB Conc 31.6 g/dl (32-36); Mean Corpuscular Hemoglobin 30.1 pg (26-34); Mean Corpuscular Volume 95.2 fl (80-100); Monocytes Absolute Auto 0.6 K/mm3 (0.1-0.6); Monocytes Percent Auto 6.1 % (2.6-8.5); Neutrophils Absolute Auto 6.3 K/mm3 (1.3-6.7); Neutrophils Percent Auto 66.6 % (45.5-73.1); Platelet Count Result 214 k/mm3 (150-375); Red Blood Count 3.99 M/mm3 (4.2-5.4); Red Cell Distribution Width 15.5 % (11.5-14.5); White Blood Count 9.5 K/mm3 (4.5-10.0)
[2020-09-01 09:35] LABS: Alanine Aminotransferase 16 U/L (4-35); Albumin Level 4.1 g/dL (3.5-5.1); Alkaline Phosphatase 95 U/L (38-126); Anion Gap 8 mmol/L (8-16); Aspartate Amino Transferase 30 U/L (14-36); Bilirubin,Total 0.2 mg/dL (0.2-1.3); Blood Urea Nitrogen 11 mg/dL (7-17); Calcium 9.1 mg/dL (8.4-10.2); Carbon Dioxide 31 mmol/L (22-30); Chloride 100 mmol/L (98-107); Estimated CRCL calculation 93 ml/min; Estimated Glomerular Filt Rate > 60; Glucose 107 mg/dL (65-105); Lipase 76 U/L (23-300); Potassium 3.9 mmol/L (3.4-5.0); Sodium 139 mmol/L (137-145)
[2020-09-01 10:52] LABS: Add Urine Microscopic? NO; Appearance Urine Clear (Clear); Bilirubin Urine Negative (Negative); Blood Urine Negative (Negative); Color Urine Straw (Yellow); Glucose Urine UA Negative (Negative); Ketones Urine Negative (Negative); Leukocyte Esterase Ur Negative LEU/UL (Negative); Nitrate Urine Negative (Negative); Protein Urine Negative (Negative); Specific Grav Ur 1.025 (1.001-1.035); Urobilinogen Urine Negative mg/dL (<2.0)
[2020-09-01] MEDS: metroNIDAZOLE 500 MG/ISO 100ML 500 MG/100 ML BAG 100 MG IVPB ×2 (11:25→21:29)
--- NOTE | 2020-09-01 13:44 | ADMGEN ---
This patient, Dash Crane, was admitted to 3 [facility] Surg Room 316-01 @ 2225. Patient/family oriented to hospital policies and general routines including ID bracelet, bed and alarms, visiting hours, pain management, procedures, bathroom and other care routines, personal items, smoking policy, room service/diet, and visiting hours. Information on how to activate the Rapid Response Team has been discussed. Patient/Family are encouraged to report perceived risks to care and to ask questions if they do not understand what they are told or what they should do.
--- NOTE | 2020-09-01 14:20 | PM.IMHP ---
H&P: HPI History of Present Illness Date/Time: 09/01/20 14:20 Chief Complaint: Abdominal pain Narrative: Patient with history of hypertension and schizoaffective disorder presented with chief complaint of abdominal pain, associated with nausea and vomiting, started last night, moderate, intermittent, similar to previous episodes of enteritis. Patient follow-up with Dr. Gill gastroenterology as an outpatient. Patient denied depression SI or HI at this time. Patient said that she had heart failure when she was that resolved at this time. Review of Systems Review of Systems: All systems reviewed & are unremarkable except as noted in HPI and below Constitutional: Constitutional: Denies body ache(s) and Denies fatigue Eyes: Eyes: Denies blurry vision ENT: Denies dry mouth Cardiovascular: Cardiovascular: Denies chest pain with activity and Denies dyspnea Respiratory: Respiratory: Denies dyspnea Musculoskeletal: Musculoskeletal: Denies deformity Neurologic: Denies seizure-like activity Psychiatric: Psychiatric: Denies homicidal ideation Endocrine: Endocrine: Denies fatigue PMFSH Past Medical History Medical History Asthma, mild intermittent Bipolar affect, depressed Bloating Chronic respiratory failure Constipation DVT (deep venous thrombosis) GERD (gastroesophageal reflux disease) Hypertension Nausea Non-cardiac chest pain IRMA on CPAP Peripartum cardiomyopathy 2006 Small intestinal bacterial overgrowth (SIBO) Tobacco abuse Surgical History Surgical History H/O tubal ligation History of thyroidectomy, subtotal for benign nodule Family History Family History Father Diabetes mellitus Acute myocardial infarction Hypertension Congestive heart failure Rectal cancer Mother No problems noted. 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 Gender identity (if verbalized by the patient): Female Spiritual care concerns: No Agree to blood products: Yes Meds Home Medications and Allergies Home Medications Medication Instructions Recorded Confirmed Type clonazepam 1 mg PO TID 05/19/19 08/19/20 History gabapentin 600 mg PO HS 05/19/19 08/19/20 History lisinopril 20 mg PO DAILY 05/19/19 08/19/20 History sertraline 150 mg PO DAILY 05/19/19 08/19/20 History furosemide 40 mg tablet 40 mg PO QAM 01/28/20 08/19/20 History Flovent HFA 2 puff INHALATION DAILY 05/25/20 08/19/20 History Linzess 290 mcg PO DAILY 05/25/20 08/19/20 History albuterol sulfate 2 puff INHALATION DAILY 05/25/20 08/19/20 History aripiprazole 10 mg PO DAILY 05/25/20 08/19/20 History buspirone 10 mg PO TID 05/25/20 08/19/20 History levothyroxine [Euthyrox] 50 mcg PO DAILY 06/03/20 08/19/20 History omeprazole 40 mg PO DAILY 06/03/20 08/19/20 History paliperidone palmitate [Invega 234 mg IM Q30D 06/03/20 08/19/20 History Sustenna] ondansetron HCl 4 mg tablet 4 mg PO Q8H PRN #90 tablet 08/19/20 08/19/20 Rx rifaximin 550 mg tablet 550 mg PO TID 14 Days #42 tablet 08/19/20 08/19/20 Rx Allergies Allergy/AdvReac Type Severity Reaction Status Date / Time chlorpromazine Allergy Itching Verified 08/19/20 09:48 [From Thorazine] latex Allergy Hives Verified 08/19/20 09:48 quetiapine [From Seroquel] Allergy Chahal
[2020-09-01] MEDS: clonazePAM (*CRX) 0.5 MG TABLET 1 MG PO ×2 (15:09→21:29)
--- NOTE | 2020-09-01 16:43 | WPDGICN ---
Assessment and Plan Assessment and plan (1) Enteritis: Code(s): K52.9 - Noninfective gastroenteritis and colitis, unspecified Status: Acute Assessment and Plan: Enteritis suggested by CT scan. Mainly because of presence of fluid within the small bowel. Patient currently denies diarrhea. She states her constipation does well with current dose of Linzess. Would recommend treating conservatively. I understand antibiotics were ordered in the emergency room. Perhaps cultures would be prudent should she develop any diarrhea. Supportive care initially is advised. Will not change her ongoing medications at this point. (2) Schizoaffective disorder: Code(s): F25.9 - Schizoaffective disorder, unspecified Status: Acute (3) Morbid obesity: Code(s): E66.01 - Morbid (severe) obesity due to excess calories Status: Acute (4) GERD (gastroesophageal reflux disease): Qualifiers: Esophagitis presence: esophagitis presence not specified Qualified Code(s): K21.9 - Gastro-esophageal reflux disease without esophagitis Code(s): K21.9 - Gastro-esophageal reflux disease without esophagitis Status: Acute Assessment and Plan: Patient previously has been felt to have acid reflux. Her EGD in May was described as essentially unremarkable. Patient currently on PPI therapy would continue this empirically at present. (5) Abdominal pain: Code(s): R10.9 - Unspecified abdominal pain Status: Acute Assessment and Plan: Patient now complains of right lower quadrant pain period is uncertain what is causing this pain. It may be related to the enteritis . It may also be related to irritable bowel syndrome. Patient has been on Xifaxan empirically for IBS. plan is to continue observed patient initially. Gallstone was identified on initial CT scan. HIDA scan may be of some benefit to exclude this is contributing to her pain. (6) Cholelithiasis: Code(s): K80.20 - Calculus of gallbladder without cholecystitis without obstruction Status: Acute Assessment and Plan: Will obtain HIDA scan to exclude cholecystitis contributing to her current pain. Gallbladder itself did not appear distended on CT scan however GI Consult Note Consult date/time: 09/01/20 16:43 HPI: Dash Crane is a 40 year old female Seen in evaluation at in the absence of Dr. Ravi Clark. patient has a history of constipation, bipolar illness. She has been followed by Dr. Gill for irritable bowel syndrome. Patient in usual state of health till early in the middle of the night patient developed right lower quadrant sharp stabbing type pain. Patient presented to the emergency room. A CT scan was performed. This revealed fluid in the small bowel suggesting possible enteritis period patient also had a gallstone in and not distended gallbladder. Patient has been on various therapies for irritable bowel syndrome. She is on PPI therapy for GE reflux. Currently denies heartburn. She does complain of chronic constipation. But states this is improved on taking Linzess daily. She does occasionally have some nausea associated with burps. She states the burps have sulfur type smell. Recently patient has been on Xifaxan and Zofran for irritable bowel syndrome and nausea. At the last office visit a gastric emptying scan was anticipated but not yet accomplished. EGD 3 months ago was unremarkable. Patient now admitted because of complaints of pain. Review of Systems Review of Systems: All systems reviewed & are unremarkable except as noted in HPI and below PMFSH Past Medical History Medical History Asthma, mild intermittent Bipolar affect, depressed Bloating Chronic respiratory failure Constipation DVT (deep venous thrombosis) GERD (gastroesophageal reflux disease) Hypertension Nausea Non-cardiac chest pain IRMA on CPAP
[2020-09-01] MEDS: busPIRone HCL 5 MG TABLET 15 MG PO (17:22)
[2020-09-01] MEDS: GABAPENTIN 300 MG CAPSULE 600 MG PO (21:29)
[2020-09-02 06:00] VITALS: BP 117/63; PULSE 58; RESP 18; TEMP 36.8; O2SAT 95
[2020-09-02] MEDS: metroNIDAZOLE 500 MG/ISO 100ML 500 MG/100 ML BAG 100 MG IVPB ×3 (06:18→21:27)
[2020-09-02] MEDS: LEVOTHYROXINE SODIUM 50 MCG TABLET PO (06:20)
[2020-09-02] MEDS: clonazePAM (*CRX) 0.5 MG TABLET 1 MG PO ×3 (06:22→21:28)
[2020-09-02] MEDS: FLUTICASONE PROP 44 MCG (*SP) 10.6 GM 2 PUFF INHALATION (07:45)
[2020-09-02 07:48] VITALS: O2SAT 92
[2020-09-02] MEDS: PANTOPRAZOLE 40 MG TABLET PO (09:39)
[2020-09-02] MEDS: lisinopriL 20 MG TABLET PO (09:39)
[2020-09-02] MEDS: busPIRone HCL 5 MG TABLET 15 MG PO ×3 (09:39→17:34)
[2020-09-02] MEDS: ARIPiprazole 10 MG TABLET PO (09:39)
[2020-09-02] MEDS: SERTRALINE HCL 50 MG TABLET 150 MG PO (09:39)
[2020-09-02] MEDS: FUROSEMIDE 40 MG TABLET PO (09:39)
[2020-09-02] MEDS: HYDROmorphone HCL INJ (*CRX) 1 MG/ML SYR 0.5 MG IV PUSH ×4 (09:40→22:29)
--- NOTE | 2020-09-02 10:22 | PM.IMPN ---
Progress Note: A&P Assessment and Plan (1) Enteritis: Code(s): K52.9 - Noninfective gastroenteritis and colitis, unspecified Status: Acute Assessment and Plan: Antibiotics were started in the emergency department Pain control Nausea controlled GI recommended HIDA scan Monitor electrolytes keep patient hydrated well (2) Schizoaffective disorder: Code(s): F25.9 - Schizoaffective disorder, unspecified Status: Acute Assessment and Plan: Stable clinically at this time Resume home medications (3) Hypertension: Qualifiers: Hypertension type: essential hypertension Qualified Code(s): I10 - Essential (primary) hypertension Code(s): I10 - Essential (primary) hypertension Status: Acute Assessment and Plan: Pain control Monitor vital signs Resume home medications Subjective Date/time seen: 09/02/20 10:22 Interval history: Resting comfortably, abdominal discomfort is much better, no nausea or vomiting, no diarrhea. HIDA scan was ordered by GI, could not be done today, plan to be done tomorrow. Exam Const: General: cooperative and no acute distress HENMT: Head: normal to inspection Eyes: General: appearance normal, both eyes and all related structures Neck: Neck: normal visual inspection Chest: Chest palpation & inspection: normal inspection of the chest Resp: Effort & Inspection: normal respiratory effort Cardio: Jugular venous distension: no JVD Rate: regular rate GI: Inspection: normal to inspection and non-distended Objective Data Vital Signs Vital Signs: Vital Signs - 24 hr 09/01/20 10:30 09/01/20 10:43 09/01/20 10:45 Temperature Pulse Rate 74 68 65 Respiratory Rate 12 16 16 Blood Pressure 137/89 Pulse Oximetry 97 94 98 09/01/20 11:00 09/01/20 11:01 09/01/20 11:25 Temperature Pulse Rate 60 62 53 L Respiratory Rate 13 16 19 Blood Pressure 131/70 Pulse Oximetry 98 97 98 09/01/20 14:00 09/01/20 22:00 09/01/20 23:10 Temperature 98.2 F 98.6 F Pulse Rate 55 L 65 Respiratory Rate 18 16 Blood Pressure 119/68 106/59 L Pulse Oximetry 95 94 93 09/02/20 06:00 09/02/20 07:48 Temperature 98.3 F Pulse Rate 58 L Respiratory Rate 18 Blood Pressure 117/63 Pulse Oximetry 95 92 Intake/Output Intake/Output: Intake & Output 08/30/20 08/31/20 09/01/20 09/02/20 23:59 23:59 23:59 23:59 Intake Total 2240 450 Balance 2240 450 Meds/Results Medications: Active Medications Generic Name Dose Route Start Last Admin Trade Name Freq PRN Reason Stop Dose Admin Aripiprazole 10 mg 09/02/20 09:00 09/02/20 09:39 Aripiprazole 10 Mg Tablet PO 10 mg DAILY RAFA Administration Buspirone HCl 15 mg 09/01/20 17:00 09/02/20 09:39 Buspirone Hcl 5 Mg Tablet PO 15 mg TID RAFA Administration Clonazepam 1 mg 09/01/20 14:00 09/02/20 06:22 Clonazepam (*Crx) 0.5 Mg Tablet PO 1 mg Q8HR RAFA Administration Fluticasone Propionate 2 puff 09/02/20 08:00 09/02/20 07:45 Fluticasone Prop 44 Mcg (*Sp) 10.6 Gm INHALATION 2 puff DAILY@0800 RAFA Administration Furosemide 40 mg 09/02/20 09:00 09/02/20 09:39 Furosemide 40 Mg Tablet PO 40 mg QAM RAFA Administration Gabapentin 600 mg 09/01/20 21:00 09/01/20 21:29 Gabapentin 300 Mg Capsule PO 600 mg HS RAFA Administration Hydromorphone HCl 0.5 mg 09/01/20 10:53 09/02/20 09:40 Hydromorphone Hcl Inj (*Crx) 1 Mg/Ml Syr IV PUSH 0.5 mg Q4H PRN Administration Pain Rated 7-10 Acetaminophen 1,000 mg in 100 mls @ 400 mls/hr 09/01/20 10:53 Ofirmev 1,000 Mg Ivpb IVPB 09/02/20 10:54 Q6H PRN Mild Pain (1-3) or Fever Metronidazole 500 mg in 100 mls @ 100 mls/hr 09/01/20 22:00 09/02/20 07:20 Flagyl 500 Mg/Iso Soln 100 Ml IVPB Infused Q8HR RAFA Infusion Levothyroxine Sodium 50 mcg 09/02/20 06:30 09/02/20 06:20 Levothyroxine Sodium 50 Mcg Tablet PO 50 mcg DAILY@0630 [facility] Administrati
--- NOTE | 2020-09-02 10:44 | WPDGIPROGNO ---
Progress Note: A&P Assessment and Plan (1) Cholelithiasis: Code(s): K80.20 - Calculus of gallbladder without cholecystitis without obstruction Status: Acute Assessment and Plan: Gallstone was identified on CT scan. Gallbladder wall appeared normal size. HIDA scan ordered and still pending in an attempt to exclude cholecystitis contributing to her pain. Will advance diet in the interim. (2) Abdominal pain: Code(s): R10.9 - Unspecified abdominal pain Status: Acute Assessment and Plan: Patient continues to have right-sided abdominal pain. This appears to be chronic. Irritable bowel syndrome suspected. However because of finding of gallstone HIDA scan will be planned. (3) Schizoaffective disorder: Code(s): F25.9 - Schizoaffective disorder, unspecified Status: Acute (4) Enteritis: Code(s): K52.9 - Noninfective gastroenteritis and colitis, unspecified Status: Acute Assessment and Plan: Enteritis suggested by CT scan. Primarily fluid in the small bowel was described. Patient denies any diarrhea. This may be a spurious finding. Plan is to advance diet as tolerated. Empiric antibiotics started in the ER could be discontinued if necessary. Alternatively completing them on a 7 day course is not unrealistic. (5) Morbid obesity: Code(s): E66.01 - Morbid (severe) obesity due to excess calories Status: Acute Subjective Date/time seen: 09/02/20 10:44 I making rounds for Dr. Gill today. Patient reports ongoing right-sided abdominal discomfort. She denies any nausea. Has had no recent vomiting period is anxious to try to eat. HIDA scan was unable to be performed today because of lack of certain materials. Plan for this to be done tomorrow. Review of Systems Review of Systems: All systems reviewed & are unremarkable except as noted in HPI and below Exam Narrative: Exam Narrative: Physical exam reveals patient to be in bed. Very soft spoken HEENT exam reveals no icterus. Lungs are clear. Heart without murmur. Abdomen is obese soft mild right-sided tenderness. No masses appreciated. No specific localized findings. Objective Data Vital Signs Vital Signs: Vital Signs - 24 hr 09/01/20 10:45 09/01/20 11:00 09/01/20 11:01 Temperature Pulse Rate 65 60 62 Respiratory Rate 16 13 16 Blood Pressure 131/70 Pulse Oximetry 98 98 97 09/01/20 11:25 09/01/20 14:00 09/01/20 22:00 Temperature 98.2 F 98.6 F Pulse Rate 53 L 55 L 65 Respiratory Rate 19 18 16 Blood Pressure 119/68 106/59 L Pulse Oximetry 98 95 94 09/01/20 23:10 09/02/20 06:00 09/02/20 07:48 Temperature 98.3 F Pulse Rate 58 L Respiratory Rate 18 Blood Pressure 117/63 Pulse Oximetry 93 95 92 Intake/Output Intake/Output: Intake & Output 08/30/20 08/31/20 09/01/20 09/02/20 23:59 23:59 23:59 23:59 Intake Total 2240 450 Balance 2240 450 Meds/Results Medications: Active Medications Generic Name Dose Route Start Last Admin Trade Name Evaristoq PRN Reason Stop Dose Admin Aripiprazole 10 mg 09/02/20 09:00 09/02/20 09:39 Aripiprazole 10 Mg Tablet PO 10 mg DAILY RAFA Administration Buspirone HCl 15 mg 09/01/20 17:00 09/02/20 09:39 Buspirone Hcl 5 Mg Tablet PO 15 mg TID RAFA Administration Clonazepam 1 mg 09/01/20 14:00 09/02/20 06:22 Clonazepam (*Crx) 0.5 Mg Tablet PO 1 mg Q8HR RAFA Administration Fluticasone Propionate 2 puff 09/02/20 08:00 09/02/20 07:45 Fluticasone Prop 44 Mcg (*Sp) 10.6 Gm INHALATION 2 puff DAILY@0800 RAFA Administration Furosemide 40 mg 09/02/20 09:00 09/02/20 09:39 Furosemide 40 Mg Tablet PO 40 mg QAM RAFA Administration Gabapentin 600 mg 09/01/20 21:00 09/01/20 21:29 Gabapentin 300 Mg Capsule PO 600 mg HS RAFA Administration Hydromorphone HCl 0.5 mg 09/01/20 10:53 09/02/20 09:40 Hydromorphone Hcl Inj (*Crx) 1 Mg/Ml Syr IV PUSH 0.5 mg Q
[2020-09-02] MEDS: ONDANSETRON HCL ODT 4 MG TABLET PO (12:25)
[2020-09-02 14:00] VITALS: BP 118/62; PULSE 64; RESP 18; TEMP 36.1; O2SAT 93
[2020-09-02 15:38] LABS: Amphetamine Screen Urine Negative (Negative); Barbiturate Screen Urine Negative (Negative); Benzodiazepines Screen Urine Negative (Negative); Cannabinoid Screen Urine Positive (Negative); Cocaine Screen Urine Negative (Negative); Methadone Screen Urine Negative (Negative); Opiate Screen Urine Positive (Negative); Phencyclidine Screen Urine Negative (Negative)
[2020-09-02 20:00] VITALS: PULSE 58; RESP 20; O2SAT 95
[2020-09-02] MEDS: GABAPENTIN 300 MG CAPSULE 600 MG PO (21:28)
[2020-09-02 22:00] VITALS: BP 120/78; PULSE 58; RESP 20; TEMP 36.6; O2SAT 95
[2020-09-02 23:20] VITALS: PULSE 74; RESP 20; O2SAT 95
[2020-09-03] MEDS: HYDROmorphone HCL INJ (*CRX) 1 MG/ML SYR 0.5 MG IV PUSH ×3 (02:36→14:03)
[2020-09-03 05:35] VITALS: BP 150/70; PULSE 71; RESP 20; TEMP 36.4; O2SAT 96
[2020-09-03] MEDS: metroNIDAZOLE 500 MG/ISO 100ML 500 MG/100 ML BAG 100 MG IVPB ×2 (06:20→14:33)
[2020-09-03] MEDS: LEVOTHYROXINE SODIUM 50 MCG TABLET PO (06:20)
[2020-09-03] MEDS: clonazePAM (*CRX) 0.5 MG TABLET 1 MG PO ×2 (06:34→14:03)
[2020-09-03 06:47] LABS: Basophils Percent Auto 0.6 % (0.2-1.2); Eosinophils Absolute Auto 0.4 K/mm3 (0-0.3); Eosinophils Percent Auto 5.8 % (0-4.4); Hematocrit 34.5 % (37.0-47.0); Hemoglobin 11.2 g/dL (12.0-15.0); Immature Granulocyte Absolute 0.01 K/mm3 (0.00-0.031); Immature Granulocyte Percent A 0.2 % (0-0.5); Lymphocytes Absolute Auto 2.54 K/mm3 (0.9-3.2); Lymphocytes Percent Auto 38.7 % (18.3-44.2); Mean Corpuscular HGB Conc 32.5 g/dl (32-36); Mean Corpuscular Hemoglobin 30.2 pg (26-34); Mean Platelet Volume 9.8 fl (7.4-10.4); Monocytes Absolute Auto 0.5 K/mm3 (0.1-0.6); Monocytes Percent Auto 6.8 % (2.6-8.5); Neutrophils Absolute Auto 3.2 K/mm3 (1.3-6.7); Neutrophils Percent Auto 47.9 % (45.5-73.1); Platelet Count Result 192 k/mm3 (150-375); Red Blood Count 3.71 M/mm3 (4.2-5.4); Red Cell Distribution Width 15.7 % (11.5-14.5); White Blood Count 6.6 K/mm3 (4.5-10.0)
[2020-09-03 07:04] LABS: Anion Gap 6 mmol/L (8-16); Blood Urea Nitrogen 8 mg/dL (7-17); Calcium 8.5 mg/dL (8.4-10.2); Carbon Dioxide 31 mmol/L (22-30); Chloride 103 mmol/L (98-107); Estimated CRCL calculation 95 ml/min; Estimated Glomerular Filt Rate > 60; Glucose 95 mg/dL (65-105); Magnesium 1.8 mg/dL (1.6-2.3); Phosphorus 3.5 mg/dL (2.5-4.5); Potassium 3.8 mmol/L (3.4-5.0); Sodium 140 mmol/L (137-145)
--- NOTE | 2020-09-03 08:00 | WPDGIPROGNO ---
Progress Note: A&P Assessment and Plan (1) Cholelithiasis: Code(s): K80.20 - Calculus of gallbladder without cholecystitis without obstruction Status: Acute Assessment and Plan: Gallstone identified by CT scan. HIDA scan pending to exclude cholecystitis. If HIDA scan unremarkable then discharge on low-fat diet advised. (2) Abdominal pain: Code(s): R10.9 - Unspecified abdominal pain Status: Acute Assessment and Plan: Abdominal pain is chronic. Followed by Dr. Gill. Anticipate follow-up electively in his clinic. After discharge. (3) Schizoaffective disorder: Code(s): F25.9 - Schizoaffective disorder, unspecified Status: Acute (4) Enteritis: Code(s): K52.9 - Noninfective gastroenteritis and colitis, unspecified Status: Acute Assessment and Plan: Antritis suggested by initial CT scan. However no clinical findings. I suspect this was a spurious finding I would discontinue antibiotics if others agree. Stool cultures only if diarrhea develops she has not noticed any at this point. (5) Bipolar affect, depressed: Code(s): F31.30 - Bipolar disorder, current episode depressed, mild or moderate severity, unspecified Status: Acute (6) Morbid obesity: Code(s): E66.01 - Morbid (severe) obesity due to excess calories Status: Acute Assessment and Plan: Patient should watch her calories weight loss encouraged. Increase activity. Subjective Date/time seen: 09/03/20 08:00 patient comfortable this morning. Tolerating diet. She still notes some right-sided abdominal discomfort states this is chronic and has been present for quite some time. anxious to go home. Review of Systems Review of Systems: All systems reviewed & are unremarkable except as noted in HPI and below Exam Narrative: Exam Narrative: Physical exam reveals patient be alert. HEENT exam unremarkable she is anicteric. Lungs are clear. Heart without murmur. Abdomen obese soft no organomegaly evident she reports some tenderness in the right abdomen. Objective Data Vital Signs Vital Signs: Vital Signs - 24 hr 09/02/20 14:00 09/02/20 20:00 09/02/20 22:00 Temperature 96.9 F L 97.9 F Pulse Rate 64 58 L 58 L Respiratory Rate 18 20 20 Blood Pressure 118/62 120/78 Pulse Oximetry 93 95 95 09/02/20 23:20 09/03/20 05:35 Temperature 97.6 F Pulse Rate 74 71 Respiratory Rate 20 20 Blood Pressure 150/70 H Pulse Oximetry 95 96 Intake/Output Intake/Output: Intake & Output 08/31/20 09/01/20 09/02/20 09/03/20 23:59 23:59 23:59 23:59 Intake Total 2240 2350 Output Total 400 Balance 2240 1950 Meds/Results Medications: Active Medications Generic Name Dose Route Start Last Admin Trade Name Freq PRN Reason Stop Dose Admin Aripiprazole 10 mg 09/02/20 09:00 09/02/20 09:39 Aripiprazole 10 Mg Tablet PO 10 mg DAILY RAFA Administration Buspirone HCl 15 mg 09/01/20 17:00 09/02/20 17:34 Buspirone Hcl 5 Mg Tablet PO 15 mg TID RAFA Administration Clonazepam 1 mg 09/01/20 14:00 09/03/20 06:34 Clonazepam (*Crx) 0.5 Mg Tablet PO 1 mg Q8HR RAFA Administration Fluticasone Propionate 2 puff 09/02/20 08:00 09/02/20 07:45 Fluticasone Prop 44 Mcg (*Sp) 10.6 Gm INHALATION 2 puff DAILY@0800 RAFA Administration Furosemide 40 mg 09/02/20 09:00 09/02/20 09:39 Furosemide 40 Mg Tablet PO 40 mg QAM RAFA Administration Gabapentin 600 mg 09/01/20 21:00 09/02/20 21:28 Gabapentin 300 Mg Capsule PO 600 mg HS RAFA Administration Hydromorphone HCl 0.5 mg 09/01/20 10:53 09/03/20 06:29 Hydromorphone Hcl Inj (*Crx) 1 Mg/Ml Syr IV PUSH 0.5 mg Q4H PRN Administration Pain Rated 7-10 Metronidazole 500 mg in 100 mls @ 100 mls/hr 09/01/20 22:00 09/03/20 06:20 Flagyl 500 Mg/Iso Soln 100 Ml IVPB 100 mls/hr Q8HR RAFA Administration Levothyroxine Sodium 50 mcg 09/02/20 06:30
[2020-09-03] MEDS: FLUTICASONE PROP 44 MCG (*SP) 10.6 GM 2 PUFF INHALATION (09:21)
[2020-09-03 14:00] VITALS: BP 119/61; PULSE 79; RESP 16; TEMP 36.9; O2SAT 93
[2020-09-03] MEDS: ONDANSETRON HCL ODT 4 MG TABLET PO (14:03)
[2020-09-03] MEDS: PANTOPRAZOLE 40 MG TABLET PO (14:04)
[2020-09-03] MEDS: FUROSEMIDE 40 MG TABLET PO (14:05)
[2020-09-03] MEDS: SERTRALINE HCL 50 MG TABLET 150 MG PO (14:05)
[2020-09-03] MEDS: busPIRone HCL 5 MG TABLET 15 MG PO ×2 (14:06→17:29)
[2020-09-03] MEDS: ARIPiprazole 10 MG TABLET PO (14:06)
--- NOTE | 2020-09-03 15:05 | PM.DS ---
DS: Admitting Diagnosis Admitting Diagnosis Admitting Diagnosis: Abdominal pain Enteritis DS: Discharge Diagnosis Discharge Diagnosis (1) Enteritis: Code(s): K52.9 - Noninfective gastroenteritis and colitis, unspecified Status: Acute (2) Abdominal pain: Code(s): R10.9 - Unspecified abdominal pain Status: Acute (3) Cannabinoid hyperemesis syndrome: Code(s): R11.2 - Nausea with vomiting, unspecified; F12.90 - Cannabis use, unspecified, uncomplicated Status: Acute DS: Summary Hospital Course Reason for hospitalization: Abdominal pain Hospital Course: Patient presented with abdominal pain, CT scan revealed enteritis, labs were unremarkable, patient was admitted for symptoms control, GI were consulted, they recommended HIDA scan that came unremarkable, urine drug screen was positive for marijuana, patient condition improved during this hospitalization and she tolerated regular diet, plan to discharge patient home and follow-up with GI as an outpatient. Patient is stable condition and agreeable with the plan of discharge. Time Spent with Patient Time attestation: Total time spent providing and/or coordinating discharge services: Time spent: Greater than 30 minutes DS: Data Data Completed and Pending Labs on day of discharge: Labs from last 24 hours 09/03/20 09/03/20 09/02/20 06:33 06:33 13:49 WBC 6.6 RBC 3.71 L Hgb 11.2 L Hct 34.5 L MCV 93.0 MCH 30.2 MCHC 32.5 RDW 15.7 H Plt Count 192 MPV 9.8 Immature Gran % (Auto) 0.2 Neut % (Auto) 47.9 Lymph % (Auto) 38.7 Desha % (Auto) 6.8 Eos % (Auto) 5.8 H Baso % (Auto) 0.6 Lymph # (Auto) 2.54 Desha # (Auto) 0.5 Eos # (Auto) 0.4 H Baso # (Auto) 0.0 Abs Immat Gran (auto) 0.01 Absolute Neuts (auto) 3.2 Absolute Nucleated RBC 0.0 Nucleated RBC % 0.0 Sodium 140 Potassium 3.8 Chloride 103 Carbon Dioxide 31 H Anion Gap 6 L BUN 8 Creatinine 0.80 Estim Creat Clear Calc 95 Estimated GFR > 60 Glucose 95 Calcium 8.5 Phosphorus 3.5 Magnesium 1.8 Urine Opiates Screen Positive A Urine Methadone Screen Negative Ur Barbiturates Screen Negative Ur Phencyclidine Scrn Negative Ur Amphetamine Screen Negative U Benzodiazepines Scrn Negative Urine Cocaine Screen Negative U Cannabinoids Screen Positive A Discharge Plan Discharge Consulting providers: Zeeshan Diaz Discharging Clinician: Lee Kenney Patient Disposition: Home, Self-Care Activity: as tolerated Diet: regular Patient Instructions: Antibiotic Form, Heart Failure (DC), How to Stop Smoking (DC) Stand Alone Forms: General Discharge Information Follow-up/Referrals: Tomasz Nicole MD [Physician] - 1 Week Discharge Medications: Continued ondansetron HCl [Zofran] 4 mg tablet 4 mg PO Q8H PRN (Reason: nausea and vomiting) Qty: 90 RF: 5 furosemide 40 mg tablet 40 mg PO QAM RF: 0 gabapentin 600 mg tablet 600 mg PO HS RF: 0 clonazepam 1 mg tablet 1 mg PO TID RF: 0 sertraline 100 mg tablet 150 mg PO DAILY RF: 0 lisinopril 40 mg tablet 20 mg PO DAILY RF: 0 buspirone 10 mg tablet 15 mg PO TID RF: 0 Flovent HFA 44 mcg/actuation HFA aerosol inhaler 2 puff INHALATION DAILY RF: 0 albuterol sulfate 90 mcg/actuation HFA aerosol inhaler 2 puff INHALATION DAILY RF: 0 aripiprazole 10 mg tablet 10 mg PO DAILY RF: 0 Linzess 290 mcg Capsule 290 mcg PO DAILY RF: 0 omeprazole 40 mg Capsule,Delayed Release(Dr/Ec) 40 mg PO DAILY RF: 0 levothyroxine [Euthyrox] 50 mcg Tablet 50 mcg PO DAILY RF: 0 Invega Sustenna 234 mg/1.5 mL Syringe 234 mg IM Q30D RF: 0 Date of admission: 09/01/20 10:54 Primary Care Provider: Rony,Cm Admitting Provider: Lee Kenney Attending physician on admission: Lee Kenney Condition: Stable Quality VTE Prophylaxis
[2020-09-03] MEDS: ACETAMINOPHEN 325 MG TABLET 650 MG PO (17:28)
[2020-09-03] MEDS: lisinopriL 20 MG TABLET PO (17:28)
== END 2020-09-03 18:05 | disposition home or self-care (01) ==
LOC: ANHED 11:04 → ANH3MEDSUR 12:47
PROVIDERS: Admitting Provider Emergency Medicine; Emergency Provider Emergency Medicine; PCP Nurse Practitioner Family; Visit Provider Emergency Medicine
DX: K52.9 Noninfective gastroenteritis and colitis, unspecified (principal); K80.20 Calculus of gallbladder without cholecystitis without obstruction; R10.31 Right lower quadrant pain; I10 Essential (primary) hypertension; E03.9 Hypothyroidism, unspecified; F17.210 Nicotine dependence, cigarettes, uncomplicated; E66.01 Morbid (severe) obesity due to excess calories; K21.9 Gastro-esophageal reflux disease without esophagitis; Z86.718 Personal history of other venous thrombosis and embolism; Z68.41 Body mass index [BMI] 40.0-44.9, adult
CPT/HCPCS: 36415; 74177; 78226; 80048; 80053; 80307; 81003; 81025; 83690; 83735; 84100; 85025; 94003; 94640; 96361; 96365; 96366; 96375; 96376; 99285; A9270; A9537; G0378; G0379; J1170; J1956; J2405; J7030; Q9967

== ENCOUNTER 2020-09-03 21:14 | Inpatient (IN) | payer BC, OTHER, SELFPAY ==
--- NOTE | ~2020-09-03 | NM_ITS ---
EXAM: NM gastric emptying study DATE: 09/07/2020 16:00 INDICATION: Abdominal pain. Nausea. TECHNIQUE: A gastric emptying study was performed using the methodology of Radha REED, et al. J Nucl Med 2007; 48:568-572. The patient was given a meal consisting of 2 scrambled eggs labeled with 1 mCi Tc-99m sulfur colloid, 2 slices of toast, two packages of jam, and approximately 120 mL of water. Si multaneous anterior and posterior 1-min images of the abdomen were obtained with the patient supine a t multiple time points over a total period of 4 hours. The geometric mean of anterior and posterior v iews was determined, and the percentage retention was calculated for each time point. COMPARISON: CT abdomen and pelvis 09/03/2020 FINDINGS: Gastric retention of the radiotracer-labeled meal was 45%, 30%, and 10% at the 1-hour, 2-h our, and 4-hour time points, respectively. With this technique, apparent rapid gastric emptying is cummings ggested by <30% gastric retention at 1 hour. Delayed gastric emptying is defined by gastric retention of >90% at 1 hour, >60% retention at 2 hours, or >10% retention at 4 hours. IMPRESSION: 1. Normal gastric emptying. Reviewed, dictated and finalized at location A. IMPRESSION: 1. Normal gastric emptying.
--- NOTE | ~2020-09-03 | CT_ITS ---
EXAMINATION: CT abdomen pelvis w con DATE: 09/04/2020 00:08 INDICATION: Right lower quadrant pain TECHNIQUE: Computed tomography (CT) of the abdomen and pelvis was performed with 100 cc Omnipaque 350 intravenous contrast. The dose-length product was 1349.69 mGy-cm. Automated exposure control and ite rative reconstruction technique were employed. COMPARISON: CT dated 09/01/2020. FINDINGS: Heart size is normal. Left lower lobe atelectasis. No significant pleural or pericardial ef fusion. There is a probable gallstone. The liver, spleen, pancreas, adrenal gland and kidneys are unr emarkable. The appendix is mildly prominent proximally measuring 11 mm. No significant periappendicea l fatty infiltration. There are scattered distended fluid-filled loops of small bowel with fluid in t he ascending colon and transverse colon, suspicious for enteric colitis. No high-grade obstruction. N o evidence for perforation. No free air or free fluid fluid. No abnormal pelvic masses or fluid colle ctions. Bladder is decompressed. IMPRESSION: 1. Mildly prominent appendix measuring up to 11 mm proximally without significant periappendiceal inf iltration. This most likely represents normal variant, although appendicitis cannot be excluded in th e appropriate clinical setting. 2: Probable cholelithiasis. No secondary findings to suggest cholecystitis. 3: Fluid-filled small bowel and colon, suspicious for enterocolitis. Reviewed, dictated and finalized at location A. IMPRESSION: 1. Mildly prominent appendix measuring up to 11 mm proximally without significa nt periappendiceal infiltration. This most likely represents normal variant, al though appendicitis cannot be excluded in the appropriate clinical setting. 2: Probable cholelithiasis. No secondary findings to suggest cholecystitis. 3: Fluid-filled small bowel and colon, suspicious for enterocolitis.
[2020-09-03 21:17] VITALS: BP 128/82; PULSE 115; RESP 18; TEMP 36.3; O2SAT 97
[2020-09-03 21:27] VITALS: BP 120/97; PULSE 116
[2020-09-03 21:44] LABS: Basophils Percent Auto 0.6 % (0.2-1.2); Eosinophils Absolute Auto 0.3 K/mm3 (0-0.3); Eosinophils Percent Auto 4.1 % (0-4.4); Hematocrit 39.5 % (37.0-47.0); Hemoglobin 12.5 g/dL (12.0-15.0); Immature Granulocyte Absolute 0.02 K/mm3 (0.00-0.031); Immature Granulocyte Percent A 0.3 % (0-0.5); Lymphocytes Absolute Auto 1.97 K/mm3 (0.9-3.2); Lymphocytes Percent Auto 28.6 % (18.3-44.2); Mean Corpuscular HGB Conc 31.6 g/dl (32-36); Mean Corpuscular Hemoglobin 29.8 pg (26-34); Mean Corpuscular Volume 94.3 fl (80-100); Mean Platelet Volume 9.6 fl (7.4-10.4); Monocytes Absolute Auto 0.4 K/mm3 (0.1-0.6); Monocytes Percent Auto 6.4 % (2.6-8.5); Neutrophils Absolute Auto 4.1 K/mm3 (1.3-6.7); Platelet Count Result 196 k/mm3 (150-375); Red Blood Count 4.19 M/mm3 (4.2-5.4); Red Cell Distribution Width 15.7 % (11.5-14.5); White Blood Count 6.9 K/mm3 (4.5-10.0)
[2020-09-03 21:58] LABS: Add Urine Microscopic? YES; Appearance Urine Clear (Clear); Bilirubin Urine Negative (Negative); Blood Urine Negative (Negative); Color Urine Yellow (Yellow); Glucose Urine UA Negative (Negative); Ketones Urine Negative (Negative); Leukocyte Esterase Ur Trace LEU/UL (Negative); Nitrate Urine Negative (Negative); Protein Urine Negative (Negative); RBC Urine 0-2 /hpf (0-2); Squamous Epithelial Cell Urine Few /hpf (Few); Urobilinogen Urine Negative mg/dL (<2.0); WBC Urine 0-3 /hpf
[2020-09-03 22:03] VITALS: BP 108/71; PULSE 100
[2020-09-03 22:06] VITALS: BP 123/77; PULSE 133
[2020-09-03 22:13] LABS: Alanine Aminotransferase 15 U/L (4-35); Albumin Level 4.2 g/dL (3.5-5.1); Alkaline Phosphatase 86 U/L (38-126); Anion Gap 8 mmol/L (8-16); Aspartate Amino Transferase 26 U/L (14-36); Bilirubin,Total 0.2 mg/dL (0.2-1.3); Blood Urea Nitrogen 10 mg/dL (7-17); Calcium 9.3 mg/dL (8.4-10.2); Carbon Dioxide 31 mmol/L (22-30); Chloride 101 mmol/L (98-107); Estimated Glomerular Filt Rate > 60; Glucose 124 mg/dL (65-105); Lipase 73 U/L (23-300); Potassium 3.7 mmol/L (3.4-5.0); Sodium 140 mmol/L (137-145)
--- NOTE | 2020-09-03 22:23 | ED.ABDPAIN ---
HPI - Abdominal Pain General Chief Complaint: Abdominal Pain Stated Complaint: abd pain, headache Time Seen by Provider: 09/03/20 22:08 History of Present Illness HPI narrative: 40 yo female w/ h/o IBS, HTn, hypothyroidism presents to the ED for abdominal pain. She reports that she has had continuous abdominal pain, nausea, vomiting, and diarrhea for several days. SHe is on multiple medications for these symptoms, which she says are not helping. She was recently in the hospital for these same symptoms. She was discharged yesterday and denies any improvement in her symptoms over that time. Related Data Home Medications Medication Instructions Recorded Confirmed clonazepam 1 mg PO TID 05/19/19 09/01/20 gabapentin 600 mg PO HS 05/19/19 09/01/20 lisinopril 20 mg PO DAILY 05/19/19 09/01/20 sertraline 150 mg PO DAILY 05/19/19 09/01/20 furosemide 40 mg tablet 40 mg PO QAM 01/28/20 09/01/20 Flovent HFA 2 puff INHALATION DAILY 05/25/20 09/01/20 Linzess 290 mcg PO DAILY 05/25/20 09/01/20 albuterol sulfate 2 puff INHALATION DAILY 05/25/20 09/01/20 aripiprazole 10 mg PO DAILY 05/25/20 09/01/20 buspirone 15 mg PO TID 05/25/20 09/01/20 Invega Sustenna 234 mg IM Q30D 06/03/20 09/01/20 levothyroxine [Euthyrox] 50 mcg PO DAILY 06/03/20 09/01/20 omeprazole 40 mg PO DAILY 06/03/20 09/01/20 Allergies Allergy/AdvReac Type Severity Reaction Status Date / Time chlorpromazine Allergy Itching Verified 08/19/20 09:48 [From Thorazine] latex Allergy Hives Verified 08/19/20 09:48 quetiapine [From Seroquel] Allergy Hallucinati Verified 08/19/20 09:48 ng Review of Systems Review of Systems: All systems reviewed & are unremarkable except as noted in HPI and below Constitutional: Constitutional: Denies fever(s) and Reports weakness ENT: Reports dizziness Cardiovascular: Cardiovascular: Denies chest pain Respiratory: Respiratory: Denies dyspnea Gastrointestinal: Gastrointestinal: Reports abdominal pain, Reports bloating, Reports diarrhea, Reports nausea and Reports vomiting Genitourinary: Genitourinary: Reports no additional female genitourinary complaints Neurologic: Reports system reviewed and no additional complaints, except as documented PMFSH Past Medical History Medical History Asthma, mild intermittent Bipolar affect, depressed Bloating Chronic respiratory failure Constipation DVT (deep venous thrombosis) GERD (gastroesophageal reflux disease) Hypertension Nausea Non-cardiac chest pain IRMA on CPAP Peripartum cardiomyopathy 2006 Small intestinal bacterial overgrowth (SIBO) Tobacco abuse Surgical History Surgical History H/O tubal ligation History of thyroidectomy, subtotal for benign nodule Family History Family History Father Diabetes mellitus Acute myocardial infarction Hypertension Congestive heart failure Rectal cancer Mother No problems noted. 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
[2020-09-03] MEDS: SODIUM CHLORIDE 0.9% IV 1,000 ML 999 ML IV CONT (22:51)
[2020-09-03] MEDS: DICYCLOMINE HCL INJ 20 MG/2 ML VIAL IM (22:52)
[2020-09-03] MEDS: METOCLOPRAMIDE HCL INJ 10 MG/2 ML VIAL IV PUSH (22:52)
[2020-09-03 23:29] VITALS: BP 114/63; PULSE 93; RESP 20; O2SAT 97
[2020-09-04] VITALS (9 sets, daily range): BP systolic 109–132; BP diastolic 74–98; PULSE 64–76; RESP 14–20; TEMP 36.1–36.7; O2SAT 90–98
[2020-09-04] MEDS: fentaNYL CITRATE INJ (*CRX) 100 MCG/2 ML VIAL 50 MCG IV PUSH (00:18)
[2020-09-04] MEDS: ONDANSETRON INJ 4 MG/2 ML VIAL IV PUSH ×2 (02:21→03:56)
--- NOTE | 2020-09-04 03:02 | PM.IMHP ---
H&P: HPI History of Present Illness Date/Time: 09/04/20 03:02 [facility] Past Medical History Medical History Asthma, mild intermittent Bipolar affect, depressed Bloating Chronic respiratory failure Constipation DVT (deep venous thrombosis) GERD (gastroesophageal reflux disease) Hypertension Nausea Non-cardiac chest pain IRMA on CPAP Peripartum cardiomyopathy 2006 Small intestinal bacterial overgrowth (SIBO) Tobacco abuse Surgical History Surgical History H/O tubal ligation History of thyroidectomy, subtotal for benign nodule Family History Family History Father Diabetes mellitus Acute myocardial infarction Hypertension Congestive heart failure Rectal cancer Mother No problems noted. 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 Gender identity (if verbalized by the patient): Female Spiritual care concerns: No Agree to blood products: Yes Meds Home Medications and Allergies Home Medications Medication Instructions Recorded Confirmed Type clonazepam 1 mg PO TID 05/19/19 09/01/20 History gabapentin 600 mg PO HS 05/19/19 09/01/20 History lisinopril 20 mg PO DAILY 05/19/19 09/01/20 History sertraline 150 mg PO DAILY 05/19/19 09/01/20 History furosemide 40 mg tablet 40 mg PO QAM 01/28/20 09/01/20 History Flovent HFA 2 puff INHALATION DAILY 05/25/20 09/01/20 History Linzess 290 mcg PO DAILY 05/25/20 09/01/20 History albuterol sulfate 2 puff INHALATION DAILY 05/25/20 09/01/20 History aripiprazole 10 mg PO DAILY 05/25/20 09/01/20 History buspirone 15 mg PO TID 05/25/20 09/01/20 History Invega Sustenna 234 mg IM Q30D 06/03/20 09/01/20 History levothyroxine [Euthyrox] 50 mcg PO DAILY 06/03/20 09/01/20 History omeprazole 40 mg PO DAILY 06/03/20 09/01/20 History ondansetron HCl 4 mg tablet 4 mg PO Q8H PRN #90 tablet 08/19/20 09/01/20 Rx Allergies Allergy/AdvReac Type Severity Reaction Status Date / Time chlorpromazine Allergy Itching Verified 08/19/20 09:48 [From Thorazine] latex Allergy Hives Verified 08/19/20 09:48 quetiapine [From Seroquel] Allergy Hallucinati Verified 08/19/20 09:48 ng Vital Signs Vital Signs - 24 hr 09/03/20 21:17 09/03/20 21:27 09/03/20 22:03 Temperature 97.4 F L Pulse Rate 115 H 116 H 100 Respiratory Rate 18 Blood Pressure 128/82 120/97 H 108/71 Pulse Oximetry 97 09/03/20 22:06 09/03/20 23:29 09/04/20 00:14 Temperature Pulse Rate 133 H 93 76 Respiratory Rate 20 20 Blood Pressure 123/77 114/63 122/80 Pulse Oximetry 97 96 09/04/20 01:31 09/04/20 02:20 Temperature Pulse Rate 74 71 Respiratory Rate 18 18 Blood Pressure 109/77 132/98 H Pulse Oximetry 95 98 H&P: Results Labs Labs: Short CBC 09/03/20 Range/Units 21:35 WBC 6.9 (4.5-10.0) K/mm3 Hgb 12.5 (12.0-15.0) g/dL Hct 39.5 (37.0-47.0) % Plt Count 196 (150-375) k/mm3 BMP 09/03/20 21:35 Sodium 140 Potassium 3.7 Chloride 101 Carbon Dioxide 31 H BUN 10 Creatinine 0.90 Glucose 124 H Calcium 9.3 Liver Function 09/03/20 Range/Units 21:35 Total Bilirubin 0.2 (0.2-1.3) mg/dL AST 26 (14-36) U/L ALT 15 (4-35) U/L Alkaline Phosphatase 86 (38-126) U/L Albumin 4.2 (3.5-5.1
--- NOTE | 2020-09-04 03:37 | ADMGEN ---
This patient, Dash Crane, was admitted to 2 Medical Room 242-01. Patient/family oriented to hospital policies and general routines including ID bracelet, bed and alarms, visiting hours, pain management, procedures, bathroom and other care routines, personal items, smoking policy, room service/diet, and visiting hours. Information on how to activate the Rapid Response Team has been discussed. Patient/Family are encouraged to report perceived risks to care and to ask questions if they do not understand what they are told or what they should do.
[2020-09-04] MEDS: SODIUM CHLORIDE 0.9% IV 1,000 ML 125 ML IV CONT ×3 (03:53→22:50)
[2020-09-04] MEDS: polyethylene glycoL 3350 238 GM BOTTLE PO (06:11)
--- NOTE | 2020-09-04 09:15 | PM.IMHP ---
H&P: HPI History of Present Illness Date/Time: 09/04/20 09:15 Chief Complaint: Abdominal pain Narrative: Patient with past medical history of bipolar disorder, hypertension, and heart failure during that resolved at this time, presented with abdominal pain, started last week, moderate, intermittent, associated with nausea and vomiting, patient was admitted to the hospital few days ago, GI were consulted, CT scan and labs were unremarkable, HIDA scan was also unremarkable, patient was discharged home, then returned to the hospital with the same complaint, urine drug screen was positive for marijuana, and I advised patient about the importance of avoiding marijuana and any illegal drugs. Plan to start patient on 1 dose of Haldol IM to help with cannabinoid hyperemesis syndrome, and Phenergan. Patient is resting comfortably in bed does not seem in acute distress at this time. Review of Systems Review of Systems: All systems reviewed & are unremarkable except as noted in HPI and below Constitutional: Constitutional: Denies body ache(s) and Denies fatigue Eyes: Eyes: Denies blurry vision ENT: Denies dry mouth Cardiovascular: Cardiovascular: Denies chest pain with activity and Denies dyspnea Respiratory: Respiratory: Denies dyspnea Gastrointestinal: Gastrointestinal: Denies hematochezia and Denies diarrhea Musculoskeletal: Musculoskeletal: Denies deformity Neurologic: Denies seizure-like activity Psychiatric: Psychiatric: Denies homicidal ideation Endocrine: Endocrine: Denies fatigue PMFSH Past Medical History Medical History Asthma, mild intermittent Bipolar affect, depressed Bloating Chronic respiratory failure Constipation DVT (deep venous thrombosis) GERD (gastroesophageal reflux disease) Hypertension Nausea Non-cardiac chest pain IRMA on CPAP Peripartum cardiomyopathy 2006 Small intestinal bacterial overgrowth (SIBO) Tobacco abuse Surgical History Surgical History H/O tubal ligation History of thyroidectomy, subtotal for benign nodule Family History Family History Father Diabetes mellitus Acute myocardial infarction Hypertension Congestive heart failure Rectal cancer Mother No problems noted. 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 Gender identity (if verbalized by the patient): Female Spiritual care concerns: No Agree to blood products: Yes Meds Home Medications and Allergies Home Medications Medication Instructions Recorded Confirmed Type clonazepam 1 mg PO TID 05/19/19 09/04/20 History gabapentin 600 mg PO HS 05/19/19 09/04/20 History lisinopril 20 mg PO DAILY 05/19/19 09/04/20 History sertraline 150 mg PO DAILY 05/19/19 09/04/20 History furosemide 40 mg tablet 40 mg PO QAM 01/28/20 09/04/20 History Flovent HFA 2 puff INHALATION DAILY 05/25/20 09/04/20 History Linzess 290 mcg PO DAILY 05/25/20 09/04/20 History albuterol sulfate 2 puff INHALATION DAILY 05/25/20 09/04/20 History aripiprazole 10 mg PO DAILY 05/25/20 09/04/20 History buspirone 15 mg PO TID 05/25/20 09/04/20 History Invega Sustenna 234 mg IM Q30D 06/03/20 09/04/20 History levothyroxine [Euthyrox] 50 mcg PO DAILY 06/03/20 09/04/20 History omeprazole 40 mg PO
[2020-09-04] MEDS: ARIPiprazole 10 MG TABLET PO (10:17)
[2020-09-04] MEDS: SERTRALINE HCL 50 MG TABLET 150 MG PO (10:17)
[2020-09-04] MEDS: lisinopriL 20 MG TABLET PO (10:18)
[2020-09-04] MEDS: FUROSEMIDE 40 MG TABLET PO (10:18)
[2020-09-04] MEDS: PANTOPRAZOLE 40 MG TABLET PO (10:18)
[2020-09-04] MEDS: busPIRone HCL 5 MG TABLET 15 MG PO ×3 (10:18→17:13)
[2020-09-04] MEDS: clonazePAM (*CRX) 0.5 MG TABLET 1 MG PO ×3 (10:27→17:13)
[2020-09-04] MEDS: PROMETHAZINE HCL 25 MG/ML AMPUL 12.5 MG IV PUSH (10:29)
[2020-09-04] MEDS: HALOPERIDOL LACTATE 5 MG/ML VIAL IM (10:35)
[2020-09-04] MEDS: GABAPENTIN 300 MG CAPSULE 600 MG PO (21:14)
[2020-09-05 01:05] VITALS: PULSE 62; RESP 13; O2SAT 96
[2020-09-05 05:56] LABS: Basophils Absolute Auto 0.1 K/mm3 (0.0-0.1); Basophils Percent Auto 0.7 % (0.2-1.2); Eosinophils Absolute Auto 0.4 K/mm3 (0-0.3); Eosinophils Percent Auto 5.3 % (0-4.4); Hematocrit 35.9 % (37.0-47.0); Hemoglobin 11.4 g/dL (12.0-15.0); Immature Granulocyte Absolute 0.02 K/mm3 (0.00-0.031); Immature Granulocyte Percent A 0.3 % (0-0.5); Lymphocytes Absolute Auto 2.34 K/mm3 (0.9-3.2); Mean Corpuscular HGB Conc 31.8 g/dl (32-36); Mean Corpuscular Volume 94.5 fl (80-100); Mean Platelet Volume 10.3 fl (7.4-10.4); Monocytes Absolute Auto 0.5 K/mm3 (0.1-0.6); Monocytes Percent Auto 6.1 % (2.6-8.5); Neutrophils Absolute Auto 4.3 K/mm3 (1.3-6.7); Neutrophils Percent Auto 56.6 % (45.5-73.1); Platelet Count Result 192 k/mm3 (150-375); Red Cell Distribution Width 15.7 % (11.5-14.5); White Blood Count 7.6 K/mm3 (4.5-10.0)
[2020-09-05 06:00] VITALS: BP 111/64; PULSE 77; RESP 16; TEMP 36.1; O2SAT 95
[2020-09-05 06:05] LABS: Anion Gap 5 mmol/L (8-16); Blood Urea Nitrogen 9 mg/dL (7-17); Calcium 8.8 mg/dL (8.4-10.2); Carbon Dioxide 27 mmol/L (22-30); Chloride 110 mmol/L (98-107); Estimated Glomerular Filt Rate > 60; Glucose 100 mg/dL (65-105); Lipase 55 U/L (23-300); Magnesium 1.9 mg/dL (1.6-2.3); Phosphorus 3.1 mg/dL (2.5-4.5); Potassium 4.2 mmol/L (3.4-5.0); Sodium 142 mmol/L (137-145)
[2020-09-05] MEDS: PROMETHAZINE HCL 25 MG/ML AMPUL 12.5 MG IV PUSH ×3 (06:26→20:37)
[2020-09-05] MEDS: LEVOTHYROXINE SODIUM 50 MCG TABLET PO (07:23)
[2020-09-05 08:00] VITALS: BP 132/81; PULSE 61
[2020-09-05] MEDS: ARIPiprazole 10 MG TABLET PO (08:12)
[2020-09-05] MEDS: PANTOPRAZOLE 40 MG TABLET PO (08:12)
[2020-09-05] MEDS: FUROSEMIDE 40 MG TABLET PO (08:12)
[2020-09-05] MEDS: busPIRone HCL 5 MG TABLET 15 MG PO ×3 (08:12→16:37)
[2020-09-05] MEDS: SERTRALINE HCL 50 MG TABLET 150 MG PO (08:12)
[2020-09-05] MEDS: lisinopriL 20 MG TABLET PO (08:12)
[2020-09-05] MEDS: clonazePAM (*CRX) 0.5 MG TABLET 1 MG PO ×3 (08:21→16:36)
--- NOTE | 2020-09-05 09:43 | PM.IMPN ---
Progress Note: A&P Assessment and Plan (1) Cannabinoid hyperemesis syndrome: Code(s): R11.2 - Nausea with vomiting, unspecified; F12.90 - Cannabis use, unspecified, uncomplicated Status: Acute Assessment and Plan: Advised patient to avoid marijuana One dose of Haldol IM Phenergan p.r.n. (2) Abdominal pain: Code(s): R10.9 - Unspecified abdominal pain Status: Acute Assessment and Plan: CT scan, labs, and HIDA scan, unremarkable consult GI Hyosciamine p.r.n. for abdominal pain (3) Schizoaffective disorder: Code(s): F25.9 - Schizoaffective disorder, unspecified Status: Acute Assessment and Plan: Stable clinically at this time Resume home medicine Patient denies depression SI or HI (4) Bipolar affect, depressed: Code(s): F31.30 - Bipolar disorder, current episode depressed, mild or moderate severity, unspecified Status: Acute (5) Hypertension: Qualifiers: Hypertension type: essential hypertension Qualified Code(s): I10 - Essential (primary) hypertension Code(s): I10 - Essential (primary) hypertension Status: Acute Assessment and Plan: Resume home medicine Pain control Monitor vital signs closely Subjective Date/time seen: 09/05/20 09:43 Interval history: Patient felt better yesterday after she received Haldol and Phenergan, this morning she has abdominal pain and she throw up 1 time. Exam Const: General: alert; No no acute distress HENMT: Head: no hematomas Ears: hearing grossly normal bilaterally Mouth: Yes Normal oral and palatal mucosa present Eyes: General: appearance normal, both eyes and all related structures Neck: Neck: normal visual inspection Chest: Chest palpation & inspection: normal inspection of the chest Resp: Effort & Inspection: normal respiratory effort Cardio: Jugular venous distension: no JVD Rate: regular rate GI: Inspection: normal to inspection and non-distended Auscultation: normal bowel sounds Objective Data Vital Signs Vital Signs: Vital Signs - 24 hr 09/04/20 10:16 09/04/20 14:00 09/04/20 21:35 Temperature 97.0 F L 97.6 F Pulse Rate 67 74 69 Respiratory Rate 14 18 16 Blood Pressure 123/74 116/78 116/76 Pulse Oximetry 94 96 96 09/05/20 01:05 09/05/20 06:00 09/05/20 08:00 Temperature 97.0 F L Pulse Rate 62 77 61 Respiratory Rate 13 16 Blood Pressure 111/64 132/81 Pulse Oximetry 96 95 Intake/Output Intake/Output: Intake & Output 09/02/20 09/03/20 09/04/20 09/05/20 23:59 23:59 23:59 23:59 Intake Total 1000 2440 980 Output Total 350 600 Balance 1000 2090 380 Meds/Results Medications: Active Medications Generic Name Dose Route Start Last Admin Trade Name Osvaldo PRN Reason Stop Dose Admin Albuterol 2 puff 09/05/20 08:00 Albuterol Sulfate (*Sp) Aerosol 1 Puff INHALATION DAILY@0800 [facility]FA Aripiprazole 10 mg 09/04/20 09:00 09/05/20 08:12 Aripiprazole 10 Mg Tablet PO 10 mg DAILY RAFA Administration Buspirone HCl 15 mg 09/04/20 09:00 09/05/20 08:12 Buspirone Hcl 5 Mg Tablet PO 15 mg TID RAFA Administration Clonazepam 1 mg 09/04/20 09:00 09/05/20 08:21 Clonazepam (*Crx) 0.5 Mg Tablet PO 1 mg TID RAFA Administration Fluticasone Propionate 2 puff 09/05/20 08:00 Fluticasone Prop 44 Mcg (*Sp) 10.6 Gm INHALATION DAILYRT RAFA Furosemide 40 mg 09/04/20 09:00 09/05/20 08:12 Furosemide 40 Mg Tablet PO 40 mg QAM RAFA Administration Gabapentin 600 mg 09/04/20 21:00 09/04/20 21:14 Gabapentin 300 Mg Capsule PO 600 mg HS RAFA Administration Sodium Chloride 1,000 mls @ 125 mls/hr 09/04/20 02:35 09/04/20 22:50 Normal Saline Iv IV CONT 125 mls/hr .Q8H RAFA Administration Levothyroxine Sodium 50 mcg 09/05/20 06:30 09/05/20 07:23 Levothyroxine Sodium 50 Mcg Tablet PO 50 mcg DAILY@0630 RAFA Administration Lisinopril 20 mg 09/04/20 09:00 09/05/20 08:12 L
[2020-09-05] MEDS: ALBUTEROL SULFATE (*SP) AEROSOL 1 PUFF 2 PUFF INHALATION (10:12)
[2020-09-05 10:13] VITALS: O2SAT 96
[2020-09-05] MEDS: FLUTICASONE PROP 44 MCG (*SP) 10.6 GM 2 PUFF INHALATION (10:17)
[2020-09-05] MEDS: HYOSCYAMINE SULFATE 0.125 MG TABLET PO ×2 (10:19→18:23)
[2020-09-05] MEDS: HALOPERIDOL LACTATE 5 MG/ML VIAL IM (10:19)
[2020-09-05] MEDS: SODIUM CHLORIDE 0.9% IV 1,000 ML 125 ML IV CONT ×2 (12:33→20:37)
[2020-09-05 14:00] VITALS: BP 136/83; PULSE 73; RESP 18; TEMP 36; O2SAT 96
[2020-09-05 21:05] VITALS: BP 137/84; PULSE 71; RESP 16; TEMP 36.1; O2SAT 97
[2020-09-05] MEDS: GABAPENTIN 300 MG CAPSULE 600 MG PO (21:38)
[2020-09-06] MEDS: PROMETHAZINE HCL 25 MG/ML AMPUL 12.5 MG IV PUSH ×4 (01:12→19:47)
[2020-09-06] MEDS: HYOSCYAMINE SULFATE 0.125 MG TABLET PO (02:51)
[2020-09-06] MEDS: SODIUM CHLORIDE 0.9% IV 1,000 ML 125 ML IV CONT ×2 (05:07→14:05)
[2020-09-06 05:16] VITALS: BP 149/79; PULSE 66; RESP 16; TEMP 36.7; O2SAT 97
[2020-09-06] MEDS: ALBUTEROL SULFATE (*SP) AEROSOL 1 PUFF 2 PUFF INHALATION (08:32)
[2020-09-06] MEDS: PANTOPRAZOLE 40 MG TABLET PO (08:34)
[2020-09-06] MEDS: ARIPiprazole 10 MG TABLET PO (08:34)
[2020-09-06] MEDS: busPIRone HCL 5 MG TABLET 15 MG PO ×3 (08:34→17:02)
[2020-09-06] MEDS: LEVOTHYROXINE SODIUM 50 MCG TABLET PO (08:35)
[2020-09-06] MEDS: lisinopriL 20 MG TABLET PO (08:35)
[2020-09-06] MEDS: FUROSEMIDE 40 MG TABLET PO (08:35)
[2020-09-06] MEDS: SERTRALINE HCL 50 MG TABLET 150 MG PO (08:35)
[2020-09-06] MEDS: FLUTICASONE PROP 44 MCG (*SP) 10.6 GM 2 PUFF INHALATION (08:36)
[2020-09-06] MEDS: clonazePAM (*CRX) 0.5 MG TABLET 1 MG PO ×3 (08:41→17:04)
[2020-09-06 08:46] VITALS: RESP 16; O2SAT 98
--- NOTE | 2020-09-06 10:55 | PM.IMPN ---
Progress Note: A&P Assessment and Plan (1) Cannabinoid hyperemesis syndrome: Code(s): R11.2 - Nausea with vomiting, unspecified; F12.90 - Cannabis use, unspecified, uncomplicated Status: Acute Assessment and Plan: Advised patient to avoid marijuana One dose of Haldol IM Phenergan p.r.n. (2) Abdominal pain: Code(s): R10.9 - Unspecified abdominal pain Status: Acute Assessment and Plan: CT scan, labs, and HIDA scan, unremarkable consult GI Hyoscyamine p.r.n. for abdominal pain (3) Schizoaffective disorder: Code(s): F25.9 - Schizoaffective disorder, unspecified Status: Acute Assessment and Plan: Stable clinically at this time Resume home medicine Patient denies depression SI or HI (4) Bipolar affect, depressed: Code(s): F31.30 - Bipolar disorder, current episode depressed, mild or moderate severity, unspecified Status: Acute (5) Hypertension: Qualifiers: Hypertension type: essential hypertension Qualified Code(s): I10 - Essential (primary) hypertension Code(s): I10 - Essential (primary) hypertension Status: Acute Assessment and Plan: Resume home medicine Pain control Monitor vital signs closely Subjective Date/time seen: 09/06/20 10:55 Interval history: patient complains of worsening abdominal pain associated with vomiting. although she is resting comfortably does not seem in acute distress. Exam Const: General: alert; No no acute distress HENMT: Head: no hematomas Ears: hearing grossly normal bilaterally Mouth: Yes Normal oral and palatal mucosa present Eyes: General: appearance normal, both eyes and all related structures Neck: Neck: normal visual inspection Chest: Chest palpation & inspection: normal inspection of the chest Resp: Effort & Inspection: normal respiratory effort Cardio: Jugular venous distension: no JVD Rate: regular rate GI: Inspection: normal to inspection and non-distended Auscultation: normal bowel sounds Objective Data Vital Signs Vital Signs: Vital Signs - 24 hr 09/05/20 14:00 09/05/20 21:05 09/06/20 05:16 Temperature 96.8 F L 97.0 F L 98.0 F Pulse Rate 73 71 66 Respiratory Rate 18 16 16 Blood Pressure 136/83 137/84 149/79 H Pulse Oximetry 96 97 97 09/06/20 08:46 Temperature Pulse Rate Respiratory Rate 16 Blood Pressure Pulse Oximetry 98 Intake/Output Intake/Output: Intake & Output 09/03/20 09/04/20 09/05/20 09/06/20 23:59 23:59 23:59 23:59 Intake Total 1000 2440 4180 2060 Output Total 350 1500 Balance 1000 2090 2680 2060 Meds/Results Medications: Active Medications Generic Name Dose Route Start Last Admin Trade Name Freq PRN Reason Stop Dose Admin Albuterol 2 puff 09/05/20 08:00 09/06/20 08:32 Albuterol Sulfate (*Sp) Aerosol 1 Puff INHALATION 2 puff DAILY@0800 [facility]FA Administration Aripiprazole 10 mg 09/04/20 09:00 09/06/20 08:34 Aripiprazole 10 Mg Tablet PO 10 mg DAILY RAFA Administration Buspirone HCl 15 mg 09/04/20 09:00 09/06/20 08:34 Buspirone Hcl 5 Mg Tablet PO 15 mg TID RAFA Administration Clonazepam 1 mg 09/04/20 09:00 09/06/20 08:41 Clonazepam (*Crx) 0.5 Mg Tablet PO 1 mg TID RAFA Administration Fluticasone Propionate 2 puff 09/05/20 08:00 09/06/20 08:36 Fluticasone Prop 44 Mcg (*Sp) 10.6 Gm INHALATION 2 puff DAILYRT RAFA Administration Furosemide 40 mg 09/04/20 09:00 09/06/20 08:35 Furosemide 40 Mg Tablet PO 40 mg QAM RAFA Administration Gabapentin 600 mg 09/04/20 21:00 09/05/20 21:38 Gabapentin 300 Mg Capsule PO 600 mg HS RAFA Administration Hyoscyamine 0.125 mg 09/05/20 09:58 09/06/20 02:51 Hyoscyamine Sulfate 0.125 Mg Tablet PO 0.125 mg Q4H PRN Administration Abdominal Cramping Sodium Chloride 1,000 mls @ 125 mls/hr 09/04/20 02:35 09/06/20 09:38 Normal Saline Iv IV CONT 125 mls/hr .Q8H RAFA Infusion Levothyrox
[2020-09-06] MEDS: MORPHINE SULFATE (*CRX) 2 MG/ML INJ IV PUSH ×3 (12:51→23:57)
--- NOTE | 2020-09-06 13:36 | WPDGICN ---
Assessment and Plan Assessment and plan (1) Nausea & vomiting: Qualifiers: Vomiting type: unspecified Vomiting Intractability: unspecified Qualified Code(s): R11.2 - Nausea with vomiting, unspecified Code(s): R11.2 - Nausea with vomiting, unspecified Status: Acute Assessment and Plan: chronic, egd in the past negative possible enteritis but normal wbc will order gastric emptying study to assess if dysmotility, also nausea and upper gi symptoms probably exacerbated by cannabinoid use, encourage to discontinue advance diet as tolerated (2) Abdominal pain: Code(s): R10.9 - Unspecified abdominal pain Status: Acute Assessment and Plan: also could have functional disorder, prescribed in the past xifaxan but insurance did not approve (3) Cannabinoid hyperemesis syndrome: Code(s): R11.2 - Nausea with vomiting, unspecified; F12.90 - Cannabis use, unspecified, uncomplicated Status: Acute Assessment and Plan: antiemetics prn (4) Cholelithiasis: Code(s): K80.20 - Calculus of gallbladder without cholecystitis without obstruction Status: Acute Assessment and Plan: normal liver enzymes and lipase, hida scan negative (5) Schizoaffective disorder: Code(s): F25.9 - Schizoaffective disorder, unspecified Status: Acute Assessment and Plan: on multiple meds, wonder if could have gi side effect GI Consult Note Consult date/time: 09/06/20 13:36 Reason for consult: nausea, abdominal pain HPI: Dash Crane is a 40 year old female who I recently saw her in office after she was in the hospital. She has chronic nausea and constipation on linzess, recent EGD 3 months ago mostly unrevealing but still using omeprazole. May 2020 she was intubated with ARDS and I met her for the first time because high gastric residual that was treated medically. She also has h/o bipolar on psychotropic meds and tells me that for last year has been using marijuana once a week. Recent hospitalization evaluated by Dr Diaz, had CT scan that revealed fluid in the small bowel suggesting possible enteritis , not distended gallbladder. Patient has been on various therapies for irritable bowel syndrome, last office visit I prescribed xifaxan but insurance did not approve. She came here with nausea and abdominal discomfort again, CT scan showed probable cholelithiasis. No secondary findings to suggest cholecystitis, fluid-filled small bowel and colon, suspicious for enterocolitis. Recent HIDA scan was normal. She is still nauseous and not feeling like eating. WBC, lipase, creatinine and liver enzymes normal Review of Systems Constitutional: Constitutional: Denies chills Eyes: Eyes: Denies blurry vision ENT: Reports Normal hearing present Cardiovascular: Cardiovascular: Denies chest pain Respiratory: Respiratory: Denies dyspnea Gastrointestinal: Gastrointestinal: Reports abdominal pain and Reports nausea Genitourinary: Genitourinary: Denies hematuria Musculoskeletal: Musculoskeletal: Denies neck pain Integumentary/Breasts: Skin/Breast: Denies dry skin Neurologic: Denies headache(s) Psychiatric: Psychiatric: Denies confusion [facility] Past Medical History Medical History Asthma, mild intermittent Bipolar affect, depressed Bloating Chronic respiratory failure Constipation DVT (deep venous thrombosis) GERD (gastroesophageal reflux disease) Hypertension Nausea Non-cardiac chest pain IRMA on CPAP Peripartum cardiomyopathy 2006 Small intestinal bacterial overgrowth (SIBO) Tobacco abuse Surgical History Surgical History H/O tubal ligation History of thyroidectomy, subtotal for benign nodule Family History Family History Father Diabetes mellitus Acute myocardial infarction Hy
[2020-09-06 14:00] VITALS: BP 148/101; PULSE 97; RESP 18; TEMP 36.4; O2SAT 77
--- NOTE | 2020-09-06 14:51 | PM.CNGS ---
Assessment and Plan Assessment and plan (1) Abdominal pain: Code(s): R10.9 - Unspecified abdominal pain Status: Acute Assessment and Plan: The patient has been dealing with right upper quadrant abdominal pain for the past 3 months that is intermittent and associated with vomiting, early satiety, and constipation. Her white blood cell count is normal and she has been afebrile. CT scan of the abdomen and pelvis from 09/01 and 09/04 were reviewed, along with comparison to another CT abd/pelvis she had back in July of 2019. From her CT in 2019, there is no mention of an enlarged appendix at that time. This raises concern that the dilated appendix that now measures 11 mm proximally is not a chronic finding, and could be more acute. This would be an atypical presentation of acute appendicitis, but there is a possibility that this could be contributing to her abdominal pain. We would recommend treating her with broad-spectrum IV antibiotics and close monitoring. I discussed with the patient that we could try to treat this conservatively and see how she responds, rather than proceeding with surgery when it is unclear if this is the cause for her pain. If we were to proceed with an appendectomy, there is a possibility that her symptoms could persist following surgery if there is a different etiology. GI has also been consulted and we appreciate their input. She would also benefit from further GI workup to rule out any other potential causes for her vomiting, abdominal pain, and early satiety. NM gastric emptying study has been ordered. Thank you for allowing us to see the patient in consultation and we will continue to follow along with you. (2) Cholelithiasis: Code(s): K80.20 - Calculus of gallbladder without cholecystitis without obstruction Status: Acute Assessment and Plan: CT abd/pelvis from 09/01 and 09/04 show evidence of cholelithiasis but no other findings suggestive of acute cholecystitis. She had a HIDA scan on 09/03 that was normal with a gallbladder EF of 93%. The patient does complain of mostly RUQ pain and is significantly tender in the RUQ and epigastric area. There is no evidence of acute cholecystitis at this time. WBC and LFTs are normal. The cholelithiasis could contribute to some of her symptoms but it does not seem likely that her persistent worsening abdominal pain is solely from her gallbladder, and it is highly likely that she would continue to have symptoms following a cholecystectomy. No plans for cholecystectomy at this time. See plan above regarding her abdominal pain. (3) Enteritis: Code(s): K52.9 - Noninfective gastroenteritis and colitis, unspecified Status: Acute Assessment and Plan: Although the CT scan suggests enteritis, she is mostly complaining of constipation rather than diarrhea or loose stools. If she develops diarrhea, then could consider stool studies to further evaluate. Has not had antibiotics on previous admission or this admission. (4) Vomiting: Qualifiers: Nausea presence: with nausea Vomiting Intractability: non-intractable Vomiting type: unspecified Qualified Code(s): R11.2 - Nausea with vomiting, unspecified Code(s): R11.10 - Vomiting, unspecified Status: Acute Assessment and Plan: Complains of vomiting and early satiety for the past 3 months of unclear etiology. She reports vomiting after taking in solid foods and primarily eating a full liquid diet recently. GI has been following her and has been consulted again this admission. Would agree with a gastric emptying study, which has been ordered. This could be a functional/motility issue. Another consideration could be side effects from her antipsychotics. (5) Schizoaffective disorder: Code(s): F25.9 - Schizoaffective disorder, unspecified Status: Acute (6) Bipolar affect, depressed: Code(s): F31.30 - Bipolar disorder, current episode depressed, mild or moderate severi
[2020-09-06 15:29] VITALS: BMI 46.7
[2020-09-06 16:24] LABS: Estimated CRCL calculation 113 ml/min; Estimated Glomerular Filt Rate > 60
[2020-09-06] MEDS: GABAPENTIN 300 MG CAPSULE 600 MG PO (20:08)
[2020-09-06 22:00] VITALS: BP 130/72; PULSE 61; RESP 18; TEMP 36.6; O2SAT 98
[2020-09-07] MEDS: SODIUM CHLORIDE 0.9% IV 1,000 ML 125 ML IV CONT ×3 (01:11→22:02)
[2020-09-07] MEDS: PROMETHAZINE HCL 25 MG/ML AMPUL 12.5 MG IV PUSH ×5 (01:12→19:42)
[2020-09-07] MEDS: MORPHINE SULFATE (*CRX) 2 MG/ML INJ IV PUSH ×5 (04:07→21:02)
[2020-09-07] MEDS: LEVOTHYROXINE SODIUM 50 MCG TABLET PO (05:31)
[2020-09-07 05:45] VITALS: BP 110/86; PULSE 64; RESP 18; TEMP 36.5; O2SAT 95
[2020-09-07] MEDS: ARIPiprazole 10 MG TABLET PO (08:20)
[2020-09-07] MEDS: lisinopriL 20 MG TABLET PO (08:20)
[2020-09-07] MEDS: FUROSEMIDE 40 MG TABLET PO (08:20)
[2020-09-07] MEDS: ALBUTEROL SULFATE (*SP) AEROSOL 1 PUFF 2 PUFF INHALATION (08:20)
[2020-09-07] MEDS: SERTRALINE HCL 50 MG TABLET 150 MG PO (08:20)
[2020-09-07] MEDS: busPIRone HCL 5 MG TABLET 15 MG PO ×3 (08:21→16:41)
[2020-09-07] MEDS: FLUTICASONE PROP 44 MCG (*SP) 10.6 GM 2 PUFF INHALATION (08:21)
[2020-09-07] MEDS: clonazePAM (*CRX) 0.5 MG TABLET 1 MG PO ×3 (08:35→16:41)
--- NOTE | 2020-09-07 10:37 | PM.IMPN ---
Progress Note: A&P Assessment and Plan (1) Cannabinoid hyperemesis syndrome: Code(s): R11.2 - Nausea with vomiting, unspecified; F12.90 - Cannabis use, unspecified, uncomplicated Status: Acute Assessment and Plan: Advised patient to avoid marijuana One dose of Haldol IM Phenergan p.r.n. Counseling given to the patient. (2) Abdominal pain: Code(s): R10.9 - Unspecified abdominal pain Status: Acute Assessment and Plan: CT scan, labs, and HIDA scan, unremarkable consult GI Hyoscyamine p.r.n. for abdominal pain Patient is scheduled for gastric emptying time study today. (3) Schizoaffective disorder: Code(s): F25.9 - Schizoaffective disorder, unspecified Status: Acute Assessment and Plan: Stable clinically at this time Resume home medicine Patient denies depression SI or HI Stable on current medication (4) Bipolar affect, depressed: Code(s): F31.30 - Bipolar disorder, current episode depressed, mild or moderate severity, unspecified Status: Acute Assessment and Plan: stable on meds (5) Hypertension: Qualifiers: Hypertension type: essential hypertension Qualified Code(s): I10 - Essential (primary) hypertension Code(s): I10 - Essential (primary) hypertension Status: Acute Assessment and Plan: Resume home medicine Pain control Monitor vital signs closely Additional Plan Patient abdominal pain has decreased. Patient is scheduled for gastric emptying study. Will discuss with GI about discharge plan. Start diet as tolerated. Possible discharge in the morning. Subjective Date/time seen: 09/07/20 10:37 patient was seen during the morning rounds today. Nausea has decreased. Vomiting has decreased. No shortness of breath or chest pains. Mood stable. Review of Systems Review of Systems: All systems reviewed & are unremarkable except as noted in HPI and below Constitutional: Constitutional: Denies body ache(s) and Denies fatigue Eyes: Eyes: Denies blurry vision ENT: Denies dry mouth Cardiovascular: Cardiovascular: Denies chest pain with activity and Denies dyspnea Respiratory: Respiratory: Denies dyspnea Gastrointestinal: Gastrointestinal: Denies hematochezia and Denies diarrhea Musculoskeletal: Musculoskeletal: Denies deformity Neurologic: Denies seizure-like activity Psychiatric: Psychiatric: Denies homicidal ideation Endocrine: Endocrine: Denies fatigue Exam Const: General: alert; No no acute distress HENMT: Head: no hematomas Ears: hearing grossly normal bilaterally Mouth: Yes Normal oral and palatal mucosa present Eyes: General: appearance normal, both eyes and all related structures Neck: Neck: normal visual inspection Chest: Chest palpation & inspection: normal inspection of the chest Resp: Effort & Inspection: normal respiratory effort Cardio: Jugular venous distension: no JVD Rate: regular rate GI: Inspection: normal to inspection, non-distended and other (Mild generalized tenderness) Auscultation: normal bowel sounds Objective Data Vital Signs Vital Signs: Vital Signs - 24 hr 09/06/20 14:00 09/06/20 22:00 09/07/20 05:45 Temperature 36.4 C L 36.6 C 36.5 C Pulse Rate 97 61 64 Respiratory Rate 18 18 18 Blood Pressure 148/101 H 130/72 110/86 Pulse Oximetry 77 L 98 95 Intake/Output Intake/Output: Intake & Output 09/04/20 09/05/20 09/06/20 09/07/20 23:59 23:59 23:59 23:59 Intake Total 2440 4180 5010 620 Output Total 350 1500 750 Balance 2090 2680 4260 620 Meds/Results Medications: Active Medications Generic Name Dose Route Start Last Admin Trade Name Freq PRN Reason Stop Dose Admin Albuterol 2 puff 09/05/20 08:00 09/07/20 08:20 Albuterol Sulfate (*Sp) Aerosol 1 Puff INHALATION 2 puff DAILY@0800 [facility] Administration Aripiprazole 10 mg 09/04/20 09:00 09/07/20 08:20 Aripiprazole 10 Mg Tablet PO 10 mg DAILY [facility]
[2020-09-07 12:35] LABS: Anion Gap 12 mmol/L (8-16); Blood Urea Nitrogen 5 mg/dL (7-17); Calcium 8.6 mg/dL (8.4-10.2); Carbon Dioxide 21 mmol/L (22-30); Chloride 111 mmol/L (98-107); Estimated CRCL calculation 100 ml/min; Estimated Glomerular Filt Rate > 60; Glucose 116 mg/dL (65-105); Potassium 3.8 mmol/L (3.4-5.0); Sodium 144 mmol/L (137-145)
--- NOTE | 2020-09-07 13:35 | WPDGIPROGNO ---
Progress Note: A&P Assessment and Plan (1) Nausea: Code(s): R11.0 - Nausea Status: Acute Assessment and Plan: unchanged, we ordered gastric emptying study also using marijuana at home egd in the recent past was unremarkable (2) Abdominal pain: Code(s): R10.9 - Unspecified abdominal pain Status: Acute Assessment and Plan: chronic pain but most recently located in right abdomen CT scan noted enlarged appendix but no active inflammation and normal wbc, started yesterday empirically on iv antibiotics- continue to monitor and consider appendectomy based on clinical course (surgery team on board) (3) Cholelithiasis: Code(s): K80.20 - Calculus of gallbladder without cholecystitis without obstruction Status: Acute Assessment and Plan: hida scan negative, surgery on board (4) Cannabinoid hyperemesis syndrome: Code(s): R11.2 - Nausea with vomiting, unspecified; F12.90 - Cannabis use, unspecified, uncomplicated Status: Acute (5) Enteritis: Code(s): K52.9 - Noninfective gastroenteritis and colitis, unspecified Status: Acute Assessment and Plan: treated during last hospitalization (6) Bipolar affect, depressed: Code(s): F31.30 - Bipolar disorder, current episode depressed, mild or moderate severity, unspecified Status: Acute (7) Abnormal CT scan, gastrointestinal tract: Code(s): R93.3 - Abnormal findings on diagnostic imaging of other parts of digestive tract Status: Acute Assessment and Plan: noted enlarged appendix Subjective Date/time seen: 09/07/20 13:35 Interval history: no major changes, still with right abdominal pain and nausea. Review of Systems Review of Systems: All systems reviewed & are unremarkable except as noted in HPI and below Exam Const: General: alert; No no acute distress Nutritional Appearance: obese HENMT: Head: no hematomas Ears: hearing grossly normal bilaterally General nose exam: Normal nares present Mouth: Yes Normal oral and palatal mucosa present Eyes: General: appearance normal, both eyes and all related structures Neck: Neck: normal visual inspection Chest: Chest palpation & inspection: normal inspection of the chest Resp: Effort & Inspection: normal respiratory effort Cardio: Jugular venous distension: no JVD Rate: regular rate GI: Inspection: normal to inspection and non-distended GI Palp: Yes Tenderness to palpation present (GI) (ruq and epigastric area, no rebound or guarding) and No Guarding due to palpation present (GI) Auscultation: normal bowel sounds Skin: General skin exam: normal color Neuro: Speech: normal speech Motor exam (neuro): Normal motor muscle tone present throughout Extrem: General: normal to inspection Psych: Mental Status: mental status grossly normal Objective Data Vital Signs Vital Signs: Vital Signs - 24 hr 09/06/20 14:00 09/06/20 22:00 09/07/20 05:45 Temperature 97.5 F L 97.8 F 97.7 F Pulse Rate 97 61 64 Respiratory Rate 18 18 18 Blood Pressure 148/101 H 130/72 110/86 Pulse Oximetry 77 L 98 95 Intake/Output Intake/Output: Intake & Output 09/04/20 09/05/20 09/06/20 09/07/20 23:59 23:59 23:59 23:59 Intake Total 2440 4180 5010 1670 Output Total 350 1500 750 Balance 2090 2680 4260 1670 Meds/Results Medications: Active Medications Generic Name Dose Route Start Last Admin Trade Name Osvaldo PRN Reason Stop Dose Admin Albuterol 2 puff 09/05/20 08:00 09/07/20 08:20 Albuterol Sulfate (*Sp) Aerosol 1 Puff INHALATION 2 puff DAILY@0800 [facility]FA Administration Aripiprazole 10 mg 09/04/20 09:00 09/07/20 08:20 Aripiprazole 10 Mg Tablet PO 10 mg DAILY RAFA Administration Buspirone HCl 15 mg 09/04/20 09:00 09/07/20 12:08 Buspirone Hcl 5 Mg Tablet PO 15 mg TID RAFA Administration Clonazepam 1 mg 09/04/20 09:00 09/07/20 12:08 Clonazepam (*Crx) 0.5 Mg Tablet PO 1 mg TID RAFA Ad
[2020-09-07 14:00] VITALS: BP 154/87; PULSE 54; RESP 14; TEMP 36.7; O2SAT 97
--- NOTE | 2020-09-07 15:12 | PM.PNGS ---
Progress Note: A&P Assessment and Plan (1) Abnormal CT scan, gastrointestinal tract: Code(s): R93.3 - Abnormal findings on diagnostic imaging of other parts of digestive tract Status: Acute Assessment and Plan: Patient still not improving with IV antibiotics. Nausea and pain persists. Will await gastric emptying results and reassess with exam and labs in AM. Will consider proceeding with Lap appy tomorrow if no improvement. (2) Abdominal pain: Code(s): R10.9 - Unspecified abdominal pain Status: Acute Subjective Subjective Date/Time Seen: 09/07/20 15:12 Interval history: Patient still having the same Right abdominal pain. No fevers. Having nausea. Exam GI: Inspection: non-distended GI Palp: Yes Tenderness to palpation present (GI) (RLQ), No Guarding due to palpation present (GI) and No Rebound tenderness present Objective Data Vital Signs Vital Signs: Vital Signs - 24 hr 09/06/20 22:00 09/07/20 05:45 Temperature 36.6 C 36.5 C Pulse Rate 61 64 Respiratory Rate 18 18 Blood Pressure 130/72 110/86 Pulse Oximetry 98 95 Intake/Output Intake/Output: Intake & Output 09/04/20 09/05/20 09/06/20 09/07/20 23:59 23:59 23:59 23:59 Intake Total 2440 4180 5010 1670 Output Total 350 1500 750 Balance 2090 2680 4260 1670 Meds/Results Medications: Active Medications Generic Name Dose Route Start Last Admin Trade Name Freq PRN Reason Stop Dose Admin Albuterol 2 puff 09/05/20 08:00 09/07/20 08:20 Albuterol Sulfate (*Sp) Aerosol 1 Puff INHALATION 2 puff DAILY@0800 RAFA Administration Aripiprazole 10 mg 09/04/20 09:00 09/07/20 08:20 Aripiprazole 10 Mg Tablet PO 10 mg DAILY RAFA Administration Buspirone HCl 15 mg 09/04/20 09:00 09/07/20 12:08 Buspirone Hcl 5 Mg Tablet PO 15 mg TID RAFA Administration Clonazepam 1 mg 09/04/20 09:00 09/07/20 12:08 Clonazepam (*Crx) 0.5 Mg Tablet PO 1 mg TID RAFA Administration Fluticasone Propionate 2 puff 09/05/20 08:00 09/07/20 08:21 Fluticasone Prop 44 Mcg (*Sp) 10.6 Gm INHALATION 2 puff DAILYRT RAFA Administration Furosemide 40 mg 09/04/20 09:00 09/07/20 08:20 Furosemide 40 Mg Tablet PO 40 mg QAM RAFA Administration Gabapentin 600 mg 09/04/20 21:00 09/06/20 20:08 Gabapentin 300 Mg Capsule PO 600 mg HS RAFA Administration Hyoscyamine 0.125 mg 09/05/20 09:58 09/06/20 02:51 Hyoscyamine Sulfate 0.125 Mg Tablet PO 0.125 mg Q4H PRN Administration Abdominal Cramping Sodium Chloride 1,000 mls @ 125 mls/hr 09/04/20 02:35 09/07/20 12:22 Normal Saline Iv IV CONT Not Given .Q8H RAFA Piperacillin/Tazobactam/Dextrose 3.375 gm in 50 mls @ 100 mls/hr 09/07/20 00:00 09/07/20 12:42 Zosyn 3.375 Gm/D5w 50ml Pm IVPB Infused Q6HR RAFA Infusion Levothyroxine Sodium 50 mcg 09/05/20 06:30 09/07/20 05:31 Levothyroxine Sodium 50 Mcg Tablet PO 50 mcg DAILY@0630 RAFA Administration Lisinopril 20 mg 09/04/20 09:00 09/07/20 08:20 Lisinopril 20 Mg Tablet PO 20 mg DAILY RAFA Administration Morphine Sulfate 2 mg 09/06/20 12:25 09/07/20 12:34 Morphine Sulfate (*Crx) 2 Mg/Ml Inj IV PUSH 2 mg Q4H PRN Administration Pain Rated 7-10 Linaclotide [Linzess 0 mcg 09/04/20 09:45 09/07/20 08:21 ] 145 Mcg Capsule ( PO 10/04/20 09:01 Not Given Nonformulary - Will DAILY RAFA Not Scan) Pantoprazole Sodium 40 mg 09/04/20 09:00 09/07/20 12:08 Pantoprazole 40 Mg Tablet PO Not Given QAM RAFA Promethazine HCl 12.5 mg 09/04/20 09:14 09/07/20 14:29 Promethazine Hcl 25 Mg/Ml Ampul IV PUSH 12.5 mg Q4H PRN Administration Nausea And Vomiting Sertraline HCl 150 mg 09/04/20 09:00 09/07/20 08:20 Sertraline Hcl 50 Mg Tablet PO 150 mg DAILY RAFA Administration Radiology Results: ITS Impressions Abdomen/Pelvis CT 09/04/20 07:46 IMPRESSION: 1. Mildly prominent appendix measuring up to 11 mm proximally with
[2020-09-07] MEDS: GABAPENTIN 300 MG CAPSULE 600 MG PO (21:04)
[2020-09-07 21:22] VITALS: BP 148/97; PULSE 64; RESP 20; TEMP 35.9; O2SAT 97
[2020-09-07] MEDS: CALCIUM CARBONATE (TUMS) 500 MG (200 MG ELEMENTAL) PO (22:52)
[2020-09-08] VITALS (14 sets, daily range): BP systolic 104–154; BP diastolic 64–93; PULSE 60–94; RESP 10–20; TEMP 35.8–37.2; O2SAT 92–100
[2020-09-08] MEDS: MORPHINE SULFATE (*CRX) 2 MG/ML INJ IV PUSH ×4 (00:59→12:45)
[2020-09-08] MEDS: PROMETHAZINE HCL 25 MG/ML AMPUL 12.5 MG IV PUSH ×3 (03:01→11:07)
[2020-09-08] MEDS: LEVOTHYROXINE SODIUM 50 MCG TABLET PO (05:33)
[2020-09-08 05:43] LABS: Hematocrit 34.2 % (37.0-47.0); Mean Corpuscular HGB Conc 32.2 g/dl (32-36); Mean Corpuscular Hemoglobin 29.6 pg (26-34); Mean Corpuscular Volume 92.2 fl (80-100); Mean Platelet Volume 10.2 fl (7.4-10.4); Platelet Count Result 189 k/mm3 (150-375); Red Blood Count 3.71 M/mm3 (4.2-5.4); Red Cell Distribution Width 15.9 % (11.5-14.5); White Blood Count 6.9 K/mm3 (4.5-10.0)
[2020-09-08 05:58] LABS: Alanine Aminotransferase 15 U/L (4-35); Albumin Level 3.5 g/dL (3.5-5.1); Alkaline Phosphatase 79 U/L (38-126); Anion Gap 5 mmol/L (8-16); Aspartate Amino Transferase 25 U/L (14-36); Bilirubin,Total 0.1 mg/dL (0.2-1.3); Blood Urea Nitrogen 5 mg/dL (7-17); Calcium 8.7 mg/dL (8.4-10.2); Carbon Dioxide 28 mmol/L (22-30); Chloride 107 mmol/L (98-107); Estimated CRCL calculation 89 ml/min; Estimated Glomerular Filt Rate > 60; Glucose 89 mg/dL (65-105); Lipase 39 U/L (23-300); Potassium 3.4 mmol/L (3.4-5.0); Sodium 140 mmol/L (137-145)
[2020-09-08] MEDS: SODIUM CHLORIDE 0.9% IV 1,000 ML 125 ML IV CONT (07:15)
--- NOTE | 2020-09-08 07:38 | PM.PNGS ---
Progress Note: A&P Assessment and Plan (1) Abnormal CT scan, gastrointestinal tract: Code(s): R93.3 - Abnormal findings on diagnostic imaging of other parts of digestive tract Status: Acute Assessment and Plan: Pain still persists in RLQ. WBC remains normal. I discussed with patient that there is a chance that surgery will not improve her symptoms, but all other treatments have been unsuccessful so far. She would like to proceed with laparoscopic appendectomy. I discussed procedure, risks, benefits, and alternatives. Questions answered. Will plan for surgery this afternoon. (2) Abdominal pain: Code(s): R10.9 - Unspecified abdominal pain Status: Acute (3) Cholelithiasis: Code(s): K80.20 - Calculus of gallbladder without cholecystitis without obstruction Status: Acute Subjective Subjective Date/Time Seen: 09/08/20 07:38 Interval history: Patient still having RLQ abd pain and nausea. No fevers. Pain does not change with BM or what she eats. Exam GI: GI Palp: Yes Tenderness to palpation present (GI) (RLQ), No Guarding due to palpation present (GI) and No Rebound tenderness present Objective Data Vital Signs Vital Signs: Vital Signs - 24 hr 09/07/20 14:00 09/07/20 21:22 09/08/20 05:06 Temperature 36.7 C 35.9 C L 36.0 C L Pulse Rate 54 L 64 62 Respiratory Rate 14 20 20 Blood Pressure 154/87 H 148/97 H 148/93 H Pulse Oximetry 97 97 100 Intake/Output Intake/Output: Intake & Output 09/05/20 09/06/20 09/07/20 09/08/20 23:59 23:59 23:59 23:59 Intake Total 4180 5010 2920 1220 Output Total 1500 750 300 Balance 2680 4260 2920 920 Meds/Results Medications: Active Medications Generic Name Dose Route Start Last Admin Trade Name Freq PRN Reason Stop Dose Admin Albuterol 2 puff 09/05/20 08:00 09/07/20 08:20 Albuterol Sulfate (*Sp) Aerosol 1 Puff INHALATION 2 puff DAILY@0800 RAFA Administration Aripiprazole 10 mg 09/04/20 09:00 09/07/20 08:20 Aripiprazole 10 Mg Tablet PO 10 mg DAILY RAFA Administration Buspirone HCl 15 mg 09/04/20 09:00 09/07/20 16:41 Buspirone Hcl 5 Mg Tablet PO 15 mg TID RAFA Administration Calcium Carbonate 200 mg 09/07/20 22:17 09/07/20 22:52 Calcium Carbonate (Tums) 500 Mg (200 Mg Elemental) PO 200 mg Q6H PRN Administration Indigestion Clonazepam 1 mg 09/04/20 09:00 09/07/20 16:41 Clonazepam (*Crx) 0.5 Mg Tablet PO 1 mg TID RAFA Administration Fluticasone Propionate 2 puff 09/05/20 08:00 09/07/20 08:21 Fluticasone Prop 44 Mcg (*Sp) 10.6 Gm INHALATION 2 puff DAILYRT RAFA Administration Furosemide 40 mg 09/04/20 09:00 09/07/20 08:20 Furosemide 40 Mg Tablet PO 40 mg QAM RAFA Administration Gabapentin 600 mg 09/04/20 21:00 09/07/20 21:04 Gabapentin 300 Mg Capsule PO 600 mg HS RAFA Administration Hyoscyamine 0.125 mg 09/05/20 09:58 09/06/20 02:51 Hyoscyamine Sulfate 0.125 Mg Tablet PO 0.125 mg Q4H PRN Administration Abdominal Cramping Sodium Chloride 1,000 mls @ 125 mls/hr 09/04/20 02:35 09/08/20 07:15 Normal Saline Iv IV CONT 125 mls/hr .Q8H RAFA Administration Piperacillin/Tazobactam/Dextrose 3.375 gm in 50 mls @ 100 mls/hr 09/07/20 00:00 09/08/20 06:02 Zosyn 3.375 Gm/D5w 50ml Pm IVPB Infused Q6HR RAFA Infusion Levothyroxine Sodium 50 mcg 09/05/20 06:30 09/08/20 05:33 Levothyroxine Sodium 50 Mcg Tablet PO 50 mcg DAILY@0630 RAFA Administration Lisinopril 20 mg 09/04/20 09:00 09/07/20 08:20 Lisinopril 20 Mg Tablet PO 20 mg DAILY RAFA Administration Morphine Sulfate 2 mg 09/06/20 12:25 09/08/20 05:33 Morphine Sulfate (*Crx) 2 Mg/Ml Inj IV PUSH 2 mg Q4H PRN Administration Pain Rated 7-10 Linaclotide [Linzess 0 mcg 09/04/20 09:45 09/07/20 08:21 ] 145 Mcg Capsule ( PO 10/04/20 09:01 Not Given Nonformulary - Will DAILY RAFA Not Scan) Pantoprazole Sodium 40 mg 09/04/20 09:0
--- NOTE | 2020-09-08 08:13 | PM.IMPN ---
Progress Note: A&P Assessment and Plan (1) Cannabinoid hyperemesis syndrome: Code(s): R11.2 - Nausea with vomiting, unspecified; F12.90 - Cannabis use, unspecified, uncomplicated Status: Acute Assessment and Plan: Advised patient to avoid marijuana One dose of Haldol IM Phenergan p.r.n. Counseling given to the patient. (2) Abdominal pain: Code(s): R10.9 - Unspecified abdominal pain Status: Acute Assessment and Plan: CT scan, labs, and HIDA scan, unremarkable consult GI Hyoscyamine p.r.n. for abdominal pain Patient is scheduled for gastric emptying time study today. (3) Schizoaffective disorder: Code(s): F25.9 - Schizoaffective disorder, unspecified Status: Acute Assessment and Plan: Stable clinically at this time Resume home medicine Patient denies depression SI or HI Stable on current medication (4) Bipolar affect, depressed: Code(s): F31.30 - Bipolar disorder, current episode depressed, mild or moderate severity, unspecified Status: Acute Assessment and Plan: stable on meds (5) Hypertension: Qualifiers: Hypertension type: essential hypertension Qualified Code(s): I10 - Essential (primary) hypertension Code(s): I10 - Essential (primary) hypertension Status: Acute Assessment and Plan: Resume home medicine Pain control Monitor vital signs closely Additional Plan Patient abdominal pain has decreased. Patient is scheduled for gastric emptying study. Will discuss with GI about discharge plan. Start diet as tolerated. Possible discharge in the morning. 09/08/2020: Patient continued to have abdominal pain, scheduled for lap appendectomy today. Will continue current treatment. Subjective Date/time seen: 09/08/20 08:13 Patient was seen today during the morning rounds. Still has pain in the right lower quadrant, also complained about having nausea. No shortness of breath or chest pain. Mood stable. Interval history: Review of Systems Review of Systems: All systems reviewed & are unremarkable except as noted in HPI and below Constitutional: Constitutional: Denies body ache(s) and Denies fatigue Eyes: Eyes: Denies blurry vision ENT: Denies dry mouth Cardiovascular: Cardiovascular: Denies chest pain with activity and Denies dyspnea Respiratory: Respiratory: Denies dyspnea Gastrointestinal: Gastrointestinal: Denies hematochezia and Denies diarrhea Musculoskeletal: Musculoskeletal: Denies deformity Neurologic: Denies seizure-like activity Psychiatric: Psychiatric: Denies homicidal ideation Endocrine: Endocrine: Denies fatigue Exam Const: General: alert; No no acute distress HENMT: Head: no hematomas Ears: hearing grossly normal bilaterally Mouth: Yes Normal oral and palatal mucosa present Eyes: General: appearance normal, both eyes and all related structures Neck: Neck: normal visual inspection Chest: Chest palpation & inspection: normal inspection of the chest Resp: Effort & Inspection: normal respiratory effort Cardio: Jugular venous distension: no JVD Rate: regular rate GI: Inspection: normal to inspection, non-distended and other (Mild generalized tenderness) Auscultation: normal bowel sounds Objective Data Vital Signs Vital Signs: Vital Signs - 24 hr 09/07/20 14:00 09/07/20 21:22 09/08/20 05:06 Temperature 36.7 C 35.9 C L 36.0 C L Pulse Rate 54 L 64 62 Respiratory Rate 14 20 20 Blood Pressure 154/87 H 148/97 H 148/93 H Pulse Oximetry 97 97 100 Intake/Output Intake/Output: Intake & Output 09/05/20 09/06/20 09/07/20 09/08/20 23:59 23:59 23:59 23:59 Intake Total 4180 5010 2920 1220 Output Total 1500 750 300 Balance 2680 4260 2920 920 Meds/Results Medications: Active Medications Generic Name Dose Route Start Last Admin Trade Name Freq PRN Reason Stop Dose Admin Albuterol 2 puff 09/05/20 08:00 09/07/20 08:20 Albuterol Sulfa
[2020-09-08] MEDS: ALBUTEROL SULFATE (*SP) AEROSOL 1 PUFF 2 PUFF INHALATION (09:08)
[2020-09-08] MEDS: FLUTICASONE PROP 44 MCG (*SP) 10.6 GM 2 PUFF INHALATION (09:08)
--- NOTE | 2020-09-08 10:00 | WPDGIPROGNO ---
Progress Note: A&P Assessment and Plan (1) Abdominal pain: Code(s): R10.9 - Unspecified abdominal pain Status: Acute Assessment and Plan: chronic pain but most recently located in right abdomen, because persistent pain surgery will take her for lap appy today (had enlarged appendix but no active inflammation in CT scan ) in hopes that will improve her pain. (2) Nausea: Code(s): R11.0 - Nausea Status: Acute Assessment and Plan: unchanged, gastric emptying study reviewed and normal test also using marijuana at home egd in the recent past was unremarkable (3) Cholelithiasis: Code(s): K80.20 - Calculus of gallbladder without cholecystitis without obstruction Status: Acute Assessment and Plan: hida scan negative, surgery on board (4) Cannabinoid hyperemesis syndrome: Code(s): R11.2 - Nausea with vomiting, unspecified; F12.90 - Cannabis use, unspecified, uncomplicated Status: Acute (5) Enteritis: Code(s): K52.9 - Noninfective gastroenteritis and colitis, unspecified Status: Acute Assessment and Plan: treated during last hospitalization (6) Bipolar affect, depressed: Code(s): F31.30 - Bipolar disorder, current episode depressed, mild or moderate severity, unspecified Status: Acute (7) Abnormal CT scan, gastrointestinal tract: Code(s): R93.3 - Abnormal findings on diagnostic imaging of other parts of digestive tract Status: Acute Assessment and Plan: noted enlarged appendix- appy today Subjective Date/time seen: 09/08/20 10:00 Interval history: similar abdominal discomfort Review of Systems Review of Systems: All systems reviewed & are unremarkable except as noted in HPI and below Exam Const: General: comfortable and no acute distress HENMT: General nose exam: Normal nares present Eyes: Pupils: Equal, round and reactive pupils present Neck: Neck: supple Resp: Effort & Inspection: normal respiratory effort Cardio: Rhythm: regular rhythm GI: GI Palp: Yes Soft to palpation and Yes Tenderness to palpation present (GI) (rlq) Auscultation: normal bowel sounds Skin: General skin exam: normal color Neuro: Speech: normal speech Extrem: General: normal exam except as noted Psych: Mental Status: mental status grossly normal Objective Data Vital Signs Vital Signs: Vital Signs - 24 hr 09/07/20 14:00 09/07/20 21:22 09/08/20 05:06 Temperature 98.1 F 96.7 F L 96.8 F L Pulse Rate 54 L 64 62 Respiratory Rate 14 20 20 Blood Pressure 154/87 H 148/97 H 148/93 H Pulse Oximetry 97 97 100 09/08/20 12:20 Temperature 98.9 F Pulse Rate 60 Respiratory Rate 16 Blood Pressure 154/92 H Pulse Oximetry 97 Intake/Output Intake/Output: Intake & Output 09/05/20 09/06/20 09/07/20 09/08/20 23:59 23:59 23:59 23:59 Intake Total 4180 5010 2920 1220 Output Total 1500 750 300 Balance 2680 4260 2920 920 Meds/Results Medications: Active Medications Generic Name Dose Route Start Last Admin Trade Name Freq PRN Reason Stop Dose Admin Albuterol 2 puff 09/05/20 08:00 09/08/20 09:08 Albuterol Sulfate (*Sp) Aerosol 1 Puff INHALATION 2 puff DAILY@0800 RAFA Administration Aripiprazole 10 mg 09/04/20 09:00 09/07/20 08:20 Aripiprazole 10 Mg Tablet PO 10 mg DAILY RAFA Administration Buspirone HCl 15 mg 09/04/20 09:00 09/08/20 10:00 Buspirone Hcl 5 Mg Tablet PO Not Given TID RAFA Calcium Carbonate 200 mg 09/07/20 22:17 09/07/20 22:52 Calcium Carbonate (Tums) 500 Mg (200 Mg Elemental) PO 200 mg Q6H PRN Administration Indigestion Clonazepam 1 mg 09/04/20 09:00 09/08/20 10:00 Clonazepam (*Crx) 0.5 Mg Tablet PO Not Given TID RAFA Fluticasone Propionate 2 puff 09/05/20 08:00 09/08/20 09:08 Fluticasone Prop 44 Mcg (*Sp) 10.6 Gm INHALATION 2 puff DAILYRT RAFA Administration Furosemide 40 mg 09/04/20 09:00 09/07/20 08:20 Furosemide
--- NOTE | 2020-09-08 12:42 | WPDANESEPPF ---
Anes - Initial Pre Proc Eval Procedure: Operation Date: 09/08/20 13:00 Proposed Procedures p Laparoscopic Appendectomy,Possible Open - Arvind Young DO Date/Time: 09/08/20 12:42 Surgeon: Lee Kenney MD Pre Op Diagnosis: Enteritis Patient Data Age: 40 Gender: F Height: 1.6 m Weight: 119.6 kg Last Vital Signs Temp 36.0 C L 09/08/20 05:06 Pulse 62 09/08/20 05:06 Resp 20 09/08/20 05:06 BP 148/93 H 09/08/20 05:06 Pulse Ox 100 09/08/20 05:06 Allergies Allergy/AdvReac Type Severity Reaction Status Date / Time chlorpromazine Allergy Itching Verified 09/04/20 03:35 [From Thorazine] latex Allergy Hives Verified 09/04/20 03:35 quetiapine [From Seroquel] Allergy Hallucinati Verified 09/04/20 03:35 ng Home Medications Medication Instructions Recorded Confirmed Type clonazepam 1 mg PO TID 05/19/19 09/04/20 History gabapentin 600 mg PO HS 05/19/19 09/04/20 History lisinopril 20 mg PO DAILY 05/19/19 09/04/20 History sertraline 150 mg PO DAILY 05/19/19 09/04/20 History furosemide 40 mg tablet 40 mg PO QAM 01/28/20 09/04/20 History Flovent HFA 2 puff INHALATION DAILY 05/25/20 09/04/20 History Linzess 290 mcg PO DAILY 05/25/20 09/04/20 History albuterol sulfate 2 puff INHALATION DAILY 05/25/20 09/04/20 History aripiprazole 10 mg PO DAILY 05/25/20 09/04/20 History buspirone 15 mg PO TID 05/25/20 09/04/20 History Invega Sustenna 234 mg IM Q30D 06/03/20 09/04/20 History levothyroxine [Euthyrox] 50 mcg PO DAILY 06/03/20 09/04/20 History omeprazole 40 mg PO DAILY 06/03/20 09/04/20 History ondansetron HCl 4 mg tablet 4 mg PO Q8H PRN #90 tablet 08/19/20 09/04/20 Rx Laboratory Tests 09/08/20 09/08/20 05:11 05:11 WBC 6.9 K/mm3 K/mm3 (4.5-10.0) RBC 3.71 M/mm3 L M/mm3 (4.2-5.4) Hgb 11.0 g/dL L g/dL (12.0-15.0) Hct 34.2 % L % (37.0-47.0) MCV 92.2 fl fl (80-100) MCH 29.6 pg pg (26-34) MCHC 32.2 g/dl g/dl (32-36) RDW 15.9 % H % (11.5-14.5) Plt Count 189 k/mm3 k/mm3 (150-375) MPV 10.2 fl fl (7.4-10.4) Sodium 140 mmol/L mmol/L (137-145) Potassium 3.4 mmol/L mmol/L (3.4-5.0) Chloride 107 mmol/L mmol/L (98-107) Carbon Dioxide 28 mmol/L mmol/L (22-30) Anion Gap 5 mmol/L L mmol/L (8-16) BUN 5 mg/dL L mg/dL (7-17) Creatinine 0.90 mg/dL mg/dL (0.7-1.0) Estim Creat Clear Calc 89 ml/min ml/min Estimated GFR > 60 (59 - ) Glucose 89 mg/dL mg/dL (65-105) Calcium 8.7 mg/dL mg/dL (8.4-10.2) Total Bilirubin 0.1 mg/dL L mg/dL (0.2-1.3) AST 25 U/L U/L (14-36) ALT 15 U/L U/L (4-35) Alkaline Phosphatase 79 U/L U/L (38-126) C-Reactive Protein 1.0 mg/dL mg/dL (<1.0) Total Protein 7.0 g/dL g/dL (6.3-8.2) Albumin 3.5 g/dL g/dL (3.5-5.1) Lipase 39 U/L U/L (23-300) Patient hx anesthesia problems: none Family hx anesthesia problems: none [facility] Past Medical History Medical History Abnormal CT scan, gastrointestinal tract Asthma, mild intermittent Bipolar affect, depressed Bloating Chronic respiratory failure Constipation DVT (deep venous thrombosis) Lower extremity DVT in 2019 while hospitalized and intubated for acute respiratory failure. Treated with anticoagulation and no longer on any oral anticoagulation. GERD (gastroesophageal reflux disease) Hypertension Nausea Non-cardiac chest pain IRMA on CPAP Peripartum cardiomyopathy 2006 Small intestinal bacterial overgrowth (SIBO) Tobacco abuse Surgical History Surgical History H/O tubal ligation performed during History of section History of thyroidectomy, subtotal for benign nodule Family History Family History Fat
[2020-09-08] MEDS: LACTATED RINGERS 1,000 ML 30 ML IV CONT (12:45)
--- NOTE | 2020-09-08 12:57 | WPDHPUPDATE1 ---
History and Physical Update Update Date/Time: 09/08/20 12:57 History and Physical has been reviewed, including an updated exam of the patient. There are NO changes in the patient's condition. Risks, benefits, and alternatives have been discussed and questions answered. Patient agrees to proceed with procedure.
[2020-09-08] MEDS: BUPIVACAINE/EPINEPHRINE 0.5% 10 ML VIAL 50 ML INFILTRATE (14:10)
--- NOTE | 2020-09-08 14:33 | W.PM.PROC2 ---
Procedure Note - Detailed Date of Procedure 09/08/20 Pre-op Diagnosis RLQ pain, abnormal CT abdomen Post-op Diagnosis same Procedure Performed Laparoscopic appendectomy Surgeon Arvind Young, DO Anesthesia general and local (0.5% bupivicaine with epinephrine) Indications This is a 40 yo woman who was admitted for nonspecific RLQ and RUQ abdominal pain. She has been experiencing some pains off and on for the past couple months, but this has been more constant and severe over the past week. She has had 2 CT's which showed mild dilation of the appendix without surrounding inflammation. This also showed possible enteritis. Patient continues to have abdominal pain and is not getting any relief. Discussions were made with the patient that there is a slight possibility that it could be related to appendicitis, but that her symptoms were not typical for acute appendicitis. Treatment options were discussed and decision was made to proceed with laparoscopic appendectomy, possible open. Findings Laparoscopic appendectomy was performed. The appendix appeared slightly dilated but otherwise normal. The base appeared healthy and viable. There were a couple omental adhesions to the fundus of the uterus, but the small bowel and colon appeared normal. The gallbladder appeared normal. The appendix was removed and sent to the lab for pathology. Description of Procedure Procedure as well as risks, benefits, and alternatives were explained to the patient. The patient agreed to proceed. Written consent was obtained and placed in chart prior to procedure. The patient was brought back to surgical suite. She was placed supine on operating table. Time-out was done to confirm the patient and procedure. The patient was then intubated by the Anesthesia Department. Her abdomen was prepped and draped in sterile fashion using chlorhexidine prep. A 5 mm incision was made just to the left of the patient's umbilicus and a 5 mm Optiview trocar was advanced through the abdominal layers under direct visualization. Once inside the peritoneal cavity, carbon dioxide insufflation was used to create a pneumoperitoneum. The camera was inserted and the abdomen was inspected. No immediate abnormalities were identified. The patient was then placed in slight Trendelenburg position and rotated to the left. A 5 mm incision was made in the suprapubic region in midline and a 5 mm trocar was inserted under direct visualization. A 12 mm incision was made in the left lower quadrant and a 12 mm trocar was inserted under direct visualization. The right lower quadrant was carefully inspected. The cecum was identified and then this was traced back to the appendix. The appendix was identified and grasped at the mesoappendix and lifted anteriorly. Careful blunt dissection was carried out at the base of the appendix through the mesoappendix using a [place] grasper. An Endo-OLY 45 mm blue load stapler was then advanced across the base of the appendix and clamped and fired. A white reload was then clamped across the mesoappendix and fired. This freed up our appendix completely. It was then placed in an EndoCatch bag and removed through the left lower quadrant port. The staple lines were then inspected. Hemostasis appeared adequate and the staple lines appeared secure. The area was then irrigated with sterile saline. The pelvis was then carefully inspected and irrigated with sterile saline as well and the remainder of the abdomen was carefully inspected. The patient was then flattened out in bed. One final inspection was made around the abdominal cavity and no other abnormalities were seen. The left lower quadrant port was removed and a David-Ren cone was used to approximate the fascia with an 0 Vicryl simple interrupted suture. The remaining ports were then removed under direct visualization. The camera was removed and the pneumoperitoneum was released. 0.5% bupivacaine with epinephrine was
[2020-09-08] MEDS: HYDROmorphone HCL INJ (*CRX) 1 MG/ML SYR 0.25 MG IV PUSH ×8 (14:40→15:15)
--- NOTE | 2020-09-08 15:50 | PC.NURSE ---
Returned from OR per [bed ]. Report received from [ Cornelio KAY]. Pt awake and alert . 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
[2020-09-08] MEDS: ARIPiprazole 10 MG TABLET PO (16:32)
[2020-09-08] MEDS: FUROSEMIDE 40 MG TABLET PO (16:32)
[2020-09-08] MEDS: PANTOPRAZOLE 40 MG TABLET PO (16:32)
[2020-09-08] MEDS: SERTRALINE HCL 50 MG TABLET 150 MG PO (16:32)
[2020-09-08] MEDS: busPIRone HCL 5 MG TABLET 15 MG PO (16:33)
[2020-09-08] MEDS: lisinopriL 20 MG TABLET PO (18:23)
[2020-09-08] MEDS: clonazePAM (*CRX) 0.5 MG TABLET 1 MG PO (18:23)
[2020-09-08] MEDS: HYDROcodone/acetaminophen (*CRX) 10-325 MG TABLET 1 TAB PO (18:27)
[2020-09-08] MEDS: GABAPENTIN 300 MG CAPSULE 600 MG PO (20:51)
[2020-09-08] MEDS: HYDROcodone/acetaminophen (*CRX) 5-325 MG TABLET 1 TAB PO (20:51)
[2020-09-08] MEDS: ENOXAPARIN 30 MG/0.3 ML SYRINGE SUB-Q (21:14)
[2020-09-09 02:00] VITALS: BP 148/90; PULSE 80; RESP 16; TEMP 36.1; O2SAT 96
[2020-09-09] MEDS: HYDROcodone/acetaminophen (*CRX) 10-325 MG TABLET 1 TAB PO ×2 (04:27→12:07)
[2020-09-09] MEDS: PROMETHAZINE HCL 25 MG/ML AMPUL 12.5 MG IV PUSH (04:33)
[2020-09-09 05:16] VITALS: BP 141/88; PULSE 72; RESP 16; TEMP 36.4; O2SAT 95
[2020-09-09] MEDS: LEVOTHYROXINE SODIUM 50 MCG TABLET PO (05:45)
--- NOTE | 2020-09-09 08:06 | WPDANESPN ---
Anes - Prog Note Post-Op Date/Time: 09/09/20 08:06 Cardiovascular status: normal Respiratory status: normal Airway patency: baseline Mental status: baseline Post-Op hydration status: normal Vital Signs: Last Vital Signs Temp 36.4 C L 09/09/20 05:16 Pulse 72 09/09/20 05:16 Resp 16 09/09/20 05:16 BP 141/88 H 09/09/20 05:16 Pulse Ox 95 09/09/20 05:16 Pain Score (VAS): 0/10 I/O: Intake & Output 09/08/20 09/09/20 09/09/20 23:59 07:59 15:59 Intake Total 1540 500 Output Total 200 Balance 1340 500 Laboratory Tests 09/08/20 05:11 09/08/20 05:11 Post-procedural complaints: none Patient Feedback: Patient satisfied with anesthetic care.
[2020-09-09] MEDS: SERTRALINE HCL 50 MG TABLET 150 MG PO (09:04)
[2020-09-09] MEDS: FUROSEMIDE 40 MG TABLET PO (09:04)
[2020-09-09] MEDS: busPIRone HCL 5 MG TABLET 15 MG PO ×2 (09:06→12:05)
[2020-09-09] MEDS: ARIPiprazole 10 MG TABLET PO (09:08)
[2020-09-09] MEDS: PANTOPRAZOLE 40 MG TABLET PO (09:08)
[2020-09-09] MEDS: lisinopriL 20 MG TABLET PO (09:08)
[2020-09-09] MEDS: ENOXAPARIN 30 MG/0.3 ML SYRINGE SUB-Q (09:11)
[2020-09-09] MEDS: FLUTICASONE PROP 44 MCG (*SP) 10.6 GM 2 PUFF INHALATION (09:12)
[2020-09-09] MEDS: ALBUTEROL SULFATE (*SP) AEROSOL 1 PUFF 2 PUFF INHALATION (09:15)
[2020-09-09 09:16] VITALS: BP 150/87; PULSE 67; RESP 18; TEMP 35.9; O2SAT 95
[2020-09-09] MEDS: MORPHINE SULFATE (*CRX) 4 MG/ML INJ IV PUSH (09:16)
[2020-09-09] MEDS: clonazePAM (*CRX) 0.5 MG TABLET 1 MG PO ×2 (09:16→12:06)
--- NOTE | 2020-09-09 10:32 | PM.PNGS ---
Progress Note: A&P Assessment and Plan (1) Abdominal pain: Code(s): R10.9 - Unspecified abdominal pain Status: Acute Assessment and Plan: Tolerating diet on POD#1. OK to discharge from surgical standpoint. Follow up in office in 2 weeks. (2) Abnormal CT scan, gastrointestinal tract: Code(s): R93.3 - Abnormal findings on diagnostic imaging of other parts of digestive tract Status: Acute Subjective Subjective Date/Time Seen: 09/09/20 10:32 Interval history: Doing well on POD#1. Says she has a little nausea secondary to pain. Was able to eat breakfast ok. Pain mostly surgical. Exam GI: Inspection: incision (intact with glue) GI Palp: Yes Tenderness to palpation present (GI) (incisional) Objective Data Vital Signs Vital Signs: Vital Signs - 24 hr 09/08/20 12:20 09/08/20 14:27 09/08/20 14:30 Temperature 37.2 C 36.6 C Pulse Rate 60 94 83 Respiratory Rate 16 10 L 16 Blood Pressure 154/92 H 118/80 114/79 Pulse Oximetry 97 100 100 09/08/20 14:45 09/08/20 15:00 09/08/20 15:15 Temperature Pulse Rate 85 77 70 Respiratory Rate 19 12 12 Blood Pressure 123/77 121/77 107/68 Pulse Oximetry 100 100 96 09/08/20 15:30 09/08/20 15:40 09/08/20 15:55 Temperature 36.1 C L 35.8 C L Pulse Rate 77 69 68 Respiratory Rate 13 16 16 Blood Pressure 116/76 104/69 109/68 Pulse Oximetry 95 92 99 09/08/20 16:25 09/08/20 17:25 09/08/20 18:00 Temperature 36.2 C L 36.1 C L 36.1 C L Pulse Rate 75 77 73 Respiratory Rate 16 16 16 Blood Pressure 114/70 112/64 117/78 Pulse Oximetry 96 96 96 09/08/20 22:28 09/09/20 02:00 09/09/20 05:16 Temperature 36.3 C L 36.1 C L 36.4 C L Pulse Rate 77 80 72 Respiratory Rate 16 16 16 Blood Pressure 127/86 148/90 H 141/88 H Pulse Oximetry 95 96 95 09/09/20 09:16 Temperature 35.9 C L Pulse Rate 67 Respiratory Rate 18 Blood Pressure 150/87 H Pulse Oximetry 95 Intake/Output Intake/Output: Intake & Output 09/06/20 09/07/20 09/08/20 09/09/20 23:59 23:59 23:59 23:59 Intake Total 5010 2920 3410 740 Output Total 750 800 Balance 4260 2920 2610 740 Meds/Results Medications: Active Medications Generic Name Dose Route Start Last Admin Trade Name Freq PRN Reason Stop Dose Admin Acetaminophen 650 mg 09/08/20 15:31 Acetaminophen 325 Mg Tablet PO Q6H PRN Mild Pain (1-3) or Fever Hydrocodone Bitart/Acetaminophen 1 tab 09/08/20 15:31 09/08/20 20:51 Hydrocodone/Acetaminophen (*Crx) 5-325 Mg Tablet PO 1 tab Q4H PRN Administration Pain Rated 4-6 Hydrocodone Bitart/Acetaminophen 1 tab 09/08/20 15:31 09/09/20 04:27 Hydrocodone/Acetaminophen (*Crx) 10-325 Mg Tablet PO 1 tab Q6H PRN Administration Pain Rated 7-10 Albuterol 2 puff 09/05/20 08:00 09/09/20 09:15 Albuterol Sulfate (*Sp) Aerosol 1 Puff INHALATION 2 puff DAILY@0800 RAFA Administration Aripiprazole 10 mg 09/04/20 09:00 09/09/20 09:08 Aripiprazole 10 Mg Tablet PO 10 mg DAILY RAFA Administration Buspirone HCl 15 mg 09/04/20 09:00 09/09/20 09:06 Buspirone Hcl 5 Mg Tablet PO 15 mg TID RAFA Administration Calcium Carbonate 200 mg 09/07/20 22:17 09/07/20 22:52 Calcium Carbonate (Tums) 500 Mg (200 Mg Elemental) PO 200 mg Q6H PRN Administration Indigestion Clonazepam 1 mg 09/04/20 09:00 09/09/20 09:16 Clonazepam (*Crx) 0.5 Mg Tablet PO 1 mg TID RAFA Administration Enoxaparin Sodium 30 mg 09/08/20 21:00 09/09/20 09:11 Enoxaparin 30 Mg/0.3 Ml Syringe SUB-Q 30 mg Q12HR RAFA Administration Fluticasone Propionate 2 puff 09/05/20 08:00 09/09/20 09:12 Fluticasone Prop 44 Mcg (*Sp) 10.6 Gm INHALATION 2 puff DAILYRT RAFA Administration Furosemide 40 mg 09/04/20 09:00 09/09/20 09:04 Furosemide 40 Mg Tablet PO 40 mg QAM RAFA Administration Gabapentin 600 mg 09/04/20 21:00 09/08/20 20:51 Gabapentin 300 Mg Capsule PO 600 mg HS RAFA Administration Hyoscyami
[2020-09-09] MEDS: PROMETHAZINE HCL 12.5 MG TABLET PO (12:04)
[2020-09-09 14:00] VITALS: BP 124/78; PULSE 72; RESP 18; TEMP 35.9; O2SAT 95
--- NOTE | 2020-09-09 15:06 | WPDGIPROGNO ---
Progress Note: A&P Assessment and Plan (1) Abdominal pain: Code(s): R10.9 - Unspecified abdominal pain Status: Acute Assessment and Plan: no inflammation of appendix but path pending pain mild and surgical related ok to go home and can follow-up office in 6-8 weeks (2) Abnormal CT scan, gastrointestinal tract: Code(s): R93.3 - Abnormal findings on diagnostic imaging of other parts of digestive tract Status: Acute (3) Nausea: Code(s): R11.0 - Nausea Status: Acute Assessment and Plan: chronic ges normal, no gastroparesis (4) Bloating: Code(s): R14.0 - Abdominal distension (gaseous) Status: Acute (5) Schizoaffective disorder: Code(s): F25.9 - Schizoaffective disorder, unspecified Status: Acute Subjective Date/time seen: 09/09/20 15:06 Interval history: yesterday had lap appy, no new events today Review of Systems Review of Systems: All systems reviewed & are unremarkable except as noted in HPI and below Exam Const: General: comfortable and no acute distress HENMT: General nose exam: Normal nares present Eyes: Pupils: Equal, round and reactive pupils present Neck: Neck: supple Resp: Effort & Inspection: normal respiratory effort Cardio: Rhythm: regular rhythm GI: GI Palp: Yes Soft to palpation and Yes Tenderness to palpation present (GI) (mild rlq, incision intact) Auscultation: normal bowel sounds Skin: General skin exam: normal color Neuro: Speech: normal speech Extrem: General: normal exam except as noted Psych: Mental Status: mental status grossly normal Objective Data Vital Signs Vital Signs: Vital Signs - 24 hr 09/08/20 15:15 09/08/20 15:30 09/08/20 15:40 Temperature 96.9 F L Pulse Rate 70 77 69 Respiratory Rate 12 13 16 Blood Pressure 107/68 116/76 104/69 Pulse Oximetry 96 95 92 09/08/20 15:55 09/08/20 16:25 09/08/20 17:25 Temperature 96.4 F L 97.1 F L 96.9 F L Pulse Rate 68 75 77 Respiratory Rate 16 16 16 Blood Pressure 109/68 114/70 112/64 Pulse Oximetry 99 96 96 09/08/20 18:00 09/08/20 22:28 09/09/20 02:00 Temperature 97.0 F L 97.3 F L 97.0 F L Pulse Rate 73 77 80 Respiratory Rate 16 16 16 Blood Pressure 117/78 127/86 148/90 H Pulse Oximetry 96 95 96 09/09/20 05:16 09/09/20 09:16 09/09/20 14:00 Temperature 97.5 F L 96.6 F L 96.7 F L Pulse Rate 72 67 72 Respiratory Rate 16 18 18 Blood Pressure 141/88 H 150/87 H 124/78 Pulse Oximetry 95 95 95 Intake/Output Intake/Output: Intake & Output 09/06/20 09/07/20 09/08/20 09/09/20 23:59 23:59 23:59 23:59 Intake Total 5010 2920 3410 1100 Output Total 750 800 Balance 4260 2920 2610 1100 Meds/Results Medications: Active Medications Generic Name Dose Route Start Last Admin Trade Name Freq PRN Reason Stop Dose Admin Acetaminophen 650 mg 09/08/20 15:31 Acetaminophen 325 Mg Tablet PO Q6H PRN Mild Pain (1-3) or Fever Hydrocodone Bitart/Acetaminophen 1 tab 09/08/20 15:31 09/08/20 20:51 Hydrocodone/Acetaminophen (*Crx) 5-325 Mg Tablet PO 1 tab Q4H PRN Administration Pain Rated 4-6 Hydrocodone Bitart/Acetaminophen 1 tab 09/08/20 15:31 09/09/20 12:07 Hydrocodone/Acetaminophen (*Crx) 10-325 Mg Tablet PO 1 tab Q6H PRN Administration Pain Rated 7-10 Albuterol 2 puff 09/05/20 08:00 09/09/20 09:15 Albuterol Sulfate (*Sp) Aerosol 1 Puff INHALATION 2 puff DAILY@0800 RAFA Administration Aripiprazole 10 mg 09/04/20 09:00 09/09/20 09:08 Aripiprazole 10 Mg Tablet PO 10 mg DAILY RAFA Administration Buspirone HCl 15 mg 09/04/20 09:00 09/09/20 12:05 Buspirone Hcl 5 Mg Tablet PO 15 mg TID RAFA Administration Calcium Carbonate 200 mg 09/07/20 22:17 09/07/20 22:52 Calcium Carbonate (Tums) 500 Mg (200 Mg Elemental) PO 200 mg Q6H PRN Administration Indigestion Clonazepam 1 mg 06/26/21 09:00 09/09/20 12:06 Clonazepam (*Crx) 0.5 Mg Tablet PO
--- NOTE | 2020-09-09 15:55 | PM.DS ---
DS: Admitting Diagnosis Admitting Diagnosis Admitting Diagnosis: (1) Cannabinoid hyperemesis syndrome: Code(s): R11.2 - Nausea with vomiting, unspecified; F12.90 - Cannabis use, unspecified, uncomplicated Status: Acute Assessment and Plan: Advised patient to avoid marijuana One dose of Haldol IM Phenergan p.r.n. (2) Abdominal pain: Code(s): R10.9 - Unspecified abdominal pain Status: Acute Assessment and Plan: CT scan, labs, and HIDA scan, unremarkable Consider GI consultation if pain did not improve by tomorrow (3) Schizoaffective disorder: Code(s): F25.9 - Schizoaffective disorder, unspecified Status: Acute Assessment and Plan: Stable clinically at this time Resume home medicine Patient denies depression SI or HI (4) Bipolar affect, depressed: Code(s): F31.30 - Bipolar disorder, current episode depressed, mild or moderate severity, unspecified Status: Acute (5) Hypertension: Qualifiers: Hypertension type: essential hypertension Qualified Code(s): I10 - Essential (primary) hypertension Code(s): I10 - Essential (primary) hypertension Status: Acute Assessment and Plan: Resume home medicine Pain control Monitor vital signs closely DS: Discharge Diagnosis Discharge Diagnosis (1) Cannabinoid hyperemesis syndrome: Code(s): R11.2 - Nausea with vomiting, unspecified; F12.90 - Cannabis use, unspecified, uncomplicated Status: Acute Assessment and Plan: Advised patient to avoid marijuana One dose of Haldol IM Phenergan p.r.n. Counseling given to the patient. (2) Abdominal pain: Code(s): R10.9 - Unspecified abdominal pain Status: Acute Assessment and Plan: CT scan, labs, and HIDA scan, unremarkable consult GI Hyoscyamine p.r.n. for abdominal pain Patient is scheduled for gastric emptying time study today. (3) Schizoaffective disorder: Code(s): F25.9 - Schizoaffective disorder, unspecified Status: Acute Assessment and Plan: Stable clinically at this time Resume home medicine Patient denies depression SI or HI Stable on current medication (4) Bipolar affect, depressed: Code(s): F31.30 - Bipolar disorder, current episode depressed, mild or moderate severity, unspecified Status: Acute Assessment and Plan: stable on meds (5) Hypertension: Qualifiers: Hypertension type: essential hypertension Qualified Code(s): I10 - Essential (primary) hypertension Code(s): I10 - Essential (primary) hypertension Status: Acute Assessment and Plan: Resume home medicine Pain control Monitor vital signs closely DS: Summary Hospital Course Reason for hospitalization: NAUSEA AND VOMITING Hospital Course: Patient with past medical history of bipolar disorder, hypertension, and heart failure during that resolved at this time, presented with abdominal pain, started last week, moderate, intermittent, associated with nausea and vomiting, patient was admitted to the hospital few days ago, GI were consulted, CT scan and labs were unremarkable, HIDA scan was also unremarkable, patient was discharged home, then returned to the hospital with the same complaint, urine drug screen was positive for marijuana, and I advised patient about the importance of avoiding marijuana and any illegal drugs. CONSULTS OBTAINED: GASTROENTEROLOGY AND GENERAL SURGERY PATIENT CONCLUDED GASTRIC EMPTYING STATUS WHICH WAS REPORTED NORMAL IT WAS FELT THE PATIENT HAD ATYPICAL PRESENTATION FOR APPENDICITIS AND PATIENT WAS TAKING FOR APPENDECTOMY POST APPENDECTOMY PATIENT TOLERATED DIET HAD NO COMPLICATIONS SHE WAS DISCHARGED HOME WILL FOLLOW-UP IN THE OUTPATIENT SETTING WITH HER PRIMARY CARE PHYSICIAN Status at Discharge Cognitive/behavioral status at discharge: AAOX3 Functional status at discharge: independent ambulation Overall status at discha
[2020-09-09] MEDS: HYDROcodone/acetaminophen (*CRX) 5-325 MG TABLET 1 TAB PO (16:26)
== END 2020-09-09 16:40 | disposition home or self-care (01) | DRG 234 ==
LOC: ANHED 22:24 → ANH2MED 09-04 03:00
PROVIDERS: Emergency Medicine; Internal Medicine; Nurse Practitioner Family; Surgery; Admitting Provider Internal Medicine; Emergency Provider Emergency Medicine; PCP Nurse Practitioner Family; Visit Provider Internal Medicine
PROC: 0DTJ4ZZ Resection of Appendix, Percutaneous Endoscopic Approach (ICD-10-PCS; CPT 44970; principal; 2020-09-08 13:00)
DX: R10.31 Right lower quadrant pain (principal); R93.3 Abnormal findings on diagnostic imaging of other parts of digestive tract; R14.0 Abdominal distension (gaseous); R11.2 Nausea with vomiting, unspecified; F12.90 Cannabis use, unspecified, uncomplicated; K52.9 Noninfective gastroenteritis and colitis, unspecified; K80.20 Calculus of gallbladder without cholecystitis without obstruction; K21.9 Gastro-esophageal reflux disease without esophagitis; F25.9 Schizoaffective disorder, unspecified; F31.30 Bipolar disorder, current episode depressed, mild or moderate severity, unspecified; I10 Essential (primary) hypertension; F17.210 Nicotine dependence, cigarettes, uncomplicated; J45.20 Mild intermittent asthma, uncomplicated; J96.10 Chronic respiratory failure, unspecified whether with hypoxia or hypercapnia; G47.33 Obstructive sleep apnea (adult) (pediatric); E66.01 Morbid (severe) obesity due to excess calories; Z68.42 Body mass index [BMI] 45.0-49.9, adult; Z79.899 Other long term (current) drug therapy; Z86.718 Personal history of other venous thrombosis and embolism; Z99.89 Dependence on other enabling machines and devices
CPT/HCPCS: 36415; 74177; 78264; 80048; 80053; 81001; 81025; 82565; 83690; 83735; 84100; 85025; 85027; 86140; 88304; 94003; 94640; 96361; 96365; 96372; 96374; 96375; 96376; 99285; A9270; A9541; G0378; G0379; J0131; J0500; J1100; J1170; J1630; J1650; J2250; J2270; J2370; J2405; J2543; J2550; J2710; J2765; J3010; J7030; J7120; Q9967

== ENCOUNTER 2020-09-25 15:25 | Emergency (ER) | payer OTHER, SELFPAY ==
--- NOTE | ~2020-09-25 | CT_ITS ---
EXAMINATION: CT abdomen pelvis w con DATE: 09/25/2020 17:21 INDICATION: Abdominal pain, nausea and vomiting TECHNIQUE: Computed tomography (CT) of the abdomen and pelvis was performed with 100 mL Omnipaque-350 intravenous contrast. Automated exposure control and iterative reconstruction technique were employe d. The dose-length product was 1420.72 mGy-cm. COMPARISON: 09/03/2020 FINDINGS: Scattered dependent predominant atelectasis in the bilateral lower lungs. Heart size is normal. No pe ricardial or pleural effusion. Liver, spleen, pancreas, bilateral adrenal glands and kidneys are norm al. Peripherally calcified gallstone within the normal-appearing gallbladder with no gallbladder wall thickening or pericholecystic inflammatory stranding to suggest acute cholecystitis. No intra or ext rahepatic biliary ductal dilation. Interval appendectomy with suture line consistent clips at the tip of the cecum. There is fluid throughout much of the colon consistent with diarrhea. No abnormal jodie l wall thickening or obstruction. Small fat-containing umbilical hernia. Bladder, uterus and bilatera l adnexa are unremarkable. No free intraperitoneal gas or fluid. No pathologically enlarged abdomina l or pelvic lymphadenopathy. Tract for a prior surgical drain is seen at the left lower quadrant ante rior abdominal wall. Mild thoracolumbar spondylosis. IMPRESSION: 1. Fluid-filled colon consistent with diarrhea without wall thickening to suggest colitis. Correlate clinically for gastroenteritis. 2. Cholelithiasis. Reviewed, dictated and finalized at location A. IMPRESSION: 1. Fluid-filled colon consistent with diarrhea without wall thickening to sugge st colitis. Correlate clinically for gastroenteritis. 2. Cholelithiasis.
[2020-09-25 15:27] VITALS: BP 153/92; PULSE 109; RESP 18; TEMP 36.8; O2SAT 99
[2020-09-25 15:53] LABS: Basophils Percent Auto 0.4 % (0.2-1.2); Eosinophils Absolute Auto 0.3 K/mm3 (0-0.3); Hematocrit 41.3 % (37.0-47.0); Hemoglobin 12.9 g/dL (12.0-15.0); Immature Granulocyte Absolute 0.03 K/mm3 (0.00-0.031); Immature Granulocyte Percent A 0.3 % (0-0.5); Lymphocytes Absolute Auto 2.83 K/mm3 (0.9-3.2); Lymphocytes Percent Auto 31.8 % (18.3-44.2); Mean Corpuscular HGB Conc 31.2 g/dl (32-36); Mean Corpuscular Hemoglobin 28.8 pg (26-34); Mean Corpuscular Volume 92.2 fl (80-100); Mean Platelet Volume 10.1 fl (7.4-10.4); Monocytes Absolute Auto 0.5 K/mm3 (0.1-0.6); Monocytes Percent Auto 6.1 % (2.6-8.5); Neutrophils Absolute Auto 5.2 K/mm3 (1.3-6.7); Neutrophils Percent Auto 58.4 % (45.5-73.1); Platelet Count Result 306 k/mm3 (150-375); Red Blood Count 4.48 M/mm3 (4.2-5.4); Red Cell Distribution Width 15.7 % (11.5-14.5); White Blood Count 8.9 K/mm3 (4.5-10.0)
[2020-09-25 16:03] LABS: Alanine Aminotransferase 17 U/L (4-35); Albumin Level 4.7 g/dL (3.5-5.1); Alkaline Phosphatase 114 U/L (38-126); Anion Gap 11 mmol/L (8-16); Aspartate Amino Transferase 25 U/L (14-36); Bilirubin,Total 0.4 mg/dL (0.2-1.3); Blood Urea Nitrogen 8 mg/dL (7-17); Calcium 9.7 mg/dL (8.4-10.2); Carbon Dioxide 28 mmol/L (22-30); Chloride 101 mmol/L (98-107); Estimated CRCL calculation 91 ml/min; Estimated Glomerular Filt Rate > 60; Glucose 117 mg/dL (65-110); Lipase 110 U/L (23-300); Potassium 3.8 mmol/L (3.4-5.0); Sodium 140 mmol/L (137-145)
[2020-09-25 16:04] LABS: Add Urine Microscopic? NO; Appearance Urine Clear (Clear); Bilirubin Urine Negative (Negative); Blood Urine Negative (Negative); Color Urine Straw (Yellow); Glucose Urine UA Negative (Negative); Ketones Urine Negative (Negative); Leukocyte Esterase Ur Negative LEU/UL (Negative); Nitrate Urine Negative (Negative); Protein Urine Negative (Negative); Specific Grav Ur 1.005 (1.001-1.035); Urobilinogen Urine Negative mg/dL (<2.0)
[2020-09-25 16:15] VITALS: BP 101/71; PULSE 90; RESP 16; O2SAT 95
[2020-09-25 16:41] VITALS: BP 119/55; PULSE 95; RESP 18; O2SAT 96
--- NOTE | 2020-09-25 17:02 | ED.GENADULT ---
HPI - General Adult General Chief complaint: Abdominal Pain Stated complaint: abd pain Time Seen by Provider: 09/25/20 15:33 Source: patient Mode of arrival: ambulatory Limitations: no limitations History of Present Illness HPI narrative: Pt presents for evaluation of abdominal pain, nausea and vomiting since 1300 today. She states her symptoms started after eating cottage cheese. Her current pain is in RUQ radiation into the right lower back and epigastric region. She states the pain is sharp, stabbing, 10 out of 10 in severity. No change in bowel pattern. Last bowel movement was this morning, solid consistency, without the presence of blood or mucus in the stool. No fever, chills, urinary symptoms, vaginal bleeding/discharge. She was seen in the emergency department here several times last month. She was admitted in late August for control of her GI symptoms. CT revealed enteritis. GI was consulted and she had a HIDA scan that was unremarkable. Urine drug screen was positive for marijuana. She underwent appendectomy in late August. She was having similar pain prior to that time for several months. She states that surgery informed her at the time of her appendectomy that her pain could also be related to her gallbladder. She states she saw general surgery yesterday for post-op appt and was having abdominal pain at that time. Documentation from her surgeon indicates that pathology showed appendix without pathologic abnormality. CT abd pelvis on 09/04/20 showed mildly prominent appendix measuring up to 11 mm proximally without significant periappendiceal infiltration. There was also probable cholelithiasis. No secondary findings to suggest cholecystitis. Finally, there were fluid-filled small bowel and colon, suspicious for enterocolitis. Gastric emptying study in August was normal. Related Data Home Medications Medication Instructions Recorded Confirmed clonazepam 1 mg PO TID 05/19/19 09/04/20 gabapentin 600 mg PO HS 05/19/19 09/04/20 lisinopril 20 mg PO DAILY 05/19/19 09/04/20 sertraline 150 mg PO DAILY 05/19/19 09/04/20 furosemide 40 mg tablet 40 mg PO QAM 01/28/20 09/04/20 Flovent HFA 2 puff INHALATION DAILY 05/25/20 09/04/20 Linzess 290 mcg PO DAILY 05/25/20 09/04/20 albuterol sulfate 2 puff INHALATION DAILY 05/25/20 09/04/20 aripiprazole 10 mg PO DAILY 05/25/20 09/04/20 buspirone 15 mg PO TID 05/25/20 09/04/20 Invega Sustenna 234 mg IM Q30D 06/03/20 09/04/20 levothyroxine [Euthyrox] 50 mcg PO DAILY 06/03/20 09/04/20 omeprazole 40 mg PO DAILY 06/03/20 09/04/20 divalproex PO 09/25/20 metoprolol tartrate 09/25/20 Allergies Allergy/AdvReac Type Severity Reaction Status Date / Time chlorpromazine Allergy Itching Verified 09/25/20 15:35 [From Thorazine] latex Allergy Hives Verified 09/25/20 15:35 quetiapine [From Seroquel] Allergy Hallucinati Verified 09/25/20 15:35 ng Review of Systems Review of Systems: Narrative: CONSTITUTIONAL: Denies fever, chills, or sweats. EYES: Denies visual changes, redness, or discharge. ENT: Denies rhinorrhea, congestion, sore throat, or otalgia. CARDIOVASCULAR: Denies chest pain, palpitations, or edema. RESPIRATORY: Denies cough or dyspnea. GASTROINTESTINAL: Reports abdominal pain, nausea, and vomiting. Denies constipation or diarrhea GENITOURINARY: Denies dysuria or hematuria. SKIN: Denies rash or itching. MUSCULOSKELETAL: Denies back pain, joint pain, or myalgia. NEUROLOGIC: Denies headache, numbness, dizziness, or weakness. PSYCHIATRIC: Denies anxiety or depression. [facility] Past Medical History Medical History Abnormal CT scan, gastrointestinal tract Asthma, mild intermittent Bipolar affect, depressed Bloating Chronic respiratory failure Constipation DVT (deep venous thrombosis) Lower extremity DVT in 2019 while hospitalized and intubated for acute respiratory failure. Treated with anticoagulation and no longer on an
[2020-09-25] MEDS: ONDANSETRON INJ 4 MG/2 ML VIAL IV PUSH (17:30)
[2020-09-25] MEDS: SODIUM CHLORIDE 0.9% IV 1,000 ML 999 ML IV CONT (17:30)
[2020-09-25] MEDS: FAMOTIDINE 20 MG/2 ML VIAL IV PUSH (17:30)
[2020-09-25] MEDS: MORPHINE SULFATE (*CRX) 2 MG/ML INJ IV PUSH (17:31)
[2020-09-25 17:36] VITALS: BP 109/72; PULSE 83; RESP 14; O2SAT 96
[2020-09-25 19:04] VITALS: BP 106/72; PULSE 72; RESP 16; O2SAT 96
== END 2020-09-25 18:45 | disposition home or self-care (01) ==
PROVIDERS: Emergency Provider Nurse Practitioner; PCP Nurse Practitioner Family
DX: K80.20 Calculus of gallbladder without cholecystitis without obstruction (principal); J45.20 Mild intermittent asthma, uncomplicated; J96.10 Chronic respiratory failure, unspecified whether with hypoxia or hypercapnia; I10 Essential (primary) hypertension; K21.9 Gastro-esophageal reflux disease without esophagitis; G47.33 Obstructive sleep apnea (adult) (pediatric); F31.9 Bipolar disorder, unspecified; E89.0 Postprocedural hypothyroidism; Z86.718 Personal history of other venous thrombosis and embolism; F17.210 Nicotine dependence, cigarettes, uncomplicated
CPT/HCPCS: 36415; 74177; 80053; 81003; 81025; 83690; 85025; 96361; 96374; 96375; 99284; J2270; J2405; J7030; Q9967

== ENCOUNTER 2020-09-27 10:26 | Emergency (ER) | payer OTHER, SELFPAY ==
[2020-09-27] VITALS (24 sets, daily range): BP systolic 97–165; BP diastolic 63–100; PULSE 54–85; RESP 16–18; TEMP 36.9; O2SAT 95–98
--- NOTE | ~2020-09-27 | US_ITS ---
EXAMINATION: US abdomen limited DATE: 09/27/2020 13:49 INDICATION: Right upper quadrant pain TECHNIQUE: Multiple grayscale and Doppler ultrasound images of the abdomen were obtained. COMPARISON: CT, 09/25/2020 FINDINGS: Bowel gas obscures visualization of the pancreas. The visualized portions of the pancreas a re unremarkable. The liver is normal with normal echogenicity and echotexture. No surface nodularity. Normal hepatopetal flow in the main portal vein. Stones are present in the gallbladder. There is no gallbladder wall thickening or pericholecystic fluid. The normal common bile duct measures 4 mm. Ther e was no sonographic Vargas sign. IMPRESSION: 1. Cholelithiasis without additional findings of cholecystitis. Reviewed, dictated and finalized at location B.
[2020-09-27 10:46] LABS: Basophils Percent Auto 0.4 % (0.2-1.2); Eosinophils Absolute Auto 0.4 K/mm3 (0-0.3); Eosinophils Percent Auto 4.8 % (0-4.4); Hematocrit 38.6 % (37.0-47.0); Hemoglobin 12.2 g/dL (12.0-15.0); Immature Granulocyte Absolute 0.04 K/mm3 (0.00-0.031); Immature Granulocyte Percent A 0.5 % (0-0.5); Lymphocytes Absolute Auto 2.72 K/mm3 (0.9-3.2); Lymphocytes Percent Auto 36.4 % (18.3-44.2); Mean Corpuscular HGB Conc 31.6 g/dl (32-36); Mean Corpuscular Hemoglobin 29.5 pg (26-34); Mean Corpuscular Volume 93.2 fl (80-100); Mean Platelet Volume 9.9 fl (7.4-10.4); Monocytes Absolute Auto 0.6 K/mm3 (0.1-0.6); Neutrophils Absolute Auto 3.7 K/mm3 (1.3-6.7); Neutrophils Percent Auto 49.9 % (45.5-73.1); Platelet Count Result 273 k/mm3 (150-375); Red Blood Count 4.14 M/mm3 (4.2-5.4); White Blood Count 7.5 K/mm3 (4.5-10.0)
[2020-09-27 10:58] LABS: Alanine Aminotransferase 15 U/L (4-35); Albumin Level 4.1 g/dL (3.5-5.1); Alkaline Phosphatase 99 U/L (38-126); Anion Gap 8 mmol/L (8-16); Aspartate Amino Transferase 22 U/L (14-36); Bilirubin,Total 0.3 mg/dL (0.2-1.3); Blood Urea Nitrogen 9 mg/dL (7-17); Calcium 9.3 mg/dL (8.4-10.2); Carbon Dioxide 30 mmol/L (22-30); Chloride 101 mmol/L (98-107); Estimated CRCL calculation 91 ml/min; Estimated Glomerular Filt Rate > 60; Glucose 103 mg/dL (65-110); Lipase 75 U/L (23-300); Potassium 3.7 mmol/L (3.4-5.0); Sodium 139 mmol/L (137-145)
--- NOTE | 2020-09-27 10:58 | PC.NURSE ---
assumed care of patient
[2020-09-27 11:17] LABS: Add Urine Microscopic? YES; Appearance Urine Cloudy (Clear); Bilirubin Urine Negative (Negative); Blood Urine Negative (Negative); Color Urine Yellow (Yellow); Glucose Urine UA Negative (Negative); Ketones Urine Negative (Negative); Leukocyte Esterase Ur Negative LEU/UL (Negative); Mucus Urine Rare /lpf; Nitrate Urine Negative (Negative); Protein Urine Negative (Negative); RBC Urine 0-2 /hpf (0-2); Specific Grav Ur 1.021 (1.001-1.035); Squamous Epithelial Cell Urine Many /hpf (Few); WBC Urine 0-3 /hpf
--- NOTE | 2020-09-27 12:35 | ED.ABDPAIN ---
HPI - Abdominal Pain General Chief Complaint: Abdominal Pain Stated Complaint: Gallbladder Issues, Vomiting Time Seen by Provider: 09/27/20 11:01 Source: patient Mode of arrival: ambulatory Limitations: no limitations History of Present Illness HPI narrative: Patient is a 40 year old female who presents with abdominal pain, nausea and vomiting. Patient reports seen and treated on Sunday and discharged with cholelithiasis. Patient reports increasing pain over the past 2 days, unable to tolerate p.o. intake. She denies chest pain, shortness of breath or other complaints. She reports unable to take medication as prescribed at home because of nausea. MD elicited complaint: abdominal pain Related Data Home Medications Medication Instructions Recorded Confirmed clonazepam 1 mg PO TID 05/19/19 09/04/20 gabapentin 600 mg PO HS 05/19/19 09/04/20 lisinopril 20 mg PO DAILY 05/19/19 09/04/20 sertraline 150 mg PO DAILY 05/19/19 09/04/20 furosemide 40 mg tablet 40 mg PO QAM 01/28/20 09/04/20 Flovent HFA 2 puff INHALATION DAILY 05/25/20 09/04/20 Linzess 290 mcg PO DAILY 05/25/20 09/04/20 albuterol sulfate 2 puff INHALATION DAILY 05/25/20 09/04/20 aripiprazole 10 mg PO DAILY 05/25/20 09/04/20 buspirone 15 mg PO TID 05/25/20 09/04/20 Invega Sustenna 234 mg IM Q30D 06/03/20 09/04/20 levothyroxine [Euthyrox] 50 mcg PO DAILY 06/03/20 09/04/20 omeprazole 40 mg PO DAILY 06/03/20 09/04/20 divalproex PO 09/25/20 metoprolol tartrate 09/25/20 Allergies Allergy/AdvReac Type Severity Reaction Status Date / Time chlorpromazine Allergy Itching Verified 09/25/20 15:35 [From Thorazine] latex Allergy Hives Verified 09/25/20 15:35 quetiapine [From Seroquel] Allergy Hallucinati Verified 09/25/20 15:35 ng Review of Systems Review of Systems: Narrative: CONSTITUTIONAL: Denies fever, chills, or sweats. EYES: Denies visual changes, redness, or discharge. ENT: Denies rhinorrhea, congestion, sore throat, or otalgia. CARDIOVASCULAR: Denies chest pain, palpitations, or edema. RESPIRATORY: Denies cough or dyspnea. GASTROINTESTINAL: Reports abdominal pain, nausea, vomiting, and diarrhea. GENITOURINARY: Denies dysuria or hematuria. SKIN: Denies rash or itching. MUSCULOSKELETAL: Denies back pain, joint pain, or myalgia. NEUROLOGIC: Denies headache, numbness, dizziness, or weakness. PSYCHIATRIC: Denies anxiety or depression. [facility] Past Medical History Medical History Abnormal CT scan, gastrointestinal tract Asthma, mild intermittent Bipolar affect, depressed Bloating Chronic respiratory failure Constipation DVT (deep venous thrombosis) Lower extremity DVT in 2019 while hospitalized and intubated for acute respiratory failure. Treated with anticoagulation and no longer on any oral anticoagulation. GERD (gastroesophageal reflux disease) Hypertension Nausea Non-cardiac chest pain IRMA on CPAP Peripartum cardiomyopathy 2005 Small intestinal bacterial overgrowth (SIBO) Tobacco abuse Surgical History Surgical History H/O tubal ligation performed during History of section History of laparoscopic appendectomy History of thyroidectomy, subtotal for benign nodule Family History Family History Father Diabetes mellitus Acute myocardial infarction Hypertension Congestive heart failure Rectal cancer Mother No problems noted. Social History Social History Smoking packs per day: 0.5 Smoking cigarettes per day: 10.0 Years smoked: 24 Smoking pack-years: 12.00 Smoking status: Current every day smoker Tobacco type: cigarettes Second hand tobacco smoke exposure: Yes Smoking end date: 01/25/20 Additional smoking assessment comments: 3 packs per week Alcohol intake: never Drinks
[2020-09-27] MEDS: SODIUM CHLORIDE 0.9% IV 1,000 ML 999 ML IV CONT (12:40)
[2020-09-27] MEDS: MORPHINE SULFATE (*CRX) 4 MG/ML INJ IV PUSH (12:41)
[2020-09-27] MEDS: ONDANSETRON INJ 4 MG/2 ML VIAL IV PUSH (12:41)
== END 2020-09-27 16:17 | disposition home or self-care (01) ==
PROVIDERS: Emergency Medicine; Emergency Provider Nurse Practitioner; PCP Nurse Practitioner Family
DX: K80.20 Calculus of gallbladder without cholecystitis without obstruction (principal); I11.0 Hypertensive heart disease with heart failure; I50.9 Heart failure, unspecified; F17.210 Nicotine dependence, cigarettes, uncomplicated; Z86.718 Personal history of other venous thrombosis and embolism
CPT/HCPCS: 36415; 76705; 80053; 81001; 83690; 85025; 96361; 96374; 96375; 99284; J2270; J2405; J7030

== ENCOUNTER 2020-10-12 11:38 | Emergency (ER) | payer BC, MEDICAID, SELFPAY ==
--- NOTE | ~2020-10-12 | US_ITS ---
EXAMINATION: US right upper quadrant DATE: 10/12/2020 12:42 INDICATION: Right upper quadrant pain TECHNIQUE: Multiple grayscale and Doppler ultrasound images of the abdomen were obtained. COMPARISON: 09/27/2020 FINDINGS: Bowel gas obscures visualization of the pancreas. The visualized portions of the pancreas a re unremarkable. The liver is normal with normal echogenicity and echotexture. No surface nodularity. Normal hepatopetal flow in the main portal vein. Stones are present in the nondistended gallbladder. There is no pericholecystic fluid or gallbladder wall thickening. The normal common bile duct measur es 3 mm. Sonographic Vargas sign is positive. IMPRESSION: 1. Cholelithiasis and positive sonographic Vargas sign without pericholecystic fluid or gallbladder w all thickening. Findings are equivocal for cholecystitis. Consider nuclear hepatobiliary scan. Reviewed, dictated and finalized at location A. IMPRESSION: 1. Cholelithiasis and positive sonographic Vargas sign without pericholecystic fluid or gallbladder wall thickening. Findings are equivocal for cholecystitis. Consider nuclear hepatobiliary scan.
[2020-10-12 11:41] VITALS: BP 113/75; PULSE 88; RESP 18; TEMP 36.7; O2SAT 96
--- NOTE | 2020-10-12 12:06 | ED.GENADULT ---
HPI - General Adult General Chief complaint: Unspecified Stated complaint: All Over Body Pain Time Seen by Provider: 10/12/20 11:49 History of Present Illness HPI narrative: Patient presents with diffuse body aches present for the past several days. Pain is achy, constant no aggravating or alleviating factors. Reports her pain is most severe in her abdomen and she has a follow-up with a surgeon in 1 to 2 weeks for symptomatic cholelithiasis. Fortunately had nausea and difficulty tolerating p.o. Related Data Home Medications Medication Instructions Recorded Confirmed clonazepam 1 mg PO TID 05/19/19 10/13/20 gabapentin 600 mg PO HS 05/19/19 10/13/20 sertraline 150 mg PO DAILY 05/19/19 10/13/20 furosemide 40 mg tablet 40 mg PO QAM 01/28/20 10/13/20 Flovent HFA 2 puff INHALATION DAILY 05/25/20 10/13/20 Linzess 290 mcg PO DAILY 05/25/20 10/13/20 albuterol sulfate 2 puff INHALATION DAILY 05/25/20 10/13/20 aripiprazole 10 mg PO DAILY 05/25/20 10/13/20 buspirone 15 mg PO TID 05/25/20 10/13/20 Invega Sustenna 234 mg IM Q30D 06/03/20 10/13/20 levothyroxine [Euthyrox] 50 mcg PO DAILY 06/03/20 10/13/20 omeprazole 40 mg PO DAILY 06/03/20 10/13/20 divalproex 250 mg PO BID 09/25/20 10/13/20 metoprolol tartrate 50 mg PO DAILY 09/25/20 10/13/20 Allergies Allergy/AdvReac Type Severity Reaction Status Date / Time chlorpromazine Allergy Itching Verified 10/17/20 02:07 [From Thorazine] latex Allergy Rash Verified 10/17/20 02:07 quetiapine [From Seroquel] Allergy Hallucinati Verified 10/17/20 02:07 ng Review of Systems Review of Systems: CONSTITUTIONAL: Denies fever, or sweats. EYES: Denies visual changes, redness, or discharge. ENT: Denies rhinorrhea, congestion, sore throat, or otalgia. CARDIOVASCULAR: Denies chest pain, palpitations, or edema. RESPIRATORY: Denies cough or dyspnea. GASTROINTESTINAL: Shortness abdominal pain nausea and vomiting GENITOURINARY: Denies dysuria or hematuria. SKIN: Denies rash or itching. MUSCULOSKELETAL: Denies focal back pain, joint pain NEUROLOGIC: Denies headache, numbness, dizziness, or weakness. PSYCHIATRIC: Denies anxiety or depression. All systems reviewed & are unremarkable except as noted in HPI and below PMFSH Past Medical History Medical History Abnormal CT scan, gastrointestinal tract Anxiety Asthma, mild intermittent Bipolar affect, depressed Bloating Chronic respiratory failure Constipation DVT (deep venous thrombosis) Lower extremity DVT in 2019 while hospitalized and intubated for acute respiratory failure. Treated with anticoagulation and no longer on any oral anticoagulation. GERD (gastroesophageal reflux disease) Hypertension Morbid obesity Nausea Non-cardiac chest pain Obesity hypoventilation syndrome IRMA on CPAP Peripartum cardiomyopathy 2006 Small intestinal bacterial overgrowth (SIBO) Tobacco abuse Surgical History Surgical History H/O tubal ligation performed during History of section History of laparoscopic appendectomy History of thyroidectomy, subtotal for benign nodule Family History Family History Father Diabetes mellitus Acute myocardial infarction Hypertension Congestive heart failure Rectal cancer Mother No problems noted. Social History Social History Smoking packs per day: 0.5 Smoking cigarettes per day: 10.0 Years smoked: 24 Smoking pack-years: 12.00 Smoking status: Current every day smoker Tobacco type: cigarettes Second hand tobacco smoke exposure: Yes Smoking end date: 01/25/20 Additional smoking assessment comments: 3 packs per week Alcohol intake: never Drinks per week: 1 Substance use: current Substance use type: marijuana Other substance usage detai
[2020-10-12] MEDS: ONDANSETRON INJ 4 MG/2 ML VIAL IV PUSH (12:20)
[2020-10-12] MEDS: KETOROLAC 30 MG/ML VIAL (*BKC) IV PUSH (12:22)
[2020-10-12 12:36] LABS: Basophils Absolute Auto 0.1 K/mm3 (0.0-0.1); Basophils Percent Auto 0.6 % (0.2-1.2); Eosinophils Absolute Auto 0.4 K/mm3 (0-0.3); Eosinophils Percent Auto 3.4 % (0-4.4); Hemoglobin 12.9 g/dL (12.0-15.0); Immature Granulocyte Absolute 0.03 K/mm3 (0.00-0.031); Immature Granulocyte Percent A 0.3 % (0-0.5); Lymphocytes Absolute Auto 2.18 K/mm3 (0.9-3.2); Lymphocytes Percent Auto 20.6 % (18.3-44.2); Mean Corpuscular HGB Conc 32.3 g/dl (32-36); Mean Corpuscular Hemoglobin 29.6 pg (26-34); Mean Corpuscular Volume 91.7 fl (80-100); Mean Platelet Volume 10.3 fl (7.4-10.4); Monocytes Absolute Auto 0.6 K/mm3 (0.1-0.6); Monocytes Percent Auto 5.5 % (2.6-8.5); Neutrophils Absolute Auto 7.4 K/mm3 (1.3-6.7); Neutrophils Percent Auto 69.6 % (45.5-73.1); Platelet Count Result 224 k/mm3 (150-375); Red Blood Count 4.36 M/mm3 (4.2-5.4); White Blood Count 10.6 K/mm3 (4.5-10.0)
[2020-10-12 12:57] LABS: Lactic Acid Reflex 1.4 mmol/L (0.7-2.1)
[2020-10-12 12:57] LABS: Alanine Aminotransferase 15 U/L (4-35); Albumin Level 4.4 g/dL (3.5-5.1); Alkaline Phosphatase 98 U/L (38-126); Anion Gap 11 mmol/L (8-16); Aspartate Amino Transferase 21 U/L (14-36); Bilirubin,Total 0.2 mg/dL (0.2-1.3); Blood Urea Nitrogen 8 mg/dL (7-17); Calcium 9.5 mg/dL (8.4-10.2); Carbon Dioxide 26 mmol/L (22-30); Chloride 102 mmol/L (98-107); Estimated CRCL calculation 92 ml/min; Estimated Glomerular Filt Rate > 60; Glucose 121 mg/dL (65-110); Sodium 139 mmol/L (137-145)
[2020-10-12 13:33] LABS: Creatine Kinase 62 U/L (30-135)
[2020-10-12 13:41] LABS: Add Urine Microscopic? NO; Appearance Urine Clear (Clear); Bilirubin Urine Negative (Negative); Blood Urine Negative (Negative); Color Urine Yellow (Yellow); Glucose Urine UA Negative (Negative); Ketones Urine Negative (Negative); Leukocyte Esterase Ur Negative LEU/UL (Negative); Nitrate Urine Negative (Negative); Protein Urine Negative (Negative); Specific Grav Ur 1.009 (1.001-1.035); Urobilinogen Urine Negative mg/dL (<2.0)
[2020-10-12] MEDS: SODIUM CHLORIDE 0.9% IV 500 ML 999 ML IV CONT (13:56)
[2020-10-12 13:57] VITALS: BP 119/64; PULSE 75; RESP 18; O2SAT 98
[2020-10-12 14:05] LABS: Thyroid Stimulating Hormone Reflex 0.653 uIU/mL (0.465-4.68)
[2020-10-12 15:00] VITALS: BP 120/59; PULSE 70; RESP 15; O2SAT 100
[2020-10-12] MEDS: fentaNYL CITRATE INJ (*CRX) 100 MCG/2 ML VIAL 50 MCG IV PUSH (16:07)
--- NOTE | 2020-10-19 13:11 | ED.GENADULT ---
HPI - General Adult General Chief complaint: Unspecified Stated complaint: All Over Body Pain Time Seen by Provider: 10/12/20 11:49 Related Data Home Medications Medication Instructions Recorded Confirmed clonazepam 1 mg PO TID 05/19/19 10/13/20 gabapentin 600 mg PO HS 05/19/19 10/13/20 sertraline 150 mg PO DAILY 05/19/19 10/13/20 furosemide 40 mg tablet 40 mg PO QAM 01/28/20 10/13/20 Flovent HFA 2 puff INHALATION DAILY 05/25/20 10/13/20 Linzess 290 mcg PO DAILY 05/25/20 10/13/20 albuterol sulfate 2 puff INHALATION DAILY 05/25/20 10/13/20 aripiprazole 10 mg PO DAILY 05/25/20 10/13/20 buspirone 15 mg PO TID 05/25/20 10/13/20 Invega Sustenna 234 mg IM Q30D 06/03/20 10/13/20 levothyroxine [Euthyrox] 50 mcg PO DAILY 06/03/20 10/13/20 omeprazole 40 mg PO DAILY 06/03/20 10/13/20 divalproex 250 mg PO BID 09/25/20 10/13/20 metoprolol tartrate 50 mg PO DAILY 09/25/20 10/13/20 Allergies Allergy/AdvReac Type Severity Reaction Status Date / Time chlorpromazine Allergy Itching Verified 10/17/20 02:07 [From Thorazine] latex Allergy Rash Verified 10/17/20 02:07 quetiapine [From Seroquel] Allergy Hallucinati Verified 10/17/20 02:07 [facility] Past Medical History Medical History Abnormal CT scan, gastrointestinal tract Anxiety Asthma, mild intermittent Bipolar affect, depressed Bloating Chronic respiratory failure Constipation DVT (deep venous thrombosis) Lower extremity DVT in 2019 while hospitalized and intubated for acute respiratory failure. Treated with anticoagulation and no longer on any oral anticoagulation. GERD (gastroesophageal reflux disease) Hypertension Morbid obesity Nausea Non-cardiac chest pain Obesity hypoventilation syndrome IRMA on CPAP Peripartum cardiomyopathy 2006 Small intestinal bacterial overgrowth (SIBO) Tobacco abuse Surgical History Surgical History H/O tubal ligation performed during History of section History of laparoscopic appendectomy History of thyroidectomy, subtotal for benign nodule Family History Family History Father Diabetes mellitus Acute myocardial infarction Hypertension Congestive heart failure Rectal cancer Mother No problems noted. 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 Gender identity (if verbalized by the patient): Female Spiritual care concerns: No Agree to blood products: Yes Course Vital Signs Vital signs: Vital Signs Temperature 36.7 C 10/12/20 11:41 Pulse Rate 88 10/12/20 11:41 Respiratory Rate 18 10/12/20 11:41 Blood Pressure 113/75 10/12/20 11:41 Pulse Oximetry 96 10/12/20 11:41 Temperature 36.7 C 10/12/20 11:41 Pulse Rate 70 10/12/20 15:00 Respiratory Rate 15 10/12/20 15:00 Blood Pressure 120/59 L 10/12/20 15:00 Pulse Oximetry 100 10/12/20 15:00 Medical Decision Making Vital Signs Vital Signs: Vital Signs Temperature 36.7 C 10/12/20 11:41 Pulse Rate 88 10/12/20 11:41 Respiratory Rate 18 10/12/20 11:41 Blood Pressure 113/75 10/12/20 11:41 Pulse Oximetry 96 10/12/20 11:41 Temperature 36.7 C 10/12/20 11:41 Pulse Rate 70 10/12/20 15:00 Respiratory Rate 15 10/12/20 15:00 Blood Pres
== END 2020-10-12 16:47 | disposition home or self-care (01) ==
PROVIDERS: Emergency Provider Emergency Medicine; PCP Nurse Practitioner Family
DX: K80.20 Calculus of gallbladder without cholecystitis without obstruction (principal); J45.20 Mild intermittent asthma, uncomplicated; F31.9 Bipolar disorder, unspecified; K21.9 Gastro-esophageal reflux disease without esophagitis; Z86.718 Personal history of other venous thrombosis and embolism; F17.210 Nicotine dependence, cigarettes, uncomplicated; G47.30 Sleep apnea, unspecified; I10 Essential (primary) hypertension
CPT/HCPCS: 36415; 76705; 80053; 81003; 82550; 83605; 84443; 85025; 96374; 96375; 99284; J1885; J2405; J3010; J7040

== ENCOUNTER 2020-10-13 02:54 | Inpatient (IN) | payer BC, MEDICAID, SELFPAY ==
[2020-10-13] VITALS (7 sets, daily range): BP systolic 106–137; BP diastolic 53–88; PULSE 63–93; RESP 15–18; TEMP 36–36.4; O2SAT 93–99; BMI 41.2
--- NOTE | 2020-10-13 05:33 | ED.GENADULT ---
HPI - General Adult General Chief complaint: Abdominal Pain Stated complaint: body aches, abd pain Time Seen by Provider: 10/13/20 04:34 History of Present Illness HPI narrative: Patient 40-year-old female presents the emergency department chief complaint of abdominal pain. The patient was seen earlier today and had an ultrasound that showed a positive sonographic Vargas's. The case at that time was discussed with Dr. Avila who is on-call for general surgery as the patient had a appointment scheduled with Dr. Lang here in the near future for possible cholecystectomy. Patient was discharged home at that time and the patient throughout the evening had worsening pain in her abdomen the patient has returned for pain control. Patient denies fever denies chills reports that the pain is not improved with the oral pain medication she was taking at home Related Data Home Medications Medication Instructions Recorded Confirmed clonazepam 1 mg PO TID 05/19/19 09/30/20 gabapentin 600 mg PO HS 05/19/19 09/30/20 lisinopril 20 mg PO DAILY 05/19/19 09/30/20 sertraline 150 mg PO DAILY 05/19/19 09/30/20 furosemide 40 mg tablet 40 mg PO QAM 01/28/20 09/30/20 Flovent HFA 2 puff INHALATION DAILY 05/25/20 09/30/20 Linzess 290 mcg PO DAILY 05/25/20 09/30/20 albuterol sulfate 2 puff INHALATION DAILY 05/25/20 09/30/20 aripiprazole 10 mg PO DAILY 05/25/20 09/30/20 buspirone 15 mg PO TID 05/25/20 09/30/20 Invega Sustenna 234 mg IM Q30D 06/03/20 09/30/20 levothyroxine [Euthyrox] 50 mcg PO DAILY 06/03/20 09/30/20 omeprazole 40 mg PO DAILY 06/03/20 09/30/20 divalproex PO 09/25/20 metoprolol tartrate 09/25/20 Allergies Allergy/AdvReac Type Severity Reaction Status Date / Time chlorpromazine Allergy Itching Verified 10/13/20 05:59 [From Thorazine] latex Allergy Hives Verified 10/13/20 05:59 quetiapine [From Seroquel] Allergy Hallucinati Verified 10/13/20 05:59 ng Review of Systems Review of Systems: A 10 system review of systems was completed on the patient and is negative except for what is stated in the HPI. Nursing and ancillary documentation was reviewed. [facility] Past Medical History Medical History Abnormal CT scan, gastrointestinal tract Asthma, mild intermittent Bipolar affect, depressed Bloating Chronic respiratory failure Constipation DVT (deep venous thrombosis) Lower extremity DVT in 2019 while hospitalized and intubated for acute respiratory failure. Treated with anticoagulation and no longer on any oral anticoagulation. GERD (gastroesophageal reflux disease) Hypertension Nausea Non-cardiac chest pain IRMA on CPAP Peripartum cardiomyopathy 2006 Small intestinal bacterial overgrowth (SIBO) Tobacco abuse Surgical History Surgical History H/O tubal ligation performed during History of section History of laparoscopic appendectomy History of thyroidectomy, subtotal for benign nodule Family History Family History Father Diabetes mellitus Acute myocardial infarction Hypertension Congestive heart failure Rectal cancer Mother No problems noted. 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
[2020-10-13] MEDS: SODIUM CHLORIDE 0.9% IV 1,000 ML 999 ML IV CONT (05:55)
[2020-10-13] MEDS: ONDANSETRON INJ 4 MG/2 ML VIAL IV PUSH (05:56)
[2020-10-13] MEDS: MORPHINE SULFATE (*CRX) 4 MG/ML INJ IV PUSH ×5 (05:57→20:38)
[2020-10-13 06:03] LABS: Basophils Percent Auto 0.5 % (0.2-1.2); Eosinophils Absolute Auto 0.4 K/mm3 (0-0.3); Eosinophils Percent Auto 5.8 % (0-4.4); Hematocrit 36.2 % (37.0-47.0); Hemoglobin 11.5 g/dL (12.0-15.0); Immature Granulocyte Absolute 0.03 K/mm3 (0.00-0.031); Immature Granulocyte Percent A 0.4 % (0-0.5); Lymphocytes Absolute Auto 2.54 K/mm3 (0.9-3.2); Lymphocytes Percent Auto 33.3 % (18.3-44.2); Mean Corpuscular HGB Conc 31.8 g/dl (32-36); Mean Corpuscular Hemoglobin 29.1 pg (26-34); Mean Corpuscular Volume 91.6 fl (80-100); Monocytes Absolute Auto 0.6 K/mm3 (0.1-0.6); Monocytes Percent Auto 7.6 % (2.6-8.5); Neutrophils Percent Auto 52.4 % (45.5-73.1); Platelet Count Result 188 k/mm3 (150-375); Red Blood Count 3.95 M/mm3 (4.2-5.4); Red Cell Distribution Width 16.5 % (11.5-14.5); White Blood Count 7.6 K/mm3 (4.5-10.0)
[2020-10-13 06:12] LABS: Alanine Aminotransferase 12 U/L (4-35); Albumin Level 3.7 g/dL (3.5-5.1); Alkaline Phosphatase 88 U/L (38-126); Anion Gap 8 mmol/L (8-16); Aspartate Amino Transferase 17 U/L (14-36); Bilirubin,Total 0.3 mg/dL (0.2-1.3); Blood Urea Nitrogen 15 mg/dL (7-17); Carbon Dioxide 29 mmol/L (22-30); Chloride 101 mmol/L (98-107); Estimated CRCL calculation 74 ml/min; Estimated Glomerular Filt Rate > 60; Glucose 100 mg/dL (65-110); Lipase 126 U/L (23-300); Sodium 138 mmol/L (137-145)
--- NOTE | 2020-10-13 07:25 | PC.NURSE ---
Assumed care of pt at this time, pt is alert and upright on stretcher, discussed POC. VSS.
--- NOTE | 2020-10-13 07:51 | PC.NURSE ---
Attempted to call report to 3rd Med/Surg at this time. Was informed receiving nurse is busy and will call back when available.
--- NOTE | 2020-10-13 08:00 | ADMGEN ---
This patient, Dash Crane, was admitted to [address] [place] [address] Room 300-01. Patient/family oriented to hospital policies and general routines including ID bracelet, bed and alarms, visiting hours, pain management, procedures, bathroom and other care routines, personal items, smoking policy, room service/diet, and visiting hours. Information on how to activate the Rapid Response Team has been discussed. Patient/Family are encouraged to report perceived risks to care and to ask questions if they do not understand what they are told or what they should do.
[2020-10-13] MEDS: SODIUM CHLORIDE 0.9% IV 1,000 ML 125 ML IV CONT ×2 (08:12→16:57)
--- NOTE | 2020-10-13 09:59 | PM.IMHP ---
H&P: HPI History of Present Illness Date/Time: 10/13/20 09:59 Chief Complaint: RUQ abdominal pain, vomiting Narrative: This is a 40-year-old obese female with a history of congestive heart failure, hypertension, asthma, IRMA, schizoaffective disorder, tobacco abuse, cholelithiasis, and multiple other medical issues. She is well known to our service for persistent right-sided abdominal pain. She was previously seen in August of 2020 when we were consulted during a hospitalization for right-sided abdominal pain and vomiting with an abnormal CT scan of the abdomen and pelvis. At that time, the CT scan showed cholelithiasis without any other evidence of cholecystitis, an enlarged appendix measuring 11 mm without significant periappendiceal inflammatory stranding, and enterocolitis. She also had a HIDA scan that was normal. She was treated conservatively initially with antibiotics for possible appendicitis, but did not show clinical improvement, and ultimately underwent a laparoscopic appendectomy on 09/08/20. Pathology showed an appendix without pathologic abnormality. She recovered well from surgery and felt her abdominal pain did improve initially when she was taking narcotic pain medication, but after stopping this medication the pain began to worsen again. The decision was made to then proceed with scheduling her for a laparoscopic cholecystectomy as an outpatient and she had been instructed to follow a low fat diet. She was scheduled for surgery on 10/26/20. She has since been back to the ER yesterday and was re-evaluated. All of her labs were unremarkable, and she had an abdominal ultrasound that showed cholelithiasis with a positive sonographic Vargas's sign, but no gallbladder wall thickening, distention, or pericholecystic fluid. The patient was given Toradol and Fentanyl in the ER and her pain improved. Our service was called by the ED physician and she was discharged back home with the plan to move her surgery up as soon as possible. She was instructed that our office would call her with the scheduled surgery time, hopefully Sunday. The patient then reports trying to eat some soup once she got home last night when her pain was only mild, but after eating, her RUQ abdominal pain worsened and she vomited x 2. Still no fever or chills. Due to the unrelenting pain, she presented back to the ER early this morning. Labs were repeated and again unremarkable. She has been admitted for uncontrolled pain and further evaluation. The patient is now seen on the medical unit. She reports that the current analgesics are helping with her abdominal pain. Her nausea has improved as well without any further episodes of vomiting this morning, although she has been NPO. She is not interested in trying any liquids, because she feels this aggravates her symptoms. No other complaints at this time. Review of Systems Review of Systems: All systems reviewed & are unremarkable except as noted in HPI and below Constitutional: Constitutional: Reports as per HPI, Denies chills, Denies fatigue and Denies fever(s) Eyes: Eyes: Reports no additional eye complaints and Denies change in vision ENT: Reports system reviewed and no additional complaints, except as documented and Reports Normal hearing present Cardiovascular: Cardiovascular: Reports no additional cardiovascular complaints, Denies chest pain and Denies leg edema Respiratory: Respiratory: Reports no additional respiratory complaints, Denies cough and Denies dyspnea Gastrointestinal: Gastrointestinal: Reports as per HPI, Reports no additional gastrointestinal complaints, Reports abdominal pain (RUQ), Denies melena, Denies bloating, Denies hematochezia, Denies change in bowel habits, Denies change in stool character, Denies coffee ground emesis, Reports nausea, Reports vomiting and Denies hematemesis Genitourinary: Genitourinary: Denies hematuria and Denies dysuria Musculoskeletal: Musculoskeletal: Denies abnormal gait, Denies defo
[2020-10-13] MEDS: ENOXAPARIN 40 MG/0.4 ML SYRINGE SUB-Q (10:21)
[2020-10-13] MEDS: PANTOPRAZOLE SODIUM IV 40 MG VIAL IV PUSH ×2 (11:03→20:41)
--- NOTE | 2020-10-13 14:49 | PM.IMHP ---
H&P: HPI History of Present Illness Date/Time: 10/13/20 14:49 Narrative: This is a * year old * with history of *, who presented to the ER with complaints of * Code Status- *Full Code POA- PCP- * Review of Systems Review of Systems: All systems reviewed & are unremarkable except as noted in HPI and below PMFSH Past Medical History Medical History Abnormal CT scan, gastrointestinal tract Asthma, mild intermittent Bipolar affect, depressed Bloating Chronic respiratory failure Constipation DVT (deep venous thrombosis) Lower extremity DVT in 2019 while hospitalized and intubated for acute respiratory failure. Treated with anticoagulation and no longer on any oral anticoagulation. GERD (gastroesophageal reflux disease) Hypertension Nausea Non-cardiac chest pain IRMA on CPAP Peripartum cardiomyopathy 2005 Small intestinal bacterial overgrowth (SIBO) Tobacco abuse Surgical History Surgical History H/O tubal ligation performed during History of section History of laparoscopic appendectomy History of thyroidectomy, subtotal for benign nodule Family History Family History Father Diabetes mellitus Acute myocardial infarction Hypertension Congestive heart failure Rectal cancer Mother No problems noted. 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 Gender identity (if verbalized by the patient): Female Spiritual care concerns: No Agree to blood products: Yes Meds Home Medications and Allergies Home Medications Medication Instructions Recorded Confirmed Type clonazepam 1 mg PO TID 05/19/19 10/13/20 History gabapentin 600 mg PO HS 05/19/19 10/13/20 History sertraline 150 mg PO DAILY 05/19/19 10/13/20 History furosemide 40 mg tablet 40 mg PO QAM 01/28/20 10/13/20 History Flovent HFA 2 puff INHALATION DAILY 05/25/20 10/13/20 History Linzess 290 mcg PO DAILY 05/25/20 10/13/20 History albuterol sulfate 2 puff INHALATION DAILY 05/25/20 10/13/20 History aripiprazole 10 mg PO DAILY 05/25/20 10/13/20 History buspirone 15 mg PO TID 05/25/20 10/13/20 History Invega Sustenna 234 mg IM Q30D 06/03/20 10/13/20 History levothyroxine [Euthyrox] 50 mcg PO DAILY 06/03/20 10/13/20 History omeprazole 40 mg PO DAILY 06/03/20 10/13/20 History divalproex 250 mg PO BID 09/25/20 10/13/20 History metoprolol tartrate 50 mg PO DAILY 09/25/20 10/13/20 History oxycodone-acetaminophen [Percocet] 1 tablet PO Q6H PRN #10 tablet 10/12/20 10/13/20 Rx Allergies Allergy/AdvReac Type Severity Reaction Status Date / Time chlorpromazine Allergy Itching Verified 10/13/20 08:27 [From Thorazine] latex Allergy Rash Verified 10/13/20 08:27 quetiapine [From Seroquel] Allergy Hallucinati Verified 10/13/20 08:27 ng Vital Signs Vital Signs - 24 hr 10/13/20 02:56 10/13/20 05:54 10/13/20 07:24 Temperature 97.1 F L Pulse Rate 86 72 66 Respiratory Rate 17 16 15 Blood Pressure 137/72 112/77 124/77 Pulse Oximetry 99 98 98 10/13/20 08:52 10/13/20 14:00 Temperature 97.6 F 97.2 F L Pulse Rate 63 93 Respiratory Rate 16 18 Blood Pressure 134/88 106/60 Pulse Oximetry 99 96 Exam Narrative: General: *-year-old * laying flat in bed. Appears comfor
--- NOTE | 2020-10-13 14:50 | PM.IMCN ---
Assessment and Plan Assessment and plan (1) Biliary colic: Code(s): K80.50 - Calculus of bile duct without cholangitis or cholecystitis without obstruction Status: Acute Assessment and Plan: the patient was admitted to the surgical service with right upper quadrant abdominal pain with multiple emergency room visits and hospitalizations. Surgeries planning on taking her to the OR for laparoscopic cholecystectomy possibly tomorrow on 10/14/2020. Rest per surgery, with diet, pain control, antiemetics hospitalists were consulted for medical management of history of peripartum congestive heart failure and monitoring of fluid status during hospitalization and surgery (2) Cholelithiasis: Code(s): K80.20 - Calculus of gallbladder without cholecystitis without obstruction Status: Acute Assessment and Plan: see above (3) Peripartum cardiomyopathy: Code(s): O90.3 - Peripartum cardiomyopathy Status: Acute Assessment and Plan: fluid status at this time is stable. Echo from May 2020 showed normal systolic and diastolic function. She does report being on Lasix 40 mg daily. Will hold while NPO. She does not have any leg swelling at this time. Monitor fluid status. (4) Schizoaffective disorder: Code(s): F25.9 - Schizoaffective disorder, unspecified Status: Acute Assessment and Plan: Continue home medications. (5) Hypertension: Qualifiers: Hypertension type: essential hypertension Qualified Code(s): I10 - Essential (primary) hypertension Code(s): I10 - Essential (primary) hypertension Status: Acute Assessment and Plan: blood pressure stable at 106/60. She did not have any of her medications this morning so this must be related to pain medications. Will continue monitoring blood pressure, IV fluids and make adjustments if needed. HPI Data of Consult Consult date: 10/13/20 Requesting Physician: Ramon Avila MD Primary Care Provider: Cm Uribe, BILL CHECKER Consult Narrative Narrative: Dash Crane is a 40 year old female with a history of peripartum cardiomyopathy in 2005 (05/30 normal EF and diastolic function) hypertension, asthma, IRMA, schizoaffective disorder, tobacco abuse, cholelithiasis, who presented to the emergency room with continued right upper abdominal discomfort. The patient has had multiple admissions over the last 6 months for abdominal pain. She has been seen by Cardiology 05/28/20 which showed she had a negative stress test and echocardiogram showing normal heart function. She has been seen by the GI specialist who performed an EGD on 05/27/20 which was completely normal. she presented again in August 2020, with continued abdominal pain and at that time showed dilated appendix measuring 11 mm proximally and was assumed to be acute in nature, but patient had a normal WBC and afebrile. It was decided by surgery to continue antibiotics for possible acute appendicitis but her pain was located in the RUQ. She had a HIDA scan on 09/03 that was normal with a gallbladder EF of 93%. The patient was discharged and continued to have RUQ abdominal pain and had a laparoscopic appendectomy on 09/08/[address] Shirley. She recovered well from surgery but on follow up with she continued to have RUQ pain and she was scheduled for outpatient surgery on 10/26/20. She had a few more ER visits secondary to pain, nausea, vomiting. Her symptoms were treated and she was discharged to follow-up with surgery and they are planning on outpatient surgery this Sunday. The patient presented again with continued symptoms and was admitted into surgical services with a consult to assess and Hospital Me
[2020-10-13] MEDS: busPIRone HCL 5 MG TABLET 15 MG PO (17:48)
[2020-10-13] MEDS: SERTRALINE HCL 50 MG TABLET 150 MG PO (17:48)
[2020-10-13] MEDS: clonazePAM (*CRX) 0.5 MG TABLET 1 MG PO (17:51)
[2020-10-13] MEDS: DIVALPROEX SODIUM DR 250 MG TABEC PO (18:20)
[2020-10-13] MEDS: ARIPiprazole 10 MG TABLET PO (18:20)
[2020-10-13] MEDS: GABAPENTIN 300 MG CAPSULE 600 MG PO (20:40)
[2020-10-14] VITALS (16 sets, daily range): BP systolic 112–146; BP diastolic 65–96; PULSE 55–101; RESP 10–18; TEMP 36.1–36.7; O2SAT 93–100
[2020-10-14] MEDS: MORPHINE SULFATE (*CRX) 4 MG/ML INJ IV PUSH ×3 (02:47→11:03)
[2020-10-14] MEDS: LEVOTHYROXINE SODIUM 50 MCG TABLET PO (06:46)
[2020-10-14] MEDS: SODIUM CHLORIDE 0.9% IV 1,000 ML 125 ML IV CONT (06:46)
[2020-10-14] MEDS: ONDANSETRON INJ 4 MG/2 ML VIAL IV PUSH ×4 (06:56→22:06)
[2020-10-14] MEDS: FLUTICASONE PROP 44 MCG (*SP) 10.6 GM 2 PUFF INHALATION (07:01)
[2020-10-14] MEDS: ALBUTEROL SULFATE (*SP) AEROSOL 1 PUFF 2 PUFF INHALATION (07:01)
[2020-10-14] MEDS: busPIRone HCL 5 MG TABLET 15 MG PO (08:33)
[2020-10-14] MEDS: clonazePAM (*CRX) 0.5 MG TABLET 1 MG PO (08:33)
[2020-10-14] MEDS: DIVALPROEX SODIUM DR 250 MG TABEC PO (08:33)
[2020-10-14] MEDS: METOPROLOL TARTRATE 50 MG TAB PO (08:34)
[2020-10-14] MEDS: PANTOPRAZOLE SODIUM IV 40 MG VIAL IV PUSH ×2 (08:34→21:54)
[2020-10-14] MEDS: SERTRALINE HCL 50 MG TABLET 150 MG PO (08:34)
[2020-10-14] MEDS: ARIPiprazole 10 MG TABLET PO (08:34)
[2020-10-14] MEDS: ENOXAPARIN 40 MG/0.4 ML SYRINGE SUB-Q (08:49)
[2020-10-14 09:03] LABS: Basophils Percent Auto 0.7 % (0.2-1.2); Eosinophils Absolute Auto 0.4 K/mm3 (0-0.3); Eosinophils Percent Auto 6.8 % (0-4.4); Hematocrit 37.6 % (37.0-47.0); Hemoglobin 11.5 g/dL (12.0-15.0); Immature Granulocyte Absolute 0.02 K/mm3 (0.00-0.031); Immature Granulocyte Percent A 0.4 % (0-0.5); Lymphocytes Absolute Auto 1.74 K/mm3 (0.9-3.2); Lymphocytes Percent Auto 30.5 % (18.3-44.2); Mean Corpuscular HGB Conc 30.6 g/dl (32-36); Mean Corpuscular Hemoglobin 29.3 pg (26-34); Mean Corpuscular Volume 95.7 fl (80-100); Mean Platelet Volume 10.1 fl (7.4-10.4); Monocytes Absolute Auto 0.4 K/mm3 (0.1-0.6); Monocytes Percent Auto 6.3 % (2.6-8.5); Neutrophils Absolute Auto 3.2 K/mm3 (1.3-6.7); Neutrophils Percent Auto 55.3 % (45.5-73.1); Platelet Count Result 173 k/mm3 (150-375); Red Blood Count 3.93 M/mm3 (4.2-5.4); Red Cell Distribution Width 16.8 % (11.5-14.5); White Blood Count 5.7 K/mm3 (4.5-10.0)
[2020-10-14 09:28] LABS: Alanine Aminotransferase 12 U/L (4-35); Albumin Level 3.5 g/dL (3.5-5.1); Alkaline Phosphatase 94 U/L (38-126); Anion Gap 6 mmol/L (8-16); Aspartate Amino Transferase 19 U/L (14-36); Bilirubin,Total 0.1 mg/dL (0.2-1.3); Blood Urea Nitrogen 5 mg/dL (7-17); Calcium 8.6 mg/dL (8.4-10.2); Carbon Dioxide 26 mmol/L (22-30); Chloride 104 mmol/L (98-107); Estimated CRCL calculation 105 ml/min; Estimated Glomerular Filt Rate > 60; Glucose 86 mg/dL (65-110); Lipase 56 U/L (23-300); Sodium 136 mmol/L (137-145)
[2020-10-14 10:10] LABS: Beta HCG Quantitative < 2.39 mIU/ML
--- NOTE | 2020-10-14 12:27 | PM.IMPN ---
Progress Note: A&P Assessment and Plan (1) Biliary colic: Code(s): K80.50 - Calculus of bile duct without cholangitis or cholecystitis without obstruction Status: Acute Assessment and Plan: the patient was admitted to the surgical service with right upper quadrant abdominal pain with multiple emergency room visits and hospitalizations. Surgeries planning on taking her to the OR for laparoscopic cholecystectomy possibly tomorrow on 10/14/2020. Rest per surgery, with diet, pain control, antiemetics hospitalists were consulted for medical management of history of peripartum congestive heart failure and monitoring of fluid status during hospitalization and surgery (2) Cholelithiasis: Code(s): K80.20 - Calculus of gallbladder without cholecystitis without obstruction Status: Acute Assessment and Plan: see above (3) Peripartum cardiomyopathy: Code(s): O90.3 - Peripartum cardiomyopathy Status: Acute Assessment and Plan: fluid status at this time is stable. Echo from May 2020 showed normal systolic and diastolic function. She does report being on Lasix 40 mg daily. Will hold while NPO. She does not have any leg swelling at this time. Monitor fluid status. (4) Schizoaffective disorder: Code(s): F25.9 - Schizoaffective disorder, unspecified Status: Acute Assessment and Plan: Continue home medications. (5) Hypertension: Qualifiers: Hypertension type: essential hypertension Qualified Code(s): I10 - Essential (primary) hypertension Code(s): I10 - Essential (primary) hypertension Status: Acute Assessment and Plan: blood pressure stable at 112/73. She did not have any of her medications this morning so this must be related to pain medications. Will continue monitoring blood pressure, IV fluids and make adjustments if needed. Time Spent With Patient Time with patient: 25 - 35 minutes Subjective Date/time seen: 10/14/20 12:27 Interval history: Date of service 10/14/2020: patient reports having 7 of 10 right upper quadrant abdominal pain at this time, without much movement. She denies any nausea at this time. She is eager for surgery this afternoon. Denies any fevers, chills or night. She otherwise has not noticed any chest pain, shortness of breath, cough, leg swelling, hand swelling, or any other symptoms at this time Review of Systems Review of Systems: All systems reviewed & are unremarkable except as noted in HPI and below Exam Narrative: General: 40-year-old wpman sitting up in bed watching TV with the nurse at bedside. Appears comfortable, and in no acute distress. Skin: No jaundice or cyanosis. Good skin turgor. Neck: Full range of motion. Supple. Respiratory: Lungs are clear to auscultation bilaterally. No wheezing, rales or rhonchi noted. No bony chest wall tenderness. Cardiovascular: The heart has a regular rate and rhythm without murmur. Lower extremities: No lower extremity edema. Distal pulses are easily palpated. No calf tenderness to palpation. Gastrointestinal: TTP RUQ, no rebound or guarding. The abdomen is otherwise soft,nondistended with active bowel sounds. Psychiatric: Lucid and oriented. Memory intact. Neurologic: No focal deficits. Speech is clear. No facial drooping. Objective Data Vital Signs Vital Signs: Vital Signs - 24 hr 10/13/20 14:00 10/13/20 20:47 10/13/20 23:55 Temperature 97.2 F L 96.8 F L Pulse Rate 93 63 67 Respiratory Rate 18 16 Blood Pressure 106/60 136/53 L Pulse Oximetry 96 95 93 10/14/20 00:41 10/14/20 03:26 10/14/20 05:53 Temperature 96.9 F L Pulse Rate 55 L Respiratory Rate 10 L 10 L 18
--- NOTE | 2020-10-14 12:32 | WPDANESEPPF ---
Anes - Initial Pre Proc Eval Procedure: Operation Date: 10/14/20 15:00 Proposed Procedures p Laparoscopic Cholecystectomy,Possible Intraoperative Cholangiograms,Possible Open - Ramon Avila MD Date/Time: 10/14/20 12:32 Surgeon: Ramon Avila MD Pre Op Diagnosis: biliary colic,intractable pain Patient Data Age: 40 Gender: F Height: 1.6 m Weight: 105.5 kg Last Vital Signs Temp 36.1 C L 10/14/20 05:53 Pulse 65 10/14/20 08:34 Resp 18 10/14/20 05:53 BP 112/73 10/14/20 05:53 Pulse Ox 95 10/14/20 07:09 Allergies Allergy/AdvReac Type Severity Reaction Status Date / Time chlorpromazine Allergy Itching Verified 10/13/20 08:27 [From Thorazine] latex Allergy Rash Verified 10/13/20 08:27 quetiapine [From Seroquel] Allergy Hallucinati Verified 10/13/20 08:27 ng Home Medications Medication Instructions Recorded Confirmed Type clonazepam 1 mg PO TID 05/19/19 10/13/20 History gabapentin 600 mg PO HS 05/19/19 10/13/20 History sertraline 150 mg PO DAILY 05/19/19 10/13/20 History furosemide 40 mg tablet 40 mg PO QAM 01/28/20 10/13/20 History Flovent HFA 2 puff INHALATION DAILY 05/25/20 10/13/20 History Linzess 290 mcg PO DAILY 05/25/20 10/13/20 History albuterol sulfate 2 puff INHALATION DAILY 05/25/20 10/13/20 History aripiprazole 10 mg PO DAILY 05/25/20 10/13/20 History buspirone 15 mg PO TID 05/25/20 10/13/20 History Invega Sustenna 234 mg IM Q30D 06/03/20 10/13/20 History levothyroxine [Euthyrox] 50 mcg PO DAILY 06/03/20 10/13/20 History omeprazole 40 mg PO DAILY 06/03/20 10/13/20 History divalproex 250 mg PO BID 09/25/20 10/13/20 History metoprolol tartrate 50 mg PO DAILY 09/25/20 10/13/20 History oxycodone-acetaminophen [Percocet] 1 tablet PO Q6H PRN #10 tablet 10/12/20 10/13/20 Rx Laboratory Tests 10/14/20 10/14/20 10/14/20 08:56 08:56 08:56 WBC 5.7 K/mm3 K/mm3 (4.5-10.0) RBC 3.93 M/mm3 L M/mm3 (4.2-5.4) Hgb 11.5 g/dL L g/dL (12.0-15.0) Hct 37.6 % % (37.0-47.0) MCV 95.7 fl fl (80-100) MCH 29.3 pg pg (26-34) MCHC 30.6 g/dl L g/dl (32-36) RDW 16.8 % H % (11.5-14.5) Plt Count 173 k/mm3 k/mm3 (150-375) MPV 10.1 fl fl (7.4-10.4) Immature Gran % (Auto) 0.4 % % (0-0.5) Neut % (Auto) 55.3 % % (45.5-73.1) Lymph % (Auto) 30.5 % % (18.3-44.2) Garvin % (Auto) 6.3 % % (2.6-8.5) Eos % (Auto) 6.8 % H % (0-4.4) Baso % (Auto) 0.7 % % (0.2-1.2) Lymph # (Auto) 1.74 K/mm3 K/mm3 (0.9-3.2) Garvin # (Auto) 0.4 K/mm3 K/mm3 (0.1-0.6) Eos # (Auto) 0.4 K/mm3 H K/mm3 (0-0.3) Baso # (Auto) 0.0 K/mm3 K/mm3 (0.0-0.1) Abs Immat Gran (auto) 0.02 K/mm3 K/mm3 (0.00-0.031) Absolute Neuts (auto) 3.2 K/mm3 K/mm3 (1.3-6.7) Absolute Nucleated RBC 0.0 K/mm3 K/mm3 (0.0-0.012) Nucleated RBC % 0.0 % % (0.0-0.2) Sodium 136 mmol/L L mmol/L (137-145) Potassium 4.0 mmol/L mmol/L (3.4-5.0) Chloride 104 mmol/L mmol/L (98-107) Carbon Dioxide 26 mmol/L mmol/L (22-30) Anion Gap 6 mmol/L L mmol/L (8-16) BUN 5 mg/dL L D mg/dL (7-17) Creatinine 0.70 mg/dL mg/dL (0.7-1.0) Estim Creat Clear Calc 105 ml/min ml/min Estimated GFR > 60 (59 - ) Glucose 86 mg/dL mg/dL (65-110) Calcium 8.6 mg/dL mg/dL (8.4-10.2) Total Bilirubin 0.1 mg/dL L mg/dL (0.2-1.3) AST 19 U/L U/L (14-36) ALT 12 U/L U/L (4-35) Alkaline Phosphatase 94 U/L U/L (38-126) Total Protein 6.0 g/dL L g/dL (6.3-8.2) Albumin 3.5 g/dL g/dL (3.5-5.1) Lipase 56 U/L U/L (23-300) Beta HCG, Quant Blood Type O Positive Antibody Screen Negative
[2020-10-14] MEDS: LACTATED RINGERS 1,000 ML 30 ML IV CONT ×2 (12:55→19:09)
[2020-10-14] MEDS: MORPHINE SULFATE INJ (*CRX) 10 MG/ML AMP 2 MG IV PUSH ×2 (12:59→16:08)
--- NOTE | 2020-10-14 14:31 | SUR.PREOP ---
1300 PT MEDICATED FOR PAIN AND NAUSEA. 1335 PT STATES NAUSEA AND PAIN ARE BETTER. DENIES NEEDS, AT BEDSIDE. 1432 PT UPDATED ON SURGERY TIME, DENIES NEEDS.
--- NOTE | 2020-10-14 15:23 | WPDHPUPDATE1 ---
History and Physical Update Update Date/Time: 10/14/20 15:23 History and Physical has been reviewed, including an updated exam of the patient. There are NO changes in the patient's condition. Risks, benefits, and alternatives have been discussed and questions answered. Patient agrees to proceed with procedure.
--- NOTE | 2020-10-14 15:25 | SUR.PREOP ---
1520 PT AND UPDATED ABOUT SURGERY TIME. DENIES NEEDS.
[2020-10-14] MEDS: SCOPOLAMINE 1.5 MG PATCH TRANSDERM (15:45)
[2020-10-14] MEDS: BUPIVACAINE/EPINEPHRINE 0.5% 10 ML VIAL 20 ML INFILTRATE (16:39)
[2020-10-14] MEDS: ceFAZolin 2 GM/D5W 50 ML 2 GM/50 ML BAG IVPB (16:58)
--- NOTE | 2020-10-14 18:42 | W.PM.PROC2 ---
Procedure Note - Detailed Date of Procedure 10/14/20 Pre-op Diagnosis 1. biliary colic,intractable pain 2. 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 This became intractable and she had to be admitted for pain control yesterday. Therefore we were able to schedule her for an add on laparoscopic cholecystectomy. Findings Long thin gallbladder that was normal appearing other than after removal there was a palpable approximately 1.5 cm diameter stone. Description of Procedure Patient was seen preoperatively in the her hospital room and risks, benefits and alternatives confirmed. Patient was taken to the operating room and general anesthesia was induced. A time out was then preformed with the surgery team confirming patient and site of surgery. The abdomen was prepped and draped in the usual sterile fashion. Incision was made just below the umbilicus with an 11 blade knife. I placed 2 stay sutures of O- Vicryl on either side of the mid-line fascia beneath the umbilicus and was then able to slide in the Zazueta cannula through the fascial defect into the peritoneum. First under low flow and then under high flow the abdomen was insufflated with carbon dioxide never exceeding a pressure of 14. Three 5 mm trocars were then introduced under direct vision. The following trocars were introduced under direct vision: a 5 mm in the epigastrium and two 5 mm trocars along the right costal margin laterally in the subcostal area. There were not any adhesions to the underside of the gallbladder. The gallbladder was grasped with 2 graspers and retracted up and over the liver to expose the triangle of Calot. I then carefully used the L-shaped cautery and the [place] dissector to dissect out the triangle of Calot. I then was able to dissect out both the cystic duct and cystic artery and identify a window of safety. The gall bladder was grasped and the cystic duct and artery were dissected free and clipped with an 5 mm endo-clip roving hauler. The cystic duct and artery were clipped with use of 2 clips on the patient's side 1 on the gallbladder side utilizing a 5 mm endoclip-roving hauler. The cystic duct was then transected. The cystic artery was also transected at this point. The gall bladder was removed using electrocautery and then removed from the abdomen using an endobag . The trocars were removed visualizing hemostasis and the remaining gas evacuated. The large trocar site at the umbilicus was closed with use of the 2 stay sutures of 0 Vicryl mentioned above and also a O-Vicryl suture passed using a David Stuart cone and a granny needle while watching from the 5 mm ports in the upper abdomen. Careful palpation after completion of tying this suture seemed to close the fascia at the umbilicus well. Inspecting from the underside of the abdomen from the 5 mm port there did not appear to be any umbilical hernia.. The 2 stay sutures mentioned above on either side of the fascia were also tied together to help approximate this midline fascia. Further local anesthetic was placed into each incision for postop pain control. The skin incisions were closed with subcuticular suture of 4-0 Monocryl. Surgical glue then was applied to all the incisions. Patient tolerated the procedure well was taken to the recovery room in good condition. Implants none Estimated Blood Loss 25 IV Fluids 1,800 Drains No Packing No Pathology yes (gallbladder) Complications No immediate complications Condition stable Disposition PACU
[2020-10-14] MEDS: fentaNYL CITRATE INJ (*CRX) 100 MCG/2 ML VIAL 25 MCG IV PUSH ×4 (19:09→19:39)
--- NOTE | 2020-10-14 19:32 | SUR.PHASEI ---
1925 placed on bedpan voided small amount.
[2020-10-14] MEDS: GABAPENTIN 300 MG CAPSULE 600 MG PO (21:54)
[2020-10-14] MEDS: SENNA/DOCUSATE SODIUM TABLET 2 TAB PO (21:54)
[2020-10-14] MEDS: LACTATED RINGERS 1,000 ML 100 ML IV CONT (21:55)
[2020-10-14] MEDS: HYDROcodone/acetaminophen (*CRX) 7.5-325 MG TABLET 1 TAB PO (22:00)
[2020-10-15] VITALS: BP 129/79; PULSE 81; RESP 16; TEMP 36.1; O2SAT 97
[2020-10-15] MEDS: HYDROcodone/acetaminophen (*CRX) 7.5-325 MG TABLET 1 TAB PO ×3 (01:51→09:54)
[2020-10-15 04:00] VITALS: BP 145/89; PULSE 77; RESP 16; TEMP 36.4; O2SAT 98
[2020-10-15] MEDS: LEVOTHYROXINE SODIUM 50 MCG TABLET PO (05:39)
[2020-10-15 06:15] LABS: Hematocrit 33.5 % (37.0-47.0); Hemoglobin 10.7 g/dL (12.0-15.0); Mean Corpuscular HGB Conc 31.9 g/dl (32-36); Mean Corpuscular Hemoglobin 29.5 pg (26-34); Mean Corpuscular Volume 92.3 fl (80-100); Mean Platelet Volume 10.8 fl (7.4-10.4); Platelet Count Result 192 k/mm3 (150-375); Red Blood Count 3.63 M/mm3 (4.2-5.4)
[2020-10-15 06:24] LABS: Alanine Aminotransferase 30 U/L (4-35); Albumin Level 3.2 g/dL (3.5-5.1); Alkaline Phosphatase 86 U/L (38-126); Anion Gap 4 mmol/L (8-16); Aspartate Amino Transferase 57 U/L (14-36); Bilirubin,Total 0.3 mg/dL (0.2-1.3); Blood Urea Nitrogen 3 mg/dL (7-17); Calcium 8.9 mg/dL (8.4-10.2); Carbon Dioxide 29 mmol/L (22-30); Chloride 106 mmol/L (98-107); Estimated CRCL calculation 121 ml/min; Estimated Glomerular Filt Rate > 60; Glucose 122 mg/dL (65-110); Potassium 4.4 mmol/L (3.4-5.0); Sodium 139 mmol/L (137-145)
[2020-10-15 08:36] VITALS: BP 140/83; PULSE 81; RESP 16; TEMP 36.3; O2SAT 99
[2020-10-15 09:11] VITALS: PULSE 81
[2020-10-15] MEDS: ENOXAPARIN 40 MG/0.4 ML SYRINGE SUB-Q (09:11)
[2020-10-15] MEDS: SERTRALINE HCL 50 MG TABLET 150 MG PO (09:11)
[2020-10-15] MEDS: METOPROLOL TARTRATE 50 MG TAB PO (09:11)
[2020-10-15] MEDS: clonazePAM (*CRX) 0.5 MG TABLET 1 MG PO ×2 (09:11→13:12)
[2020-10-15] MEDS: PANTOPRAZOLE SODIUM IV 40 MG VIAL IV PUSH (09:11)
[2020-10-15] MEDS: busPIRone HCL 5 MG TABLET 15 MG PO ×2 (09:12→13:12)
[2020-10-15] MEDS: ARIPiprazole 10 MG TABLET PO (09:12)
[2020-10-15] MEDS: DIVALPROEX SODIUM DR 250 MG TABEC PO (09:12)
--- NOTE | 2020-10-15 09:16 | PM.IMPN ---
Progress Note: A&P Assessment and Plan (1) Biliary colic: Code(s): K80.50 - Calculus of bile duct without cholangitis or cholecystitis without obstruction Status: Acute Assessment and Plan: the patient was admitted to the surgical service with right upper quadrant abdominal pain with multiple emergency room visits and hospitalizations. Surgeries planning on taking her to the OR for laparoscopic cholecystectomy possibly tomorrow on 10/14/2020. Rest per surgery, with diet, pain control, antiemetics hospitalists were consulted for medical management of history of peripartum congestive heart failure and monitoring of fluid status during hospitalization and surgery From a medical standpoint she is looking good post-OP and stable for D/C when surgery feels she is ready. 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 Echo from May 2020 showed normal systolic and diastolic function. She does report being on Lasix 40 mg daily. Will hold while NPO. She does not have any leg swelling at this time. Restart Lasix medications at discharge. (4) Schizoaffective disorder: Code(s): F25.9 - Schizoaffective disorder, unspecified Status: Acute Assessment and Plan: Continue home medications. (5) Hypertension: Qualifiers: Hypertension type: essential hypertension Qualified Code(s): I10 - Essential (primary) hypertension Code(s): I10 - Essential (primary) hypertension Status: Acute Assessment and Plan: blood pressure stable at 140/83. She did not have any of her medications this morning so this must be related to pain medications. D/C IV fluids since she is tolerating a diet this morning. Time Spent With Patient Time with patient: 25 - 35 minutes Subjective Date/time seen: 10/15/20 09:16 Interval history: Date of service 10/15/2020: Patient reports feeling well today after her surgery yesterday. She slept well. She denies much pain at this time. Denies any fevers, chills, chest pain, shortness of breath, cough, sore throat, nausea, vomiting, leg swelling, calf pain or any other symptoms at this time. She tolerated a clear liquid diet well. Review of Systems Review of Systems: All systems reviewed & are unremarkable except as noted in HPI and below Exam Narrative: General: 40-year-old woman sitting up in bed with the nurse at bedside, half of her clear liquid tray eating. Appears comfortable, and in no acute distress. Skin: No jaundice or cyanosis. Good skin turgor. Neck: Full range of motion. Supple. Respiratory: Lungs are clear to auscultation bilaterally. No wheezing, rales or rhonchi noted. No bony chest wall tenderness. Cardiovascular: The heart has a regular rate and rhythm without murmur. Lower extremities: No lower extremity edema. Distal pulses are easily palpated. No calf tenderness to palpation. Gastrointestinal: laparoscopic incisions appear closed, no signs of erythema, drainage. The abdomen is otherwise soft,nondistended with active bowel sounds. Psychiatric: Lucid and oriented. Memory intact. Neurologic: No focal deficits. Speech is clear. No facial drooping. Objective Data Vital Signs Vital Signs: Vital Signs - 24 hr 10/14/20 12:12 10/14/20 18:48 10/14/20 19:00 Temperature 98.0 F 97.8 F 97 F L Pulse Rate 69 101 H 79 Respiratory Rate 18 10 L 12 Blood Pressure 114/65 134/96 H 126/75 Pulse Oxim
--- NOTE | 2020-10-15 10:04 | WPDANESPN ---
Anes - Prog Note Post-Op Date/Time: 10/15/20 10:04 Cardiovascular status: normal Respiratory status: normal Airway patency: baseline Mental status: baseline Post-Op hydration status: normal Vital Signs: Last Vital Signs Temp 97.4 F L 10/15/20 08:36 Pulse 81 10/15/20 09:11 Resp 16 10/15/20 08:36 BP 140/83 10/15/20 08:36 Pulse Ox 99 10/15/20 08:36 Pain Score (VAS): 03/21 I/O: Intake & Output 10/14/20 10/15/20 10/15/20 23:59 07:59 15:59 Intake Total 2120 250 240 Output Total 1400 1440 Balance 720 -1190 240 Laboratory Tests 10/15/20 05:29 10/15/20 05:29 10/14/20 10/14/20 10/15/20 08:56 08:56 05:29 WBC 10.0 RBC 3.63 L Hgb 10.7 L Hct 33.5 L MCV 92.3 MCH 29.5 MCHC 31.9 L RDW 16.0 H Plt Count 192 MPV 10.8 H Sodium Potassium Chloride Carbon Dioxide Anion Gap BUN Creatinine Estim Creat Clear Calc Estimated GFR Glucose Calcium Total Bilirubin AST ALT Alkaline Phosphatase Total Protein Albumin Beta HCG, Quant < 2.39 Blood Type O Positive Antibody Screen Negative 10/15/20 05:29 WBC RBC Hgb Hct MCV MCH MCHC RDW Plt Count MPV Sodium 139 Potassium 4.4 Chloride 106 Carbon Dioxide 29 Anion Gap 4 L BUN 3 L Creatinine 0.60 L Estim Creat Clear Calc 121 Estimated GFR > 60 Glucose 122 H Calcium 8.9 Total Bilirubin 0.3 AST 57 H ALT 30 Alkaline Phosphatase 86 Total Protein 6.0 L Albumin 3.2 L Beta HCG, Quant Blood Type Antibody Screen Patient Feedback: Patient satisfied with anesthetic care.
[2020-10-15] MEDS: ALBUTEROL SULFATE (*SP) AEROSOL 1 PUFF 2 PUFF INHALATION (10:49)
[2020-10-15] MEDS: FLUTICASONE PROP 44 MCG (*SP) 10.6 GM 2 PUFF INHALATION (11:15)
--- NOTE | 2020-11-09 08:35 | PM.DS ---
DS: Admitting Diagnosis Admitting Diagnosis Cholelithiasis with cholecystitis and biliary colic. DS: Discharge Diagnosis Discharge Diagnosis (1) Cholelithiasis: Onset Date: ~09/2020 Qualifiers: Cholelithiasis location: gallbladder Cholecystitis presence: with cholecystitis Cholecystitis acuity: chronic Biliary obstruction: without biliary obstruction Qualified Code(s): K80.10 - Calculus of gallbladder with chronic cholecystitis without obstruction Code(s): K80.20 - Calculus of gallbladder without cholecystitis without obstruction Status: Acute Assessment and Plan: The patient had known cholelithiasis on a recent CT scan of the abdomen and pelvis. She had recurrent pain and was hospitalized. We therefore moved ahead with her planned surgery. (She had been planned for a laparoscopic cholecystectomy electively as an outpatient in the future. ) During this admission her laparoscopic cholecystectomy was completed. She did not require open surgery. Patient had unremarkable postoperative recovery. (2) Biliary colic: Onset Date: ~10/12/20 Code(s): K80.50 - Calculus of bile duct without cholangitis or cholecystitis without obstruction Status: Acute Assessment and Plan: See above. Patient had this on admission this date now has had laparoscopic cholecystectomy so this can be resolved. (3) BMI 40.0-44.9, adult: Onset Date: Unknown Code(s): Z68.41 - Body mass index [BMI]40.0-44.9, adult Status: Acute Assessment and Plan: I encouraged patient to go on a low-calorie diet and also follow a low-fat diet that we had previously provided to her for avoiding problems with her gallbladder while she awaited laparoscopic cholecystectomy. I encouraged her to increase activity to lose weight. (4) Obesity hypoventilation syndrome: Onset Date: Unknown Code(s): E66.2 - Morbid (severe) obesity with alveolar hypoventilation Status: Acute Assessment and Plan: Patient to use CPAP at home that she or he has. Patient given incentive spirometry on discharge and postoperatively and encouraged to use this to prevent atelectasis pneumonia. (5) Anxiety: Onset Date: Unknown Code(s): F41.9 - Anxiety disorder, unspecified Status: Acute Assessment and Plan: Patient has home meds for this and will resume those upon discharge. (6) Peripartum cardiomyopathy: Onset Date: Unknown Code(s): O90.3 - Peripartum cardiomyopathy Status: Acute Assessment and Plan: Her fluid status at this time is stable. Echo from May 2020 showed normal systolic and diastolic function. She does report being on Lasix 40 mg daily. This was held while NPO. She does not have any leg swelling at this time. Pt instructed to restart Lasix medications at discharge. (7) Abdominal pain: Onset Date: ~09/2020 Code(s): R10.9 - Unspecified abdominal pain Status: Acute Assessment and Plan: The patient previously had an appendectomy and her abdominal pain resolved several weeks ago. Patient then had pain come back and now because she had cholelithiasis with suspected biliary colic she had a laparoscopic cholecystectomy this admission. Hopefully this will resolve her abdominal pain. We will see her in the office and see how she was doing in follow-up. (8) Schizoaffective disorder: Onset Date: Unknown Code(s): F25.9 - Schizoaffective disorder, unspecified Status: Acute Assessment and Plan: She is on medications for this at home and will continue those when she is discharged (9) Labile hypertension: Onset Date: Unknown Code(s): R09.89 - Other specified symptoms and signs involving the circulatory and respiratory systems Status: Acute Assessment and Plan: Patient is on medications which were held because of her surgery. She actually had normal blood pre
== END 2020-10-15 13:37 | disposition home or self-care (01) | DRG 417 ==
LOC: ANHED 06:32 → ANH3MEDSUR 07:33
PROVIDERS: Anesthesiology; Physician Assistant; Admitting Provider Surgery; Emergency Provider Emergency Medicine; PCP Nurse Practitioner Family; Visit Provider Surgery
PROC: 0FT44ZZ Resection of Gallbladder, Percutaneous Endoscopic Approach (ICD-10-PCS; CPT 47562; principal; 2020-10-14 15:00)
DX: K80.10 Calculus of gallbladder with chronic cholecystitis without obstruction; I50.31 Acute diastolic (congestive) heart failure; F31.30 Bipolar disorder, current episode depressed, mild or moderate severity, unspecified; Z68.41 Body mass index [BMI] 40.0-44.9, adult; J96.10 Chronic respiratory failure, unspecified whether with hypoxia or hypercapnia; G47.33 Obstructive sleep apnea (adult) (pediatric); I11.0 Hypertensive heart disease with heart failure; Z99.89 Dependence on other enabling machines and devices; J45.20 Mild intermittent asthma, uncomplicated; F17.210 Nicotine dependence, cigarettes, uncomplicated; E66.01 Morbid (severe) obesity due to excess calories; K21.9 Gastro-esophageal reflux disease without esophagitis; F41.9 Anxiety disorder, unspecified; F25.9 Schizoaffective disorder, unspecified; Z86.79 Personal history of other diseases of the circulatory system; Z86.718 Personal history of other venous thrombosis and embolism; Z79.899 Other long term (current) drug therapy; Z98.51 Tubal ligation status
CPT/HCPCS: 36415; 80053; 83690; 84702; 85025; 85027; 86850; 86900; 86901; 88304; 94640; 96361; 96374; 96375; 99285; A9270; C9113; J0131; J0690; J1650; J2250; J2270; J2405; J3010; J7030; J7120; Q9966

== ENCOUNTER 2020-10-17 01:28 | Emergency (ER) | payer BC, MEDICAID, SELFPAY ==
[2020-10-17] VITALS (29 sets, daily range): BP systolic 93–116; BP diastolic 55–80; PULSE 82–99; RESP 13–18; TEMP 37.1–37.3; O2SAT 89–95
--- NOTE | ~2020-10-17 | CT_ITS ---
EXAMINATION: CT abdomen pelvis w con DATE: 10/17/2020 05:25 INDICATION: Right upper quadrant abdominal pain TECHNIQUE: Computed tomography (CT) of the abdomen and pelvis was performed with 100 cc Omnipaque 350 intravenous contrast. The dose-length product was 1473.21 mGy-cm. Automated exposure control and ite rative reconstruction technique were employed. COMPARISON: CT dated 09/25/2020. FINDINGS: Patchy bibasilar airspace disease which may represent atelectasis and/or pneumonia. Heart s ize normal. No significant pleural or pericardial effusion. There are cholecystectomy clips. There is fluid in the gallbladder fossa, likely postoperative. No si gnificant biliary dilatation. The liver, spleen, pancreas, adrenal glands and kidneys are unremarkabl e. Small amount of free fluid in the pelvis. There is a fat-containing umbilical hernia. Nonobstructi ve bowel gas pattern. There is punctate areas of gas in the subcutaneous tissues of the anterior abdo ginny wall, consistent with recent surgery no discrete drainable fluid collection is identified to cummings ggest abscess. No acute osseous abnormality.. IMPRESSION: 1. Patchy bibasilar airspace disease which may represent atelectasis and/or pneumonia. 2: Postoperative changes, consistent with recent cholecystectomy. Reviewed, dictated and finalized at location A. IMPRESSION: 1. Patchy bibasilar airspace disease which may represent atelectasis and/or pne umonia. 2: Postoperative changes, consistent with recent cholecystectomy.
[2020-10-17 02:01] LABS: Basophils Percent Auto 0.2 % (0.2-1.2); Eosinophils Absolute Auto 0.2 K/mm3 (0-0.3); Eosinophils Percent Auto 2.1 % (0-4.4); Hematocrit 33.7 % (37.0-47.0); Hemoglobin 11.3 g/dL (12.0-15.0); Immature Granulocyte Absolute 0.05 K/mm3 (0.00-0.031); Immature Granulocyte Percent A 0.5 % (0-0.5); Lymphocytes Absolute Auto 2.07 K/mm3 (0.9-3.2); Lymphocytes Percent Auto 21.3 % (18.3-44.2); Mean Corpuscular HGB Conc 33.5 g/dl (32-36); Mean Corpuscular Hemoglobin 29.9 pg (26-34); Mean Corpuscular Volume 89.2 fl (80-100); Mean Platelet Volume 9.8 fl (7.4-10.4); Monocytes Absolute Auto 0.8 K/mm3 (0.1-0.6); Monocytes Percent Auto 8.6 % (2.6-8.5); Neutrophils Absolute Auto 6.5 K/mm3 (1.3-6.7); Neutrophils Percent Auto 67.3 % (45.5-73.1); Platelet Count Result 202 k/mm3 (150-375); Red Blood Count 3.78 M/mm3 (4.2-5.4); Red Cell Distribution Width 16.7 % (11.5-14.5); White Blood Count 9.7 K/mm3 (4.5-10.0)
[2020-10-17 02:29] LABS: Alanine Aminotransferase 37 U/L (4-35); Albumin Level 3.9 g/dL (3.5-5.1); Alkaline Phosphatase 105 U/L (38-126); Anion Gap 9 mmol/L (8-16); Aspartate Amino Transferase 43 U/L (14-36); Bilirubin,Total 0.3 mg/dL (0.2-1.3); Blood Urea Nitrogen 2 mg/dL (7-17); Calcium 8.9 mg/dL (8.4-10.2); Carbon Dioxide 35 mmol/L (22-30); Chloride 91 mmol/L (98-107); Estimated CRCL calculation 74 ml/min; Estimated Glomerular Filt Rate > 60; Glucose 118 mg/dL (65-110); Lipase 49 U/L (23-300); Potassium 2.8 mmol/L (3.4-5.0); Sodium 135 mmol/L (137-145)
[2020-10-17 02:34] LABS: Add Urine Microscopic? NO; Appearance Urine Clear (Clear); Bilirubin Urine Negative (Negative); Blood Urine Negative (Negative); Color Urine Yellow (Yellow); Glucose Urine UA Negative (Negative); Ketones Urine Negative (Negative); Leukocyte Esterase Ur Negative LEU/UL (Negative); Nitrate Urine Negative (Negative); Protein Urine Negative (Negative); Specific Grav Ur 1.011 (1.001-1.035); Urobilinogen Urine Negative mg/dL (<2.0)
--- NOTE | 2020-10-17 03:47 | ED.FEVER ---
HPI - Fever General Chief Complaint: Fever <Jaydon Gonzalez MD - Last Filed: 10/17/20 06:56> Stated Complaint: fever, post op <Jaydon Gonzalez MD - Last Filed: 10/17/20 06:56> Time Seen by Provider: 10/17/20 01:59 <Jaydon Gonzalez MD - Last Filed: 10/17/20 06:56> History of Present Illness HPI Narrative: 40 yo female w/ h/o cholecystectomy presents to the ED for abdomianl pain and fever. She had a cholecystectomy 3 weeks ago. She reports that she had low grade fever initially. This had resolved, but over the past few days she has once again started having fevers. She reports temperature up to 102 at home. She also has ongoing RUQ pain and nausea. <Jaydon Gonzalez MD - Last Filed: 10/17/20 06:56> Related Data Home Medications: Home Medications Medication Instructions Recorded Confirmed clonazepam 1 mg PO TID 05/19/19 10/13/20 gabapentin 600 mg PO HS 05/19/19 10/13/20 sertraline 150 mg PO DAILY 05/19/19 10/13/20 furosemide 40 mg tablet 40 mg PO QAM 01/28/20 10/13/20 Flovent HFA 2 puff INHALATION DAILY 05/25/20 10/13/20 Linzess 290 mcg PO DAILY 05/25/20 10/13/20 albuterol sulfate 2 puff INHALATION DAILY 05/25/20 10/13/20 aripiprazole 10 mg PO DAILY 05/25/20 10/13/20 buspirone 15 mg PO TID 05/25/20 10/13/20 Invega Sustenna 234 mg IM Q30D 06/03/20 10/13/20 levothyroxine [Euthyrox] 50 mcg PO DAILY 06/03/20 10/13/20 omeprazole 40 mg PO DAILY 06/03/20 10/13/20 divalproex 250 mg PO BID 09/25/20 10/13/20 metoprolol tartrate 50 mg PO DAILY 09/25/20 10/13/20 <Jaydon Gonzalez MD - Last Filed: 10/17/20 06:56> Allergies/Adverse Reactions: Allergies Allergy/AdvReac Type Severity Reaction Status Date / Time chlorpromazine Allergy Itching Verified 10/17/20 02:07 [From Thorazine] latex Allergy Rash Verified 10/17/20 02:07 quetiapine [From Seroquel] Allergy Hallucinati Verified 10/17/20 02:07 ng <Jaydon Gonzalez MD - Last Filed: 10/17/20 06:56> Review of Systems Review of Systems: All systems reviewed & are unremarkable except as noted in HPI and below <Jaydon Gonzalez MD - Last Filed: 10/17/20 06:56> Constitutional: Constitutional: Reports chills and Reports fever(s) <Jaydon Gonzalez MD - Last Filed: 10/17/20 06:56> ENT: Reports system reviewed and no additional complaints, except as documented <Jaydon Gonzalez MD - Last Filed: 10/17/20 06:56> Cardiovascular: Cardiovascular: Denies chest pain <Jaydon Gonzalez MD - Last Filed: 10/17/20 06:56> Respiratory: Respiratory: Denies dyspnea <Jaydon Gonzalez MD - Last Filed: 10/17/20 06:56> Gastrointestinal: Gastrointestinal: Reports as per HPI <Jaydon Gonzalez MD - Last Filed: 10/17/20 06:56> Genitourinary: Genitourinary: Denies hematuria, Denies nocturia and Denies dysuria <Jaydon Gonzalez MD - Last Filed: 10/17/20 06:56> Musculoskeletal: Musculoskeletal: Reports no additional musculoskeletal complaints <Jaydon Gonzalez MD - Last Filed: 10/17/20 06:56> Neurologic: Denies dizziness and Reports weakness <Jaydon Gonzalez MD - Last Filed: 10/17/20 06:56> [facility] Past Medical History Medical History: Medical History Abnormal CT scan, gastrointestinal tract Anxiety Asthma, mild intermittent Bipolar affect, depressed Bloating Chronic respiratory failure Constipation DVT (deep venous thrombosis) Lower extremity DVT in 2019 while hospitalized and intubated for acute respiratory failure. Treated with anticoagulation and no longer on any oral anticoagulation. GERD (gastroesophageal reflux disease) Hypertension Morbid obesity Nausea Non-cardiac chest pain Obesity hypoventilation syndrome IRMA on CPAP Peripartum cardiomyopathy 2006 Small intestinal bacterial overgrowth (SIBO) Tobacco abuse <Jaydon Gonzalez MD - Last Filed: 10/17/20 06:56> Surgical History Surgical History: Surgical History (Revi
[2020-10-17 04:19] LABS: Lactic Acid Reflex 1.4 mmol/L (0.7-2.1)
--- NOTE | 2020-10-17 05:12 | PC.NURSE ---
Patient taken to CT.
[2020-10-18 17:31] LABS: SARS-CoV-2 RNA PCR Negative
--- NOTE | 2020-11-05 15:07 | PM.DS ---
DS: Admitting Diagnosis Admitting Diagnosis Acute cholecystitis with cholelithiasis DS: Discharge Diagnosis Discharge Diagnosis (1) Biliary colic: Code(s): K80.50 - Calculus of bile duct without cholangitis or cholecystitis without obstruction Status: Acute Assessment and Plan: Patient had known cholelithiasis on a recent CT scan. She had recurrent pain and was hospitalized. We therefore moved her surgery up and a laparoscopic cholecystectomy, possible open cholecystectomy was completed. She did not require open therapy. Patient had unremarkable postop recovery. (2) Cholelithiasis: Qualifiers: Biliary obstruction: without biliary obstruction Cholecystitis acuity: chronic Cholecystitis presence: with cholecystitis Cholelithiasis location: gallbladder Qualified Code(s): K80.10 - Calculus of gallbladder with chronic cholecystitis without obstruction Code(s): K80.20 - Calculus of gallbladder without cholecystitis without obstruction Status: Acute Assessment and Plan: See recent CT can report Patient had unremarkable postop recovery after gallbladder removal. This problem can be resolved. (3) BMI 40.0-44.9, adult: Code(s): Z68.41 - Body mass index [BMI]40.0-44.9, adult Status: Acute Assessment and Plan: Encouraged patient several times through hospital stay to consider calorie adjustment and increased exercise to lose weight. And easy way to accomplish this is to stick to a low-fat diet that we have provided to her from the office at try to avoid problems with her gallbladder once we knew she had cholelithiasis. (4) Peripartum cardiomyopathy: Code(s): O90.3 - Peripartum cardiomyopathy Status: Acute Assessment and Plan: fluid status at this time is stable. Echo from May 2020 showed normal systolic and diastolic function. She does report being on Lasix 40 mg daily. Was held while NPO. She does not have any leg swelling at this time. Restart Lasix medications at discharge. (5) Abdominal pain: Code(s): R10.9 - Unspecified abdominal pain Status: Acute Assessment and Plan: related to the cholecystitis and eating fatty foods. This problem can be resolved. (6) Tobacco abuse: Code(s): Z72.0 - Tobacco use Status: Acute Assessment and Plan: Encouraged to stop smoking. Patient apparently had infiltrates on her chest x-ray during hospitalization and the hospitalist talked with her extensively about the possibility of COVID and also the importance of stopping smoking. (7) Asthma, mild intermittent: Qualifiers: Asthma complication type: unspecified Qualified Code(s): J45.20 - Mild intermittent asthma, uncomplicated Code(s): J45.20 - Mild intermittent asthma, uncomplicated Status: Acute (8) IRMA on CPAP: Code(s): G47.33 - Obstructive sleep apnea (adult) (pediatric); Z99.89 - Dependence on other enabling machines and devices Status: Acute (9) GERD (gastroesophageal reflux disease): Qualifiers: Esophagitis presence: esophagitis presence not specified Qualified Code(s): K21.9 - Gastro-esophageal reflux disease without esophagitis Code(s): K21.9 - Gastro-esophageal reflux disease without esophagitis Status: Acute (10) Labile hypertension: Code(s): R09.89 - Other specified symptoms and signs involving the circulatory and respiratory systems Status: Acute (11) Pneumonia: Qualifiers: Laterality: bilateral Lung location: unspecified part of lung Pneumonia type: due to unspecified organism Qualified Code(s): J18.9 - Pneumonia, unspecified organism Code(s): J18.9 - Pneumonia, unspecified organism Status: Resolved Assessment and Plan: see instructions from the hospitalist. Plan to see her PCP within 1-2 weeks. DS: Summary Time Spent with Patient Time attestation: Total time spen
--- NOTE | 2020-11-05 16:01 | PM.DS ---
DS: Admitting Diagnosis Admitting Diagnosis Cholelithiasis with cholecystitis and biliary colic DS: Discharge Diagnosis Discharge Diagnosis (1) Cholelithiasis: Onset Date: ~09/2020 Qualifiers: Biliary obstruction: without biliary obstruction Cholecystitis acuity: chronic Cholecystitis presence: with cholecystitis Cholelithiasis location: gallbladder Qualified Code(s): K80.10 - Calculus of gallbladder with chronic cholecystitis without obstruction Code(s): K80.20 - Calculus of gallbladder without cholecystitis without obstruction Status: Acute Assessment and Plan: Patient had known cholelithiasis on a recent CT scan. She had recurrent pain and was hospitalized. We therefore moved her surgery up and a laparoscopic cholecystectomy was completed. She did not require open surgeryy. Patient had unremarkable postop recovery. (2) Biliary colic: Onset Date: ~10/12/20 Code(s): K80.50 - Calculus of bile duct without cholangitis or cholecystitis without obstruction Status: Acute Assessment and Plan: see above patient had this on admission. Now has had laparoscopic cholecystectomy so this can be resolved. (3) BMI 40.0-44.9, adult: Onset Date: Unknown Code(s): Z68.41 - Body mass index [BMI]40.0-44.9, adult Status: Acute Assessment and Plan: Encouraged patient to go on a low-calorie diet, also follow low-fat diet that we had previously provided to her for avoiding problems with her gallbladder. Encouraged her to increase activity to lose weight. (4) Obesity hypoventilation syndrome: Onset Date: Unknown Code(s): E66.2 - Morbid (severe) obesity with alveolar hypoventilation Status: Acute Assessment and Plan: Patient to use CPAP at home that she already has. Patient given Incentive spirometry on discharge encouraged to use to prevent atelectasis /pneumonia (5) Anxiety: Onset Date: Unknown Code(s): F41.9 - Anxiety disorder, unspecified Status: Acute Assessment and Plan: patient has home meds for this (6) Peripartum cardiomyopathy: Code(s): O90.3 - Peripartum cardiomyopathy Status: Acute (7) Abdominal pain: Onset Date: ~09/2020 Code(s): R10.9 - Unspecified abdominal pain Status: Acute Assessment and Plan: The patient previously had appendectomy and abdominal pain resolved. Patient had pain come back now because she had cholelithiasis had a laparoscopic cholecystectomy. Hopefully this will resolve her abdominal pain. We will see her in the office and see how she is doing. (8) Schizoaffective disorder: Onset Date: Unknown Code(s): F25.9 - Schizoaffective disorder, unspecified Status: Acute Assessment and Plan: On medications for this at home will continue those when she is discharged. (9) Labile hypertension: Onset Date: Unknown Code(s): R09.89 - Other specified symptoms and signs involving the circulatory and respiratory systems Status: Acute Assessment and Plan: Patient is on medications which were held because of her surgery. She actually had normal blood pressures while on pain medicines. Will resume home medications and follow-up with PCP regarding changes in these if needed. Informed her that losing weight may help her get off some of these. (10) GERD (gastroesophageal reflux disease): Onset Date: Unknown Qualifiers: Esophagitis presence: esophagitis presence not specified Qualified Code(s): K21.9 - Gastro-esophageal reflux disease without esophagitis Code(s): K21.9 - Gastro-esophageal reflux disease without esophagitis Status: Acute Assessment and Plan: Patient is to monitor symptoms. She can talked PCP about an H2 higinio or PPI if this continues however, some of the symptoms may have been related to her biliary colic. Therefore, she may not need med
== END 2020-10-17 08:28 | disposition home or self-care (01) ==
PROVIDERS: Emergency Medicine; Emergency Provider Emergency Medicine; PCP Nurse Practitioner Family
DX: J18.9 Pneumonia, unspecified organism (principal); E87.6 Hypokalemia; Z20.822 Contact with and (suspected) exposure to COVID-19; Z98.890 Other specified postprocedural states; J96.10 Chronic respiratory failure, unspecified whether with hypoxia or hypercapnia; K21.9 Gastro-esophageal reflux disease without esophagitis; I10 Essential (primary) hypertension; E66.01 Morbid (severe) obesity due to excess calories; Z68.41 Body mass index [BMI] 40.0-44.9, adult; G47.33 Obstructive sleep apnea (adult) (pediatric); F41.9 Anxiety disorder, unspecified; F31.9 Bipolar disorder, unspecified; Z86.718 Personal history of other venous thrombosis and embolism; F17.210 Nicotine dependence, cigarettes, uncomplicated
CPT/HCPCS: 36415; 74177; 80053; 81003; 81025; 83605; 83690; 85025; 87040; 99284; C9803; Q9967; U0003; U0005

== ENCOUNTER 2021-04-12 11:30 | Outpatient (CLI) | payer OTHER, SELFPAY ==
--- NOTE | ~2021-04-12 | XR_ITS ---
XR hip BI 2V w AP pelvis DATE: 04/12/2021 11:54 INDICATION: Bilateral hip pain and limp following a fall. TECHNIQUE: AP pelvis. AP and lateral views of each hip. COMPARISON: None FINDINGS: No pelvic fracture or bone destruction is detected. The pubic symphysis and sacroiliac join ts are intact. No fracture or dislocation, avascular necrosis or bone destruction of either hip. Hip joint spaces are symmetric and well preserved. Surgical clips overlie the right lower quadrant. IMPRESSION: Negative pelvis and bilateral hips; no fracture or dislocation Reviewed, dictated and finalized at location B. [facility]OLOGY [facility]URER
== END 2021-04-12 11:31 | disposition home or self-care (01) ==
LOC: ANHIMG 11:34
PROVIDERS: PCP Nurse Practitioner Family; Visit Provider Nurse Practitioner Family
DX: M25.551 Pain in right hip (principal); M25.552 Pain in left hip
CPT/HCPCS: 73521

== ENCOUNTER 2021-04-18 20:36 | Emergency (ER) | payer OTHER, SELFPAY ==
[2021-04-18 20:43] VITALS: BP 124/91; PULSE 83; RESP 20; TEMP 35.7; O2SAT 97
--- NOTE | 2021-04-18 20:57 | ECG_ITS ---
Measurements Intervals Wolf Rate: 75 P: 61 GA: 175 QRS: 29 QRSD: 85 T: 45 QT: 396 QTc: 444 Interpretive Statements SINUS RHYTHM POSSIBLE LEFT ATRIAL ENLARGEMENT INCOMPLETE RIGHT BUNDLE BRANCH BLOCK BORDERLINE ECG Electronically Signed On 04-19-2021 6:10:02 SIGNAL INSPECTOR by Matthew Li D.O.
--- NOTE | 2021-04-18 21:08 | PC.NURSE ---
Pt changed into paperscrubs, belongings locked up, sitter at bedside.
[2021-04-18 21:39] LABS: Add Urine Microscopic? YES; Appearance Urine Clear (Clear); Bilirubin Urine Negative (Negative); Blood Urine Negative (Negative); Color Urine Yellow (Yellow); Glucose Urine UA Negative (Negative); Ketones Urine Negative (Negative); Leukocyte Esterase Ur Negative LEU/UL (Negative); Mucus Urine Rare /lpf; Nitrate Urine Negative (Negative); Protein Urine Negative (Negative); Squamous Epithelial Cell Urine Moderate /hpf (Few); WBC Urine 0-3 /hpf
[2021-04-18 21:49] LABS: Basophils Absolute Auto 0.1 K/mm3 (0.0-0.1); Basophils Percent Auto 0.6 % (0.2-1.2); Eosinophils Absolute Auto 0.5 K/mm3 (0-0.3); Eosinophils Percent Auto 5.5 % (0-4.4); Hematocrit 38.2 % (37.0-47.0); Hemoglobin 12.1 g/dL (12.0-15.0); Immature Granulocyte Absolute 0.03 K/mm3 (0.00-0.031); Immature Granulocyte Percent A 0.4 % (0-0.5); Lymphocytes Absolute Auto 2.77 K/mm3 (0.9-3.2); Lymphocytes Percent Auto 33.2 % (18.3-44.2); Mean Corpuscular HGB Conc 31.7 g/dl (32-36); Mean Corpuscular Hemoglobin 28.8 pg (26-34); Mean Platelet Volume 10.2 fl (7.4-10.4); Monocytes Absolute Auto 0.5 K/mm3 (0.1-0.6); Neutrophils Absolute Auto 4.5 K/mm3 (1.3-6.7); Neutrophils Percent Auto 54.3 % (45.5-73.1); Platelet Count Result 256 k/mm3 (150-375); Red Cell Distribution Width 16.4 % (11.5-14.5); White Blood Count 8.3 K/mm3 (4.5-10.0)
[2021-04-18 21:51] LABS: Amphetamine Screen Urine Negative (Negative); Barbiturate Screen Urine Negative (Negative); Benzodiazepines Screen Urine Negative (Negative); Cannabinoid Screen Urine Positive (Negative); Cocaine Screen Urine Negative (Negative); Methadone Screen Urine Negative (Negative); Opiate Screen Urine Negative (Negative); Phencyclidine Screen Urine Negative (Negative)
[2021-04-18 21:53] LABS: Alanine Aminotransferase 16 U/L (4-35); Albumin Level 4.3 g/dL (3.5-5.1); Alkaline Phosphatase 87 U/L (38-126); Anion Gap 7 mmol/L (8-16); Aspartate Amino Transferase 22 U/L (14-36); Bilirubin,Total 0.2 mg/dL (0.2-1.3); Blood Urea Nitrogen 8 mg/dL (7-17); Calcium 9.2 mg/dL (8.4-10.2); Carbon Dioxide 30 mmol/L (22-30); Chloride 97 mmol/L (98-107); Estimated CRCL calculation 80 ml/min; Estimated Glomerular Filt Rate > 60; Glucose 122 mg/dL (65-110); Potassium 3.2 mmol/L (3.4-5.0); Sodium 134 mmol/L (137-145)
[2021-04-18 21:54] LABS: Ethanol < 10 mg/dL (<10)
--- NOTE | 2021-04-18 22:03 | ED.GENADULT ---
HPI - General Adult General Chief complaint: Psychiatric Symptoms Stated complaint: self-harm, intrusive thoughts Time Seen by Provider: 04/18/21 21:40 Source: patient and RN notes reviewed History of Present Illness HPI narrative: 41-year-old female presented [facility] for evaluation of worsening depression and new onset of suicidal ideation. Patient states over the course of the last month she has had worsening depression. Patient states over the last 3 days she has been waking up crying and has had increasing suicidal and hopeless thoughts. Patient does have homicidal thoughts of hurting her children and . Patient's plan for suicide was to overdose. Patient does have prior history of psychiatric hospitalization with the most recent being approximately 3 months ago. Patient reports at that time she was taken off all her psych medications due to the psychiatrist saying that I was attention seeking and that there is no medication to treat me Related Data Home Medications Medication Instructions Recorded Confirmed clonazepam 1 mg PO TID 05/19/19 11/03/20 gabapentin 600 mg PO HS 05/19/19 11/03/20 sertraline 150 mg PO DAILY 05/19/19 11/03/20 furosemide 40 mg tablet 40 mg PO QAM 01/28/20 11/03/20 Flovent HFA 2 puff INHALATION DAILY 05/25/20 11/03/20 Linzess 290 mcg PO DAILY 05/25/20 11/03/20 albuterol sulfate 2 puff INHALATION DAILY 05/25/20 11/03/20 aripiprazole 10 mg PO DAILY 05/25/20 11/03/20 buspirone 15 mg PO TID 05/25/20 11/03/20 Invega Sustenna 234 mg IM Q30D 06/03/20 11/03/20 levothyroxine [Euthyrox] 50 mcg PO DAILY 06/03/20 11/03/20 omeprazole 40 mg PO DAILY 06/03/20 11/03/20 divalproex 250 mg PO BID 09/25/20 11/03/20 metoprolol tartrate 50 mg PO DAILY 09/25/20 11/03/20 Allergies Allergy/AdvReac Type Severity Reaction Status Date / Time chlorpromazine Allergy Itching Verified 04/18/21 20:51 [From Thorazine] latex Allergy Rash Verified 04/18/21 20:51 quetiapine [From Seroquel] Allergy Hallucinati Verified 04/18/21 20:51 ng PMFSH Past Medical History Medical History (Updated 04/19/21 @ 05:58 by Guille Judd MD) Abnormal CT scan, gastrointestinal tract Anxiety (Unknown) Asthma, mild intermittent (Unknown) Bipolar affect, depressed Bloating CHF (congestive heart failure) Chronic respiratory failure Constipation DVT (deep venous thrombosis) Lower extremity DVT in 2019 while hospitalized and intubated for acute respiratory failure. Treated with anticoagulation and no longer on any oral anticoagulation. GERD (gastroesophageal reflux disease) (Unknown) Hypertension Morbid obesity Nausea Non-cardiac chest pain Obesity hypoventilation syndrome (Unknown) IRMA on CPAP (Unknown) Peripartum cardiomyopathy (Unknown) 2005 Small intestinal bacterial overgrowth (SIBO) Tobacco abuse (Unknown) Surgical History Surgical History H/O tubal ligation performed during History of section History of laparoscopic appendectomy History of thyroidectomy, subtotal for benign nodule Hx laparoscopic cholecystectomy 10/11/20 Family History Family History Father Diabetes mellitus Acute myocardial infarction Hypertension Congestive heart failure Rectal cancer Mother No problems noted. Social History Social History Smoking packs per day: 0.5 Smoking cigarettes per day: 10.0 Years smoked: 24 Smoking pack-years: 12.00 Smoking status: Current every day smoker Tobacco type: cigarettes Second hand tobacco smoke exposure: Yes Smoking end date: 01/25/20 Additional smoking assessment comments: 3 packs per week Alcohol intake: never Drinks per week: 1 Substance use: current Substance use type: marijuana Other substance usage details: marijuana Last use: 10/07/20 Additional occ
[2021-04-18 22:15] LABS: SARS-CoV-2 RNA PCR Negative
--- NOTE | 2021-04-18 22:32 | PC.NURSE ---
PT MEDICALLY CLEARED PER ERP DR DARBY.
--- NOTE | 2021-04-18 22:37 | PC.NURSE ---
CHANELLE @ [facility] NOTIFIED THAT PATIENT IS MEDICALLY CLEARED AT THIS TIME. THEY WILL SEND SOMEONE OUT TO EVALUATE HER.
--- NOTE | 2021-04-19 02:45 | PC.NURSE ---
[facility] called to get covid results faxed. RN faxed results they state they will call back in the am with a possible bed.
[2021-04-19 02:51] VITALS: BP 110/71; PULSE 71; RESP 18; TEMP 37; O2SAT 94
--- NOTE | 2021-04-19 05:09 | PC.NURSE ---
Rn spoke with [facility] and gave nurse to nurse report they will call back after they talk with their assessment team.
[2021-04-19 07:15] VITALS: BP 133/97; PULSE 83; RESP 18; TEMP 36.6; O2SAT 96
--- NOTE | 2021-04-19 07:29 | PC.NURSE ---
This nurse called for a breakfast safety tray for pt.
--- NOTE | 2021-04-19 08:37 | PC.NURSE ---
Pt noted to have eaten 80% of her breakfast tray.
--- NOTE | 2021-04-19 10:29 | PC.NURSE ---
This nurse spoke to pt , cecilia, and gave him an update on the pt status.
[2021-04-19] MEDS: PANTOPRAZOLE 40 MG TABLET PO (12:33)
--- NOTE | 2021-04-19 17:50 | PC.NURSE ---
[facility] contacts ED to send referral to [facility].
[2021-04-19 18:00] VITALS: BP 129/97; PULSE 82; RESP 18; TEMP 36.4; O2SAT 98
[2021-04-19] MEDS: clonazePAM (*CRX) 0.5 MG TABLET 1 MG PO (18:05)
[2021-04-19] MEDS: METOPROLOL TARTRATE 50 MG TAB PO (18:05)
--- NOTE | 2021-04-19 19:58 | PC.NURSE ---
[facility] called, pending acceptance at facility per accepting doctor.
--- NOTE | 2021-04-19 22:26 | PC.NURSE ---
Spoke with attending physician at [facility] at [phone]. Will call back with more info at [phone]
[2021-04-19] MEDS: GABAPENTIN 300 MG CAPSULE 600 MG PO (22:29)
[2021-04-19] MEDS: traZODone HCL 50 MG TABLET 100 MG PO (22:29)
[2021-04-19 22:30] VITALS: BP 166/90; PULSE 74; RESP 18; TEMP 36.4; O2SAT 95
--- NOTE | 2021-04-19 23:02 | PC.NURSE ---
Followed up with attending, Dr. Bustos ([facility]). Facility unable to accept pt at this time, but may accept in the AM. Facility to call ED in morning.
--- NOTE | 2021-04-19 23:04 | PC.NURSE ---
Updated Laina from [facility] by phone.
--- NOTE | 2021-04-19 23:58 | PC.NURSE ---
Spoke with Leelee at [facility], nurse is Akash and accepting doctor is Dr. Broussard. Pt is accepted to facility and can come by ambulance any time after 1030.
--- NOTE | 2021-04-20 00:16 | PC.NURSE ---
Leelee from [facility] called this RN, reports that medical affairs director is overriding Dr. Broussard's decision to accept pt due to medical acuity. Pt is not accepted to [facility] at this time.
[2021-04-20 04:35] VITALS: BP 103/72; PULSE 66; RESP 18; TEMP 36.6; O2SAT 97
--- NOTE | 2021-04-20 07:16 | PC.NURSE ---
Safety breakfast tray ordered for pt at this time.
--- NOTE | 2021-04-20 08:49 | PC.NURSE ---
PT SCREENING LOW RISK AT THIS TIME,SPOKE WITH CAROLINE HAWKINS TO PULL SITTER
--- NOTE | 2021-04-20 09:29 | PC.NURSE ---
pt no longer needs sitter per dr ambrose. pt denies si/hi at this time.
[2021-04-20 09:34] VITALS: PULSE 74
[2021-04-20] MEDS: METOPROLOL TARTRATE 50 MG TAB PO ×2 (09:34→21:04)
[2021-04-20] MEDS: clonazePAM (*CRX) 0.5 MG TABLET 1 MG PO ×2 (09:35→18:11)
[2021-04-20 09:36] VITALS: BP 134/90; PULSE 76; RESP 18; O2SAT 98
--- NOTE | 2021-04-20 09:56 | PC.NURSE ---
ordered lunch tray for pt
--- NOTE | 2021-04-20 15:50 | PC.NURSE ---
spoke with garbage pick up worker at [facility] who states they are continuing to seek placement
--- NOTE | 2021-04-20 17:28 | PC.NURSE ---
requested paperwork faxed to [facility], [facility]
[2021-04-20] MEDS: BELLADONNA ALK/PHENOB ELIX 10 ML, MAG HYDROX/ALUMINUM HYD/SIMETH 30 ML, LIDOCAINE HCL 2... PO (18:11)
--- NOTE | 2021-04-20 20:41 | PC.NURSE ---
2010: Called [facility] to transport patient...DECLINED 2031: Called [facility] to transport patient...DECLINED
--- NOTE | 2021-04-20 20:51 | PC.NURSE ---
took pt to [facility] unit to shower and change clothes.
[2021-04-20] MEDS: GABAPENTIN 300 MG CAPSULE 600 MG PO (20:56)
[2021-04-20] MEDS: traZODone HCL 50 MG TABLET 100 MG PO (20:56)
[2021-04-20 21:04] VITALS: PULSE 78
== END 2021-04-20 22:28 ==
PROVIDERS: Emergency Medicine; Emergency Provider Family Medicine; PCP Nurse Practitioner Family
DX: R45.851 Suicidal ideations (principal); R45.850 Homicidal ideations; F31.9 Bipolar disorder, unspecified; Z20.822 Contact with and (suspected) exposure to COVID-19; F41.9 Anxiety disorder, unspecified; I50.9 Heart failure, unspecified; I11.0 Hypertensive heart disease with heart failure; J96.10 Chronic respiratory failure, unspecified whether with hypoxia or hypercapnia; K21.9 Gastro-esophageal reflux disease without esophagitis; E66.2 Morbid (severe) obesity with alveolar hypoventilation; Z68.39 Body mass index [BMI] 39.0-39.9, adult; G47.33 Obstructive sleep apnea (adult) (pediatric); E89.0 Postprocedural hypothyroidism; Z86.718 Personal history of other venous thrombosis and embolism; Z87.891 Personal history of nicotine dependence
CPT/HCPCS: 36415; 80053; 80307; 81001; 81025; 84443; 85025; 93005; 99285; A9270; C9803; U0003; U0005

== ENCOUNTER 2021-04-29 05:38 | Emergency (ER) | payer OTHER, SELFPAY ==
[2021-04-29 05:46] VITALS: BP 137/96; PULSE 98; RESP 18; TEMP 36.8; O2SAT 98
--- NOTE | 2021-04-29 07:18 | PC.NURSE ---
Assumed care of pt. at this time. Report from RAHUL Weber
[2021-04-29 07:20] VITALS: BP 154/105; PULSE 87; RESP 14; O2SAT 97
[2021-04-29 07:25] LABS: Basophils Absolute Auto 0.1 K/mm3 (0.0-0.1); Basophils Percent Auto 0.8 % (0.2-1.2); Eosinophils Absolute Auto 0.2 K/mm3 (0-0.3); Hematocrit 38.4 % (37.0-47.0); Hemoglobin 12.1 g/dL (12.0-15.0); Immature Granulocyte Absolute 0.03 K/mm3 (0.00-0.031); Immature Granulocyte Percent A 0.4 % (0-0.5); Lymphocytes Absolute Auto 2.68 K/mm3 (0.9-3.2); Lymphocytes Percent Auto 34.4 % (18.3-44.2); Mean Corpuscular HGB Conc 31.5 g/dl (32-36); Mean Corpuscular Hemoglobin 28.7 pg (26-34); Mean Corpuscular Volume 91.2 fl (80-100); Monocytes Absolute Auto 0.5 K/mm3 (0.1-0.6); Monocytes Percent Auto 6.4 % (2.6-8.5); Neutrophils Absolute Auto 4.3 K/mm3 (1.3-6.7); Platelet Count Result 207 k/mm3 (150-375); Red Blood Count 4.21 M/mm3 (4.2-5.4); Red Cell Distribution Width 16.3 % (11.5-14.5); White Blood Count 7.8 K/mm3 (4.5-10.0)
--- NOTE | 2021-04-29 07:31 | ED.PSYCH ---
HPI - Psych General Chief Complaint: Psychiatric Symptoms <Rayshawn Georges MD - Last Filed: 04/30/21 21:59> Stated Complaint: Paranoia, Suicidal Ideation <Rayshawn Georges MD - Last Filed: 04/30/21 21:59> Time Seen by Provider: 04/29/21 07:12 <Rayshawn Georges MD - Last Filed: 04/30/21 21:59> Source: patient <Rayshawn Georges MD - Last Filed: 04/30/21 21:59> History of Present Illness HPI Narrative: Patient presents with feeling unsafe at home. Patient was recently admitted to [facility] and discharged on the . It was initially she was doing pretty well but was unable to fill her Prozac and aripiprazole. Since being home she has had increase anxiety and depression last night around midnight started to feel unsafe because the shadows are going to come in . Reports shadows are chasing her and said that is kill herself and burn her house down. She was unable to manage her symptoms and family brought her to the ER for evaluation. <Rayshawn Georges MD - Last Filed: 04/30/21 21:59> Related Data Home Medications: Home Medications Medication Instructions Recorded Confirmed gabapentin 600 mg PO QPM 04/19/21 levothyroxine 50 mcg PO DAILY 04/19/21 lisinopril 20 mg PO DAILY 04/19/21 metoprolol tartrate 50 mg PO DAILY 04/19/21 omeprazole 40 mg PO DAILY 04/19/21 clonazepam 1 mg PO TID 04/29/21 fluticasone propionate 2 puff INHALATION DAILY 04/29/21 potassium chloride [Klor-Con M20] 20 meq PO DAILY 04/29/21 trazodone 100 mg PO HS 04/29/21 allopurinol 100 mg PO DAILY 04/30/21 aripiprazole 5 mg PO DAILY 04/30/21 <Rayshawn Georges MD - Last Filed: 04/30/21 21:59> Allergies/Adverse Reactions: Allergies Allergy/AdvReac Type Severity Reaction Status Date / Time chlorpromazine Allergy Itching Verified 04/18/21 20:51 [From Thorazine] latex Allergy Rash Verified 04/18/21 20:51 quetiapine [From Seroquel] Allergy Hallucinati Verified 04/18/21 20:51 ng <Rayshawn Georges MD - Last Filed: 04/30/21 21:59> Review of Systems Review of Systems: CONSTITUTIONAL: Denies fever, chills, or sweats. EYES: Denies visual changes, redness, or discharge. ENT: Denies rhinorrhea, congestion, sore throat, or otalgia. CARDIOVASCULAR: Denies chest pain, palpitations, or edema. RESPIRATORY: Denies cough or dyspnea. GASTROINTESTINAL: Denies abdominal pain, nausea, vomiting, or diarrhea. GENITOURINARY: Denies dysuria or hematuria. SKIN: Denies rash or itching. MUSCULOSKELETAL: Denies back pain, joint pain, or myalgia. NEUROLOGIC: Denies headache, numbness, dizziness, or weakness. <Rayshawn Georges MD - Last Filed: 04/30/21 21:59> All systems reviewed & are unremarkable except as noted in HPI and below <Rayshawn Georges MD - Last Filed: 04/30/21 21:59> PMFSH Past Medical History Medical History: Medical History Abnormal CT scan, gastrointestinal tract Anxiety (Unknown) Asthma, mild intermittent (Unknown) Bipolar affect, depressed Bloating CHF (congestive heart failure) Chronic respiratory failure Constipation DVT (deep venous thrombosis) Lower extremity DVT in 2019 while hospitalized and intubated for acute respiratory failure. Treated with anticoagulation and no longer on any oral anticoagulation. GERD (gastroesophageal reflux disease) (Unknown) Hypertension Morbid obesity Nausea Non-cardiac chest pain Obesity hypoventilation syndrome (Unknown) IRMA on CPAP (Unknown) Peripartum cardiomyopathy (Unknown) 2006 Small intestinal bacterial overgrowth (SIBO) Tobacco abuse (Unknown) <Rayshawn Georges MD - Last Filed: 04/30/21 21:59> Surgical History Surgical History: Surgical History H/O tubal ligation performed during History of section History of laparoscopic appendectomy History of thyroidectomy, subtotal for
[2021-04-29 07:34] LABS: Acetaminophen < 10 ug/mL (10-30); Salicylate < 1.0 mg/dL (2-20)
[2021-04-29 07:35] LABS: Alanine Aminotransferase 17 U/L (4-35); Albumin Level 4.4 g/dL (3.5-5.1); Alkaline Phosphatase 93 U/L (38-126); Anion Gap 11 mmol/L (8-16); Aspartate Amino Transferase 22 U/L (14-36); Bilirubin,Total 0.2 mg/dL (0.2-1.3); Blood Urea Nitrogen 10 mg/dL (7-17); Calcium 9.2 mg/dL (8.4-10.2); Carbon Dioxide 26 mmol/L (22-30); Chloride 102 mmol/L (98-107); Estimated CRCL calculation 102 ml/min; Estimated Glomerular Filt Rate > 60; Glucose 109 mg/dL (65-110); Potassium 4.1 mmol/L (3.4-5.0); Sodium 139 mmol/L (137-145)
[2021-04-29 07:35] LABS: Add Urine Microscopic? NO; Appearance Urine Clear (Clear); Bilirubin Urine Negative (Negative); Blood Urine Negative (Negative); Color Urine Straw (Yellow); Glucose Urine UA Negative (Negative); Ketones Urine Negative (Negative); Leukocyte Esterase Ur Negative LEU/UL (Negative); Nitrate Urine Negative (Negative); Protein Urine Negative (Negative); Specific Grav Ur 1.005 (1.001-1.035); Urobilinogen Urine Negative mg/dL (<2.0)
[2021-04-29 07:47] LABS: Ethanol < 10 mg/dL (<10)
[2021-04-29 08:03] LABS: Amphetamine Screen Urine Negative (Negative); Barbiturate Screen Urine Negative (Negative); Benzodiazepines Screen Urine Negative (Negative); Cannabinoid Screen Urine Positive (Negative); Cocaine Screen Urine Negative (Negative); Methadone Screen Urine Negative (Negative); Opiate Screen Urine Negative (Negative); Phencyclidine Screen Urine Negative (Negative)
--- NOTE | 2021-04-29 08:49 | PC.NURSE ---
ordered pt. a amany
[2021-04-29] MEDS: hydrOXYzine HCL 25 MG TABLET PO (08:59)
--- NOTE | 2021-04-29 09:00 | PC.NURSE ---
pt. repeatedly stating she does not feel safe and is having urges to scratch herself.
[2021-04-29 09:58] LABS: SARS-CoV-2 RNA PCR Negative
--- NOTE | 2021-04-29 10:27 | PC.NURSE ---
automotive production worker evaluated pt. states to call crisis line once pt. covid-19 results are negative. RN contacted crisis states they will instruct RN where to fax information. No orders at this time.
--- NOTE | 2021-04-29 11:18 | PC.NURSE ---
Faxed pt. paperwork to [facility] [phone] per crisis
[2021-04-29 11:38] VITALS: BP 112/77; PULSE 88; O2SAT 97
--- NOTE | 2021-04-29 14:40 | PC.NURSE ---
faxed pt. paperwork to [facility]
[2021-04-29 15:00] VITALS: BP 128/88; PULSE 100; RESP 14; O2SAT 97
--- NOTE | 2021-04-29 15:26 | PC.NURSE ---
[facility] reports there is not a bed available for pt.
--- NOTE | 2021-04-29 16:29 | PC.NURSE ---
pt. moved to rm 15. sitter at bedside
[2021-04-29 20:00] VITALS: BP 121/87; PULSE 91; RESP 14; TEMP 36.4; O2SAT 98
[2021-04-29] MEDS: GABAPENTIN 300 MG CAPSULE 600 MG PO (20:07)
[2021-04-29] MEDS: clonazePAM (*CRX) 0.5 MG TABLET 1 MG PO (20:07)
[2021-04-29] MEDS: traZODone HCL 50 MG TABLET 100 MG PO (20:07)
[2021-04-30 04:00] VITALS: BP 113/82; PULSE 79; RESP 12; TEMP 36.6; O2SAT 98
--- NOTE | 2021-04-30 04:08 | PC.NURSE ---
[facility] ERP DR KAT PO TYLENOL 650MG
[2021-04-30] MEDS: ACETAMINOPHEN 325 MG TABLET 650 MG PO (04:16)
[2021-04-30] MEDS: PANTOPRAZOLE 40 MG TABLET PO (08:53)
--- NOTE | 2021-04-30 09:00 | PC.NURSE ---
patient ate 100% of provided meal, denies further needs at this time.
--- NOTE | 2021-04-30 09:57 | PC.NURSE ---
[facility] contacted, still looking for placement at this time.
--- NOTE | 2021-04-30 10:32 | PC.NURSE ---
DR SULLIVAN INFORMED OF NO RISK ALRIGHT TO REMOVE SITTER.
[2021-04-30 10:52] VITALS: BP 128/77; PULSE 80; RESP 12; TEMP 36.6; O2SAT 97
--- NOTE | 2021-04-30 11:30 | PC.NURSE ---
Patient ate 100% of provided meal, patient requests drink, drink provided. patient denies further needs at this time.
--- NOTE | 2021-04-30 13:00 | PC.NURSE ---
Patient reports that her nerves are acting up and asks if she can have her daily meds. ERP agrees to continue home medications. patient receives clonazepam.
[2021-04-30] MEDS: clonazePAM (*CRX) 0.5 MG TABLET 1 MG PO ×2 (13:15→17:50)
--- NOTE | 2021-04-30 13:52 | PC.NURSE ---
Patient reports she does not feel safe in her room. Nurse inquires to why doesn't she feel safe or where would she feel safe. Patient unable to answer either question. Patient states she just wants to go home. ERP informed.
--- NOTE | 2021-04-30 19:54 | PC.NURSE ---
Pt's reports that last RN asked re: pt's prozac dosage, which he reports is 20 mg. He also reports that pt has NOT taken it since they have not picked it up since pt d/c from [place].
--- NOTE | 2021-04-30 20:57 | PC.NURSE ---
Crisis analyst currently in room with pt for reevaluation.
[2021-04-30 21:16] VITALS: BP 134/97; PULSE 98; RESP 16; TEMP 36.4; O2SAT 99
--- NOTE | 2021-04-30 21:38 | PC.NURSE ---
Pt reassessed and pt, crisis, and ED MD OK with safety plan. Pt's called by pt's RN Jackie and on way to pick pt up.
--- NOTE | 2021-04-30 21:56 | PC.NURSE ---
All belongings returned to pt by ED RN Jackie.
== END 2021-04-30 22:08 | disposition home or self-care (01) ==
PROVIDERS: Emergency Medicine; Emergency Provider Emergency Medicine; PCP Nurse Practitioner Family
DX: R44.0 Auditory hallucinations (principal); R45.851 Suicidal ideations; Z20.822 Contact with and (suspected) exposure to COVID-19; F31.9 Bipolar disorder, unspecified; J45.20 Mild intermittent asthma, uncomplicated; I50.9 Heart failure, unspecified; J96.10 Chronic respiratory failure, unspecified whether with hypoxia or hypercapnia; I11.0 Hypertensive heart disease with heart failure; E66.2 Morbid (severe) obesity with alveolar hypoventilation; Z68.39 Body mass index [BMI] 39.0-39.9, adult; F17.210 Nicotine dependence, cigarettes, uncomplicated; Z86.718 Personal history of other venous thrombosis and embolism
CPT/HCPCS: 36415; 80053; 80307; 81003; 81025; 84443; 85025; 99284; A9270; C9803; U0003; U0005

== ENCOUNTER 2021-05-02 17:40 | Emergency (ER) | payer OTHER, SELFPAY ==
[2021-05-02 18:03] VITALS: BP 142/95; PULSE 91; RESP 18; TEMP 36.6; O2SAT 98
[2021-05-02 18:46] LABS: Basophils Percent Auto 0.4 % (0.2-1.2); Eosinophils Absolute Auto 0.1 K/mm3 (0-0.3); Eosinophils Percent Auto 1.7 % (0-4.4); Hemoglobin 12.2 g/dL (12.0-15.0); Immature Granulocyte Absolute 0.01 K/mm3 (0.00-0.031); Immature Granulocyte Percent A 0.1 % (0-0.5); Lymphocytes Absolute Auto 1.71 K/mm3 (0.9-3.2); Lymphocytes Percent Auto 23.9 % (18.3-44.2); Mean Corpuscular HGB Conc 32.1 g/dl (32-36); Mean Corpuscular Hemoglobin 28.8 pg (26-34); Mean Corpuscular Volume 89.8 fl (80-100); Mean Platelet Volume 10.5 fl (7.4-10.4); Monocytes Absolute Auto 0.3 K/mm3 (0.1-0.6); Monocytes Percent Auto 3.9 % (2.6-8.5); Platelet Count Result 241 k/mm3 (150-375); Red Blood Count 4.23 M/mm3 (4.2-5.4); Red Cell Distribution Width 16.2 % (11.5-14.5); White Blood Count 7.1 K/mm3 (4.5-10.0)
[2021-05-02 18:48] LABS: Add Urine Microscopic? NO; Appearance Urine Clear (Clear); Bilirubin Urine Negative (Negative); Blood Urine Negative (Negative); Color Urine Straw (Yellow); Glucose Urine UA Negative (Negative); Ketones Urine Negative (Negative); Leukocyte Esterase Ur Negative LEU/UL (Negative); Nitrate Urine Negative (Negative); Protein Urine Negative (Negative); Specific Grav Ur 1.006 (1.001-1.035); Urobilinogen Urine Negative mg/dL (<2.0)
[2021-05-02 18:51] LABS: Alanine Aminotransferase 18 U/L (4-35); Albumin Level 4.3 g/dL (3.5-5.1); Alkaline Phosphatase 100 U/L (38-126); Anion Gap 7 mmol/L (8-16); Aspartate Amino Transferase 25 U/L (14-36); Bilirubin,Total 0.3 mg/dL (0.2-1.3); Blood Urea Nitrogen 5 mg/dL (7-17); Calcium 9.2 mg/dL (8.4-10.2); Carbon Dioxide 28 mmol/L (22-30); Chloride 102 mmol/L (98-107); Estimated CRCL calculation 106 ml/min; Estimated Glomerular Filt Rate > 60; Glucose 113 mg/dL (65-110); Potassium 4.1 mmol/L (3.4-5.0); Sodium 137 mmol/L (137-145)
[2021-05-02 18:52] LABS: Ethanol < 10 mg/dL (<10)
--- NOTE | 2021-05-02 18:53 | PC.NURSE ---
patient here for SI/HI. she was recently discharged from [facility] (04/21-04/26). she states that insurance was messed up and she has been off of her medications for a few days . she states that she has been depressed. she lives with her and kids. denies thoughts of hurting them, however, she states that she is having visual and auditory hallucinations. reports that the voices were telling her to get revenge on her mother and brother. she does not have a relationship with them and they live 2 hours away. she states that when she is away from home it makes her more anxious and she has scratches to left arm, hand and wrist and right wrist. she states that she did not feel like she could keep herself safe tonight. belongings secured and staff sitter at bedside
[2021-05-02 18:59] LABS: Barbiturate Screen Urine Negative (Negative); Benzodiazepines Screen Urine Negative (Negative)
[2021-05-02 19:04] LABS: Amphetamine Screen Urine Negative (Negative); Cannabinoid Screen Urine Positive (Negative); Cocaine Screen Urine Negative (Negative); Methadone Screen Urine Negative (Negative); Opiate Screen Urine Negative (Negative); Phencyclidine Screen Urine Negative (Negative)
[2021-05-02] MEDS: clonazePAM (*CRX) 0.5 MG TABLET 1 MG PO (19:25)
--- NOTE | 2021-05-02 20:08 | ED.PSYCH ---
HPI - Psych General Chief Complaint: Psychiatric Symptoms <Remedios Menard PA-C - Last Filed: 05/03/21 02:30> Stated Complaint: SI <Remedios Menard PA-C - Last Filed: 05/03/21 02:30> Time Seen by Provider: 05/02/21 18:23 <Remedios Menard PA-C - Last Filed: 05/03/21 02:30> Source: patient <KORI Martin Last Filed: 05/03/21 02:30> Mode of arrival: ambulatory <KORI Martin Last Filed: 05/03/21 02:30> Limitations: no limitations <KORI Martin Last Filed: 05/03/21 02:30> History of Present Illness HPI Narrative: This is a 41-year-old female that presents to the emergency department for suicidal ideations. Reports worsening depression and anxiety recently. She had thoughts of overdosing on pills. She also has thoughts of cutting herself. She does have history of previous self-harm and suicide attempt. She has been hospitalized in a psychiatric facility. Reports she has been feeling very paranoid and has had thoughts of harming others. Reports she has been having visual and auditory hallucinations telling her to hurt herself. <Remedios Menard PA-C - Last Filed: 05/03/21 02:30> Related Data Home Medications: Home Medications Medication Instructions Recorded Confirmed gabapentin 600 mg PO QPM 04/19/21 levothyroxine 50 mcg PO DAILY 04/19/21 lisinopril 20 mg PO DAILY 04/19/21 metoprolol tartrate 50 mg PO DAILY 04/19/21 omeprazole 40 mg PO DAILY 04/19/21 clonazepam 1 mg PO TID 04/29/21 fluticasone propionate 2 puff INHALATION DAILY 04/29/21 potassium chloride [Klor-Con M20] 20 meq PO DAILY 04/29/21 trazodone 100 mg PO HS 04/29/21 allopurinol 100 mg PO DAILY 04/30/21 aripiprazole 5 mg PO DAILY 04/30/21 fluoxetine 20 mg PO DAILY 05/03/21 <KORI Martin Last Filed: 05/03/21 02:30> Allergies/Adverse Reactions: Allergies Allergy/AdvReac Type Severity Reaction Status Date / Time chlorpromazine Allergy Itching Verified 04/18/21 20:51 [From Thorazine] latex Allergy Rash Verified 04/18/21 20:51 quetiapine [From Seroquel] Allergy Hallucinati Verified 04/18/21 20:51 ng <Remedios Menard PA-C - Last Filed: 05/03/21 02:30> Review of Systems Review of Systems: CONSTITUTIONAL: Denies fever PSYCHIATRIC: Reports anxiety and depression. <Remedios Menard PA-C - Last Filed: 05/03/21 02:30> All systems reviewed & are unremarkable except as noted in HPI and below <Remedios Menard PA-C - Last Filed: 05/03/21 02:30> [facility] Past Medical History Medical History: Medical History Abnormal CT scan, gastrointestinal tract Anxiety (Unknown) Asthma, mild intermittent (Unknown) Bipolar affect, depressed Bloating CHF (congestive heart failure) Chronic respiratory failure Constipation DVT (deep venous thrombosis) Lower extremity DVT in 2019 while hospitalized and intubated for acute respiratory failure. Treated with anticoagulation and no longer on any oral anticoagulation. GERD (gastroesophageal reflux disease) (Unknown) Hypertension Morbid obesity Nausea Non-cardiac chest pain Obesity hypoventilation syndrome (Unknown) IRMA on CPAP (Unknown) Peripartum cardiomyopathy (Unknown) 2006 Small intestinal bacterial overgrowth (SIBO) Tobacco abuse (Unknown) <Remedios Menard PA-C - Last Filed: 05/03/21 02:30> Surgical History Surgical History: Surgical History H/O tubal ligation performed during History of section History of laparoscopic appendectomy History of thyroidectomy, subtotal for benign nodule Hx laparoscopic cholecystectomy 10/11/20 <Remedios Menard PA-C - Last Filed: 05/03/21 02:30> Family History Family History: Family History Father Diabetes mellitus Acute myocardial infarction Hypertension [place]
[2021-05-02 20:52] LABS: SARS-CoV-2 RNA PCR Negative
[2021-05-02 22:30] LABS: Total Triiodothyronine (T3) 1.19 NG/ML (0.97-1.69)
[2021-05-03] VITALS: BP 128/90; PULSE 86; RESP 20; TEMP 36.8; O2SAT 98
[2021-05-03] MEDS: diphenhydrAMINE HCl CAP 25 MG CAPSULE PO (02:24)
--- NOTE | 2021-05-03 07:27 | PC.NURSE ---
Meal tray ordered.
[2021-05-03] MEDS: LEVOTHYROXINE SODIUM 50 MCG TABLET PO (08:19)
--- NOTE | 2021-05-03 08:34 | PC.NURSE ---
[facility] contacted for med rec. Fluoxetine added to list.
--- NOTE | 2021-05-03 08:35 | PC.NURSE ---
Patient ate 100% of meal. updated patient with delays and plan of care.
[2021-05-03] MEDS: clonazePAM (*CRX) 0.5 MG TABLET 1 MG PO ×3 (10:02→17:25)
[2021-05-03] MEDS: ARIPiprazole 5 MG TABLET PO (10:02)
[2021-05-03] MEDS: FLUoxetine HCL 20 MG CAPSULE PO (10:02)
[2021-05-03] MEDS: PANTOPRAZOLE 40 MG TABLET PO (10:02)
[2021-05-03] MEDS: lisinopriL 20 MG TABLET PO (10:02)
[2021-05-03 10:08] VITALS: BP 128/90; PULSE 80; RESP 14; TEMP 36.7; O2SAT 100
[2021-05-03 10:22] VITALS: PULSE 80
[2021-05-03] MEDS: METOPROLOL TARTRATE 50 MG TAB PO (10:22)
[2021-05-03 17:43] VITALS: BP 130/75; PULSE 70; RESP 18; TEMP 36.7; O2SAT 99
== END 2021-05-03 17:46 ==
PROVIDERS: Physician Assistant; Emergency Provider Emergency Medicine; PCP Nurse Practitioner Family
DX: R45.851 Suicidal ideations (principal); F31.9 Bipolar disorder, unspecified; Z20.822 Contact with and (suspected) exposure to COVID-19; F41.9 Anxiety disorder, unspecified; I50.9 Heart failure, unspecified; I11.0 Hypertensive heart disease with heart failure; J96.10 Chronic respiratory failure, unspecified whether with hypoxia or hypercapnia; J45.20 Mild intermittent asthma, uncomplicated; K21.9 Gastro-esophageal reflux disease without esophagitis; E66.2 Morbid (severe) obesity with alveolar hypoventilation; Z68.41 Body mass index [BMI] 40.0-44.9, adult; Z86.718 Personal history of other venous thrombosis and embolism; E89.0 Postprocedural hypothyroidism; Z87.891 Personal history of nicotine dependence
CPT/HCPCS: 36415; 80053; 80307; 81003; 81025; 84439; 84443; 84480; 85025; 99285; A9270; C9803; U0003; U0005

== ENCOUNTER 2021-08-18 19:03 | Emergency (ER) | payer OTHER, SELFPAY ==
--- NOTE | ~2021-08-18 | XR_ITS ---
XR chest 2V DATE: 08/18/2021 19:47 INDICATION: Palpitations TECHNIQUE: PA and lateral views COMPARISON: 06/03/2020 PA and lateral chest FINDINGS: Normal heart size. No hilar or mediastinal enlargement. No pulmonary infiltrate or consolidation, pleural effusion or pulmonary vascular congestion or pneumo thorax. Degenerative spurring of the thoracic spine. Status post cholecystectomy. IMPRESSION: No active cardiopulmonary disease Reviewed, dictated and finalized at location A.
[2021-08-18 19:31] VITALS: BP 99/68; PULSE 103; RESP 20; TEMP 36.7; O2SAT 99
--- NOTE | 2021-08-18 19:36 | ECG_ITS ---
Measurements Intervals [place] Rate: 96 P: 59 [place]: 170 QRS: 16 QRSD: 79 T: 42 QT: 319 QTc: 404 Interpretive Statements SINUS RHYTHM LOW QRS VOLTAGE IN PRECORDIAL LEADS [QRS DEFLECTION < 1.0 mV IN CHEST LEADS] COMPARED TO ECG 04/18/2021 21:34:21 NO SIGNIFICANT CHANGES Electronically Signed On 08-18-2021 20:41:58 CDT by Delmy Schmitz M.D.
[2021-08-18 19:48] LABS: Basophils Percent Auto 0.6 % (0.2-1.2); Eosinophils Absolute Auto 0.5 K/mm3 (0-0.3); Eosinophils Percent Auto 7.2 % (0-4.4); Hematocrit 31.5 % (37.0-47.0); Hemoglobin 9.5 g/dL (12.0-15.0); Immature Granulocyte Absolute 0.05 K/mm3 (0.00-0.031); Immature Granulocyte Percent A 0.7 % (0-0.5); Lymphocytes Absolute Auto 0.93 K/mm3 (0.9-3.2); Lymphocytes Percent Auto 13.9 % (18.3-44.2); Mean Corpuscular HGB Conc 30.2 g/dl (32-36); Mean Corpuscular Hemoglobin 25.9 pg (26-34); Mean Corpuscular Volume 85.8 fl (80-100); Mean Platelet Volume 9.4 fl (7.4-10.4); Monocytes Absolute Auto 0.6 K/mm3 (0.1-0.6); Monocytes Percent Auto 8.7 % (2.6-8.5); Neutrophils Absolute Auto 4.6 K/mm3 (1.3-6.7); Neutrophils Percent Auto 68.9 % (45.5-73.1); Platelet Count Result 195 k/mm3 (150-375); Red Blood Count 3.67 M/mm3 (4.2-5.4); Red Cell Distribution Width 17.3 % (11.5-14.5); White Blood Count 6.7 K/mm3 (4.5-10.0)
[2021-08-18 19:59] LABS: INR 1.1; Prothrombin Time 14.1 Seconds (11.1-14.7)
[2021-08-18 20:00] LABS: Partial Thromboplastin Time 31.7 SECONDS (22.3-36.8)
[2021-08-18 20:02] LABS: Alanine Aminotransferase 32 U/L (6-35); Albumin Level 3.8 g/dL (3.5-5.1); Alkaline Phosphatase 95 U/L (38-126); Anion Gap 4 mmol/L (8-16); Aspartate Amino Transferase 50 U/L (14-36); Bilirubin,Total 0.2 mg/dL (0.2-1.3); Blood Urea Nitrogen 5 mg/dL (7-17); Calcium 8.3 mg/dL (8.4-10.2); Carbon Dioxide 29 mmol/L (22-30); Chloride 102 mmol/L (98-107); Estimated CRCL calculation 83 ml/min; Estimated Glomerular Filt Rate > 60; Glucose 142 mg/dL (65-110); Lipase 32 U/L (23-300); Potassium 4.3 mmol/L (3.4-5.0); Sodium 135 mmol/L (137-145)
[2021-08-18 20:28] LABS: Troponin I < 0.012 ng/mL (0.000-0.034)
--- NOTE | 2021-08-18 21:51 | PC.NURSE ---
Pt Aox3 states I need to lay down I am going home .
== END 2021-08-19 00:42 | disposition left against medical advice (07) ==
PROVIDERS: Emergency Medicine
DX: Z53.21 Procedure and treatment not carried out due to patient leaving prior to being seen by health care provider (principal)
CPT/HCPCS: 36415; 71046; 80053; 83690; 84484; 85025; 85610; 85730; 87081; 87880; 93005; 99199

== ENCOUNTER 2021-09-29 18:03 | Emergency (ER) | payer OTHER, SELFPAY ==
[2021-09-29 18:09] VITALS: BP 157/99; PULSE 101; RESP 20; TEMP 37; O2SAT 97
--- NOTE | 2021-09-29 18:31 | ED.ANXIETY ---
HPI - Anxiety General Chief Complaint: Anxiety Stated Complaint: Panic Attacks Time Seen by Provider: 09/29/21 18:22 History of Present Illness HPI narrative: Patient is a 41-year-old female with a history of schizoaffective disorder, bipolar disorder here for evaluation of frequent panic attacks over the past several days. Patient states that she has had panic attacks in the past, and is prescribed clonazepam for them, but does note that she is has increasing frequency of these panic attacks. States that during these episodes, she feels as though she is losing her mind, she feels under control, lightheaded and dizzy. Notes that she feels that people are out to get her, which is a chronic complaint for her. She adamantly denies any suicidal or homicidal ideation, denies any visual or audio hallucinations, confirmed by her . She has been admitted in the past for suicidal ideation, most recently in April of this year, states that these suicidal ideations are under control with Vraylar, which was a new medication for her. Related Data Home Medications Medication Instructions Recorded Confirmed gabapentin 600 mg tablet 600 mg PO QPM 04/19/21 levothyroxine 50 mcg tablet 50 mcg PO DAILY 04/19/21 lisinopril 40 mg tablet 20 mg PO DAILY 04/19/21 metoprolol tartrate 50 mg tablet 50 mg PO DAILY 04/19/21 omeprazole 40 mg capsule,delayed 40 mg PO DAILY 04/19/21 release clonazepam 1 mg tablet 1 mg PO TID 04/29/21 fluticasone propionate 110 2 puff inhalation DAILY 04/29/21 mcg/actuation HFA aerosol inhaler potassium chloride 20 mEq 20 meq PO DAILY 04/29/21 tablet,extended release(part/cryst) (Klor-Con M) trazodone 100 mg tablet 100 mg PO HS 04/29/21 allopurinol 100 mg tablet 100 mg PO DAILY 04/30/21 aripiprazole 5 mg tablet 5 mg PO DAILY 04/30/21 fluoxetine 20 mg capsule 20 mg PO DAILY 05/03/21 Allergies Allergy/AdvReac Type Severity Reaction Status Date / Time chlorpromazine Allergy Itching Verified 09/29/21 18:29 [From Thorazine] latex Allergy Rash Verified 09/29/21 18:29 lithium Allergy Back Pain Verified 09/29/21 18:29 quetiapine [From Seroquel] Allergy Hallucinati Verified 09/29/21 18:29 ng Review of Systems Review of Systems: Gen: Denies fevers or chills Eyes: Denies eye pain or visual change ENT: Denies congestion Respiratory: Denies shortness of breath or cough CV: Denies chest pain or palpitations GI: Denies abdominal pain nausea, emesis or diarrhea : denies burning, urgency, frequency or hematuria Musculoskeletal: Denies back pain or muscle pain Neuro: Denies numbness, tingling, weakness or focal weakness Skin: Denies rash Psych: Reports panic attacks. Denies suicidal, homicidal ideation. Except as documented, all other systems reviewed and negative [facility] Past Medical History Medical History Abnormal CT scan, gastrointestinal tract Anxiety (Unknown) Asthma, mild intermittent (Unknown) Bipolar affect, depressed Bloating CHF (congestive heart failure) Chronic respiratory failure Constipation DVT (deep venous thrombosis) Lower extremity DVT in 2019 while hospitalized and intubated for acute respiratory failure. Treated with anticoagulation and no longer on any oral anticoagulation. GERD (gastroesophageal reflux disease) (Unknown) Hypertension Morbid obesity Nausea Non-cardiac chest pain Obesity hypoventilation syndrome (Unknown) IRMA on CPAP (Unknown) Peripartum cardiomyopathy (Unknown) 2005 Small intestinal bacterial overgrowth (SIBO) Tobacco abuse (Unknown) Surgical History Surgical History H/O tubal ligation performed during History of section History of laparoscopic appendectomy History of thyroidectomy, subtotal for benign nodule Hx laparoscopic cholecystectomy 10/11/20 Family History Family History (Reviewed 04/29
[2021-09-29 18:51] LABS: Basophils Absolute Auto 0.1 K/mm3 (0.0-0.1); Basophils Percent Auto 0.5 % (0.2-1.2); Eosinophils Absolute Auto 0.4 K/mm3 (0-0.3); Hemoglobin 12.3 g/dL (12.0-15.0); Immature Granulocyte Absolute 0.03 K/mm3 (0.00-0.031); Immature Granulocyte Percent A 0.3 % (0-0.5); Lymphocytes Absolute Auto 2.92 K/mm3 (0.9-3.2); Lymphocytes Percent Auto 25.3 % (18.3-44.2); Mean Corpuscular HGB Conc 29.3 g/dl (32-36); Mean Corpuscular Hemoglobin 25.2 pg (26-34); Mean Corpuscular Volume 85.9 fl (80-100); Monocytes Absolute Auto 0.6 K/mm3 (0.1-0.6); Monocytes Percent Auto 4.8 % (2.6-8.5); Neutrophils Absolute Auto 7.6 K/mm3 (1.3-6.7); Neutrophils Percent Auto 66.1 % (45.5-73.1); Platelet Count Result 243 k/mm3 (150-375); Red Blood Count 4.89 M/mm3 (4.2-5.4); Red Cell Distribution Width 18.6 % (11.5-14.5); White Blood Count 11.6 K/mm3 (4.5-10.0)
[2021-09-29] MEDS: LORazepam (*CRX) 1 MG TABLET PO (18:51)
[2021-09-29 19:01] LABS: Ethanol < 10 mg/dL (<10)
[2021-09-29 19:03] LABS: Platelet Estimate Adequate (Adequate)
[2021-09-29 19:04] LABS: Hypochromasia 1+ (NORMAL); Ovalocytes 1+ (NORMAL)
[2021-09-29 19:10] LABS: Alanine Aminotransferase 16 U/L (6-35); Albumin Level 4.3 g/dL (3.5-5.1); Alkaline Phosphatase 107 U/L (38-126); Anion Gap 10 mmol/L (8-16); Aspartate Amino Transferase 25 U/L (14-36); Bilirubin,Total 0.4 mg/dL (0.2-1.3); Blood Urea Nitrogen 8 mg/dL (7-17); Calcium 9.2 mg/dL (8.4-10.2); Carbon Dioxide 22 mmol/L (22-30); Chloride 106 mmol/L (98-107); Estimated CRCL calculation 91 ml/min; Estimated Glomerular Filt Rate > 60; Glucose 106 mg/dL (65-110); Potassium 4.3 mmol/L (3.4-5.0); Sodium 138 mmol/L (137-145)
[2021-09-29 20:03] VITALS: BP 112/76; PULSE 77; RESP 16; O2SAT 96
[2021-09-29 20:07] LABS: Appearance Urine Clear (Clear); Bilirubin Urine Negative (Negative); Blood Urine Negative (Negative); Color Urine Yellow (Yellow); Glucose Urine UA Negative (Negative); Ketones Urine Negative (Negative); Leukocyte Esterase Ur Negative LEU/UL (Negative); Nitrate Urine Negative (Negative); Protein Urine Negative (Negative); Urobilinogen Urine 0.2 mg/dL (<2.0)
[2021-09-29 20:12] LABS: Add Urine Microscopic? NO
[2021-09-29 20:23] LABS: Amphetamine Screen Urine Negative (Negative); Barbiturate Screen Urine Negative (Negative); Benzodiazepines Screen Urine Negative (Negative); Cannabinoid Screen Urine Positive (Negative); Cocaine Screen Urine Negative (Negative); Methadone Screen Urine Negative (Negative); Opiate Screen Urine Negative (Negative); Phencyclidine Screen Urine Negative (Negative)
== END 2021-09-29 20:07 | disposition home or self-care (01) ==
PROVIDERS: Emergency Provider Emergency Medicine
DX: F41.0 Panic disorder [episodic paroxysmal anxiety] (principal); J45.20 Mild intermittent asthma, uncomplicated; I50.9 Heart failure, unspecified; J96.10 Chronic respiratory failure, unspecified whether with hypoxia or hypercapnia; Z86.718 Personal history of other venous thrombosis and embolism; K21.9 Gastro-esophageal reflux disease without esophagitis; I11.0 Hypertensive heart disease with heart failure; E66.01 Morbid (severe) obesity due to excess calories; Z68.41 Body mass index [BMI] 40.0-44.9, adult; E89.0 Postprocedural hypothyroidism; F25.9 Schizoaffective disorder, unspecified; F31.9 Bipolar disorder, unspecified; Z87.891 Personal history of nicotine dependence
CPT/HCPCS: 36415; 80053; 80307; 81003; 84443; 85025; 99283; A9270

== ENCOUNTER 2021-11-03 09:16 | Emergency (ER) | payer OTHER, SELFPAY ==
[2021-11-03] VITALS (23 sets, daily range): BP systolic 117–160; BP diastolic 68–126; PULSE 74–123; RESP 10–21; TEMP 36.5; O2SAT 96–100
--- NOTE | ~2021-11-03 | CT_ITS ---
EXAMINATION: CT brain wo con INDICATION: Weakness and confusion COMPARISON: 05/25/2020 TECHNIQUE: Standard unenhanced head CT. The dose-length product (DLP) was 605.33 mGy-cm. The mA was a djusted according to patient size. Iterative reconstruction technique was employed. FINDINGS: There is no intracranial hemorrhage, acute infarction, or abnormal mass lesion. The ventric les are normal. There is no abnormal mass effect or midline shift. The baker-white matter differentiat ion is normal. The basal cisterns are patent. The orbits are normal. The frontal sinuses are hypoplas tic. The paranasal sinuses, mastoids and calvarium are otherwise normal. IMPRESSION: 1. No acute intracranial abnormality. Reviewed, dictated and finalized at location B.
--- NOTE | 2021-11-03 09:31 | ED.GENADULT ---
HPI - General Adult General Chief complaint: Unspecified Stated complaint: lethargic History of Present Illness HPI narrative: 41-year-old female with a history of schizoaffective disorder and anxiety presents to the emergency room for increasing confusion and difficulty moving her extremities. Patient states that this has been ongoing since she was discharged from [facility] approximately 1 week ago. According to EMS, patient has been making nonsensical statements and stating that she is unable to move her arms and her legs, and that she was given a break her teeth from lockjaw. At this time, patient denies homicidal or suicidal ideation. Related Data Home Medications Medication Instructions Recorded Confirmed gabapentin 600 mg tablet 600 mg PO QPM 04/19/21 levothyroxine 50 mcg tablet 50 mcg PO DAILY 04/19/21 lisinopril 40 mg tablet 20 mg PO DAILY 04/19/21 metoprolol tartrate 50 mg tablet 25 mg PO DAILY 04/19/21 omeprazole 40 mg capsule,delayed 40 mg PO DAILY 04/19/21 release clonazepam 1 mg tablet 1 mg PO TID 04/29/21 trazodone 100 mg tablet 100 mg PO HS 04/29/21 famotidine 20 mg tablet 20 mg 11/03/21 lorazepam 0.5 mg tablet 0.5 mg BID PRN Anxiety 11/03/21 prazosin 1 mg capsule 1 mg DAILY 11/03/21 risperidone 1 mg tablet 1 mg 11/03/21 sertraline 100 mg tablet 100 mg 11/03/21 Allergies Allergy/AdvReac Type Severity Reaction Status Date / Time chlorpromazine Allergy Itching Verified 09/29/21 18:29 [From Thorazine] latex Allergy Rash Verified 09/29/21 18:29 lithium Allergy Back Pain Verified 09/29/21 18:29 quetiapine [From Seroquel] Allergy Hallucinati Verified 09/29/21 18:29 ng Review of Systems Review of Systems: CONSTITUTIONAL: Denies fever, chills, or sweats. EYES: Denies visual changes, redness, or discharge. ENT: Denies rhinorrhea, congestion, sore throat, or otalgia. CARDIOVASCULAR: Denies chest pain, palpitations, or edema. RESPIRATORY: Denies cough or dyspnea. GASTROINTESTINAL: Denies abdominal pain, nausea, vomiting, or diarrhea. GENITOURINARY: Denies dysuria or hematuria. SKIN: Denies rash or itching. MUSCULOSKELETAL: Denies back pain, joint pain, or myalgia. NEUROLOGIC: Reports extremity weakness PSYCHIATRIC: Reports anxiety. [facility] Past Medical History Medical History Abnormal CT scan, gastrointestinal tract Anxiety (Unknown) Asthma, mild intermittent (Unknown) Bipolar affect, depressed Bloating CHF (congestive heart failure) Chronic respiratory failure Constipation DVT (deep venous thrombosis) Lower extremity DVT in 2019 while hospitalized and intubated for acute respiratory failure. Treated with anticoagulation and no longer on any oral anticoagulation. GERD (gastroesophageal reflux disease) (Unknown) Hypertension Morbid obesity Nausea Non-cardiac chest pain Obesity hypoventilation syndrome (Unknown) IRMA on CPAP (Unknown) Peripartum cardiomyopathy (Unknown) 2005 Small intestinal bacterial overgrowth (SIBO) Tobacco abuse (Unknown) Surgical History Surgical History H/O tubal ligation performed during History of section History of laparoscopic appendectomy History of thyroidectomy, subtotal for benign nodule Hx laparoscopic cholecystectomy 10/11/20 Family History Family History Father Diabetes mellitus Acute myocardial infarction Hypertension Congestive heart failure Rectal cancer Mother No problems noted. Social History Social History Smoking packs per day: 0.5 Smoking cigarettes per day: 10.0 Years smoked: 24 Smoking pack-years: 12.00 Smoking status: Current every day smoker Tobacco type: cigarettes Second hand tobacco smoke exposure: Yes Smoking end date: 01/25/20 Additional smoking
[2021-11-03] MEDS: SODIUM CHLORIDE 0.9% IV 1,000 ML 999 ML IV CONT (09:47)
[2021-11-03 09:48] LABS: Basophils Percent Auto 0.5 % (0.2-1.2); Eosinophils Absolute Auto 0.3 K/mm3 (0-0.3); Eosinophils Percent Auto 3.9 % (0-4.4); Hematocrit 39.5 % (37.0-47.0); Immature Granulocyte Absolute 0.05 K/mm3 (0.00-0.031); Immature Granulocyte Percent A 0.7 % (0-0.5); Lymphocytes Absolute Auto 1.92 K/mm3 (0.9-3.2); Lymphocytes Percent Auto 25.9 % (18.3-44.2); Mean Corpuscular HGB Conc 30.4 g/dl (32-36); Mean Corpuscular Hemoglobin 26.4 pg (26-34); Mean Corpuscular Volume 86.8 fl (80-100); Mean Platelet Volume 10.1 fl (7.4-10.4); Monocytes Absolute Auto 0.7 K/mm3 (0.1-0.6); Monocytes Percent Auto 9.2 % (2.6-8.5); Neutrophils Absolute Auto 4.4 K/mm3 (1.3-6.7); Neutrophils Percent Auto 59.8 % (45.5-73.1); Platelet Count Result 241 k/mm3 (150-375); Red Blood Count 4.55 M/mm3 (4.2-5.4); White Blood Count 7.4 K/mm3 (4.5-10.0)
[2021-11-03] MEDS: LORazepam INJ (*CRX) 2 MG/ML VIAL 1 MG IV PUSH (09:48)
[2021-11-03 09:59] LABS: Alanine Aminotransferase 52 U/L (6-35); Albumin Level 4.4 g/dL (3.5-5.1); Alkaline Phosphatase 115 U/L (38-126); Anion Gap 12 mmol/L (8-16); Aspartate Amino Transferase 36 U/L (14-36); Bilirubin,Total 0.2 mg/dL (0.2-1.3); Blood Urea Nitrogen 10 mg/dL (7-17); Calcium 8.5 mg/dL (8.4-10.2); Carbon Dioxide 24 mmol/L (22-30); Chloride 103 mmol/L (98-107); Estimated CRCL calculation 106 ml/min; Estimated Glomerular Filt Rate > 60; Glucose 155 mg/dL (65-110); Potassium 4.1 mmol/L (3.4-5.0); Sodium 139 mmol/L (137-145)
[2021-11-03 11:14] LABS: Add Urine Microscopic? NO; Appearance Urine Clear (Clear); Bilirubin Urine Negative (Negative); Blood Urine Negative (Negative); Color Urine Light Yellow (Yellow); Glucose Urine UA Negative (Negative); Ketones Urine Negative (Negative); Leukocyte Esterase Ur Negative LEU/UL (Negative); Nitrate Urine Negative (Negative); Protein Urine Negative (Negative); Specific Grav Ur <= 1.005 (1.001-1.035); Urobilinogen Urine 0.2 mg/dL (<2.0); pH Urine 6.5 (5.0-9.0)
[2021-11-03 11:32] LABS: Amphetamine Screen Urine Negative (Negative); Barbiturate Screen Urine Negative (Negative); Benzodiazepines Screen Urine Negative (Negative); Cannabinoid Screen Urine Positive (Negative); Cocaine Screen Urine Negative (Negative); Methadone Screen Urine Negative (Negative); Opiate Screen Urine Negative (Negative); Phencyclidine Screen Urine Negative (Negative)
[2021-11-03 12:41] LABS: SARS-CoV-2 RNA PCR Negative
== END 2021-11-03 14:50 | disposition home or self-care (01) ==
PROVIDERS: Emergency Provider Nurse Practitioner Family
DX: F25.9 Schizoaffective disorder, unspecified (principal); Z20.822 Contact with and (suspected) exposure to COVID-19; J45.20 Mild intermittent asthma, uncomplicated; I50.9 Heart failure, unspecified; I11.0 Hypertensive heart disease with heart failure; J96.10 Chronic respiratory failure, unspecified whether with hypoxia or hypercapnia; E66.01 Morbid (severe) obesity due to excess calories; Z68.41 Body mass index [BMI] 40.0-44.9, adult; K21.9 Gastro-esophageal reflux disease without esophagitis; E89.0 Postprocedural hypothyroidism; G47.33 Obstructive sleep apnea (adult) (pediatric); F31.9 Bipolar disorder, unspecified; F41.9 Anxiety disorder, unspecified; Z86.718 Personal history of other venous thrombosis and embolism; Z87.891 Personal history of nicotine dependence
CPT/HCPCS: 36415; 70450; 80053; 80307; 81003; 84443; 85025; 96361; 96374; 99284; C9803; J2060; J7030; U0003; U0005

== ENCOUNTER → 2021-11-25 13:31 | Outpatient (CLI) | payer OTHER, SELFPAY ==
--- NOTE | ~2021-11-25 | US_ITS ---
EXAMINATION: US thyroid DATE: 11/25/2021 13:51 INDICATION: Thyroid nodule. TECHNIQUE: Multiple ultrasound images of the thyroid were obtained. COMPARISON: Ultrasound 12/12/2019 FINDINGS: The right thyroid lobe is absent. The left thyroid lobe measures 4.7 x 2.5 x 1.5 cm. In the left thy roid lobe, there is a 6 mm solid, hypoechoic, wider than tall nodule with smooth margin without echog enic foci (TI-RADS TR4), stable from 12/12/19. In the left thyroid lobe, there is a 2.1 cm solid, hypo echoic, wider than tall nodule with lobulated margin without echogenic foci (TR4), stable from 0. IMPRESSION: 1. Thyroid nodules, stable from 12/12/2019. 2. Right hemithyroidectomy. Reviewed, dictated and finalized at location A.
== END ==
PROVIDERS: PCP Internal Medicine; Visit Provider Internal Medicine
DX: E04.1 Nontoxic single thyroid nodule (principal)
CPT/HCPCS: 36415; 76536; 80053; 84443; 85025; 85380

== ENCOUNTER 2021-11-25 13:45 | Outpatient (CLI) | payer OTHER, SELFPAY ==
[2021-11-25 18:30] LABS: Basophils Absolute Auto 0.1 K/mm3 (0.0-0.1); Basophils Percent Auto 0.7 % (0.2-1.2); Eosinophils Absolute Auto 0.5 K/mm3 (0-0.3); Hematocrit 33.3 % (37.0-47.0); Hemoglobin 10.4 g/dL (12.0-15.0); Immature Granulocyte Absolute 0.27 K/mm3 (0.00-0.031); Lymphocytes Absolute Auto 1.94 K/mm3 (0.9-3.2); Lymphocytes Percent Auto 21.6 % (18.3-44.2); Mean Corpuscular HGB Conc 31.2 g/dl (32-36); Mean Corpuscular Volume 86.5 fl (80-100); Mean Platelet Volume 9.5 fl (7.4-10.4); Monocytes Absolute Auto 0.6 K/mm3 (0.1-0.6); Monocytes Percent Auto 6.1 % (2.6-8.5); Neutrophils Absolute Auto 5.6 K/mm3 (1.3-6.7); Neutrophils Percent Auto 62.6 % (45.5-73.1); Nucleated Red Blood Cells Perc 0.3 % (0.0-0.2); Platelet Count Result 265 k/mm3 (150-375); Red Blood Count 3.85 M/mm3 (4.2-5.4); Red Cell Distribution Width 20.4 % (11.5-14.5)
[2021-11-25 18:57] LABS: D Dimer 1.06 ug/mL (<0.48)
[2021-11-25 20:13] LABS: Alanine Aminotransferase 12 U/L (6-35); Alkaline Phosphatase 75 U/L (38-126); Anion Gap 13 mmol/L (8-16); Aspartate Amino Transferase 23 U/L (14-36); Bilirubin,Total 0.1 mg/dL (0.2-1.3); Blood Urea Nitrogen 6 mg/dL (7-17); Calcium 8.6 mg/dL (8.4-10.2); Carbon Dioxide 28 mmol/L (22-30); Chloride 101 mmol/L (98-107); Estimated Glomerular Filt Rate > 60; Glucose 124 mg/dL (65-110); Potassium 3.7 mmol/L (3.4-5.0); Sodium 142 mmol/L (137-145)
== END 2021-11-25 13:46 | disposition home or self-care (01) ==
LOC: ANHGOSHLAB 13:46
PROVIDERS: PCP Internal Medicine; Visit Provider Internal Medicine
DX: R06.09 Other forms of dyspnea (principal); E04.1 Nontoxic single thyroid nodule
CPT/HCPCS: 36415; 80053; 84443; 85025; 85380

== ENCOUNTER 2021-11-28 15:26 | Emergency (ER) | payer OTHER, SELFPAY ==
--- NOTE | ~2021-11-28 | CT_ITS ---
EXAMINATION: CTA chest PE protocol DATE: 11/28/2021 17:51 INDICATION: shortness of breath TECHNIQUE: Computed tomography angiography (CTA) of the chest was performed with 100 mL Omnipaque-350 intravenous contrast timed to evaluate the pulmonary arteries. Coronal maximum intensity projection 3D-reconstructions were created by the technologist. The dose-length product (DLP) was 910.00 mGy-cm. Automated exposure control and iterative reconstruction technique were employed. COMPARISON: 05/19/2019, chest x-ray 11/28/2021. FINDINGS: Lung parenchyma and airways: Bilateral dependent atelectasis/scar. Prominent bilateral midlung scarri ng, more evident in the left lung. Subtle mid and lower lung groundglass centrilobular opacities, mos t evident in the right lower lobe. Pleura: Unremarkable. Thoracic inlet, axillae and chest wall: Unremarkable. Thoracic aorta: Normal. Mediastinum: Right paratracheal lymphadenopathy, with borderline lymph nodes in other mediastinal are as, less pronounced than in the comparison study. Heart and pericardium: Normal. Coronary artery calcifications: Absent. Upper abdomen: No significant finding. Bones: No acute osseous finding. Pulmonary arteries: Study quality: Adequate. No pulmonary emboli detected. IMPRESSION: No CT evidence of acute pulmonary embolus. Pulmonary opacities may reflect hypersensitivity pneumonit is, respiratory bronchiolitis in smokers, or infectious airways disease. Mediastinal lymphadenopathy. Reviewed, dictated and finalized at location K. IMPRESSION: No CT evidence of acute pulmonary embolus. Pulmonary opacities may reflect hype rsensitivity pneumonitis, respiratory bronchiolitis in smokers, or infectious a irways disease. Mediastinal lymphadenopathy.
--- NOTE | ~2021-11-28 | XR_ITS ---
XR chest 2V 11/28/2021 17:14 Indication: Shortness of breath. CHF. Procedure: 2 view chest Comparison: Comparison to multiple prior studies sequentially, with oldest reviewed study dated 08/27. Findings: There are linear infiltrates of the midlungs bilaterally, most likely atelectasis/scarring, although developing pneumonia not excluded. Heart size normal. No pleural effusion or pneumothorax. No acute osseous abnormality. Impression: 1: Linear infiltrates of the mid lungs bilaterally, most likely atelectasis/scarring, although develo ping pneumonia not excluded. Reviewed, dictated and finalized at location A. Impression: 1: Linear infiltrates of the mid lungs bilaterally, most likely atelectasis/sca rring, although developing pneumonia not excluded.
[2021-11-28 15:29] VITALS: BP 103/76; PULSE 83; RESP 18; TEMP 37.1; O2SAT 98
[2021-11-28 15:38] VITALS: PULSE 85; RESP 8; O2SAT 99
[2021-11-28 16:00] VITALS: BP 99/63; PULSE 84; RESP 15; O2SAT 98
[2021-11-28 16:15] VITALS: PULSE 84; RESP 19
[2021-11-28 16:30] LABS: Basophils Percent Auto 0.3 % (0.2-1.2); Eosinophils Absolute Auto 0.5 K/mm3 (0-0.3); Eosinophils Percent Auto 5.1 % (0-4.4); Hematocrit 36.9 % (37.0-47.0); Hemoglobin 11.3 g/dL (12.0-15.0); Immature Granulocyte Absolute 0.12 K/mm3 (0.00-0.031); Immature Granulocyte Percent A 1.3 % (0-0.5); Lymphocytes Absolute Auto 1.37 K/mm3 (0.9-3.2); Lymphocytes Percent Auto 14.9 % (18.3-44.2); Mean Corpuscular HGB Conc 30.6 g/dl (32-36); Mean Corpuscular Hemoglobin 26.9 pg (26-34); Mean Corpuscular Volume 87.9 fl (80-100); Mean Platelet Volume 8.8 fl (7.4-10.4); Monocytes Absolute Auto 0.6 K/mm3 (0.1-0.6); Monocytes Percent Auto 6.3 % (2.6-8.5); Neutrophils Absolute Auto 6.6 K/mm3 (1.3-6.7); Neutrophils Percent Auto 72.1 % (45.5-73.1); Platelet Count Result 226 k/mm3 (150-375); Red Cell Distribution Width 19.9 % (11.5-14.5); White Blood Count 9.2 K/mm3 (4.5-10.0)
[2021-11-28 16:43] LABS: Lactic Acid Reflex 0.8 mmol/L (0.7-2.0)
[2021-11-28 16:44] LABS: Alanine Aminotransferase 14 U/L (6-35); Alkaline Phosphatase 81 U/L (38-126); Anion Gap 10 mmol/L (8-16); Aspartate Amino Transferase 20 U/L (14-36); Bilirubin,Total 0.3 mg/dL (0.2-1.3); Blood Urea Nitrogen 11 mg/dL (7-17); Calcium 8.9 mg/dL (8.4-10.2); Carbon Dioxide 31 mmol/L (22-30); Chloride 97 mmol/L (98-107); Estimated Glomerular Filt Rate > 60; Glucose 116 mg/dL (65-110); Potassium 4.4 mmol/L (3.4-5.0); Sodium 138 mmol/L (137-145)
--- NOTE | 2021-11-28 16:46 | ECG_ITS ---
Measurements Intervals [place] Rate: 77 P: 59 [place]: 161 QRS: 23 QRSD: 75 T: 39 QT: 374 QTc: 424 Interpretive Statements SINUS RHYTHM POSSIBLE LEFT ATRIAL ENLARGEMENT BORDERLINE ECG COMPARED TO ECG 08/18/2021 19:38:51 NO SIGNIFICANT CHANGES Electronically Signed On 11-28-2021 20:40:53 CDT by Matthew Li D.O.
[2021-11-28 16:47] LABS: D Dimer 0.83 ug/mL (<0.48)
--- NOTE | 2021-11-28 17:20 | ED.SOB ---
HPI - SOB/Dyspnea General Chief Complaint: Nausea/Vomiting/Diarrhea Stated Complaint: SOB, lethargy, Time Seen by Provider: 11/28/21 16:40 History of Present Illness HPI Narrative: Pt presents with SOB on exertion since waking up this morning. Pt denies cough or CP. Pt denies weight gain. Pt says she had CHF related to 15 yrs ago but not since. Pt also has been having vomiting and diarrhea for a couple of days a few times a day. Related Data Home Medications Medication Instructions Recorded Confirmed gabapentin 600 mg tablet 600 mg PO QPM 04/19/21 levothyroxine 50 mcg tablet 50 mcg PO DAILY 04/19/21 lisinopril 40 mg tablet 20 mg PO DAILY 04/19/21 metoprolol tartrate 50 mg tablet 25 mg PO DAILY 04/19/21 omeprazole 40 mg capsule,delayed 40 mg PO DAILY 04/19/21 release clonazepam 1 mg tablet 1 mg PO TID 04/29/21 trazodone 100 mg tablet 100 mg PO HS 04/29/21 famotidine 20 mg tablet 20 mg 11/03/21 lorazepam 0.5 mg tablet 0.5 mg BID PRN Anxiety 11/03/21 prazosin 1 mg capsule 1 mg DAILY 11/03/21 risperidone 1 mg tablet 1 mg 11/03/21 sertraline 100 mg tablet 100 mg 11/03/21 Allergies Allergy/AdvReac Type Severity Reaction Status Date / Time chlorpromazine Allergy Itching Verified 09/29/21 18:29 [From Thorazine] latex Allergy Rash Verified 09/29/21 18:29 lithium Allergy Back Pain Verified 09/29/21 18:29 quetiapine [From Seroquel] Allergy Hallucinati Verified 09/29/21 18:29 ng Review of Systems Review of Systems: All systems reviewed & are unremarkable except as noted in HPI and below PMFSH Past Medical History Medical History Abnormal CT scan, gastrointestinal tract Anxiety (Unknown) Asthma, mild intermittent (Unknown) Bipolar affect, depressed Bloating CHF (congestive heart failure) Chronic respiratory failure Constipation DVT (deep venous thrombosis) Lower extremity DVT in 2019 while hospitalized and intubated for acute respiratory failure. Treated with anticoagulation and no longer on any oral anticoagulation. GERD (gastroesophageal reflux disease) (Unknown) Hypertension Morbid obesity Nausea Non-cardiac chest pain Obesity hypoventilation syndrome (Unknown) IRMA on CPAP (Unknown) Peripartum cardiomyopathy (Unknown) 2006 Small intestinal bacterial overgrowth (SIBO) Tobacco abuse (Unknown) Surgical History Surgical History H/O tubal ligation performed during History of section History of laparoscopic appendectomy History of thyroidectomy, subtotal for benign nodule Hx laparoscopic cholecystectomy 10/11/20 Family History Family History Father Diabetes mellitus Acute myocardial infarction Hypertension Congestive heart failure Rectal cancer Mother No problems noted. 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
[2021-11-28 18:15] LABS: NT Pro B Type Natriuretic Pept 196 pg/mL (5-100)
[2021-11-28 18:51] LABS: Troponin I < 0.012 ng/mL (0.000-0.034)
[2021-11-28 19:22] VITALS: BP 103/61; PULSE 74; RESP 18; O2SAT 95
== END 2021-11-28 19:24 | disposition home or self-care (01) ==
PROVIDERS: Emergency Medicine; Emergency Provider Emergency Medicine; PCP Internal Medicine
DX: J40 Bronchitis, not specified as acute or chronic (principal); J96.10 Chronic respiratory failure, unspecified whether with hypoxia or hypercapnia; K21.9 Gastro-esophageal reflux disease without esophagitis; G47.33 Obstructive sleep apnea (adult) (pediatric); E66.01 Morbid (severe) obesity due to excess calories; F31.9 Bipolar disorder, unspecified; F41.9 Anxiety disorder, unspecified; E89.0 Postprocedural hypothyroidism; Z86.718 Personal history of other venous thrombosis and embolism; Z87.891 Personal history of nicotine dependence; R94.31 Abnormal electrocardiogram [ECG] [EKG]
CPT/HCPCS: 36415; 71046; 71275; 80053; 83605; 83880; 84484; 85025; 85380; 93005; 99284; Q9967

== ENCOUNTER 2021-12-12 15:11 | Emergency (ER) | payer OTHER, SELFPAY ==
--- NOTE | ~2021-12-12 | XR_ITS ---
XR abdomen/kub 1V 12/12/2021 15:48 INDICATION: Constipation TECHNIQUE: KUB COMPARISON: None FINDINGS: Bowel gas pattern is normal. There is mild retained fecal material in the colon. There is n o evidence of free air, mass, organomegaly, ascites or obstruction. No abnormal calculi are seen. T he bones appear intact. IMPRESSION: 1: No acute abdominal abnormality identified. Reviewed, dictated and finalized at location A.
[2021-12-12 15:27] VITALS: BP 135/95; PULSE 104; RESP 15; TEMP 36.8; O2SAT 97
--- NOTE | 2021-12-12 16:24 | ED.ABDPAIN ---
HPI - Abdominal Pain General Chief Complaint: Abdominal Pain Stated Complaint: constipated Time Seen by Provider: 12/12/21 15:45 History of Present Illness HPI narrative: 41-year-old female presents to the emergency room for evaluation of abdominal pain. Patient states that she has not had a bowel movement in 6 days. Does admit to patient is complaining of lower abdominal pain that radiates into her lower back. Patient states she is having difficulties urinating due to the bloating feeling. Patient also endorses nausea. States that she has had issues with constipation in the past. Has been taking an [id number] laxative that has not been alleviating her symptoms. Denies fever vomiting Related Data Home Medications Medication Instructions Recorded Confirmed gabapentin 600 mg tablet 600 mg PO QPM 04/19/21 levothyroxine 50 mcg tablet 50 mcg PO DAILY 04/19/21 lisinopril 40 mg tablet 20 mg PO DAILY 04/19/21 metoprolol tartrate 50 mg tablet 25 mg PO DAILY 04/19/21 omeprazole 40 mg capsule,delayed 40 mg PO DAILY 04/19/21 release clonazepam 1 mg tablet 1 mg PO TID 04/29/21 trazodone 100 mg tablet 100 mg PO HS 04/29/21 famotidine 20 mg tablet 20 mg 11/03/21 lorazepam 0.5 mg tablet 0.5 mg BID PRN Anxiety 11/03/21 prazosin 1 mg capsule 1 mg DAILY 11/03/21 risperidone 1 mg tablet 1 mg 11/03/21 sertraline 100 mg tablet 100 mg 11/03/21 Allergies Allergy/AdvReac Type Severity Reaction Status Date / Time chlorpromazine Allergy Itching Verified 09/29/21 18:29 [From Thorazine] latex Allergy Rash Verified 09/29/21 18:29 lithium Allergy Back Pain Verified 09/29/21 18:29 quetiapine [From Seroquel] Allergy Hallucinati Verified 09/29/21 18:29 ng Review of Systems Review of Systems: CONSTITUTIONAL: Denies fever, chills, or sweats. EYES: Denies visual changes, redness, or discharge. ENT: Denies rhinorrhea, congestion, sore throat, or otalgia. CARDIOVASCULAR: Denies chest pain, palpitations, or edema. RESPIRATORY: Denies cough or dyspnea. GASTROINTESTINAL: Reports abdominal pain, nausea, constipation GENITOURINARY: Denies dysuria or hematuria. SKIN: Denies rash or itching. MUSCULOSKELETAL: Denies back pain, joint pain, or myalgia. NEUROLOGIC: Denies headache, numbness, dizziness, or weakness. PSYCHIATRIC: Denies anxiety or depression. [facility] Past Medical History Medical History Abnormal CT scan, gastrointestinal tract Anxiety (Unknown) Asthma, mild intermittent (Unknown) Bipolar affect, depressed Bloating CHF (congestive heart failure) Chronic respiratory failure Constipation DVT (deep venous thrombosis) Lower extremity DVT in 2019 while hospitalized and intubated for acute respiratory failure. Treated with anticoagulation and no longer on any oral anticoagulation. GERD (gastroesophageal reflux disease) (Unknown) Hypertension Morbid obesity Nausea Non-cardiac chest pain Obesity hypoventilation syndrome (Unknown) IRMA on CPAP (Unknown) Peripartum cardiomyopathy (Unknown) 2005 Small intestinal bacterial overgrowth (SIBO) Tobacco abuse (Unknown) Surgical History Surgical History H/O tubal ligation performed during History of section History of laparoscopic appendectomy History of thyroidectomy, subtotal for benign nodule Hx laparoscopic cholecystectomy 10/11/20 Family History Family History Father Diabetes mellitus Acute myocardial infarction Hypertension Congestive heart failure Rectal cancer Mother No problems noted. Social History Social History Smoking packs per day: 0.5 Smoking cigarettes per day: 10.0 Years smoked: 24 Smoking pack-years: 12.00 Smoking status: Current every day smoker Tobacco type: cigarettes Second hand t
== END 2021-12-12 16:55 | disposition home or self-care (01) ==
LOC: ANHED 16:46
PROVIDERS: Emergency Provider Nurse Practitioner Family; PCP Internal Medicine
DX: K59.00 Constipation, unspecified (principal); J45.20 Mild intermittent asthma, uncomplicated; I50.9 Heart failure, unspecified; J96.10 Chronic respiratory failure, unspecified whether with hypoxia or hypercapnia; I11.0 Hypertensive heart disease with heart failure; K21.9 Gastro-esophageal reflux disease without esophagitis; E66.2 Morbid (severe) obesity with alveolar hypoventilation; Z68.41 Body mass index [BMI] 40.0-44.9, adult; G47.33 Obstructive sleep apnea (adult) (pediatric); F41.9 Anxiety disorder, unspecified; F31.9 Bipolar disorder, unspecified; Z86.718 Personal history of other venous thrombosis and embolism; Z87.891 Personal history of nicotine dependence
CPT/HCPCS: 74018; 99283

== ENCOUNTER 2021-12-30 12:44 | Outpatient (CLI) | payer OTHER, SELFPAY ==
--- NOTE | ~2021-12-30 | US_ITS ---
EXAMINATION: US venous doppler [facility] DATE: 12/30/2021 13:15 INDICATION: Dyspnea. Elevated d-dimer. TECHNIQUE: Grayscale ultrasound images without and with compression and Doppler ultrasound images of the bilateral lower extremity veins were obtained. COMPARISON: None. FINDINGS: The visualized portions of right common femoral vein, profunda (deep) femoral vein, femoral vein, pop liteal vein, posterior tibial veins, peroneal veins, gastrocnemius vein and greater saphenous vein ou tflow are patent. The visualized portions of left common femoral vein, profunda femoral vein, femoral vein, popliteal v ein, posterior tibial veins, peroneal veins, gastrocnemius vein and greater saphenous vein outflow ar e patent. IMPRESSION: 1. No deep venous thrombosis in either lower limb. Reviewed, dictated and finalized at location A.
== END 2021-12-30 12:45 | disposition home or self-care (01) ==
LOC: ANHIMG 12:45
PROVIDERS: PCP Internal Medicine
DX: R06.00 Dyspnea, unspecified (principal); R79.89 Other specified abnormal findings of blood chemistry
CPT/HCPCS: 93970

== ENCOUNTER 2022-04-10 10:17 | Observation (INO) | payer OTHER, SELFPAY ==
[2022-04-10] VITALS (14 sets, daily range): BP systolic 121–160; BP diastolic 69–99; PULSE 81–100; RESP 11–20; TEMP 35.7–37; O2SAT 94–98
--- NOTE | ~2022-04-10 | CT_ITS ---
EXAMINATION: CTA chest PE protocol DATE: 04/10/2022 13:58 INDICATION: Cough. Shortness of breath. TECHNIQUE: Computed tomography angiography (CTA) of the chest was performed with 100 mL Omnipaque-350 intravenous contrast timed to evaluate the pulmonary arteries. Coronal maximum intensity projection 3D-reconstructions were created by the technologist. Automated exposure control and iterative reconst ruction technique were employed. The dose-length product was 895.70 mGy-cm. COMPARISON: Chest CT 11/28/2021 FINDINGS: The lungs demonstrate mild atelectasis. There are centrilobular groundglass nodules in righ t upper lobe. No pleural effusion. There is a 1.3 cm nodule in left thyroid lobe, likely not clinical ly significant. There is mild mediastinal lymphadenopathy. The heart size is normal. There is a trace pericardial effusion. There is no pulmonary embolus. There is mild thoracic spondylosis. IMPRESSION: 1. No pulmonary embolus. 2. Mild right upper lobe pneumonia. 3. Worsened mild mediastinal lymphadenopathy, likely reactive. Reviewed, dictated and finalized at location A. RTISER
--- NOTE | ~2022-04-10 | XR_ITS ---
EXAMINATION: XR chest 2V DATE: 04/10/2022 10:50 INDICATION: Dyspnea. Cough. Fever. Headache. TECHNIQUE: Frontal and lateral views of the chest were obtained. COMPARISON: Chest 2 views 11/28/2021 FINDINGS: There is mild atelectasis in lingula. No pneumonia, pleural effusion, or pneumothorax. The heart size is normal. IMPRESSION: 1. Mild atelectasis in lingula. Reviewed, dictated and finalized at location A. AL OFFICER
--- NOTE | 2022-04-10 10:44 | ED.GENADULT ---
HPI - General Adult General Chief complaint: Upper Respiratory Infection Stated complaint: SOB Time Seen by Provider: 04/10/22 10:31 History of Present Illness HPI narrative: 42-year-old female with history of COPD here for evaluation of dyspnea over the past 4 days. Patient states that she was seen in urgent care when symptoms onset and her COVID flu is negative. She has been attempting her nebulizers without relief of her symptoms. Reports dyspnea at rest and while she has been exertional. No fevers, chills, nausea or vomiting. Does report a chest tightness is there all the time for the past 2 days. Related Data Home Medications Medication Instructions Recorded Confirmed gabapentin 600 mg tablet 600 mg PO QPM 04/19/21 levothyroxine 50 mcg tablet 50 mcg PO DAILY 04/19/21 lisinopril 40 mg tablet 20 mg PO DAILY 04/19/21 metoprolol tartrate 50 mg tablet 25 mg PO DAILY 04/19/21 omeprazole 40 mg capsule,delayed 40 mg PO DAILY 04/19/21 release clonazepam 1 mg tablet 1 mg PO TID 04/29/21 trazodone 100 mg tablet 100 mg PO HS 04/29/21 famotidine 20 mg tablet 20 mg 11/03/21 lorazepam 0.5 mg tablet 0.5 mg BID PRN Anxiety 11/03/21 prazosin 1 mg capsule 1 mg DAILY 11/03/21 risperidone 1 mg tablet 1 mg 11/03/21 sertraline 100 mg tablet 100 mg 11/03/21 Allergies Allergy/AdvReac Type Severity Reaction Status Date / Time chlorpromazine Allergy Itching Verified 04/10/22 10:37 [From Thorazine] latex Allergy Rash Verified 04/10/22 10:37 lithium Allergy Back Pain Verified 04/10/22 10:37 quetiapine [From Seroquel] Allergy Hallucinati Verified 04/10/22 10:37 ng Review of Systems Review of Systems: Gen: Denies fevers or chills Eyes: Denies eye pain or visual change ENT: Denies congestion Respiratory: Reports shortness of breath and cough CV: Reports chest tightness GI: Denies abdominal pain nausea, emesis or diarrhea : denies burning, urgency, frequency or hematuria Musculoskeletal: Denies back pain or muscle pain Neuro: Denies numbness, tingling, weakness or focal weakness Skin: Denies rash Except as documented, all other systems reviewed and negative [facility] Past Medical History Medical History Abnormal CT scan, gastrointestinal tract Anxiety (Unknown) Asthma, mild intermittent (Unknown) Bipolar affect, depressed Bloating CHF (congestive heart failure) Chronic respiratory failure Constipation DVT (deep venous thrombosis) Lower extremity DVT in 2019 while hospitalized and intubated for acute respiratory failure. Treated with anticoagulation and no longer on any oral anticoagulation. GERD (gastroesophageal reflux disease) (Unknown) Hypertension Morbid obesity Nausea Non-cardiac chest pain Obesity hypoventilation syndrome (Unknown) IRMA on CPAP (Unknown) Peripartum cardiomyopathy (Unknown) 2006 Small intestinal bacterial overgrowth (SIBO) Tobacco abuse (Unknown) Surgical History Surgical History H/O tubal ligation performed during History of section History of laparoscopic appendectomy History of thyroidectomy, subtotal for benign nodule Hx laparoscopic cholecystectomy 10/11/20 Family History Family History Father Diabetes mellitus Acute myocardial infarction Hypertension Congestive heart failure Rectal cancer Mother No problems noted. Social History Social History Smoking packs per day: 0.5 Smoking cigarettes per day: 10.0 Years smoked: 24 Smoking pack-years: 12.00 Smoking status: Current every day smoker Tobacco type: cigarettes Second hand tobacco smoke exposure: Yes Smoking end date: 01/25/20 Additional smoking assessment comments: 3 packs per week Alcohol intake: never Drinks per week: 1 Substance
--- NOTE | 2022-04-10 10:45 | ECG_ITS ---
Measurements Intervals [place] Rate: 85 P: 50 [place]: 163 QRS: 2 QRSD: 86 T: 8 QT: 383 QTc: 458 Interpretive Statements SINUS RHYTHM INCOMPLETE RIGHT BUNDLE BRANCH BLOCK VOLTAGE CRITERIA FOR LVH NONSPECIFIC T-WAVE ABNORMALITY- ANT/INF LEADS BORDERLINE ECG COMPARED TO ECG 11/28/2021 17:00:17 T-WAVE ABNORMALITY NOW PRESENT Electronically Signed On 04-10-2022 12:09:18 TOUCH UP PAINTER by Matthew Li D.O.
[2022-04-10] MEDS: IPRATROPIUM BR 0.02% INH SOLN 0.5 MG/2.5 ML VIAL 1 MG INHALATION ×2 (10:53→12:19)
[2022-04-10] MEDS: ALBUTEROL SULFATE NEB 2.5 MG/3 ML INH 10 MG INHALATION ×2 (10:53→12:19)
[2022-04-10] MEDS: methylPREDNISolone SOD SUCC 125 MG VIAL IV PUSH (11:16)
[2022-04-10 11:21] LABS: Basophils Percent Auto 0.5 % (0.2-1.2); Eosinophils Absolute Auto 0.1 K/mm3 (0-0.3); Eosinophils Percent Auto 0.7 % (0-4.4); Hematocrit 35.2 % (37.0-47.0); Immature Granulocyte Absolute 0.04 K/mm3 (0.00-0.031); Immature Granulocyte Percent A 0.5 % (0-0.5); Lymphocytes Absolute Auto 1.51 K/mm3 (0.9-3.2); Lymphocytes Percent Auto 17.9 % (18.3-44.2); Mean Corpuscular HGB Conc 31.3 g/dl (32-36); Mean Corpuscular Hemoglobin 28.2 pg (26-34); Mean Corpuscular Volume 90.3 fl (80-100); Monocytes Absolute Auto 0.5 K/mm3 (0.1-0.6); Monocytes Percent Auto 6.4 % (2.6-8.5); Neutrophils Absolute Auto 6.3 K/mm3 (1.3-6.7); Platelet Count Result 249 k/mm3 (150-375); Red Cell Distribution Width 16.3 % (11.5-14.5); White Blood Count 8.4 K/mm3 (4.5-10.0)
[2022-04-10 11:42] LABS: Influenza A QL RT-PCR Negative (Negative); Influenza B QL RT-PCR Negative (Negative); RSV RNA, RT-PCR Negative (Negative); SARS-CoV-2 RNA PCR Negative
[2022-04-10 11:47] LABS: Alanine Aminotransferase 22 U/L (6-35); Albumin Level 4.6 g/dL (3.5-5.1); Alkaline Phosphatase 103 U/L (38-126); Anion Gap 7 mmol/L (8-16); Aspartate Amino Transferase 28 U/L (14-36); Bilirubin,Total 0.5 mg/dL (0.2-1.3); Blood Urea Nitrogen 12 mg/dL (7-17); Calcium 8.4 mg/dL (8.4-10.2); Carbon Dioxide 30 mmol/L (22-30); Chloride 98 mmol/L (98-107); Estimated CRCL calculation 93 ml/min; Estimated Glomerular Filt Rate > 60; Glucose 106 mg/dL (65-110); Potassium 3.6 mmol/L (3.4-5.0); Sodium 135 mmol/L (137-145)
[2022-04-10 11:55] LABS: Troponin I < 0.012 ng/mL (0.000-0.034)
[2022-04-10 12:14] LABS: Base Excess ABG 4.2 mEq/l (+/-2.0); Fractional Inspired Oxygen 21 %; HCO3 ABG 29.4 mEq/l (22.0-26.0); Oxygen Content ABG 13.5 %vol (16.0-22.0); PCO2 ABG 46.3 mmHg (35.0-45.0); PO2 ABG 51.3 mmHg (80.0-100.0); PO2 FiO2 Ratio Arterial Blood 2.44 %; Total Hemoglobin 11.8 g/dL (12.0-18.0)
[2022-04-10 12:17] LABS: Device ROOM AIR; Modified Allen's Test Pass; Oxygen Saturation ABG 86.7 % (95.0-100.0); Oxyhemoglobin 81.2 % THb (90.0-100.0); Site Drawn RIGHT RADIAL
--- NOTE | 2022-04-10 15:45 | PM.IMHP ---
H&P: HPI History of Present Illness Date/Time: 04/10/22 15:45 Chief Complaint: Cough and shortness of breath. Narrative: This is a 42-year-old female with history of COPD/asthma, sleep apnea, DVT, hypertension, peripartum cardiomyopathy in 2005, hypothyroidism, and history of ARDS requiring intubation in May 2019 who presented to the emergency department for evaluation of cough and shortness of breath. Patient provides the following history. She has not felt well for approximately 4 days with symptoms to include fatigue, cough which has been rarely productive of clear sputum, decreased appetite, nausea, progressive shortness of breath and wheezing, and a fever to 102?. Her son has had cold symptoms but has been afebrile. She has been taking acetaminophen, Mucinex, NyQuil, and Tessalon Perles with some benefit. She was previously seen a couple of days ago at an urgent care at which time she was prescribed a Z-Kahlil. Despite this she continues to feel worse each day with her biggest concern being increasing shortness of breath and significant wheezing despite increasing the use of her nebulizers. She denies sore throat, exertional chest pain, significant pleuritic pain, vomiting, and diarrhea. No edema or calf pain. She was afebrile on arrival to the emergency department with stable vital signs. She was negative for influenza, RSV, and COVID. CTA of the chest showed no evidence of pulmonary embolism but did note mild right upper lobe pneumonia and she is being admitted in this setting for further treatment. Review of Systems Review of Systems: Twelve systems were reviewed and are negative except for as per HPI. [facility] Past Medical History Medical History (Updated 04/10/22 @ 22:00 by Mirela Perdue PA-C) Anxiety Asthma, mild intermittent Bipolar affect, depressed COPD (chronic obstructive pulmonary disease) DVT (deep venous thrombosis) Lower extremity DVT in 2018 while hospitalized and intubated for acute respiratory failure. Treated with anticoagulation and no longer on any oral anticoagulation. GERD (gastroesophageal reflux disease) History of ARDS Hypertension Morbid obesity Obesity hypoventilation syndrome IRMA on CPAP Peripartum cardiomyopathy 2005 Small intestinal bacterial overgrowth (SIBO) Tobacco abuse Surgical History Surgical History H/O tubal ligation performed during History of section History of laparoscopic appendectomy History of thyroidectomy, subtotal for benign nodule Hx laparoscopic cholecystectomy 10/11/20 Family History Family History Father Diabetes mellitus Acute myocardial infarction Hypertension Congestive heart failure Rectal cancer Mother No problems noted. Social History Social History (Updated 04/10/22 @ 21:55 by Mirela Perdue PA-C) Social History: Surrogate medical decision maker: Ronn Awaddieter, spouse. Code status: Full code. Smoking packs per day: 1 Smoking cigarettes per day: 20.0 Years smoked: 26 Smoking pack-years: 26.00 Smoking status: Former smoker Tobacco type: cigarettes Second hand tobacco smoke exposure: Yes Smoking end date: 03/31/22 Additional smoking assessment comments: 3 packs per week Alcohol intake: current Drinks per week: 1 Substance use: current Substance use type: marijuana Other substance usage details: marijuana Last use: 03/31/2022 Lack of Transportation: No Lack of Food: Never True Current Housing: I Have Housing Concerned About Future Housing: No Difficulty Paying Gas/Electric Bills: No Difficulty Paying for Meds: No Currently Unemployed: No Education: High School Diploma/GED Difficulty w/ Childcare or Family Care: No Living arrangements: with family Occupation/Education: occupation 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
[2022-04-10] MEDS: ACETAMINOPHEN 325 MG TABLET 650 MG PO ×2 (15:54→22:02)
--- NOTE | 2022-04-10 16:59 | ADMGEN ---
This patient, Dash Crane, was admitted to [address] [place] [address] Room 325-02. Patient/family oriented to hospital policies and general routines including ID bracelet, bed and alarms, visiting hours, pain management, procedures, bathroom and other care routines, personal items, smoking policy, room service/diet, and visiting hours. Information on how to activate the Rapid Response Team has been discussed. Patient/Family are encouraged to report perceived risks to care and to ask questions if they do not understand what they are told or what they should do.
[2022-04-10 17:03] LABS: INR 1.1; Partial Thromboplastin Time 28.3 SECONDS (22.3-36.8); Prothrombin Time 13.4 Seconds (11.1-14.7)
[2022-04-10] MEDS: ALBUTEROL SULFATE NEB 2.5 MG/3 ML INH 5 MG INHALATION (21:09)
[2022-04-10] MEDS: IPRATROPIUM BR 0.02% INH SOLN 0.5 MG/2.5 ML VIAL INHALATION (21:09)
[2022-04-11] VITALS (14 sets, daily range): BP systolic 131–136; BP diastolic 69–86; PULSE 76–104; RESP 10–18; TEMP 36.1–36.6; O2SAT 91–97
[2022-04-11] MEDS: ALBUTEROL SULFATE NEB 2.5 MG/3 ML INH 5 MG INHALATION ×4 (02:15→20:07)
[2022-04-11] MEDS: IPRATROPIUM BR 0.02% INH SOLN 0.5 MG/2.5 ML VIAL INHALATION ×4 (02:15→20:06)
[2022-04-11] MEDS: LEVOTHYROXINE SODIUM 50 MCG TABLET PO (05:58)
[2022-04-11 06:30] LABS: Hematocrit 32.7 % (37.0-47.0); Hemoglobin 10.2 g/dL (12.0-15.0); Mean Corpuscular HGB Conc 31.2 g/dl (32-36); Mean Corpuscular Hemoglobin 28.3 pg (26-34); Mean Corpuscular Volume 90.6 fl (80-100); Mean Platelet Volume 10.2 fl (7.4-10.4); Platelet Count Result 224 k/mm3 (150-375); Red Blood Count 3.61 M/mm3 (4.2-5.4); Red Cell Distribution Width 16.3 % (11.5-14.5); White Blood Count 5.9 K/mm3 (4.5-10.0)
[2022-04-11 06:42] LABS: Anion Gap 5 mmol/L (8-16); Blood Urea Nitrogen 10 mg/dL (7-17); Calcium 8.6 mg/dL (8.4-10.2); Carbon Dioxide 30 mmol/L (22-30); Chloride 104 mmol/L (98-107); Estimated CRCL calculation 105 ml/min; Estimated Glomerular Filt Rate > 60; Glucose 121 mg/dL (65-110); Magnesium 2.1 mg/dL (1.6-2.3); Potassium 3.5 mmol/L (3.4-5.0); Sodium 139 mmol/L (137-145)
[2022-04-11] MEDS: PRAZOSIN HCL 1 MG CAPSULE BY MOUTH (08:38)
[2022-04-11] MEDS: clonazePAM (*CRX) 0.5 MG TABLET 1 MG PO ×3 (08:39→16:34)
[2022-04-11] MEDS: PANTOPRAZOLE 40 MG TABLET PO (08:41)
[2022-04-11] MEDS: ACETAMINOPHEN 325 MG TABLET 650 MG PO (08:41)
[2022-04-11] MEDS: METOPROLOL TARTRATE 50 MG TAB PO ×2 (08:42→21:19)
[2022-04-11] MEDS: predniSONE 40 MG, predniSONE 10 MG 50 MG PO (08:42)
[2022-04-11] MEDS: lisinopriL 20 MG TABLET PO (08:43)
[2022-04-11] MEDS: ENOXAPARIN 40 MG/0.4 ML SYRINGE SUB-Q (08:44)
[2022-04-11] MEDS: SERTRALINE HCL 50 MG TABLET 150 MG PO (08:44)
--- NOTE | 2022-04-11 11:17 | PM.IMPN ---
Progress Note: A&P Assessment and Plan (1) COPD (chronic obstructive pulmonary disease): Code(s): J44.9 - Chronic obstructive pulmonary disease, unspecified Status: Acute (2) Hypoxia: Code(s): R09.02 - Hypoxemia Status: Acute (3) COPD exacerbation: Code(s): J44.1 - Chronic obstructive pulmonary disease with (acute) exacerbation Status: Acute Assessment and Plan: Steroids. Inhalers. Oxygen as needed. (4) Right middle lobe pneumonia: Code(s): J18.9 - Pneumonia, unspecified organism Status: Acute Assessment and Plan: IV antibiotics. Respiratory status improved today. Not on oxygen (5) IRMA on CPAP: Code(s): G47.33 - Obstructive sleep apnea (adult) (pediatric); Z99.89 - Dependence on other enabling machines and devices Status: Acute (6) Hypertension: Qualifiers: Hypertension type: essential hypertension Qualified Code(s): I10 - Essential (primary) hypertension Code(s): I10 - Essential (primary) hypertension Status: Acute Assessment and Plan: Continue home medications, monitor blood pressure Subjective Date/time seen: 04/11/22 11:17 Still have some wheezing but overall feeling better. Not on oxygen Exam Narrative: General: Mildly ill-appearing female sitting up in bed. Weight: 109 kg. BMI: 42.6. HEENT: PERRL, EOMI. Sclera anicteric. Oral mucosa moist. Crowded oropharynx. Neck: Supple. No JVD or obvious lymphadenopathy though exam limited due to neck circumference. Respiratory: She appears to be in no respiratory distress. Currently on 1 L nasal cannula. Lung sounds are diminished throughout with scattered upper lobe rhonchi which improved with cough and diffuse end-expiratory wheezing. Cardiovascular: Regular rate and rhythm with S1-S2. Gastrointestinal: Abdomen is soft, obese, nontender, and nondistended with positive bowel sounds. Skin: Warm and dry. No rash or lesions on limited exam. Extremities: No cyanosis, clubbing, or edema. Radial and pedal pulses intact. Negative Andreas sign. Neurological: Alert. Cranial nerves 2-12 are grossly intact. No gross focal deficits to casual conversation. Psychiatric: Cooperative with appropriate mood and affect. Objective Data Vital Signs Vital Signs: Vital Signs - 24 hr 04/10/22 11:51 04/10/22 12:20 04/10/22 13:26 Temperature Pulse Rate 98 Respiratory Rate 18 18 18 Blood Pressure Pulse Oximetry Oxygen Delivery Oxygen Flow Rate 04/10/22 15:07 04/10/22 16:12 04/10/22 16:45 Temperature 97.5 F L Pulse Rate 81 87 89 Respiratory Rate 18 18 18 Blood Pressure 121/84 128/69 140/89 Pulse Oximetry 96 97 97 Oxygen Delivery Oxygen Flow Rate 04/10/22 21:15 04/10/22 21:16 04/10/22 21:31 Temperature Pulse Rate 94 97 Respiratory Rate 18 18 Blood Pressure Pulse Oximetry 97 Oxygen Delivery Nasal Cannula Oxygen Flow Rate 1 04/10/22 22:00 04/10/22 20:00 04/10/22 23:10 Temperature 96.3 F L Pulse Rate 82 87 Respiratory Rate 20 11 L Blood Pressure 132/82 Pulse Oximetry 94 95 Oxygen Delivery Room Air Autopap Oxygen Flow Rate 04/11/22 02:20 04/11/22 02:33 04/11/22 02:44 Temperature Pulse Rate 89 92 84 Respiratory Rate 12 12 10 L Blood Pressure Pulse Oximetry 96 Oxygen Delivery Autopap Oxygen Flow Rate 04/11/22 06:00 04/11/22 07:56 04/11/22 07:56 Temperature 96.9 F L Pulse Rate 93 104 H Respiratory Rate 18 14 Blood Pressure 136/69 Pulse Oximetry 94 94 Oxygen Delivery Room Air Oxygen Flow Rate 04/11/22 08:11 04/11/22 08:42 04/11/22 08:00 Temperature Pulse Rate 98 93 Respiratory Rate 16 Blood Pressure Pulse Oximetry Oxygen Delivery Room Air Oxygen Flow Rate Intake/Output Intake/Output: Intake & Output 04/08/22 04/09/22 04/10/22 04/11/22 23:59 23:59 23:59 23:59 Intake Total 480 Balance 480 Meds/Results Medications:
[2022-04-11] MEDS: GABAPENTIN 300 MG CAPSULE 600 MG PO (17:09)
[2022-04-11] MEDS: risperiDONE 1 MG TABLET PO (21:18)
[2022-04-11] MEDS: ATORVASTATIN 40 MG TABLET 80 MG PO (21:18)
[2022-04-11] MEDS: traZODone HCL 50 MG TABLET 100 MG PO (21:19)
[2022-04-11] MEDS: LORazepam (*CRX) 0.5 MG TABLET BY MOUTH (22:15)
[2022-04-11] MEDS: BENZONATATE 100 MG CAPSULE 200 MG PO (22:18)
[2022-04-11] MEDS: WATER FOR IRRIGATION, STERILE 1,000 ML BOTTLE 1000 ML (22:19)
[2022-04-12] VITALS (8 sets, daily range): BP systolic 132–141; BP diastolic 89–95; PULSE 77–95; RESP 16–18; TEMP 36.2; O2SAT 93–96
[2022-04-12] MEDS: ALBUTEROL SULFATE NEB 2.5 MG/3 ML INH 5 MG INHALATION ×2 (02:15→07:01)
[2022-04-12] MEDS: IPRATROPIUM BR 0.02% INH SOLN 0.5 MG/2.5 ML VIAL INHALATION ×2 (02:16→07:01)
[2022-04-12] MEDS: LEVOTHYROXINE SODIUM 50 MCG TABLET PO (06:18)
[2022-04-12] MEDS: PRAZOSIN HCL 1 MG CAPSULE BY MOUTH (09:39)
[2022-04-12] MEDS: clonazePAM (*CRX) 0.5 MG TABLET 1 MG PO ×2 (09:39→12:48)
[2022-04-12] MEDS: ENOXAPARIN 40 MG/0.4 ML SYRINGE SUB-Q (09:39)
[2022-04-12] MEDS: lisinopriL 20 MG TABLET PO (09:39)
[2022-04-12] MEDS: PANTOPRAZOLE 40 MG TABLET PO (09:39)
[2022-04-12] MEDS: METOPROLOL TARTRATE 50 MG TAB PO (09:39)
[2022-04-12] MEDS: SERTRALINE HCL 50 MG TABLET 150 MG PO (09:39)
[2022-04-12] MEDS: predniSONE 40 MG, predniSONE 10 MG 50 MG PO (10:42)
--- NOTE | 2022-04-12 12:14 | PM.DS ---
DS: Admitting Diagnosis Discharge Date 04/12/22 Admitting Diagnosis Cough and shortness of breath. DS: Discharge Diagnosis Discharge Diagnosis (1) COPD exacerbation: Code(s): J44.1 - Chronic obstructive pulmonary disease with (acute) exacerbation Status: Acute (2) Hypoxia: Code(s): R09.02 - Hypoxemia Status: Acute (3) Right middle lobe pneumonia: Code(s): J18.9 - Pneumonia, unspecified organism Status: Acute (4) IRMA on CPAP: Code(s): G47.33 - Obstructive sleep apnea (adult) (pediatric); Z99.89 - Dependence on other enabling machines and devices Status: Acute (5) Hypertension: Qualifiers: Hypertension type: essential hypertension Qualified Code(s): I10 - Essential (primary) hypertension Code(s): I10 - Essential (primary) hypertension Status: Acute DS: Summary Hospital Course Reason for hospitalization: 42-year-old female with history of COPD/asthma, sleep apnea, DVT, hypertension, peripartum cardiomyopathy in 2005, hypothyroidism, and history of ARDS requiring intubation in May 2019 who presented to the emergency department for evaluation of cough and shortness of breath. Please see H&P for details. Hospital Course: Patient presented to the emergency room with complaints of shortness of breath. She was afebrile but states that she had fevers at home. She was not hypoxic initially but did require 1 L for brief amount of time. Chest x-ray showed mild atelectasis in the lingula. CTA of the chest was negative for pulmonary emboli but did show a mild right upper lobe pneumonia. There was also worsening mild mediastinal adenopathy when compared to a chest CT in November felt to be reactive. She was afebrile here and remained afebrile. White count was normal on admission. She was started on IV antibiotics. Blood gas did show a mildly elevated pCO2 with a PO2 of 51 on room air. Influenza, RSV and COVID were negative. She was started on nebulizer treatments. She was given Solu-Medrol once and prednisone was added. She had clinical improvement. She feels less short of breath. No chest pain. Still has a slight cough that is nonproductive. She is compliant with her CPAP at home. She quit tobacco few weeks ago and she was congratulated on smoking cessation. She feels ready for discharge. She overall did well was able to be discharged home on 04/12/2022. Home metoprolol was entered incorrectly. Correct home dose was 50mg BID Status at Discharge Cognitive/behavioral status at discharge: Stable Time Spent with Patient Time attestation: Total time spent providing and/or coordinating discharge services: 35 minutes Time spent: Greater than 30 minutes Exam Narrative: Gen - NARD lying flat Chest - few scattered rhonchi, nml RR, faint expir wheezes CV - RRR S1/S2 Abd - Soft, NT/ND, Positive BS Ext - No pedal edema Psych - Nml mood and affect Skin - Warm and dry DS: Data Data Completed and Pending Labs on day of discharge: Labs from last 24 hours 04/11/22 12:49 Ur L.pneumophila Ag Pending Urine Pneumococcal Ag Pending Preliminary micro results at discharge 04/10/22 15:58 Blood Culture - Preliminary Blood 04/10/22 15:58 Blood Culture - Preliminary Blood Discharge Plan Discharge Attending physician on discharge: Otoniel Cox Consulting providers: Remedios Espinosa Discharging Clinician: Otoniel Cox Anticipated Discharge Date/Time: 04/12/22 12:23 Patient Disposition: Home, Self-Care Activity: as tolerated Diet: heart healthy Discharge Instructions: Please complete your antibiotic course even if you are starting to feel well. Avoid all products containing tobacco or nicotine. Contact your doctor or call 911 and come to the Emergency Room if you have fevers or other worrisome symptoms. Continue CPAP at night and with naps. Follow-up with your primary care provide
[2022-04-13 22:30] LABS: Pneumococcal Antigen Urine Not Detected (Not Detected)
[2022-04-15 15:46] LABS: Legionella pneumophila Ag Ur Not Detected (Not Detected)
--- NOTE | 2022-04-18 13:05 | PC.NURSE ---
Urine legionella and pneumococcal Ag are not detected. Blood cx are negative. Dr. Brooke schwartz.
== END 2022-04-12 13:37 | disposition home or self-care (01) ==
LOC: ANHED 14:44 → ANH3MEDSUR 04-11 06:04
PROVIDERS: Physician Assistant; Admitting Provider Internal Medicine; Emergency Provider Emergency Medicine; PCP Internal Medicine; Visit Provider Internal Medicine
DX: J44.1 Chronic obstructive pulmonary disease with (acute) exacerbation (principal); R09.02 Hypoxemia; J18.9 Pneumonia, unspecified organism; G47.33 Obstructive sleep apnea (adult) (pediatric); Z99.89 Dependence on other enabling machines and devices; F41.9 Anxiety disorder, unspecified; F31.89 Other bipolar disorder; R59.1 Generalized enlarged lymph nodes; Z20.822 Contact with and (suspected) exposure to COVID-19; I11.0 Hypertensive heart disease with heart failure; I50.9 Heart failure, unspecified; I45.10 Unspecified right bundle-branch block; Z86.718 Personal history of other venous thrombosis and embolism; K21.9 Gastro-esophageal reflux disease without esophagitis; J98.11 Atelectasis; R94.31 Abnormal electrocardiogram [ECG] [EKG]; E03.9 Hypothyroidism, unspecified; Z68.41 Body mass index [BMI] 40.0-44.9, adult; F17.210 Nicotine dependence, cigarettes, uncomplicated; F12.90 Cannabis use, unspecified, uncomplicated; Z79.52 Long term (current) use of systemic steroids; Z79.899 Other long term (current) drug therapy; Z82.49 Family history of ischemic heart disease and other diseases of the circulatory system
CPT/HCPCS: 36415; 36600; 71046; 71275; 80048; 80053; 82805; 83735; 84484; 85025; 85027; 85610; 85730; 87040; 87449; 87637; 87899; 93005; 94640; 96365; 96367; 96372; 96374; 96375; 99285; A9270; G0378; G0379; J0456; J0696; J1650; J2930; J7512; Q9967

== ENCOUNTER 2022-04-24 17:10 | Outpatient (CLI) | payer OTHER, SELFPAY ==
--- NOTE | ~2022-04-24 | XR_ITS ---
EXAMINATION: XR chest 2V Exam Date/Time: 04/24/2022 17:57 FLY RAISER LOCKSTITCH HISTORY: J18.9 - Pneumonia, unspecified organism Comparison: 04/10/2022, CTPA 04/10/2022. RESULT: Lines, tubes, and devices: None. Lungs and pleura: Bilateral midlung scar/atelectasis, otherwise clear. Cardiomediastinal silhouette: Stable. Other: No acute osseous or upper abdominal finding. IMPRESSION: No acute cardiopulmonary process. Reviewed, dictated and finalized at location K. RAISER LOCKSTITCH
[2022-04-24 18:17] LABS: Basophils Percent Auto 0.2 % (0.2-1.2); Eosinophils Absolute Auto 0.2 K/mm3 (0-0.3); Eosinophils Percent Auto 2.3 % (0-4.4); Hematocrit 35.2 % (37.0-47.0); Immature Granulocyte Absolute 0.04 K/mm3 (0.00-0.031); Immature Granulocyte Percent A 0.4 % (0-0.5); Lymphocytes Percent Auto 27.9 % (18.3-44.2); Mean Corpuscular HGB Conc 31.3 g/dl (32-36); Mean Corpuscular Hemoglobin 27.8 pg (26-34); Mean Corpuscular Volume 88.9 fl (80-100); Mean Platelet Volume 9.9 fl (7.4-10.4); Monocytes Absolute Auto 0.6 K/mm3 (0.1-0.6); Monocytes Percent Auto 6.4 % (2.6-8.5); Neutrophils Absolute Auto 6.3 K/mm3 (1.3-6.7); Neutrophils Percent Auto 62.8 % (45.5-73.1); Platelet Count Result 259 k/mm3 (150-375); Red Blood Count 3.96 M/mm3 (4.2-5.4); Red Cell Distribution Width 16.3 % (11.5-14.5); White Blood Count 10.1 K/mm3 (4.5-10.0)
[2022-04-24 18:25] LABS: Alanine Aminotransferase 23 U/L (6-35); Albumin Level 4.3 g/dL (3.5-5.1); Alkaline Phosphatase 104 U/L (38-126); Anion Gap 9 mmol/L (8-16); Aspartate Amino Transferase 23 U/L (14-36); Bilirubin,Total 0.3 mg/dL (0.2-1.3); Blood Urea Nitrogen 10 mg/dL (7-17); CRP 0.8 mg/dL (<1.0); Calcium 8.9 mg/dL (8.4-10.2); Carbon Dioxide 29 mmol/L (22-30); Chloride 100 mmol/L (98-107); Cholesterol 183 mg/dL (0-200); Estimated Glomerular Filt Rate 60; Glucose 116 mg/dL (65-110); HDL Direct 41 mg/dL; Potassium 3.6 mmol/L (3.4-5.0); Sodium 138 mmol/L (137-145); Triglycerides 308 mg/dL (<150)
[2022-04-24 18:34] LABS: LDL Cholesterol Direct 78 mg/dL
[2022-04-24 18:46] LABS: Erythrocyte Sedimentation Rate 16 mm/hr (0-20)
[2022-04-27 06:11] LABS: Anti Nuclear Antibody Titer 1:40 (Negative)
== END 2022-04-24 17:11 | disposition home or self-care (01) ==
PROVIDERS: PCP Internal Medicine; Referring Provider Internal Medicine
DX: R06.02 Shortness of breath (principal)
CPT/HCPCS: 36415; 71046; 80053; 80061; 85025; 85652; 86038; 86039; 86140

== ENCOUNTER 2022-07-10 16:21 | Outpatient (CLI) | payer OTHER, SELFPAY ==
[2022-07-10 16:59] LABS: Basophils Absolute Auto 0.1 K/mm3 (0.0-0.1); Basophils Percent Auto 0.6 % (0.2-1.2); Eosinophils Absolute Auto 0.5 K/mm3 (0-0.3); Eosinophils Percent Auto 5.8 % (0-4.4); Hematocrit 35.3 % (37.0-47.0); Hemoglobin 11.1 g/dL (12.0-15.0); Immature Granulocyte Absolute 0.03 K/mm3 (0.00-0.031); Immature Granulocyte Percent A 0.4 % (0-0.5); Lymphocytes Absolute Auto 2.41 K/mm3 (0.9-3.2); Lymphocytes Percent Auto 29.5 % (18.3-44.2); Mean Corpuscular HGB Conc 31.4 g/dl (32-36); Mean Corpuscular Hemoglobin 27.2 pg (26-34); Mean Corpuscular Volume 86.5 fl (80-100); Mean Platelet Volume 10.1 fl (7.4-10.4); Monocytes Absolute Auto 0.5 K/mm3 (0.1-0.6); Monocytes Percent Auto 5.6 % (2.6-8.5); Neutrophils Absolute Auto 4.8 K/mm3 (1.3-6.7); Neutrophils Percent Auto 58.1 % (45.5-73.1); Platelet Count Result 238 k/mm3 (150-375); Red Blood Count 4.08 M/mm3 (4.2-5.4); Red Cell Distribution Width 17.3 % (11.5-14.5); White Blood Count 8.2 K/mm3 (4.5-10.0)
[2022-07-10 17:10] LABS: Alanine Aminotransferase 26 U/L (6-35); Alkaline Phosphatase 94 U/L (38-126); Anion Gap 6 mmol/L (8-16); Aspartate Amino Transferase 23 U/L (14-36); Bilirubin,Total 0.4 mg/dL (0.2-1.3); Blood Urea Nitrogen 10 mg/dL (7-17); CRP 1.1 mg/dL (<1.0); Calcium 8.4 mg/dL (8.4-10.2); Carbon Dioxide 31 mmol/L (22-30); Chloride 101 mmol/L (98-107); Cholesterol 257 mg/dL (0-200); Estimated Glomerular Filt Rate > 60; Glucose 140 mg/dL (65-110); HDL Direct 39 mg/dL; Potassium 4.1 mmol/L (3.4-5.0); Sodium 138 mmol/L (137-145); Triglycerides 241 mg/dL (<150)
[2022-07-10 17:19] LABS: LDL Cholesterol Direct 160 mg/dL
[2022-07-10 17:50] LABS: Erythrocyte Sedimentation Rate 17 mm/hr (0-20)
== END 2022-07-10 16:22 | disposition home or self-care (01) ==
PROVIDERS: PCP Internal Medicine
DX: R06.02 Shortness of breath (principal)
CPT/HCPCS: 36415; 80053; 80061; 85025; 85652; 86038; 86140

== ENCOUNTER 2022-07-12 16:25 | Observation (INO) | payer OTHER, SELFPAY ==
[2022-07-12] VITALS (13 sets, daily range): BP systolic 104–176; BP diastolic 45–108; PULSE 71–132; RESP 12–30; TEMP 36.4–36.7; O2SAT 93–98; BMI 46.0
--- NOTE | ~2022-07-12 | XR_ITS ---
EXAMINATION: XR chest 2V Exam Date/Time: 07/12/2022 17:00 CDT HISTORY: chest pain Comparison: 04/24/2022. RESULT: Lines, tubes, and devices: None. Lungs and pleura: Bilateral scar. No focal consolidation, pneumothorax, or large effusion. Low volum es in the lateral view with crowding. Cardiomediastinal silhouette: Stable. Other: No acute osseous or upper abdominal finding. IMPRESSION: No acute cardiopulmonary process. Reviewed, dictated and finalized at location K.
--- NOTE | ~2022-07-12 | CT_ITS ---
EXAMINATION: CTA chest PE protocol DATE: 07/12/2022 17:28 INDICATION: tachypnea, tachycardia, cp, dyspnea TECHNIQUE: Computed tomography angiography (CTA) of the chest was performed with 100 mL Omnipaque-350 intravenous contrast timed to evaluate the pulmonary arteries. Coronal maximum intensity projection 3D-reconstructions were created by the technologist. The dose-length product (DLP) was 842.79 mGy-cm. Automated exposure control and iterative reconstruction technique were employed. COMPARISON: X-ray chest, same date; CTPA 04/10/2022. FINDINGS: Lung parenchyma and airways: Bilateral scarring. Patchy areas of diffuse bilateral groundglass opacit ies, in a somewhat mosaic pattern. Mild interlobular septal thickening. Calcified granulomas. Pleura: Unremarkable. Thoracic inlet, axillae and chest wall: 1.7 cm left thyroid nodule. Thoracic aorta: Normal. Mediastinum: Enlarged prevascular, AP window, subcarinal and paratracheal lymph nodes. Heart and pericardium: Mild cardiomegaly. Coronary artery calcifications: Absent. Upper abdomen: No significant finding. Bones: No acute osseous finding. Pulmonary arteries: Study quality: Motion artifact, particularly in the lower lobes but overall diagn ostic. No pulmonary emboli detected. IMPRESSION: No CT evidence of acute pulmonary embolus. Pulmonary opacities may represent mild pulmonary edema, br onchitis obliterans, reactive airways disease, or hypersensitivity changes. Mediastinal lymphadenopat hy. 1.7 cm left thyroid nodule, recommend outpatient thyroid ultrasound for further characterization. Reviewed, dictated and finalized at location K. IMPRESSION: No CT evidence of acute pulmonary embolus. Pulmonary opacities may represent mi ld pulmonary edema, bronchitis obliterans, reactive airways disease, or hyperse nsitivity changes. Mediastinal lymphadenopathy. 1.7 cm left thyroid nodule, rec ommend outpatient thyroid ultrasound for further characterization.
--- NOTE | 2022-07-12 16:38 | ECG_ITS ---
Measurements Intervals [place] Rate: 100 P: 54 [place]: 158 QRS: 4 QRSD: 82 T: 25 QT: 346 QTc: 447 Interpretive Statements SINUS TACHYCARDIA POSSIBLE LEFT ATRIAL ENLARGEMENT INCOMPLETE RIGHT BUNDLE BRANCH BLOCK DELAYED PRECORDIAL R/S TRANSITION BASELINE ARTIFACT- I, II, III, AVR, AVF BORDERLINE ECG COMPARED TO ECG 04/10/2022 11:38:05 SINUS TACHYCARDIA NOW PRESENT Electronically Signed On 07-13-2022 11:16:37 CDT by Matthew Li D.O.
[2022-07-12 17:00] LABS: Basophils Percent Auto 0.5 % (0.2-1.2); Eosinophils Absolute Auto 0.4 K/mm3 (0-0.3); Eosinophils Percent Auto 5.5 % (0-4.4); Hematocrit 37.4 % (37.0-47.0); Hemoglobin 11.5 g/dL (12.0-15.0); Immature Granulocyte Absolute 0.05 K/mm3 (0.00-0.031); Immature Granulocyte Percent A 0.7 % (0-0.5); Lymphocytes Percent Auto 37.5 % (18.3-44.2); Mean Corpuscular HGB Conc 30.7 g/dl (32-36); Mean Corpuscular Hemoglobin 26.4 pg (26-34); Mean Corpuscular Volume 85.8 fl (80-100); Mean Platelet Volume 10.1 fl (7.4-10.4); Monocytes Absolute Auto 0.6 K/mm3 (0.1-0.6); Neutrophils Absolute Auto 3.6 K/mm3 (1.3-6.7); Neutrophils Percent Auto 47.8 % (45.5-73.1); Platelet Count Result 245 k/mm3 (150-375); Red Blood Count 4.36 M/mm3 (4.2-5.4); Red Cell Distribution Width 16.9 % (11.5-14.5); White Blood Count 7.5 K/mm3 (4.5-10.0)
[2022-07-12 17:11] LABS: Alanine Aminotransferase 26 U/L (6-35); Albumin Level 4.3 g/dL (3.5-5.1); Alkaline Phosphatase 101 U/L (38-126); Anion Gap 7 mmol/L (8-16); Aspartate Amino Transferase 22 U/L (14-36); Bilirubin,Total 0.4 mg/dL (0.2-1.3); Blood Urea Nitrogen 4 mg/dL (7-17); Calcium 9.3 mg/dL (8.4-10.2); Carbon Dioxide 31 mmol/L (22-30); Chloride 102 mmol/L (98-107); Estimated Glomerular Filt Rate > 60; Glucose 96 mg/dL (65-110); INR 0.9; Lipase 65 U/L (23-300); Potassium 3.3 mmol/L (3.4-5.0); Prothrombin Time 12.2 Seconds (11.1-14.7); Sodium 140 mmol/L (137-145)
[2022-07-12 17:12] LABS: Partial Thromboplastin Time 26.2 SECONDS (22.3-36.8)
[2022-07-12 17:23] LABS: NT Pro B Type Natriuretic Pept 233 pg/mL (19.9-100); Troponin I < 0.012 ng/mL (0.000-0.034)
--- NOTE | 2022-07-12 17:28 | ED.ARRPALP ---
HPI - Arrhythmia/Palpitations General Chief Complaint: Arrhythmia/Palpitations <Warren Wang PA-C - Last Filed: 07/13/22 01:11> Stated Complaint: palpitations and dizziness, SOB on exertion <KORI Winter Last Filed: 07/13/22 01:11> Time Seen by Provider: 07/12/22 17:02 <KORI Winter Last Filed: 07/13/22 01:11> Source: patient <KORI Winter Last Filed: 07/13/22 01:11> Mode of arrival: ambulatory <KORI Winter Last Filed: 07/13/22 01:11> Limitations: no limitations <KORI Winter Last Filed: 07/13/22 01:11> History of Present Illness HPI narrative: This is a 42-year-old female with PMH of CHF, COPD presents the ED with chief complaint of sudden onset of shortness of breath, chest pain and palpitations x1 day. States these symptoms started yesterday and became much worse and constant today. Reports a 5 out of 10 chest pain in the middle of the chest described as a pressure/heaviness. Does not radiate. Reports nausea but no sweats or vomiting. Also endorses some wheezing and increased cough. States the cough is not productive. Specifically notes that shortness of breath, lightheadedness and chest pain are worse with exertion. States the palpitations increase the pain is well. Denies abdominal pain, headache, numbness, weakness. Denies leg swelling or back pain. Patient states she is still smoking. Uses 2 L of O2 at night as needed. States she had to use this last night. <KORI Winter Last Filed: 07/13/22 01:11> Related Data Home Medications: Home Medications Medication Instructions Recorded Confirmed gabapentin 600 mg tablet 600 mg PO QPM 04/19/21 07/12/22 levothyroxine 50 mcg tablet 50 mcg PO DAILY 04/19/21 07/12/22 lisinopril 40 mg tablet 20 mg PO DAILY 04/19/21 07/12/22 omeprazole 40 mg capsule,delayed 40 mg PO DAILY 04/19/21 07/12/22 release clonazepam 1 mg tablet 1 mg PO TID 04/29/21 07/12/22 trazodone 100 mg tablet 100 mg PO HS 04/29/21 07/12/22 lorazepam 0.5 mg tablet 0.5 mg BID PRN Anxiety 11/03/21 07/12/22 prazosin 1 mg capsule 1 mg PO HS 11/03/21 07/12/22 risperidone 1 mg tablet 1 mg PO HS 11/03/21 07/12/22 sertraline 100 mg tablet 150 mg PO DAILY 11/03/21 07/12/22 atorvastatin 80 mg tablet 80 mg PO HS 04/10/22 07/12/22 lactulose 20 gram/30 mL oral 20 g PO BID PRN Constipation 04/10/22 07/12/22 solution <Warren Wang PA-C - Last Filed: 07/13/22 01:11> Allergies/Adverse Reactions: Allergies Allergy/AdvReac Type Severity Reaction Status Date / Time chlorpromazine Allergy Itching Verified 04/10/22 10:37 [From Thorazine] latex Allergy Rash Verified 04/10/22 10:37 lithium Allergy Back Pain Verified 04/10/22 10:37 quetiapine [From Seroquel] Allergy Hallucinati Verified 04/10/22 10:37 ng <Warren Wang PA-C - Last Filed: 07/13/22 01:11> Review of Systems Review of Systems: CONSTITUTIONAL: Denies fever, chills, or sweats. EYES: Denies visual changes, redness, or discharge. ENT: Denies rhinorrhea, congestion, sore throat, or otalgia. CARDIOVASCULAR: See HPI RESPIRATORY: See HPI GASTROINTESTINAL: Denies abdominal pain, nausea, vomiting, or diarrhea. GENITOURINARY: Denies dysuria or hematuria. SKIN: Denies rash or itching. MUSCULOSKELETAL: Denies back pain, joint pain, or myalgia. NEUROLOGIC: Denies headache, numbness, dizziness, or weakness. PSYCHIATRIC: Denies anxiety or depression. <KORI Winter Last Filed: 07/13/22 01:11> [facility] Past Medical History Medical History: Medical History (Updated 07/12/22 @ 23:28 by Genny Peterson MD) Anxiety Asthma, mild intermittent Bipolar affect, depressed COPD (chronic obstructive pulmonary disease) DVT (deep venous thrombosis) Lower extremity DVT in 2019 while hospitalized and intubated for acute respiratory failure. Treated with anticoagulation and no longer on any oral anticoagulation. GERD (gastroesophageal reflux
[2022-07-12 17:51] LABS: Alveolar/Arterial O2 Gradient 48.7 mmHg; Base Excess ABG 2.3 mEq/l (+/-2.0); Fractional Inspired Oxygen 21 %; HCO3 ABG 25.8 mEq/l (22.0-26.0); Oxygen Content ABG 13.9 %vol (16.0-22.0); Oxygen Saturation ABG 91.9 % (95.0-100.0); PO2 ABG 57.9 mmHg (80.0-100.0); PO2 FiO2 Ratio Arterial Blood 2.76 %; Total Hemoglobin 12.1 g/dL (12.0-18.0); pH ABG 7.473 (7.350-7.450)
[2022-07-12] MEDS: ASPIRIN 81 MG CHEWABLE TABLET 324 MG PO (17:52)
[2022-07-12 17:53] LABS: Device ROOM AIR; Modified Allen's Test Unable to perform; Oxyhemoglobin 81.5 % THb (90.0-100.0); Site Drawn RIGHT BRACHIAL
[2022-07-12] MEDS: ONDANSETRON INJ 4 MG/2 ML VIAL IV PUSH (17:53)
[2022-07-12] MEDS: SODIUM CHLORIDE 0.9% IV 1,000 ML 999 ML IV CONT ×2 (17:53→20:20)
[2022-07-12] MEDS: MORPHINE SULFATE (*CRX) 4 MG/ML INJ IV PUSH (17:54)
[2022-07-12] MEDS: LEVALBUTEROL NEB 1.25 MG/3 ML INHALATION (18:00)
[2022-07-12] MEDS: IPRATROPIUM BR 0.02% INH SOLN 0.5 MG/2.5 ML VIAL INHALATION (18:00)
[2022-07-12] MEDS: methylPREDNISolone SOD SUCC 125 MG VIAL IV PUSH (18:34)
[2022-07-12] MEDS: LEVALBUTEROL NEB 1.25 MG/3 ML 2.5 MG INHALATION (18:37)
[2022-07-12] MEDS: IPRATROPIUM BR 0.02% INH SOLN 0.5 MG/2.5 ML VIAL 1 MG INHALATION (18:37)
[2022-07-12 20:11] LABS: Troponin I < 0.012 ng/mL (0.000-0.034)
--- NOTE | 2022-07-12 20:30 | PM.IMHP ---
H&P: HPI History of Present Illness Date/Time: 07/12/22 20:30 Chief Complaint: Chest pain Narrative: This is a 42-year-old female with past medical history significant for morbid obesity, COPD/asthma, dyslipidemia, hypertension, GERD, obstructive sleep apnea on CPAP, peripartum cardiomyopathy, tobacco dependence, bipolar disorder. Patient presented to emergency room due to chest pain has had shortness of breath and wheezing for the last 2 days has been using her albuterol inhaler quite often has had cough productive of sputum at times a scanty amount, denies any fevers, rigors, chills, nausea, vomiting, abdominal pain, diarrhea. In emergency room patient also was found to be tachycardic she received several breathing treatments, received morphine as well. Patient localized her pain to the retrosternal area nonradiating rated at 1 to 2/10 intensity. Preliminary workup was significant for: EXAMINATION: CTA chest PE protocol DATE: 07/12/2022 17:28 INDICATION: tachypnea, tachycardia, cp, dyspnea TECHNIQUE: Computed tomography angiography (CTA) of the chest was performed with 100 mL Omnipaque-350 intravenous contrast timed to evaluate the pulmonary arteries. Coronal maximum intensity projection 3D-reconstructions were created by the technologist. The dose-length product (DLP) was 842.79 mGy-cm. Automated exposure control and iterative reconstruction technique were employed. COMPARISON: X-ray chest, same date; CTPA 04/10/2022. ? FINDINGS:? Lung parenchyma and airways: Bilateral scarring. Patchy areas of diffuse bilateral groundglass opacities, in a somewhat mosaic pattern. Mild interlobular septal thickening. Calcified granulomas. Pleura: Unremarkable. Thoracic inlet, axillae and chest wall: 1.7 cm left thyroid nodule. Thoracic aorta: Normal. Mediastinum: Enlarged prevascular, AP window, subcarinal and paratracheal lymph nodes. Heart and pericardium: Mild cardiomegaly. Coronary artery calcifications: Absent. Upper abdomen: No significant finding. Bones: No acute osseous finding. Pulmonary arteries: Study quality: Motion artifact, particularly in the lower lobes but overall diagnostic. No pulmonary emboli detected. IMPRESSION: No CT evidence of acute pulmonary embolus. Pulmonary opacities may represent mild pulmonary edema, bronchitis obliterans, reactive airways disease, or hypersensitivity changes. Mediastinal lymphadenopathy. 1.7 cm left thyroid nodule, recommend outpatient thyroid ultrasound for further characterization. EXAMINATION:? XR chest 2V Exam Date/Time:? 07/12/2022 17:00 CDT HISTORY: chest pain ? Comparison:? 04/24/2022. RESULT: Lines, tubes, and devices:? None. Lungs and pleura:? Bilateral scar. No focal consolidation, pneumothorax, or large effusion. Low volumes in the lateral view with crowding. Cardiomediastinal silhouette:? Stable. Other:? No acute osseous or upper abdominal finding. ? IMPRESSION: No acute cardiopulmonary process. Patient is been admitted for further evaluation management and treatment. Review of Systems Review of Systems: Shortness of breath, wheezing, retrosternal chest pain. Constitutional: Constitutional: Denies chills, Denies fatigue, Denies fever(s), Denies lethargy, Denies malaise, Denies night sweats, Denies poor appetite and Denies weakness Eyes: Eyes: Denies change in vision ENT: Denies dysphagia, Denies vertigo, Denies dizziness, Denies nasal congestion, Denies nasal discharge, Denies nasal obstruction and Denies odynophagia Cardiovascular: Cardiovascular: Reports chest pain (Retrosternal), Reports rapid heart rate, Denies pedal edema, Denies edema, Denies leg edema, Denies radiating jaw, neck or arm pain, Reports palpitations and Reports dyspnea Respiratory: Respiratory: Reports cough, Denies pain on inspiration and Reports wheezing Gastrointestinal: Gastrointestinal: Denies abdominal pain, Denies dyspepsia, Denies heartburn, Denies diarrhea, Juwan
[2022-07-12] MEDS: SODIUM CHLORIDE 0.9% IV 1,000 ML 125 ML IV CONT (21:34)
[2022-07-12 22:11] LABS: Influenza A QL RT-PCR Negative (Negative); Influenza B QL RT-PCR Negative (Negative); RSV RNA, RT-PCR Negative (Negative); SARS-CoV-2 RNA PCR Negative (Negative)
[2022-07-12 23:43] LABS: Troponin I < 0.012 ng/mL (0.000-0.034)
[2022-07-13] VITALS (16 sets, daily range): BP systolic 130–157; BP diastolic 69–93; PULSE 64–109; RESP 16–20; TEMP 36.3–36.7; O2SAT 94–98
--- NOTE | 2022-07-13 | ECHO_ITS ---
Patient Info Name: Dash Crane Age: 42 years : 1980 Gender: Female Ht: 63 in Wt: 260 lbs BSA: 2.36 m2 HR: 57 bpm BP: 156 / 93 mmHg Technical Quality: Fair Exam Date: 07/13/2022 1:39 PM Exam Location: [facility] Patient Status: Outpatient Admit Date: 07/12/2022 Staff Ordering Physician: Javi Varma MD Research Study Assistant: Bing Garrison RDCS Attending Provider: Genny Peterson MD Exam Type: CA echo dop color flow w con Study Info Indications I50.9 - Heart failure, unspecified Complete two-dimensional, color flow and Doppler transthoracic echocardiogram is performed with contrast to opacify the left ventricle and to improve the deliniation of the left ventricle endocardial borders. Contrast/Agitated Saline Contrast/Ag. Saline: Definity Amount: 2.00 ml Administered By: Bing Garrison RDCS Existing IV Access: Yes IV Access Condition: patent with no signs of infiltration Summary 1. Left ventricular chamber dimension is mildly enlarged. 2. Definity contrast administered improved wall motion interpretation. 3. Left ventricular systolic function is normal, estimated at 60-65%. 4. The left ventricular diastolic function is grade I diastolic dysfunction. 5. E/e' 13 is mildly elevated. 6. Left atrial chamber dimension is mildly enlarged. Left Ventricle Definity contrast administered improved wall motion interpretation. E/e' 13 is mildly elevated. Left ventricular chamber dimension is mildly enlarged. Left ventricular systolic function is normal, estimated at 60-65%. The left ventricular diastolic function is grade I diastolic dysfunction. Right Ventricle Right ventricular chamber dimension is normal. Right ventricular systolic function is normal. Left Atria Left atrial chamber dimension is mildly enlarged. Right Atria Right atrial chamber dimension is normal. Aortic Valve The aortic valve is trileaflet. There is no aortic valve stenosis. There is no aortic valve regurgitation. Pulmonic Valve There is no pulmonic regurgitation. Mitral Valve There is no mitral valve stenosis. There is no mitral valve regurgitation. Tricuspid Valve There is no tricuspid valve regurgitation. Pericardium/Pleural There is no pericardial effusion. Inferior Vena Cava Normal inferior vena cava with >50% collapse upon inspiration consistent with normal right atrial pressure, 5 mmHg. Aorta The aortic root size at the sinus of Valsalva is normal. Left Ventricular Outflow Tract Name Value Normal LVOT 2D LVOT Diameter 2.01 cm LVOT Doppler LVOT Peak Gradient 8 mmHg LVOT Mean Gradient 5 mmHg LVOT VTI 34.48 cm LVOT VTI/AV VTI Ratio 0.94 LVOT Stroke Volume 109.60 ml LVOT CO 7.05 l/min LVOT CI 2.99 L/min/m2 Pulmonic Valve Name Value Normal RVOT Doppler
[2022-07-13] MEDS: PRAZOSIN HCL 1 MG CAPSULE PO ×2 (01:20→20:29)
[2022-07-13] MEDS: risperiDONE 1 MG TABLET PO ×2 (01:21→20:30)
[2022-07-13] MEDS: GABAPENTIN 300 MG CAPSULE 600 MG PO ×2 (01:21→18:22)
[2022-07-13] MEDS: ATORVASTATIN 40 MG TABLET 80 MG PO ×2 (01:21→20:28)
[2022-07-13] MEDS: LORazepam (*CRX) 0.5 MG TABLET BY MOUTH ×2 (01:21→20:30)
[2022-07-13] MEDS: traZODone HCL 50 MG TABLET 100 MG PO ×2 (01:22→20:29)
[2022-07-13] MEDS: methylPREDNISolone SOD SUCC 125 MG VIAL 60 MG IV PUSH ×5 (02:52→23:54)
[2022-07-13] MEDS: LEVOTHYROXINE SODIUM 50 MCG TABLET PO (05:57)
[2022-07-13] MEDS: SODIUM CHLORIDE 0.9% IV 1,000 ML 125 ML IV CONT (05:58)
[2022-07-13] MEDS: METOPROLOL TARTRATE 50 MG TAB PO ×2 (09:05→20:30)
[2022-07-13] MEDS: PANTOPRAZOLE 40 MG TABLET PO ×2 (09:05→18:22)
[2022-07-13] MEDS: SERTRALINE HCL 50 MG TABLET 150 MG PO (09:05)
[2022-07-13] MEDS: ENOXAPARIN 40 MG/0.4 ML SYRINGE SUB-Q (09:06)
[2022-07-13] MEDS: clonazePAM (*CRX) 0.5 MG TABLET 1 MG PO ×3 (09:06→18:22)
[2022-07-13] MEDS: lisinopriL 20 MG TABLET PO (09:06)
[2022-07-13] MEDS: FUROSEMIDE INJ 40 MG/4 ML VIAL IV PUSH (13:10)
[2022-07-13] MEDS: PERFLUTREN LIPID MICROSPHERES 1.5 ML VIAL DILUTED TO 10 ML TOTAL VOLUME IV PUSH (14:00)
--- NOTE | 2022-07-13 15:16 | PM.IMPN ---
Progress Note: A&P Assessment and Plan (1) Chest pain: Code(s): R07.9 - Chest pain, unspecified Status: Acute Assessment and Plan: Serial troponins negative Chest pain likely related to COPD exacerbation Previous stress test was negative in the past Will get echocardiogram (2) Acute exacerbation of chronic obstructive pulmonary disease: Code(s): J44.1 - Chronic obstructive pulmonary disease with (acute) exacerbation Status: Acute Assessment and Plan: Breathing treatments q.4 Systemic steroids Started on levofloxacin (3) Obesity hypoventilation syndrome: Code(s): E66.2 - Morbid (severe) obesity with alveolar hypoventilation Status: Acute Assessment and Plan: Continue to monitor pulse ox (4) GERD (gastroesophageal reflux disease): Qualifiers: Esophagitis presence: esophagitis presence not specified Qualified Code(s): K21.9 - Gastro-esophageal reflux disease without esophagitis Code(s): K21.9 - Gastro-esophageal reflux disease without esophagitis Status: Acute Assessment and Plan: PPI (5) Tobacco dependence: Code(s): F17.200 - Nicotine dependence, unspecified, uncomplicated Status: Acute Assessment and Plan: Nicotine patch as needed Plan CTA with possible pulmonary edema. Will give a dose of Lasix today Subjective Date/time seen: 07/13/22 15:16 Interval history: Feeling better today. No leg swelling. Chest tightness. Was wheezy yesterday. Review of Systems Review of Systems: All systems reviewed & are unremarkable except as noted in HPI and below Exam Narrative: GENERAL: Not in acute distress HEAD: Normocephalic, atraumatic. EYES: PERRLA and EOMI. ENT: Nares clear, no rhinorrhea or epistaxis.? Mucous membranes moist.? Oropharynx without tonsillar hypertrophy exudate or other lesions. NECK: Supple.? No adenopathy or masses.? CHEST: No respiratory distress.? No accessory muscle use.? Diminished breath sound bilaterally HEART: Regular rate, regular.? No murmur heard.? Slightly weak pulses in all 4 extremities. ABDOMEN: Soft, nontender, nondistended, normal active bowel sounds. EXTREMITIES: Normal range of motion.? No edema. SKIN: Warm, dry, no rash. NEURO: Alert and oriented x3. No focal deficits.? PSYCH: Normal mood and affect. Objective Data Vital Signs Vital Signs: Vital Signs - 24 hr 07/12/22 16:28 07/12/22 16:57 07/12/22 18:00 Temperature 97.8 F Pulse Rate 132 H 107 H 99 Respiratory Rate 20 30 H 14 Blood Pressure 153/101 H 176/108 H Pulse Oximetry 97 97 Oxygen Delivery Room Air 07/12/22 18:01 07/12/22 18:38 07/12/22 17:47 Temperature Pulse Rate 92 102 H Respiratory Rate 18 21 H Blood Pressure 146/71 H Pulse Oximetry 93 95 Oxygen Delivery Room Air 07/12/22 18:34 07/12/22 20:20 07/12/22 21:56 Temperature 97.6 F Pulse Rate 96 89 86 Respiratory Rate 25 H 14 20 Blood Pressure 152/99 H 104/45 L 146/86 H Pulse Oximetry 97 93 93 Oxygen Delivery 07/12/22 22:35 07/12/22 23:55 07/12/22 22:00 Temperature 98.0 F Pulse Rate 71 78 Respiratory Rate 20 Blood Pressure 136/73 Pulse Oximetry 93 98 Oxygen Delivery Room Air 07/12/22 22:00 07/12/22 22:00 07/13/22 00:00 Temperature Pulse Rate 74 72 75 Respiratory Rate 20 20 Blood Pressure Pulse Oximetry 98 98 Oxygen Delivery Room Air CPAP 07/13/22 02:00 07/13/22 04:00 07/13/22 04:00 Temperature 97.8 F Pulse Rate 73 81 109 H Respiratory Rate 20 Blood Pressure 142/69 H Pulse Oximetry 94 Oxygen Delivery 07/13/22 04:00 07/12/22 23:00 07/13/22 06:00 Temperature Pulse Rate 109 H 75 81 Respiratory Rate 20 12 Blood Pressure Pulse Oximetry 94 98 Oxygen Delivery CPAP CPAP 07/13/22 08:00 07/13/22 09:05 07/13/22 09:04 Temperature 97.8 F Pulse Rate 86 92 Respiratory Rate 16 Blood Pressure 157/87 H Pulse Oximetry 96 96 Oxygen Delivery
[2022-07-13] MEDS: traMADol HCL (*CRX) 25 MG TABLET PO (20:29)
--- NOTE | 2022-07-13 23:07 | PC.NURSE ---
This patient, Dash Crane, was transferred to [ [id number]] on 07/13/22 at 2307. Personal belongings sent with patient. Report given to [ Khang chamorro]. Appropriate documentation sent with patient.
[2022-07-14] VITALS (7 sets, daily range): BP systolic 142–199; BP diastolic 70–112; PULSE 60–82; RESP 16–18; TEMP 35.5–36.1; O2SAT 94–97
--- NOTE | 2022-07-14 01:51 | PC.NURSE ---
Patient arrived on 3 Med-Surg at 23:15 on 07/14/2022
[2022-07-14] MEDS: lisinopriL 20 MG TABLET PO (03:50)
[2022-07-14] MEDS: METOPROLOL TARTRATE 50 MG TAB PO (03:50)
--- NOTE | 2022-07-14 03:52 | PC.NURSE ---
At 03:40 took a manual Blood pressure of 172/90 and called the physician (Dr. Peterson) to inform. The hospitalist then ordered for her medications of metoprolol and lisinopril to be administered early. Will recheck blood pressure in 1 hour.
[2022-07-14] MEDS: methylPREDNISolone SOD SUCC 125 MG VIAL 60 MG IV PUSH (05:26)
[2022-07-14] MEDS: LEVOTHYROXINE SODIUM 50 MCG TABLET PO (05:28)
--- NOTE | 2022-07-14 06:01 | PC.NURSE ---
Rechecked blood pressure and the charge nurse, Ry Laird, received a blood pressure measurement of 170/75. Contacted Dr. Peterson, who gave no new orders at this time, will continue to monitor.
[2022-07-14 06:20] LABS: Basophils Percent Auto 0.1 % (0.2-1.2); Hematocrit 32.4 % (37.0-47.0); Hemoglobin 9.9 g/dL (12.0-15.0); Immature Granulocyte Absolute 0.14 K/mm3 (0.00-0.031); Immature Granulocyte Percent A 1.1 % (0-0.5); Lymphocytes Absolute Auto 1.13 K/mm3 (0.9-3.2); Lymphocytes Percent Auto 8.6 % (18.3-44.2); Mean Corpuscular HGB Conc 30.6 g/dl (32-36); Mean Corpuscular Hemoglobin 25.8 pg (26-34); Mean Corpuscular Volume 84.6 fl (80-100); Mean Platelet Volume 10.6 fl (7.4-10.4); Monocytes Absolute Auto 0.4 K/mm3 (0.1-0.6); Monocytes Percent Auto 3.2 % (2.6-8.5); Neutrophils Absolute Auto 11.4 K/mm3 (1.3-6.7); Nucleated Red Blood Cells Perc 0.2 % (0.0-0.2); Platelet Count Result 223 k/mm3 (150-375); Red Blood Count 3.83 M/mm3 (4.2-5.4); Red Cell Distribution Width 17.3 % (11.5-14.5); White Blood Count 13.1 K/mm3 (4.5-10.0)
[2022-07-14 06:40] LABS: Alanine Aminotransferase 22 U/L (6-35); Albumin Level 3.9 g/dL (3.5-5.1); Alkaline Phosphatase 87 U/L (38-126); Anion Gap 6 mmol/L (8-16); Aspartate Amino Transferase 22 U/L (14-36); Bilirubin,Total 0.4 mg/dL (0.2-1.3); Blood Urea Nitrogen 11 mg/dL (7-17); Carbon Dioxide 31 mmol/L (22-30); Chloride 101 mmol/L (98-107); Estimated CRCL calculation 108 ml/min; Estimated Glomerular Filt Rate > 60; Glucose 172 mg/dL (65-110); Magnesium 1.7 mg/dL (1.6-2.3); Potassium 3.7 mmol/L (3.4-5.0); Sodium 138 mmol/L (137-145)
[2022-07-14] MEDS: clonazePAM (*CRX) 0.5 MG TABLET 1 MG PO ×2 (08:50→12:47)
[2022-07-14] MEDS: ENOXAPARIN 40 MG/0.4 ML SYRINGE SUB-Q (08:51)
[2022-07-14] MEDS: SERTRALINE HCL 50 MG TABLET 150 MG PO (08:51)
[2022-07-14] MEDS: PANTOPRAZOLE 40 MG TABLET PO (08:51)
[2022-07-14] MEDS: FUROSEMIDE 40 MG TABLET PO (12:47)
--- NOTE | 2022-07-14 13:55 | PM.IMPN ---
Progress Note: A&P Assessment and Plan (1) Chest pain: Code(s): R07.9 - Chest pain, unspecified Status: Acute Assessment and Plan: Serial troponins negative Chest pain likely related to COPD exacerbation Previous stress test was negative in the past Echo with normal EF. Grade 1 diastolic dysfunction. No wall motion abnormalities no significant valvular abnormalities (2) Acute exacerbation of chronic obstructive pulmonary disease: Code(s): J44.1 - Chronic obstructive pulmonary disease with (acute) exacerbation Status: Acute Assessment and Plan: Breathing treatments q.4 Systemic steroids Started on levofloxacin will switch to oral (3) Obesity hypoventilation syndrome: Code(s): E66.2 - Morbid (severe) obesity with alveolar hypoventilation Status: Acute Assessment and Plan: Continue to monitor pulse ox (4) GERD (gastroesophageal reflux disease): Qualifiers: Esophagitis presence: esophagitis presence not specified Qualified Code(s): K21.9 - Gastro-esophageal reflux disease without esophagitis Code(s): K21.9 - Gastro-esophageal reflux disease without esophagitis Status: Acute Assessment and Plan: PPI (5) Tobacco dependence: Code(s): F17.200 - Nicotine dependence, unspecified, uncomplicated Status: Acute Assessment and Plan: Nicotine patch as needed Plan CTA with possible pulmonary edema. Received Lasix IV x1 07/13/2022. Will give oral Lasix and start daily Hypertension not optimal. Adjust dose on lisinopril metoprolol add Lasix continue to monitor today DVT prophylaxis Lovenox Subjective Date/time seen: 07/14/22 13:55 Interval history: Feels much better. Back to her normal breathing. No further chest pain. Wheezing has improved. Pedrito quite a bit yesterday with Lasix. She has been out of her Lasix. She used to take it as needed Review of Systems Review of Systems: All systems reviewed & are unremarkable except as noted in HPI and below Exam Narrative: GENERAL: Not in acute distress HEAD: Normocephalic, atraumatic. EYES: PERRLA and EOMI. ENT: Nares clear, no rhinorrhea or epistaxis.? Mucous membranes moist.? NECK: Supple.? No adenopathy or masses.? CHEST: No respiratory distress.? No accessory muscle use.? Diminished breath sound bilaterally HEART: Regular rate, regular.? No murmur heard.? Slightly weak pulses in all 4 extremities. ABDOMEN: Soft, nontender, nondistended, normal active bowel sounds. EXTREMITIES: Normal range of motion.? No edema. SKIN: Warm, dry, no rash. NEURO: Alert and oriented x3. No focal deficits.? PSYCH: Normal mood and affect. Objective Data Vital Signs Vital Signs: Vital Signs - 24 hr 07/13/22 14:00 07/13/22 16:00 07/13/22 20:00 Temperature 98.0 F 97.3 F L Pulse Rate 64 66 73 Respiratory Rate 20 20 Blood Pressure 130/70 153/85 H Pulse Oximetry 96 96 Oxygen Delivery 07/13/22 20:30 07/13/22 20:00 07/13/22 21:44 Temperature Pulse Rate 82 82 84 Respiratory Rate 20 Blood Pressure Pulse Oximetry 96 Oxygen Delivery Room Air 07/14/22 00:27 07/14/22 03:50 07/14/22 03:57 Temperature 96.5 F L 96 F L Pulse Rate 82 64 60 Respiratory Rate 18 16 Blood Pressure 160/70 H 172/90 H Pulse Oximetry 95 94 Oxygen Delivery 07/14/22 05:20 07/13/22 22:45 07/14/22 08:00 Temperature 97 F L Pulse Rate 80 Respiratory Rate 17 16 Blood Pressure 170/75 H 199/112 H Pulse Oximetry 97 Oxygen Delivery Autopap 07/14/22 11:43 07/14/22 08:00 Temperature 96.8 F L Pulse Rate 62 Respiratory Rate 16 Blood Pressure 175/90 H Pulse Oximetry 96 Oxygen Delivery Room Air Intake/Output Intake/Output: Intake & Output 07/11/22 07/12/22 07/13/22 07/14/22 23:59 23:59 23:59 23:59 Intake Total 1999 2770 1566 Output Total 3300 900 Balance 1999 -187 666 Meds/Results Medications: Active Medications Generic Name Dos
--- NOTE | 2022-07-14 14:21 | PM.DS ---
DS: Admitting Diagnosis Discharge Date 07/14/2022 Admitting Diagnosis Shortness of breath DS: Discharge Diagnosis Discharge Diagnosis (1) Chest pain: Code(s): R07.9 - Chest pain, unspecified Status: Acute (2) Acute exacerbation of chronic obstructive pulmonary disease: Code(s): J44.1 - Chronic obstructive pulmonary disease with (acute) exacerbation Status: Acute (3) Obesity hypoventilation syndrome: Code(s): E66.2 - Morbid (severe) obesity with alveolar hypoventilation Status: Acute (4) GERD (gastroesophageal reflux disease): Qualifiers: Esophagitis presence: esophagitis presence not specified Qualified Code(s): K21.9 - Gastro-esophageal reflux disease without esophagitis Code(s): K21.9 - Gastro-esophageal reflux disease without esophagitis Status: Acute (5) Tobacco dependence: Code(s): F17.200 - Nicotine dependence, unspecified, uncomplicated Status: Acute DS: Summary Hospital Course Hospital Course: # chest pain: Serial troponins negative Chest pain likely related to COPD exacerbation Previous stress test was negative in the past Echo with normal EF.? Grade 1 diastolic dysfunction.? No wall motion abnormalities no significant valvular abnormalities # acute COPD exacerbation: Breathing treatments q.4 Systemic steroids Started on levofloxacin will switch to oral prednisone taper discharge # obesity hypoventilation syndrome: Continue to monitor pulse ox # GERD: PPI # tobacco dependence: Nicotine patch as needed # congestive heart failure acute on chronic diastolic: CTA with possible pulmonary edema.? Received Lasix IV x1 07/13/2022.? Will give oral Lasix and start daily # hypertension not optimal.? Adjust dose on lisinopril metoprolol add Lasix continue to monitor. Improved and adjust medication as an outpatient basis # dVT prophylaxis Lovenox # thyroid nodule 1.7 cm on left thyroid gland. Outpatient thyroid ultrasound as an outpatient basis. Time Spent with Patient Time attestation: Total time spent providing and/or coordinating discharge services: 45 minutes Exam Narrative: GENERAL: Not in acute distress HEAD: Normocephalic, atraumatic. EYES: PERRLA and EOMI. ENT: Nares clear, no rhinorrhea or epistaxis.? Mucous membranes moist.? NECK: Supple.? No adenopathy or masses.? CHEST: No respiratory distress.? No accessory muscle use.? Diminished breath sound bilaterally HEART: Regular rate, regular.? No murmur heard.? Slightly weak pulses in all 4 extremities. ABDOMEN: Soft, nontender, nondistended, normal active bowel sounds. EXTREMITIES: Normal range of motion.? No edema. SKIN: Warm, dry, no rash. NEURO: Alert and oriented x3. No focal deficits.? PSYCH: Normal mood and affect. DS: Data Data Completed and Pending Completed studies during hospitalization: Exam Type: ? ? CA echo dop color flow w con Study Info Indications ? ? I50.9 - Heart failure,? unspecified Complete two-dimensional, color flow and Doppler transthoracic echocardiogram is performed with contrast to opacify the left ventricle and to improve the deliniation of the left ventricle endocardial borders. Account #: ? ? [id number] Contrast/Agitated Saline Contrast/Ag. Saline: ? ? Definity Amount: ? ? 2.00 ml Administered By: ? ? Lute,? Bing RDCS Existing IV Access: ? ? Yes IV Access Condition: ? ? patent with no signs of infiltration Summary ? 1. Left ventricular chamber dimension is mildly enlarged. ? 2. Definity contrast administered improved wall motion interpretation. ? 3. Left ventricular systolic function is normal, estimated at 60-65%. ? 4. The left ventricular diastolic function is grade I diastolic dysfunction. ? 5. E/e' 13 is mildly elevated. ? 6. Left atrial chamber dimension is mildly enlarged. Left Ventricle ? Definity contrast administered improved wall motion interpretation. ? E/e' 13 is mild
== END 2022-07-14 15:00 | disposition home or self-care (01) ==
LOC: ANHED 20:39 → ANHIMU 21:39 → ANH3MEDSUR 07-14 10:15 → ANHIMU 07-17 10:41
PROVIDERS: Emergency Medicine; Admitting Provider Internal Medicine; Emergency Provider Physician Assistant; PCP Internal Medicine; Visit Provider Internal Medicine
DX: R07.9 Chest pain, unspecified (principal); J44.1 Chronic obstructive pulmonary disease with (acute) exacerbation; E66.2 Morbid (severe) obesity with alveolar hypoventilation; K21.9 Gastro-esophageal reflux disease without esophagitis; I50.9 Heart failure, unspecified; I11.0 Hypertensive heart disease with heart failure; Z20.822 Contact with and (suspected) exposure to COVID-19; R11.0 Nausea; R42 Dizziness and giddiness; R41.9 Unspecified symptoms and signs involving cognitive functions and awareness; R00.0 Tachycardia, unspecified; R06.82 Tachypnea, not elsewhere classified; F41.9 Anxiety disorder, unspecified; F31.89 Other bipolar disorder; I45.10 Unspecified right bundle-branch block; R94.31 Abnormal electrocardiogram [ECG] [EKG]; E78.5 Hyperlipidemia, unspecified; R59.1 Generalized enlarged lymph nodes; E04.1 Nontoxic single thyroid nodule; Z68.41 Body mass index [BMI] 40.0-44.9, adult; F17.210 Nicotine dependence, cigarettes, uncomplicated; Z86.718 Personal history of other venous thrombosis and embolism; Z87.898 Personal history of other specified conditions; Z79.899 Other long term (current) drug therapy; Z82.49 Family history of ischemic heart disease and other diseases of the circulatory system
CPT/HCPCS: 36415; 36600; 71046; 71275; 80053; 82805; 83690; 83735; 83880; 84484; 85025; 85610; 85730; 87040; 87147; 87181; 87186; 87637; 93005; 94640; 96361; 96372; 96374; 96375; 96376; 99285; A9270; C8929; G0378; J1650; J1940; J1956; J2270; J2405; J2930; J7030; Q9957; Q9967

== ENCOUNTER 2022-07-24 18:08 | Emergency (ER) | payer OTHER, SELFPAY ==
--- NOTE | ~2022-07-24 | XR_ITS ---
EXAMINATION: XR chest 2V DATE: 07/24/2022 19:03 INDICATION: Chest pain radiating to the level of the back, shortness of breath and dizziness. TECHNIQUE: PA and lateral views of the chest were obtained. COMPARISON: Chest radiograph and CT dated 07/12/2022 FINDINGS: Again seen are linear bands of discoid atelectasis/scarring at the bilateral mid and right lower lung zones. No new airspace opacities, pulmonary edema, pleural effusion or pneumothorax. Heart size is n ormal. Small left paracardial fat pad. Post cystectomy clips in right upper quadrant. Mild thoracic s pondylosis. IMPRESSION: 1. Unchanged linear discoid atelectasis/scarring in the bilateral mid and lower lung zones. Reviewed, dictated and finalized at location A.
[2022-07-24 18:10] VITALS: BP 149/98; PULSE 82; RESP 20; TEMP 36.1; O2SAT 96
--- NOTE | 2022-07-24 18:13 | ECG_ITS ---
Measurements Intervals [place] Rate: 77 P: 54 DC: 164 QRS: 19 QRSD: 93 T: 40 QT: 379 QTc: 430 Interpretive Statements SINUS RHYTHM INCOMPLETE RIGHT BUNDLE BRANCH BLOCK BORDERLINE T WAVE ABNORMALITY- ANTERIOR LEADS BORDERLINE ECG COMPARED TO ECG 07/12/2022 16:43:23 SINUS RHYTHM NOW PRESENT Electronically Signed On 07-24-2022 20:29:52 CDT by Matthew Li D.O.
[2022-07-24 19:07] VITALS: O2SAT 95
--- NOTE | 2022-07-24 20:15 | PC.NURSE ---
patient states that she has been monitoring her SpO2 level while in the waiting room. states it has been staying up to 98%. left without seeing a provider
== END 2022-07-24 20:15 | disposition left against medical advice (07) ==
PROVIDERS: Emergency Provider Emergency Medicine; PCP Internal Medicine
DX: R07.9 Chest pain, unspecified (principal)
CPT/HCPCS: 71046; 93005; 99199

== ENCOUNTER 2022-08-01 15:42 | Emergency (ER) | payer SELFPAY ==
--- NOTE | ~2022-08-01 | CT_ITS ---
EXAMINATION: CT abdomen pelvis w con DATE: 08/01/2022 20:17 INDICATION: Epigastric pain, bloating TECHNIQUE: Computed tomography (CT) of the abdomen and pelvis was performed with 100 mL Omnipaque-350 intravenous contrast. Automated exposure control and iterative reconstruction technique were employe d. The dose-length product was 1425.63 mGy-cm. COMPARISON: 10/17/2020. FINDINGS: Lower thorax: Bilateral scarring. Liver: Enlarged. Biliary/Gallbladder: Gallbladder is absent. No bile duct dilation. Pancreas: No mass or duct dilation. Spleen: Normal. Adrenals:No mass. Kidneys: No mass, stone, or hydronephrosis. GI tract: Mild distal esophageal wall edema. No small or large bowel dilation. Appendix is not confid ently visualized. Mesentery/Peritoneum: No ascites, mass, or free air. Retroperitoneum: No mass. Pelvis: Distended urinary bladder. Normal uterus.. Soft Tissues: Small uncomplicated fat-containing umbilical hernia Bones: No acute osseous finding. IMPRESSION: Mild esophagitis. Hepatomegaly. Reviewed, dictated and finalized at location K.
[2022-08-01 16:03] VITALS: BP 145/90; PULSE 99; RESP 20; TEMP 36.7; O2SAT 97
[2022-08-01 16:37] LABS: Appearance Urine Clear (Clear); Bilirubin Urine Negative (Negative); Blood Urine Negative (Negative); Color Urine Yellow (Yellow); Glucose Urine UA Negative (Negative); Ketones Urine Negative (Negative); Leukocyte Esterase Ur Negative LEU/UL (Negative); Nitrate Urine Negative (Negative); Protein Urine Negative (Negative); Specific Grav Ur 1.005 (1.001-1.035); Urobilinogen Urine 0.2 mg/dL (<2.0); pH Urine 6.5 (5.0-9.0)
[2022-08-01 16:41] LABS: Add Urine Microscopic? NO
[2022-08-01 18:49] LABS: Basophils Percent Auto 0.3 % (0.2-1.2); Eosinophils Absolute Auto 0.2 K/mm3 (0-0.3); Eosinophils Percent Auto 1.9 % (0-4.4); Hematocrit 34.9 % (37.0-47.0); Hemoglobin 10.9 g/dL (12.0-15.0); Immature Granulocyte Absolute 0.02 K/mm3 (0.00-0.031); Immature Granulocyte Percent A 0.2 % (0-0.5); Lymphocytes Absolute Auto 2.85 K/mm3 (0.9-3.2); Lymphocytes Percent Auto 28.2 % (18.3-44.2); Mean Corpuscular HGB Conc 31.2 g/dl (32-36); Mean Corpuscular Hemoglobin 26.6 pg (26-34); Mean Corpuscular Volume 85.1 fl (80-100); Mean Platelet Volume 10.2 fl (7.4-10.4); Monocytes Absolute Auto 0.6 K/mm3 (0.1-0.6); Monocytes Percent Auto 5.5 % (2.6-8.5); Neutrophils Absolute Auto 6.5 K/mm3 (1.3-6.7); Neutrophils Percent Auto 63.9 % (45.5-73.1); Platelet Count Result 202 k/mm3 (150-375); Red Cell Distribution Width 19.2 % (11.5-14.5); White Blood Count 10.1 K/mm3 (4.5-10.0)
--- NOTE | 2022-08-01 19:08 | ED.ABDPAIN ---
HPI - Abdominal Pain General Chief Complaint: Abdominal Pain Stated Complaint: abd pain Time Seen by Provider: 08/01/22 19:07 Source: patient Mode of arrival: ambulatory Limitations: no limitations History of Present Illness HPI narrative: 42 years old white female presents to the ED with upper abdominal pain, nausea and vomiting started 4 days ago. Patient reports vomiting up to 4-5 times a day, diarrhea a lot over the last 48 hours with a lot of bloating. Patient reported having similar symptoms for months without any specific diagnosis. History of hypertension, hyperlipidemia, asthma, hypothyroidism and depression. Patient smokes cigarettes, drinks occasionally, and uses marijuana occasionally. History of cholecystectomy, appendectomy and bilateral tubal ligation Related Data Home Medications Medication Instructions Recorded Confirmed gabapentin 600 mg tablet 600 mg PO QPM 04/19/21 07/12/22 levothyroxine 50 mcg tablet 50 mcg PO DAILY 04/19/21 07/12/22 lisinopril 40 mg tablet 20 mg PO DAILY 04/19/21 07/12/22 omeprazole 40 mg capsule,delayed 40 mg PO DAILY 04/19/21 07/12/22 release clonazepam 1 mg tablet 1 mg PO TID 04/29/21 07/12/22 trazodone 100 mg tablet 100 mg PO HS 04/29/21 07/12/22 lorazepam 0.5 mg tablet 0.5 mg BID PRN Anxiety 11/03/21 07/12/22 prazosin 1 mg capsule 1 mg PO HS 11/03/21 07/12/22 risperidone 1 mg tablet 1 mg PO HS 11/03/21 07/12/22 sertraline 100 mg tablet 150 mg PO DAILY 11/03/21 07/12/22 atorvastatin 80 mg tablet 80 mg PO HS 04/10/22 07/12/22 lactulose 20 gram/30 mL oral 20 g PO BID PRN Constipation 04/10/22 07/12/22 solution Allergies Allergy/AdvReac Type Severity Reaction Status Date / Time chlorpromazine Allergy Itching Verified 04/10/22 10:37 [From Thorazine] latex Allergy Rash Verified 04/10/22 10:37 lithium Allergy Back Pain Verified 04/10/22 10:37 quetiapine [From Seroquel] Allergy Hallucinati Verified 04/10/22 10:37 ng Review of Systems Review of Systems: All systems reviewed & are unremarkable except as noted in HPI and below PMFSH Past Medical History Medical History Anxiety Asthma, mild intermittent Bipolar affect, depressed COPD (chronic obstructive pulmonary disease) DVT (deep venous thrombosis) Lower extremity DVT in 2019 while hospitalized and intubated for acute respiratory failure. Treated with anticoagulation and no longer on any oral anticoagulation. GERD (gastroesophageal reflux disease) History of ARDS Hypertension Morbid obesity Obesity hypoventilation syndrome IRMA on CPAP Peripartum cardiomyopathy 2005 Small intestinal bacterial overgrowth (SIBO) Tobacco abuse Surgical History Surgical History H/O tubal ligation performed during History of section History of laparoscopic appendectomy History of thyroidectomy, subtotal for benign nodule Hx laparoscopic cholecystectomy 10/11/20 Family History Family History Father Diabetes mellitus Acute myocardial infarction Hypertension Congestive heart failure Rectal cancer Mother No problems noted. Social History Social History Social History: Surrogate medical decision maker: Ronn Awaddieter, spouse. Code status: Full code. Smoking packs per day: 1 Smoking cigarettes per day: 20.0 Years smoked: 15 Smoking pack-years: 15.00 Smoking status: Heavy tobacco smoker Tobacco type: cigarettes Second hand tobacco smoke exposure: Yes Smoking end date: 03/31/22 Additional smoking assessment comments: 3 packs per week Alcohol intake: never Drinks per week: 1 Substance use: never Substance use type: does not use Other substance usage details: marijuana Last use: 03/31/2022 Lack of Transportation: No Lack of Food: Never True Curre
[2022-08-01] MEDS: SODIUM CHLORIDE 0.9% IV 1,000 ML 999 ML IV CONT ×2 (19:44→20:51)
[2022-08-01] MEDS: METOCLOPRAMIDE HCL INJ 10 MG/2 ML VIAL IV PUSH (19:44)
[2022-08-01] MEDS: ONDANSETRON INJ 4 MG/2 ML VIAL IV PUSH (20:02)
[2022-08-01] MEDS: HYDROmorphone HCL INJ (*CRX) 1 MG/ML SYR 0.5 MG IV PUSH (20:02)
[2022-08-01 20:04] LABS: Alanine Aminotransferase 33 U/L (6-35); Albumin Level 4.3 g/dL (3.5-5.1); Alkaline Phosphatase 87 U/L (38-126); Anion Gap 8 mmol/L (8-16); Aspartate Amino Transferase 36 U/L (14-36); Bilirubin,Total 0.4 mg/dL (0.2-1.3); Blood Urea Nitrogen 11 mg/dL (7-17); Calcium 8.8 mg/dL (8.4-10.2); Carbon Dioxide 28 mmol/L (22-30); Chloride 103 mmol/L (98-107); Estimated CRCL calculation 108 ml/min; Estimated Glomerular Filt Rate > 60; Glucose 90 mg/dL (65-110); Lipase 90 U/L (23-300); Potassium 3.8 mmol/L (3.4-5.0); Sodium 139 mmol/L (137-145)
[2022-08-01 21:11] VITALS: BP 109/64; PULSE 78; RESP 17; O2SAT 96
== END 2022-08-01 21:45 | disposition home or self-care (01) ==
PROVIDERS: Family Medicine; Emergency Provider Emergency Medicine; PCP Internal Medicine
DX: K21.00 Gastro-esophageal reflux disease with esophagitis, without bleeding (principal); R10.13 Epigastric pain; G89.29 Other chronic pain; J45.20 Mild intermittent asthma, uncomplicated; J44.9 Chronic obstructive pulmonary disease, unspecified; I10 Essential (primary) hypertension; G47.33 Obstructive sleep apnea (adult) (pediatric); E89.0 Postprocedural hypothyroidism; F31.9 Bipolar disorder, unspecified; F17.210 Nicotine dependence, cigarettes, uncomplicated; Z86.718 Personal history of other venous thrombosis and embolism; Z90.49 Acquired absence of other specified parts of digestive tract; R16.0 Hepatomegaly, not elsewhere classified
CPT/HCPCS: 36415; 74177; 80053; 81003; 81025; 83690; 85025; 96361; 96374; 96375; 99284; J1170; J2405; J2765; J7030; Q9967

== ENCOUNTER 2022-08-25 12:27 | Emergency (ER) | payer MEDICAID, SELFPAY ==
[2022-08-25 12:29] VITALS: BP 146/97; PULSE 95; RESP 16; TEMP 36.8; O2SAT 98
--- NOTE | 2022-08-25 12:55 | ED.GENADULT ---
HPI - General Adult General Chief complaint: Unspecified Stated complaint: myalgias Time Seen by Provider: 08/25/22 12:44 History of Present Illness HPI narrative: Patient with history of months of chronic pain presents here with with continuing pain, no new symptoms today. PCP has referred her to a console operator but she does not know for a while. No new trauma. States that the pain seems to be in all muscles and joints. Has tried Tylenol, naproxen, Advil, all without effect. Had previously been on risperidone, trazodone, Seroquel, and states she has not taken them in a while because she thinks her doctor took her off of them. Has not been diagnosed with fibromyalgia in the past. Related Data Home Medications Medication Instructions Recorded Confirmed gabapentin 600 mg tablet 600 mg PO QPM 04/19/21 07/12/22 levothyroxine 50 mcg tablet 50 mcg PO DAILY 04/19/21 07/12/22 lisinopril 40 mg tablet 20 mg PO DAILY 04/19/21 07/12/22 omeprazole 40 mg capsule,delayed 40 mg PO DAILY 04/19/21 07/12/22 release clonazepam 1 mg tablet 1 mg PO TID 04/29/21 07/12/22 trazodone 100 mg tablet 100 mg PO HS 04/29/21 07/12/22 lorazepam 0.5 mg tablet 0.5 mg BID PRN Anxiety 11/03/21 07/12/22 prazosin 1 mg capsule 1 mg PO HS 11/03/21 07/12/22 risperidone 1 mg tablet 1 mg PO HS 11/03/21 07/12/22 sertraline 100 mg tablet 150 mg PO DAILY 11/03/21 07/12/22 atorvastatin 80 mg tablet 80 mg PO HS 04/10/22 07/12/22 lactulose 20 gram/30 mL oral 20 g PO BID PRN Constipation 04/10/22 07/12/22 solution Allergies Allergy/AdvReac Type Severity Reaction Status Date / Time chlorpromazine Allergy Itching Verified 08/25/22 12:36 [From Thorazine] latex Allergy Rash Verified 08/25/22 12:36 lithium Allergy Back Pain Verified 08/25/22 12:36 quetiapine [From Seroquel] Allergy Hallucinati Verified 08/25/22 12:36 ng Review of Systems Review of Systems: CONST: No fever. HEENT: No sore throat C/V: No chest pain RESP: No cough GI: No abdominal pain : No dysuria. M/S: All over muscles and joints pain SKIN: No rash. NEURO: [No focal numbness or weakness] PSYCH: [Depression] [facility] Past Medical History Medical History Anxiety Asthma, mild intermittent Bipolar affect, depressed COPD (chronic obstructive pulmonary disease) DVT (deep venous thrombosis) Lower extremity DVT in 2019 while hospitalized and intubated for acute respiratory failure. Treated with anticoagulation and no longer on any oral anticoagulation. GERD (gastroesophageal reflux disease) History of ARDS Hypertension Morbid obesity Obesity hypoventilation syndrome IRMA on CPAP Peripartum cardiomyopathy 2005 Small intestinal bacterial overgrowth (SIBO) Tobacco abuse Surgical History Surgical History H/O tubal ligation performed during History of section History of laparoscopic appendectomy History of thyroidectomy, subtotal for benign nodule Hx laparoscopic cholecystectomy 10/11/20 Family History Family History Father Diabetes mellitus Acute myocardial infarction Hypertension Congestive heart failure Rectal cancer Mother No problems noted. Social History Social History Social History: Surrogate medical decision maker: Ronn Awaddieter, spouse. Code status: Full code. Smoking packs per day: 1 Smoking cigarettes per day: 20.0 Years smoked: 15 Smoking pack-years: 15.00 Smoking status: Heavy tobacco smoker Tobacco type: cigarettes Second hand tobacco smoke exposure: Yes Smoking end date: 03/31/22 Additional smoking assessment comments: 3 packs per week Alcohol intake: never Drinks per week: 1 Substance use: never Substance use type: does not use Other substance usage details: marijuana Last use:
[2022-08-25 13:00] VITALS: BP 126/81; PULSE 82; RESP 16; O2SAT 95
[2022-08-25] MEDS: LORazepam INJ (*CRX) 2 MG/ML VIAL 0.5 MG IV PUSH (13:22)
[2022-08-25 14:00] VITALS: BP 133/93; PULSE 73; RESP 16; O2SAT 96
[2022-08-25 14:43] LABS: Basophils Percent Auto 0.6 % (0.2-1.2); Eosinophils Absolute Auto 0.1 K/mm3 (0-0.3); Eosinophils Percent Auto 1.7 % (0-4.4); Hematocrit 41.7 % (37.0-47.0); Hemoglobin 13.2 g/dL (12.0-15.0); Immature Granulocyte Absolute 0.03 K/mm3 (0.00-0.031); Immature Granulocyte Percent A 0.5 % (0-0.5); Immature Platelet Fraction Pct 4.2 % (0.9-11.2); Lymphocytes Percent Auto 34.9 % (18.3-44.2); Mean Corpuscular HGB Conc 31.7 g/dl (32-36); Mean Corpuscular Hemoglobin 28.3 pg (26-34); Mean Corpuscular Volume 89.5 fl (80-100); Mean Platelet Volume 9.9 fl (7.4-10.4); Monocytes Absolute Auto 0.3 K/mm3 (0.1-0.6); Monocytes Percent Auto 4.9 % (2.6-8.5); Neutrophils Absolute Auto 3.6 K/mm3 (1.3-6.7); Neutrophils Percent Auto 57.4 % (45.5-73.1); Platelet Count Result 214 k/mm3 (150-375); Red Blood Count 4.66 M/mm3 (4.2-5.4); Red Cell Distribution Width 19.8 % (11.5-14.5); White Blood Count 6.3 K/mm3 (4.5-10.0)
[2022-08-25 14:52] LABS: Alanine Aminotransferase 30 U/L (6-35); Albumin Level 4.4 g/dL (3.5-5.1); Alkaline Phosphatase 117 U/L (38-126); Anion Gap 3 mmol/L (8-16); Aspartate Amino Transferase 27 U/L (14-36); Bilirubin,Total 0.3 mg/dL (0.2-1.3); Blood Urea Nitrogen 8 mg/dL (7-17); Carbon Dioxide 30 mmol/L (22-30); Chloride 106 mmol/L (98-107); Estimated CRCL calculation 97 ml/min; Estimated Glomerular Filt Rate > 60; Glucose 99 mg/dL (65-110); Potassium 4.3 mmol/L (3.4-5.0); Sodium 139 mmol/L (137-145)
[2022-08-25 15:32] VITALS: BP 135/94; PULSE 78; RESP 18; O2SAT 100
== END 2022-08-25 15:34 | disposition home or self-care (01) ==
PROVIDERS: Emergency Provider Emergency Medicine; PCP Internal Medicine
DX: G89.29 Other chronic pain (principal); J45.20 Mild intermittent asthma, uncomplicated; J44.9 Chronic obstructive pulmonary disease, unspecified; I10 Essential (primary) hypertension; E89.0 Postprocedural hypothyroidism; E66.2 Morbid (severe) obesity with alveolar hypoventilation; Z68.42 Body mass index [BMI] 45.0-49.9, adult; K21.9 Gastro-esophageal reflux disease without esophagitis; F41.9 Anxiety disorder, unspecified; Z86.718 Personal history of other venous thrombosis and embolism; Z87.891 Personal history of nicotine dependence
CPT/HCPCS: 36415; 80053; 85025; 85055; 96374; 99284; J2060